=== PATIENT | female | born 1945 | race Caucasian/White ===

== ENCOUNTER 2017-12-11 09:57 | Inpatient (IN) | payer MEDICARE, OTHER ==
[2017-12-11] MEDS ORDERED: VANCOMYCIN IV PER PHARMACY 1 EACH MISC MISCELLANE PRN (13:57)
--- NOTE | 2017-12-11 14:21 | XR ---
EXAMINATION TYPE: XR chest 2V DATE OF EXAM: 12/11/2017 COMPARISON: 07/09/2014 TECHNIQUE: PA and lateral views submitted. HISTORY: Shortness of breath FINDINGS: The lungs are clear and there is no pneumothorax, pleural effusion, or focal pneumonia. Heart is en larged. There is widening of the right AC joint which appears chronic. Surgical clips overlying the r ight axilla. There is mild central interstitial prominence. There is limited inspiration. IMPRESSION: 1. Mild central interstitial prominence may be secondary to poor inspiration rather than interstitial pneumonitis or early venous congestion. Correlate clinically.
[2017-12-11] MEDS ORDERED: VANCOMYCIN 1,750 MG in SODIUM CHLORIDE 0.9% 500 ML 500 ML IVPB ONE (14:30)
--- NOTE | 2017-12-11 14:56 | US ---
EXAMINATION TYPE: US venous doppler duplex LE BI DATE OF EXAM: 12/11/2017 2:35 PM COMPARISON: 09/05/2013 CLINICAL HISTORY: leg edema. Bilateral leg swelling/redness SIDE PERFORMED: Bilateral TECHNIQUE: The lower extremity deep venous system is examined utilizing real time linear array sonog rakel with graded compression, doppler sonography and color-flow sonography. VESSELS IMAGED: External Iliac Vein (EIV) Common Femoral Vein Deep Femoral Vein Greater Saphenous Vein * Femoral Vein Popliteal Vein Small Saphenous Vein * Proximal Calf Veins (* superficial vessels) Bilateral distal femoral veins not visualized due to edema and large pt body habitus Right Leg: Visualized portions appeared negative for DVT Left Leg: Visualized portions appeared negative for DVT IMPRESSION: 1. Limited exam demonstrates No diagnostic evidence of DVT as visualized. Note is made the distal sup erficial femoral veins were not visualized due to patient body habitus.
[2017-12-11 15:45] LABS: Basophils % (A) 0 %; Eosinophils # (A) 0.1 k/uL (0-0.7); Eosinophils % (A) 1 %; HCT 37.9 % (34.0-46.0); HGB 12.1 gm/dL (11.4-16.0); Hypochromasia Slight; Lymphocytes # (A) 1.2 k/uL (1.0-4.8); Lymphocytes % (A) 18 %; MCH 34.5 pg (25.0-35.0); MCV 107.7 fL (80.0-100.0); Macrocytosis Moderate; Mean Platelet Volume 10.1; Monocytes # (A) 0.4 k/uL (0-1.0); Monocytes % (A) 6 %; Neutrophils # (A) 4.7 k/uL (1.3-7.7); Neutrophils % (A) 73 %; Platelet Count 203 k/uL (150-450); RBC 3.52 m/uL (3.80-5.40); RDW 13.2 % (11.5-15.5); WBC 6.4 k/uL (3.8-10.6)
[2017-12-11 15:51] LABS: ALT 12 U/L (9-52); AST 19 U/L (14-36); Albumin 3.6 g/dL (3.5-5.0); Alkaline Phosphatase 70 U/L (38-126); Anion Gap 8 mmol/L; Blood Urea Nitrogen 13 mg/dL (7-17); Calcium 8.7 mg/dL (8.4-10.2); Carbon Dioxide 26 mmol/L (22-30); Chloride 107 mmol/L (98-107); Glucose 120 mg/dL (74-99); Potassium 4.1 mmol/L (3.5-5.1); Sodium 141 mmol/L (137-145); Total Bilirubin 0.8 mg/dL (0.2-1.3); Total Protein 7.3 g/dL (6.3-8.2)
[2017-12-11] MEDS: HYDROcodone/APAP 10-325MG 1 EACH TAB PO PRN (17:47)
--- NOTE | 2017-12-11 18:32 | ECHOF ---
Referral Reason:CHF MEASUREMENTS -------- HEIGHT: 162.6 cm WEIGHT: 97.5 kg BP: 157/78 RVIDd: 2.8 cm (< 3.3) IVSd: 1.2 cm (0.6 - 1.1) LVIDd: 4.0 cm (3.9 - 5.3) LVPWd: 1.3 cm (0.6 - 1.1) IVSs: 1.7 cm LVIDs: 2.7 cm LVPWs: 1.5 cm LA Diam: 3.3 cm (2.7 - 3.8) Ao Diam: 3.4 cm (2.0 - 3.7) AV Cusp: 2.0 cm (1.5 - 2.6) MV EXCURSION: 18.742 mm (> 18.000) MV EF SLOPE: 103 mm/s (70 - 150) EPSS: 0.7 cm FINDINGS -------- Sinus rhythm. This was a technically difficult study with suboptimal views. The left ventricular size is normal. There is mild concentric left ventricular hypertrophy. Overa ll left ventricular systolic function is moderately impaired with, an EF between 35 - 40 %. Mid ant erior LV wall motion is hypokinetic. Mid lateral LV wall motion is hypokinetic. Apical anterior LV wall motion is hypokinetic. Apical lateral LV wall motion is hypokinetic. Apical septum LV wall motion is hypokinetic. The right ventricle is normal in size. The left atrial size is normal. The right atrium is normal in size. The aortic valve was not well visualized. Mild mitral annular calcification present. Mild mitral regurgitation is present. The tricuspid valve was not well visualized. The pulmonic valve was not well visualized. The aortic root size is normal. IVC Not well visulized. There is no pericardial effusion. CONCLUSIONS -------- 1. This was a technically difficult study with suboptimal views. 2. The left ventricular size is normal. 3. There is mild concentric left ventricular hypertrophy. 4. Overall left ventricular systolic function is moderately impaired with, an EF between 35 - 40 %. 5. Mid anterior LV wall motion is hypokinetic. 6. Mid lateral LV wall motion is hypokinetic. 7. Apical anterior LV wall motion is hypokinetic. 8. Apical lateral LV wall motion is hypokinetic. 9. Apical septum LV wall motion is hypokinetic. 10. The left atrial size is normal. 11. The aortic valve was not well visualized. 12. Mild mitral annular calcification present. 13. Mild mitral regurgitation is present. 14. The pulmonic valve was not well visualized. 15. The aortic root size is normal. 16. IVC Not well visulized. 17. There is no pericardial effusion. DATA OFFICER: Maya Sanchez RDCS
[2017-12-11] MEDS: HEPARIN SODIUM,PORCINE 5,000 UNIT/ML 1 ML VIAL SQ SCH ×2 (21:15→21:18)
[2017-12-11] MEDS: clonazePAM 1 MG TAB PO SCH (21:15)
[2017-12-11] MEDS: TROSPIUM CHLORIDE 20 MG TABLET PO SCH (21:15)
[2017-12-12] MEDS: HYDROcodone/APAP 10-325MG 1 EACH TAB PO PRN ×4 (01:52→20:49)
[2017-12-12] MEDS ORDERED: VANCOMYCIN 1,500 MG in SODIUM CHLORIDE 0.9% 250 ML IVPB SCH (08:00)
[2017-12-12] MEDS: METOPROLOL TARTRATE 12.5 MG TAB PO SCH ×2 (08:17→20:40)
[2017-12-12] MEDS: HEPARIN SODIUM,PORCINE 5,000 UNIT/ML 1 ML VIAL SQ SCH ×2 (08:18→20:41)
[2017-12-12] MEDS: LISINOPRIL 20 MG TAB PO SCH (08:18)
[2017-12-12] MEDS: ARTIFICIAL TEARS-HYPROMELLOSE DROPS 15 ML BTL BOTH EYES SCH (08:19)
[2017-12-12] MEDS: FUROSEMIDE 10 MG/ML 4 ML VIAL IV SCH ×2 (08:19→20:40)
[2017-12-12] MEDS: TROSPIUM CHLORIDE 20 MG TABLET PO SCH ×2 (08:20→20:39)
[2017-12-12] MEDS: tiZANidine 4 MG TAB PO SCH (08:20)
--- NOTE | 2017-12-12 08:20 | P.CRDCN ---
History of Present Illness History of present illness: Mrs. García is a pleasant 72-year-old female past medical history significant for mild CAD with 40-50% lesion in OM per cath in 2015, chronic systolic heart failure EF 40% in 2015, hypertension, COPD, chronic lower extremity lymphedema followed in the lymphedema clinic with Dr. Rubio, GERD and hypothyroidism. She has seen Dr. Poole in the office previously, but not since 2015. We have been asked to see her in consultation for CHF. She apparently went to see Dr. Mendoza yesterday in the office and was sent here as a direct admit for further evaluation and antibiotics for lower extremity swelling and cellulitus. She states the swelling has been getting progressively worse over the past year. She was referred to the lymphedema clinic last month and had her legs wrapped which seemed to help. She hasn't wrapped them since. She also complains of shortness of breath mostly at rest that is ongoing and not any worse lately than her baseline. She sleeps propped up on 2-3 pillows at night due to chronic neck pain for which she sees Dr. Spivey and gets regular injections for pain. She denies chest pain, dizziness or palpitations. She complains of intermittent dry cough that is chronic with no changes recently. She denies recent weight change. No EKG obtained on admission. Chest xray indicates mild interstitial prominence secondary to poor inspiration. No overt heart failure. Laboratory data reviewed, hgb 12.1, plt 203, sodium 141, potassium 4.1, creatinine 0.68. Current cardiac medications include lasix 40 mg daily and lisinopril 20 mg daily. She also takes clonazepam, tizanidine, norco and toviaz. Review of Systems At the time of my exam: CONSTITUTIONAL: Denies fever. Denies chills. EYES: Denies blurred vision. Denies vision changes. Denies eye pain. EARS, NOSE, MOUTH & THROAT: Denies headache. Denies sore throat. Denies ear pain. CARDIOVASCULAR: Denies chest pain. Complains of shortness of breath. Denies orthopnea. Denies PND. Denies palpitations. RESPIRATORY: Complains of cough. GASTROINTESTINAL: Denies abdominal pain. Denies diarrhea. Denies constipation. Denies nausea. Denies vomiting. MUSCULOSKELETAL: Denies myalgias. INTEGUMENTARY: Denies pruitis. Denies rash. Complains of lower extremity swelling and pain. NEUROLOGIC: Denies numbness. Denies tingling. Denies weakness. PSYCHIATRIC: Denies anxiety. Denies depression. ENDOCRINE: Denies fatigue. Denies weight change. Denies polydipsia. Denies polyurina. GENITOURINARY: Denies burning, hematuria or urgency with micturation. HEMATOLOGIC: Denies history of anemia. Denies bleeding. Past Medical History Past Medical History: Chest Pain / Angina, Heart Failure, COPD, Eye Disorder, GERD/Reflux, Hypertension, Myocardial Infarction ([place]), Osteoarthritis (OA), Pneumonia, Thyroid Disorder Additional Past Medical History / Comment(s): Pt states she has had problems with bilateral leg edema and sores/cellulitis for the past 2 years-at times everything improves and then worsens again and L leg is always worse, urinary incontinence, bronchitis, hypothyroid, DDD cervical spine and lower back, cervical and low back chronic pain, arthritis bilateral wrists and fingers, pt states she has been told she has a bone spur in her L ankle or foot, "blocked" bile duct a couple of times, migraines, possible bilateral cataracts, Last Myocardial Infarction Date:: about 2009-pt unsure where she was hospitalized. History of Any Multi-Drug Resistant Organisms: None Reported Past Surgical History: Appendectomy, Cholecystectomy, Heart Catheterization, Hysterectomy, Orthopedic Surgery Additional Past Surgical History / Comment(s): Cardiac cath about 2009 and pt states she was treated medically, EGDs to "unplug" bile duct, colonoscopies, bilateral salpingoophorectomies, L ankle shattered-surgical repair with hardware and pt believes hardware is all removed now, cystoscopies to "stretch" her bladder, cervical and low back injections. Past Anesthesia/Blood Transfusion Reactions: Motion Sickness Smoking Status: Never smoker - Past Family History Mother Family Medical History: Cancer Additional Family Medical History / Comment(s): Mother from metastatic breast cancer at the age of 52 yrs. Father Family Medical History: Coronary Artery Disease (CAD), Myocardial Infarction ([place] ) Additional Family Medical History / Comment(s): Father had his first Mi around age 78yrs. He has about 3 MIs total and from his last one at the age of 80yrs. Medications and Allergies Home Medications Medication Instructions Recorded Confirmed Type Artificial Tears-Hypromellose 1 drop BOTH EYES DAILY 12/11/17 12/11/17 History [Artificial Tear Drops] Fesoterodine Fumarate [Toviaz] 8 mg PO DAILY 12/11/17 12/11/17 History Furosemide [Lasix] 40 mg PO DAILY 12/11/17 12/11/17 History Hydrocodone/Acetaminophen [[place] 1 tab PO Q4-6H PRN 12/11/17 12/11/17 History 10-325] Lisinopril [Prinivil] 20 mg PO DAILY 12/11/17 12/11/17 History clonazePAM 1 mg PO BID 12/11/17 12/11/17 History tiZANidine HCL 4 mg PO DAILY 12/11/17 12/11/17 History Allergies Allergy/AdvReac Type Severity Reaction Status Date / Time buspirone [From BuSpar] AdvReac Unknown Verified 12/11/17 13:24 Physical Exam Vitals: Vital Signs Temp Pulse Pulse Resp BP Pulse Ox 12/12/17 07:25 98.3 F 99 18 117/58 94 L 12/12/17 04:59 98.7 F 90 18 123/57 92 L 12/12/17 00:00 16 12/11/17 21:00 99.0 F 98 16 148/69 93 L 12/11/17 12:41 97.6 F 97 17 157/78 99 Intake and Output 12/11/17 12/12/17 12/12/17 22:59 06:59 14:59 Intake Total 830 Balance 830 Intake: Intake, IV Titration 350 Amount Vancomycin 1,500 mg In 350 Sodium Chloride 0.9% 250 ml @ 125 mls/hr IVPB Q16H [facility] Rx#:[id number] Oral 480 Other: Voiding Method Toilet Toilet # Voids 1 2 Weight 105.5 kg Blood pressure 123/57 heart rate 90 afebrile maintaining oxygen saturation on room air GENERAL: This is a 72-year-old female in no apparent distress at the time of my examination. Obese. HEENT: Head is atraumatic, normocephalic. Pupils are equal, round. Sclerae anicteric. Conjunctivae are clear. Mucous membranes of the mouth are moist. Neck is supple. There is no jugular venous distention. No carotid bruit is heard. LUNGS: Clear to auscultation no wheezes, rales or rhonchi. No chest wall tenderness is noted on palpation or with deep breathing. HEART: Regular rate and rhythm without murmurs, rubs or gallops. S1 and S2 heard. ABDOMEN: Soft, nontender. Bowel sounds are heard. No organomegaly noted. EXTREMITIES: Significant bilateral lower extremity edema with color change indicative of venous statis. Tender to touch. No calf tenderness noted. VASCULAR: Radial and dorsalis pedis pulses palpated, no evidence of clubbing. NEUROLOGIC: Patient is awake, alert and oriented x3. Results 12/11/17 15:28 12/11/17 15:28 Cardiac Enzymes 12/11/17 Range/Units 15:28 AST 19 (14-36) U/L CBC 12/11/17 Range/Units 15:28 WBC 6.4 (3.8-10.6) k/uL RBC 3.52 L (3.80-5.40) m/uL Hgb 12.1 (11.4-16.0) gm/dL Hct 37.9 (34.0-46.0) % Plt Count 203 (150-450) k/uL Comprehensive Metabolic Panel 12/11/17 Range/Units 15:28 Sodium 141 (137-145) mmol/L Potassium 4.1 (3.5-5.1) mmol/L Chloride 107 (98-107) mmol/L Carbon Dioxide 26 (22-30) mmol/L BUN 13 (7-17) mg/dL Creatinine 0.68 (0.52-1.04) mg/dL Glucose 120 H (74-99) mg/dL Calcium 8.7 (8.4-10.2) mg/dL AST 19 (14-36) U/L ALT 12 (9-52) U/L Alkaline Phosphatase 70 (38-126) U/L Total Protein 7.3 (6.3-8.2) g/dL Albumin 3.6 (3.5-5.0) g/dL Current Medications Generic Name Dose Route Start Last Admin Trade Name Freq PRN Reason Stop Dose Admin Hydrocodone Bitart/Acetaminophen 1 each 12/11/17 13:52 12/12/17 07:12 [place] 10 PO 1 each Q4H PRN Administration Pain Artificial Tears 1 drops 12/12/17 09:00 Artificial Tear Drops BOTH EYES DAILY RAYMON Clonazepam 1 mg 12/11/17 21:00 12/11/17 21:15 Klonopin PO 1 mg BID RAYMON Administration Furosemide 40 mg 12/12/17 09:00 Lasix IV Q12HR [facility] Heparin Sodium (Porcine) 5,000 unit 12/11/17 21:00 12/11/17 21:18 Heparin SQ Not Given Q12HR RAYMON Vancomycin HCl 1,500 mg/ 250 mls @ 125 mls/hr 12/12/17 08:00 Sodium Chloride IVPB Q16H RAYMON Lisinopril 20 mg 12/12/17 09:00 Zestril PO DAILY RAYMON Metoprolol Tartrate 12.5 mg 12/12/17 09:00 Lopressor PO BID RAYMON Tizanidine HCl 4 mg 12/12/17 09:00 Zanaflex PO DAILY RAYMON Trospium 20 mg 12/11/17 21:00 12/11/17 21:15 [place] PO 20 mg BID RAYMON Administration Intake and Output 12/11/17 12/12/17 12/12/17 22:59 06:59 14:59 Intake Total 830 Balance 830 Intake: Intake, IV Titration 350 Amount Vancomycin 1,500 mg In 350 Sodium Chloride 0.9% 250 ml @ 125 mls/hr IVPB Q16H [facility] Rx#:[id number] Oral 480 Other: Voiding Method Toilet Toilet # Voids 1 2 Weight 105.5 kg 12/11/17 15:28 12/11/17 15:28 Assessment and Plan Assessment: ASSESSMENT Lower extremity edema, mostly related to chronic lymphedema and probably cellulitus with some possibility of norma component of underlying systolic heart failure. Lungs are clear with no evidence of fluid overload. Chronic systolic heat failure, EF 35-40% Hypertension Mild CAD documented on catheterization from 2014 done at [facility] COPD Obesity PLAN Obtain baseline EKG. Check NTproBNP. Change lasix to IV 40 mg BID to diurese lower extremity fluid. Continue with lisinopril and add small dose of beta dee for systolic heart failure. Check lipid panel. Follow kidney function and electrolytes tomorrow morning. Ongoing medical management per vascular and wound care services. Further recommendations to follow based on clinical course. Thank you kindly for this consultation. Nurse Practitioner note has been reviewed, I agree with a documented findings and plan of care. Patient was seen and examined.
[2017-12-12] MEDS: clonazePAM 1 MG TAB PO SCH ×2 (08:25→20:39)
[2017-12-12] MEDS ORDERED: FUROSEMIDE 40 MG TAB PO SCH (09:00)
--- NOTE | 2017-12-12 10:12 | CONS ---
DATE OF CONSULTATION: 12/12/2017 This is a 72-year-old female. She has been admitted to [facility] under care of Dr. Mendoza. We were consulted for leg evaluation. The patient is known to me from my office. The patient has been worked up for lymphedema. We did the venous ultrasound. Patient has no DVT. No reflux. The patient was sent to lymphedema clinic in [place] and she has been evaluated in the lymphedema clinic. MEDICAL HISTORY: History of hypertension, obesity. PHYSICAL EXAMINATION: The patient on examination was seen in her room. VITAL SIGNS: Stable. NECK: Supple, trachea central. CHEST: Clear to auscultation. ABDOMEN: Soft. The patient has bilateral lymphedema with cellulitis affecting the both lower extremities. PLAN: Silvadene cream and Jay wrap with one pillow elevation. At this point there is no role of any vascular surgical intervention. The patient needs to follow in the lymphedema clinic and when discharged I will follow in my office. We will use Silvadene cream with compression wrap and one pillow elevation. Will follow with you. MMODL / IJN: [id number] / KATIE
--- NOTE | 2017-12-12 12:33 | P.HPIM ---
History of Present Illness 72-year-old female presented to family physician with complaints of increasing drainage to lower extremities. Patient does have a history of lymphedema has seen Dr. Leahy for the same and was referred to the lymphedema clinic in [place]. Patient does have history congestive heart failure ejection fraction at this time 35%. Patient to have consultation with Dr. Felix regarding cellulitis of lower extremities. Patient is morbidly obese Review of Systems Constitutional: Reports fatigue Cardiovascular: Reports leg edema Respiratory: Reports dyspnea Integumentary: Reports foot/leg ulcers Past Medical History Past Medical History: Chest Pain / Angina, Heart Failure, COPD, Eye Disorder, GERD/Reflux, Hypertension, Myocardial Infarction ([place]), Osteoarthritis (OA), Pneumonia, Thyroid Disorder Additional Past Medical History / Comment(s): Pt states she has had problems with bilateral leg edema and sores/cellulitis for the past 2 years-at times everything improves and then worsens again and L leg is always worse, urinary incontinence, bronchitis, hypothyroid, DDD cervical spine and lower back, cervical and low back chronic pain, arthritis bilateral wrists and fingers, pt states she has been told she has a bone spur in her L ankle or foot, "blocked" bile duct a couple of times, migraines, possible bilateral cataracts, Last Myocardial Infarction Date:: about 2009-pt unsure where she was hospitalized. History of Any Multi-Drug Resistant Organisms: None Reported Past Surgical History: Appendectomy, Cholecystectomy, Heart Catheterization, Hysterectomy, Orthopedic Surgery Additional Past Surgical History / Comment(s): Cardiac cath about 2009 and pt states she was treated medically, EGDs to "unplug" bile duct, colonoscopies, bilateral salpingoophorectomies, L ankle shattered-surgical repair with hardware and pt believes hardware is all removed now, cystoscopies to "stretch" her bladder, cervical and low back injections. Past Anesthesia/Blood Transfusion Reactions: Motion Sickness Smoking Status: Never smoker - Past Family History Mother Family Medical History: Cancer Additional Family Medical History / Comment(s): Mother from metastatic breast cancer at the age of 52 yrs. Father Family Medical History: Coronary Artery Disease (CAD), Myocardial Infarction ([place] ) Additional Family Medical History / Comment(s): Father had his first Mi around age 78yrs. He has about 3 MIs total and from his last one at the age of 80yrs. Medications and Allergies Home Medications Medication Instructions Recorded Confirmed Type Artificial Tears-Hypromellose 1 drop BOTH EYES DAILY 12/11/17 12/11/17 History [Artificial Tear Drops] Fesoterodine Fumarate [Toviaz] 8 mg PO DAILY 12/11/17 12/11/17 History Furosemide [Lasix] 40 mg PO DAILY 12/11/17 12/11/17 History Hydrocodone/Acetaminophen [[place] 1 tab PO Q4-6H PRN 12/11/17 12/11/17 History 10-325] Lisinopril [Prinivil] 20 mg PO DAILY 12/11/17 12/11/17 History clonazePAM 1 mg PO BID 12/11/17 12/11/17 History tiZANidine HCL 4 mg PO DAILY 12/11/17 12/11/17 History Allergies Allergy/AdvReac Type Severity Reaction Status Date / Time buspirone [From BuSpar] AdvReac Unknown Verified 12/11/17 13:24 Physical Exam Vitals: Vital Signs Temp Pulse Pulse Resp BP Pulse Ox 12/12/17 09:03 18 12/12/17 07:25 98.3 F 99 18 117/58 94 L 12/12/17 04:59 98.7 F 90 18 123/57 92 L 12/12/17 00:00 16 12/11/17 21:00 99.0 F 98 16 148/69 93 L 12/11/17 12:41 97.6 F 97 17 157/78 99 Intake and Output 12/11/17 12/12/17 12/12/17 22:59 06:59 14:59 Intake Total 830 380 Balance 830 380 Intake: Intake, IV Titration 350 Amount Vancomycin 1,500 mg In 350 Sodium Chloride 0.9% 250 ml @ 125 mls/hr IVPB Q16H [facility] Rx#:[id number] Oral 480 380 Other: Voiding Method Toilet Toilet Toilet # Voids 1 2 Weight 105.5 kg 105.5 kg - Constitutional General appearance: morbidly obese - EENT Eyes: PERRLA Ears: bilateral: normal - Neck Neck: normal ROM - Respiratory Respiratory: left: diminished - Cardiovascular Rhythm: regular leg Peripheral Edema: bilateral: 4+ - Gastrointestinal General gastrointestinal: soft - Integumentary Bilateral lower extremities oozing for pitting edema open wounds to posterior legs Integumentary: ulcer - Neurologic Neurologic: CNII-XII intact - Musculoskeletal Musculoskeletal: generalized weakness - Psychiatric Psychiatric: A&O x's 3, appropriate affect, intact judgment & insight Results CBC & Chem 7: 12/11/17 15:28 12/11/17 15:28 Labs: Abnormal Lab Results - Last 24 Hours (Table) 12/11/17 12/11/17 Range/Units 15:28 15:28 RBC 3.52 L (3.80-5.40) m/uL MCV 107.7 H (80.0-100.0) fL Glucose 120 H (74-99) mg/dL Microbiology - Last 24 Hours (Table) 12/11/17 17:57 Gram Stain - Preliminary Leg - Left Wound Culture - Preliminary Chest x-ray: report reviewed Venous US: report reviewed Thrombosis Risk Factor Assmnt - Choose All That Apply Any of the Below Risk Factors Present?: Yes Each Factor Represents 1 point: Heart failure (<1month), Obesity (BMI >25) Other Risk Factors: Yes Each Risk Factor Represents 2 Points: Age 61-74 years Other congenital or acquired thrombophilia - If yes, enter type in comment: No Thrombosis Risk Factor Assessment Total Risk Factor Score: 4 Thrombosis Risk Factor Assessment Level: Moderate Risk Assessment and Plan Plan: Assessment Bilateral lower extremity cellulitis Lymphedema chronic history [facility] [place] [facility] Congestive heart failure acute on chronic 35% ejection fraction systolic dysfunction Morbid obesity BMI 39.9 History of [place] COPD GERD Hypertension Osteoarthritis with degenerative disc disease Hypothyroidism Plan Consultation with Dr. Felix regarding cellulitis Consultation with Dr. Rubio regarding chronic lymphedema Consultation with cardiology regarding congestive heart failure
--- NOTE | 2017-12-12 22:42 | P.CONS ---
History of Present Illness - Reason for Consult Consult date: 12/12/17 - Chief Complaint edema - History of Present Illness 72-year-old woman who has a history of chronic bilateral lower extremity edema with lymphedema followed by the vascular surgeon presents to hospital with increasing swelling and pain to the left leg with erythema and drainage. Because it was uncomfortable and worsening with the drainage she does present to the emergency center and has been admitted for further intervention. Vascular surgery evaluation has been done with evidence of no new deep venous thrombosis and no need for any surgical intervention at this time. The patient is somewhat uncomfortable and with the evidence for cellulitis the infectious diseases consultation was requested. She is denying high-grade fevers chills rigors or sweats. Review of Systems 72-year-old woman who is somewhat uncomfortable because of the swelling into her legs especially the left with some discomfort. HEENT:Denies headache or acute visual change. Denies sinus or mouth discomforts. Denies neck stiffness or pain. Denies significant oral cavity pain. Denies difficulty on swallowing. Lungs: She denying significant cough or sputum production or hemoptysis but does have some baseline shortness of breath that is not acutely changed Cardiovascular: No new shortness of breath and is denying chest pain, chest wall pain, orthopnea, or worsening dyspnea dyspnea on exertion: No syncope Gastrointestinal:Denies nausea, vomiting, diarrhea, constipation, hematemesis, melena, hematochezia. No no significant change of bowel habit noticed. Musculoskeletal: denies significant myalgias or arthralgias. No new joint swelling. Chronic back pain nothing new Skin: As per the HPI erythema and drainage the left leg Neuro: Denies headache or visual change. Denies any new onset weakness or difficulty with ambulation. Denies falls or seizures. Psychiatric:Denies anxiety or depression. Endocrine: Chronic fatigue is difficulty with weight gain Past Medical History Past Medical History: Chest Pain / Angina, Heart Failure, COPD, Eye Disorder, GERD/Reflux, Hypertension, Myocardial Infarction ([place]), Osteoarthritis (OA), Pneumonia, Thyroid Disorder Additional Past Medical History / Comment(s): Pt states she has had problems with bilateral leg edema and sores/cellulitis for the past 2 years-at times everything improves and then worsens again and L leg is always worse, urinary incontinence, bronchitis, hypothyroid, DDD cervical spine and lower back, cervical and low back chronic pain, arthritis bilateral wrists and fingers, pt states she has been told she has a bone spur in her L ankle or foot, "blocked" bile duct a couple of times, migraines, possible bilateral cataracts, Last Myocardial Infarction Date:: about 2009-pt unsure where she was hospitalized. History of Any Multi-Drug Resistant Organisms: None Reported Past Surgical History: Appendectomy, Cholecystectomy, Heart Catheterization, Hysterectomy, Orthopedic Surgery Additional Past Surgical History / Comment(s): Cardiac cath about 2009 and pt states she was treated medically, EGDs to "unplug" bile duct, colonoscopies, bilateral salpingoophorectomies, L ankle shattered-surgical repair with hardware and pt believes hardware is all removed now, cystoscopies to "stretch" her bladder, cervical and low back injections. Past Anesthesia/Blood Transfusion Reactions: Motion Sickness Additional Psychological History / Comment(s): Retired. Nonsmoker. Lives with her children. No animal exposures. No international travel. The experience Smoking Status: Never smoker - Past Family History Mother Family Medical History: Cancer Additional Family Medical History / Comment(s): Mother from metastatic breast cancer at the age of 52 yrs. Father Family Medical History: Coronary Artery Disease (CAD), Myocardial Infarction ([place] ) Additional Family Medical History / Comment(s): Father had his first Mi around age 78yrs. He has about 3 MIs total and from his last one at the age of 80yrs. Medications and Allergies Home Medications and Allergies Comment(s): Current Medications Hydrocodone Bitart/Acetaminophen (Brighton 10) 1 each PO Q4H PRN PRN Reason: Pain Last Admin: 12/12/17 20:49 Dose: 1 each Artificial Tears (Artificial Tear Drops) 1 drops BOTH EYES DAILY [facility] Last Admin: 12/12/17 08:19 Dose: 1 drops Clonazepam (Klonopin) 1 mg PO BID [facility] Last Admin: 12/12/17 20:39 Dose: 1 mg Furosemide (Lasix) 40 mg IV Q12HR R[facility]MON Last Admin: 12/12/17 20:40 Dose: 40 mg Heparin Sodium (Porcine) (Heparin) 5,000 unit SQ Q12HR [facility]MON Last Admin: 12/12/17 20:41 Dose: Not Given Vancomycin HCl 1,750 mg/ (Sodium Chloride) 500 mls @ 167 mls/hr IVPB Q16H [facility] Lisinopril (Zestril) 20 mg PO DAILY [facility] Last Admin: 12/12/17 08:18 Dose: 20 mg Metoprolol Tartrate (Lopressor) 12.5 mg PO BID [facility] Last Admin: 12/12/17 20:40 Dose: 12.5 mg Silver Sulfadiazine (Silvadene Cream) 1 applic TOPICAL BID@0900,2100 [facility] Last Admin: 12/12/17 20:41 Dose: 1 applic Tizanidine HCl (Zanaflex) 4 mg PO DAILY [facility] Last Admin: 12/12/17 08:20 Dose: 4 mg Trospium (Sanctura) 20 mg PO BID [facility] Last Admin: 12/12/17 20:39 Dose: 20 mg Home Medications Medication Instructions Recorded Confirmed Type Artificial Tears-Hypromellose 1 drop BOTH EYES DAILY 12/11/17 12/11/17 History [Artificial Tear Drops] Fesoterodine Fumarate [Toviaz] 8 mg PO DAILY 12/11/17 12/11/17 History Furosemide [Lasix] 40 mg PO DAILY 12/11/17 12/11/17 History Hydrocodone/Acetaminophen [Brighton 1 tab PO Q4-6H PRN 12/11/17 12/11/17 History 10-325] Lisinopril [Prinivil] 20 mg PO DAILY 12/11/17 12/11/17 History clonazePAM 1 mg PO BID 12/11/17 12/11/17 History tiZANidine HCL 4 mg PO DAILY 12/11/17 12/11/17 History Allergies Allergy/AdvReac Type Severity Reaction Status Date / Time buspirone [From BuSpar] AdvReac Unknown Verified 12/11/17 13:24 Physical Exam Vitals: Vital Signs Temp Pulse Resp BP Pulse Ox 12/12/17 21:00 98.3 F 89 16 138/56 93 L 12/12/17 13:00 96.0 F L 75 18 112/55 98 12/12/17 12:28 96.0 F L 71 18 117/58 96 12/12/17 09:03 18 12/12/17 07:25 98.3 F 99 18 117/58 94 L 12/12/17 04:59 98.7 F 90 18 123/57 92 L 12/12/17 00:00 16 Intake and Output 12/12/17 12/12/17 12/12/17 06:59 14:59 22:59 Intake Total 780 480 Balance 780 480 Intake: Oral 780 480 Other: Voiding Method Toilet Toilet Toilet Diaper # Voids 2 1 Weight 105.5 kg 105.5 kg Pleasant 72-year-old woman who has a BMI of 39.9 is somewhat uncomfortable but not profoundly short of breath. HEENT: Anicteric conjunctiva are pink and moist nasal mucosa grossly intact without significant lesions, there is no thrush. Dentition is very worn Neck: The neck is supple without significant lymphadenopathy or thyromegaly. Lungs: There is symmetrical air entry, few crackles in the bilateral bases without dav bronchial sounds no dullness or egophony Heart: Irregular with a soft S4 no murmur click or a PMI was nondisplaced Abdomen: Obese, Positive bowel sounds soft and nontender without palpable masses or organomegaly. There was no guarding or rebound. Extremities: The upper extremities have excellent pulses they are symmetric, no significant petechiae or telangiectasia. No splinter hemorrhages were noted. The lower extremity films the bilateral lower extremity edema left greater than the right. There is evidence of the dense erythema in the leg with evidence of significant weeping along the lateral aspect of the leg. It is quite tender to touch. There is warmth there is no fluctuance or abscess seen. Neuro: Awake alert oriented to person place and time. There are no acute new gross focal sensory motor deficits. Results CBC & Chem 7: 12/11/17 15:28 12/11/17 15:28 Labs: Microbiology - Last 24 Hours (Table) 12/11/17 17:57 Gram Stain - Preliminary Leg - Left Wound Culture - Preliminary Gram Neg Bacilli Gram Neg Bacilli#2 12/11/17 15:28 Blood Culture - Preliminary Blood No Growth after 24 hours Laboratory Results WBC 6.4 k/uL (3.8-10.6) 12/11/17 15:28 RBC 3.52 m/uL (3.80-5.40) L 12/11/17 15:28 Hgb 12.1 gm/dL (11.4-16.0) 12/11/17 15:28 Hct 37.9 % (34.0-46.0) 12/11/17 15:28 MCV 107.7 fL (80.0-100.0) H 12/11/17: MCH 34.5 pg (25.0-35.0) 12/11/17: MCHC 32.0 g/dL (31.0-37.0) 12/11/17: RDW 13.2 % (11.5-15.5) 12/11/17: Plt Count 203 k/uL (150-450) 12/11/17: Neutrophils % 73 % 12/11/17: Lymphocytes % 18 % 12/11/17: Monocytes % 6 % 12/11/17: Eosinophils % 1 % 12/11/17: Basophils % 0 % 12/11/17 Neutrophils # 4.7 k/uL (1.3-7.7) 12/11/17: Lymphocytes # 1.2 k/uL (1.0-4.8) 12/11/17: Monocytes # 0.4 k/uL (0-1.0) 12/11/17: Eosinophils # 0.1 k/uL (0-0.7) 12/11/17: Basophils # 0.0 k/uL (0-0.2) 12/11/17: Hypochromasia Slight 12/11/17: Macrocytosis Moderate 12/11/17: Sodium 141 mmol/L (137-145) 12/11/17: Potassium 4.1 mmol/L (3.5-5.1) 12/11/17: Chloride 107 mmol/L (98-107) 12/11/17: Carbon Dioxide 26 mmol/L (22-30) 12/11/17: Anion Gap 8 mmol/L 12/11/17: BUN 13 mg/dL (7-17) 12/11/17: Creatinine 0.68 mg/dL (0.52-1.04) 12/11/17 15: Est GFR (CKD-EPI)AfAm >90 (>60 ml/min/1.73 sqM) 12/11/17: Est GFR (CKD-EPI)NonAf 86 (>60 ml/min/1.73 sqM) 12/11/17 15:28 Glucose 120 mg/dL (74-99) H 12/11/17 15:28 Calcium 8.7 mg/dL (8.4-10.2) 12/11/17 15:28 Magnesium 2.0 mg/dL (1.6-2.3) 12/12/17 09:31 Total Bilirubin 0.8 mg/dL (0.2-1.3) 12/11/17 15:28 AST 19 U/L (14-36) 12/11/17 15:28 ALT 12 U/L (9-52) 12/11/17 15:28 Alkaline Phosphatase 70 U/L (38-126) 12/11/17 15:28 NT-Pro-B Natriuret Pep 728 pg/mL 12/12/17 09:31 Total Protein 7.3 g/dL (6.3-8.2) 12/11/17 15:28 Albumin 3.6 g/dL (3.5-5.0) 12/11/17 15:28 Triglycerides 42 mg/dL (<150) 12/12/17 09:31 Cholesterol 130 mg/dL (<200) 12/12/17 09:31 LDL Cholesterol, Calc 74 mg/dL (0-99) 12/12/17 09:31 HDL Cholesterol 48 mg/dL (40-60) 12/12/17 09:31 Microbiology 12/11/17 17:57 Leg - Left Gram Stain - Preliminary 12/11/17 17:57 Leg - Left Wound Culture - Preliminary Gram Neg Bacilli Gram Neg Bacilli#2 12/11/17 15:28 Blood Blood Culture - Preliminary No Growth after 24 hours Assessment and Plan (1) CHF (congestive heart failure) Current Visit: Yes Status: Acute Code(s): I50.9 - HEART FAILURE, UNSPECIFIED SNOMED Code(s): 68870690 (2) Bilateral cellulitis of lower leg Narrative/Plan: 72-year-old female with obesity presents to hospital with the increasing swelling to the lower extremities with known history of lymphedema. She has been following with the lymphedema clinic in [place]. Despite this legs have markedly worsened and other significant weeping and drainage from the left leg that is saturating dressing. At this time Silvadene wrap with ABVD had over the weeping area rolled gauze and Jay wrap from the foot to the knee should be applied. Can also be done to the right lower extremity. Elevation limbs at rest is important. For antimicrobial therapy vancomycin was restarted however numerous gram-negative bacilli are being seen in consequently Fortaz was also added at this point in time. Cultures will further direct the course of antibiotic therapy and guide the outpatient course. Multivitamin with zinc is requested Current Visit: Yes Status: Acute Code(s): L03.116 - CELLULITIS OF LEFT LOWER LIMB; L03.115 - CELLULITIS OF RIGHT LOWER LIMB SNOMED Code(s): 544016188
[2017-12-13] MEDS ORDERED: VANCOMYCIN 1,750 MG in SODIUM CHLORIDE 0.9% 500 ML 500 ML IVPB SCH ×3 (01:00)
[2017-12-13] MEDS: HYDROcodone/APAP 10-325MG 1 EACH TAB PO PRN ×3 (01:31→21:40)
[2017-12-13] MEDS: clonazePAM 1 MG TAB PO SCH ×2 (08:03→21:40)
[2017-12-13] MEDS: METOPROLOL TARTRATE 12.5 MG TAB PO SCH ×2 (08:04→21:39)
[2017-12-13] MEDS: ARTIFICIAL TEARS-HYPROMELLOSE DROPS 15 ML BTL BOTH EYES SCH (08:05)
[2017-12-13] MEDS: TROSPIUM CHLORIDE 20 MG TABLET PO SCH ×2 (08:06→21:40)
[2017-12-13] MEDS: tiZANidine 4 MG TAB PO SCH (08:06)
[2017-12-13] MEDS: LISINOPRIL 20 MG TAB PO SCH (08:06)
[2017-12-13] MEDS: FUROSEMIDE 10 MG/ML 4 ML VIAL IV SCH ×2 (08:06→21:42)
[2017-12-13] MEDS: HEPARIN SODIUM,PORCINE 5,000 UNIT/ML 1 ML VIAL SQ SCH ×2 (08:06→21:41)
[2017-12-13 08:46] LABS: Calcium 8.2 mg/dL (8.4-10.2); Potassium 3.8 mmol/L (3.5-5.1)
--- NOTE | 2017-12-13 11:21 | P.PN ---
Subjective Patient sitting up in bed. Had consultation with infectious disease Dr. Felix. Vascular is signed off continues with cardiology consultation regarding CHF antibiotic Fortaz added Objective - Vital Signs Vital signs: Vital Signs Temp 97.2 F L 12/13/17 05:00 Pulse 78 12/13/17 05:00 Resp 18 12/13/17 05:00 BP 98/53 12/13/17 05:00 Pulse Ox 94 L 12/13/17 05:00 Intake & Output 12/12/17 12/13/17 12/13/17 18:59 06:59 18:59 Intake Total 780 1200 Balance 780 1200 Weight 105.5 kg 93 kg Intake: Intake, IV Titration 600 Amount Vancomycin 1,750 mg In 500 Sodium Chloride 0.9% 500 ml @ 167 mls/hr IVPB Q16H [facility] Rx#:[id number] cefTAZidime 2 gm In 100 Sodium Chloride 0.9% 100 ml @ 100 mls/hr IVPB Q8HR [facility]MON Rx#:[id number] Oral 780 600 Other: Voiding Method Toilet Toilet Toilet Diaper Diaper Diaper # Voids 1 2 - Constitutional General appearance: Present: mild distress, morbidly obese - EENT Eyes: Present: PERRLA Ears: bilateral: normal - Neck Neck: Present: normal ROM - Respiratory Respiratory: bilateral: diminished - Cardiovascular Rhythm: regular - Gastrointestinal General gastrointestinal: Present: soft - Integumentary Integumentary Comment(s): oozing wounds to lower extremities Integumentary: Present: cellulitis - Neurologic Neurologic: Present: CNII-XII intact - Musculoskeletal Musculoskeletal: Present: generalized weakness - Psychiatric Psychiatric: Present: A&O x's 3, appropriate affect, intact judgment & insight - Labs CBC & Chem 7: 12/11/17 15:28 12/13/17 08:04 Labs: Abnormal Lab Results - Last 24 Hours (Table) 12/13/17 Range/Units 08:04 BUN 19 H (7-17) mg/dL Creatinine 1.06 H (0.52-1.04) mg/dL Glucose 103 H (74-99) mg/dL Calcium 8.2 L (8.4-10.2) mg/dL Microbiology - Last 24 Hours (Table) 12/11/17 17:57 Gram Stain - Preliminary Leg - Left Wound Culture - Preliminary Gram Neg Bacilli Gram Neg Bacilli#2 10/02/18 15:28 Blood Culture - Preliminary Blood No Growth after 24 hours Assessment and Plan Plan: Assessment Cellulitis of lower extremities gram-negative bacilli Congestive heart failure ejection fraction 35% systolic dysfunction Lymphedema Morbid obesity History of angina with TX COPD GERD Hypertension Osteoarthritis with degenerative disc disease Hypothyroidism Plan Continue consultation with infectious disease Dr. Felix and cardiology Continues on antibiotic therapy
[2017-12-13] MEDS: MULTIVITAMINS, THERA 1 EACH TAB PO SCH (13:03)
[2017-12-13] MEDS: SILVER sulfADIAZINE Cream 400 GM 1 APPLIC APPLIC TOPICAL SCH ×2 (13:07→21:42)
--- NOTE | 2017-12-13 13:37 | P.PN ---
Subjective Mrs. García is seen and examined sitting up in the chair. Past medical history significant for mild CAD with 40-50% lesion in OM per cath in 2015, chronic systolic heart failure EF 40% in 2015, hypertension, COPD, chronic lower extremity lymphedema followed in the lymphedema clinic with Dr. Rubio, GERD and hypothyroidism. She has been seen by Infectious disease and Vascular surgery. Recommendations have been made for bilateral venkat wraps, elevation, slivadene cream and IV antibiotics. NTproBNP was obtained yesterday and is 728. EKG obtained reveals left bundle branch block which is chronic for the patient. The patient has been incontinent of urine, output not accurately documented. Weight is down 4 kg since admission. She states she has been up to the bathroom and is urinating frequently. Laboratory data reviewed, creatinine 1.06 up from 0.6 and on admission, sodium 140 potassium 3.8 and magnesium 2.0. Objective - Vital Signs Vital signs: Vital Signs Temp 97.2 F L 12/13/17 05:00 Pulse 78 12/13/17 05:00 Resp 18 12/13/17 05:00 BP 98/53 12/13/17 05:00 Pulse Ox 94 L 12/13/17 05:00 Intake & Output 12/12/17 12/13/17 12/13/17 18:59 06:59 18:59 Intake Total 780 1200 Balance 780 1200 Weight 105.5 kg 93 kg Intake: Intake, IV Titration 600 Amount Vancomycin 1,750 mg In 500 Sodium Chloride 0.9% 500 ml @ 167 mls/hr IVPB Q16H [facility] Rx#:[id number] cefTAZidime 2 gm In 100 Sodium Chloride 0.9% 100 ml @ 100 mls/hr IVPB Q8HR R[facility]MON Rx#:[id number] Oral 780 600 Other: Voiding Method Toilet Toilet Toilet Diaper Diaper Diaper # Voids 1 2 - Exam GENERAL: Well-appearing, well-nourished and in no acute distress. Obese. NECK: Supple without JVD or thyromegaly. LUNGS: Breath sounds clear to auscultation bilaterally. Respiration equal and unlabored. No wheezes, rales or rhonchi. HEART: Regular rate and rhythm without murmurs, rubs or gallops. S1 and S2 heard. EXTREMITIES: Normal range of motion, ongoing significant lower extremity edema with bilateral venkat wraps in place. Bilateral lower extremity tenderness. No clubbing or cyanosis. Peripheral pulses intact. - Labs CBC & Chem 7: 12/11/17 15:28 12/13/17 08:04 Labs: Abnormal Lab Results - Last 24 Hours (Table) 12/13/17 Range/Units 08:04 BUN 19 H (7-17) mg/dL Creatinine 1.06 H (0.52-1.04) mg/dL Glucose 103 H (74-99) mg/dL Calcium 8.2 L (8.4-10.2) mg/dL Microbiology - Last 24 Hours (Table) 12/11/17 17:57 Gram Stain - Preliminary Leg - Left Wound Culture - Preliminary Gram Neg Bacilli Gram Neg Bacilli#2 12/11/17 15:28 Blood Culture - Preliminary Blood No Growth after 24 hours Assessment and Plan Assessment: ASSESSMENT Lower extremity edema, mostly related to chronic lymphedema and probably cellulitus with some possibility of norma component of underlying systolic heart failure. Lungs are clear with no evidence of fluid overload. Chronic systolic heat failure, EF 35-40% Hypertension Mild CAD documented on catheterization from 2014 done at [facility] COPD Obesity, BMI 35.2 PLAN Ongoing medical management of lymphedema and lasix dosing per primary medical team. Recommend continuing with IV diuretics for another 24 hours then transition to oral. Follow up with Dr. Poole in 2-3 weeks. We will continue to follow as needed, please feel free to call with questions of concerns. Nurse Practitioner note has been reviewed, I agree with a documented findings and plan of care. Patient was seen and examined.
[2017-12-14] MEDS ORDERED: VANCOMYCIN 1,750 MG in SODIUM CHLORIDE 0.9% 500 ML 500 ML IVPB SCH ×2
[2017-12-14 07:59] LABS: Calcium 8.2 mg/dL (8.4-10.2); Potassium 4.4 mmol/L (3.5-5.1)
[2017-12-14] MEDS: clonazePAM 1 MG TAB PO SCH ×2 (09:01→22:03)
[2017-12-14] MEDS: tiZANidine 4 MG TAB PO SCH (09:01)
[2017-12-14] MEDS: LISINOPRIL 20 MG TAB PO SCH (09:01)
[2017-12-14] MEDS: METOPROLOL TARTRATE 12.5 MG TAB PO SCH ×2 (09:01→22:03)
[2017-12-14] MEDS: TROSPIUM CHLORIDE 20 MG TABLET PO SCH ×2 (09:01→22:03)
[2017-12-14] MEDS: HEPARIN SODIUM,PORCINE 5,000 UNIT/ML 1 ML VIAL SQ SCH ×2 (09:01→22:03)
[2017-12-14] MEDS: ARTIFICIAL TEARS-HYPROMELLOSE DROPS 15 ML BTL BOTH EYES SCH (09:02)
[2017-12-14] MEDS: HYDROcodone/APAP 10-325MG 1 EACH TAB PO PRN ×3 (09:13→19:28)
[2017-12-14] MEDS: FUROSEMIDE 10 MG/ML 4 ML VIAL IV SCH ×2 (11:25→21:28)
[2017-12-14] MEDS: MULTIVITAMINS, THERA 1 EACH TAB PO SCH (12:37)
[2017-12-14] MEDS: SILVER sulfADIAZINE Cream 400 GM 1 APPLIC APPLIC TOPICAL SCH ×2 (14:02→20:59)
--- NOTE | 2017-12-14 20:14 | P.PN ---
Subjective Progress Note Date: 12/14/17 Progress note being dictated for Dr. Haji. Interval history: This a 72-year-old female admitted with chronic lymphedema, cellulitis, mild CHF and multiple other medical issues. Diuresing well on Lasix IV push, I&O inaccurate. Creatinine 1.14. Maintained on IV antibiotics, wound care as per infectious disease. Wound cultures growing Klebsiella oxytoca , Proteus vulgaris. Afebrile. Objective - Vital Signs Vital signs: Vital Signs Temp 97.7 F 12/14/17 12:21 Pulse 71 12/14/17 15:38 Resp 18 12/14/17 15:38 BP 98/56 12/14/17 12:21 Pulse Ox 95 12/14/17 12:21 Intake & Output 12/14/17 12/14/17 12/15/17 06:59 18:59 06:59 Intake Total 960 Balance 960 Weight 109 kg Intake: Oral 960 Other: Voiding Method Toilet Toilet Diaper Diaper # Voids 3 2 - Exam PHYSICAL EXAM: VITAL SIGNS: As above GENERAL: Sitting up in bed, no acute distress. HEENT: Conjunctivae normal. eyes normal. Oral mucosa moist NECK: No JVD. No thyroid enlargement. No LNs CARDIOVASCULAR: S1, S2 muffled. Regular, No murmur RESPIRATION: Breath sounds diminished in the bases. No rhonchi or crackles. No wheezing ABDOMEN: Soft, obese, nontender . No guarding. no masses palpable. Bowel sounds heard. LEGS: Bilateral lower extremity edema, bilateral Jay wraps clean dry and intact PSYCHIATRY: Alert and oriented -3, mood and affect normal. NERVOUS SYSTEM: Cranial N 2-12 grossly normal. Moves all 4 limbs. Diffuse weakness No focal deficits. Joints: No active swelling. No inflammation. Lymphatic system. No LN neck axilla or groin. Microbiology 12/11/17 15:28 Blood Blood Culture - Preliminary No Growth after 72 hours 12/11/17 17:57 Leg - Left Gram Stain - Final 12/11/17 17:57 Leg - Left Wound Culture - Final Klebsiella oxytoca Proteus vulgaris - Labs CBC & Chem 7: 12/11/17 15:28 12/14/17 07:08 Labs: Abnormal Lab Results - Last 24 Hours (Table) 12/14/17 Range/Units 07:08 BUN 21 H (7-17) mg/dL Creatinine 1.14 H (0.52-1.04) mg/dL Calcium 8.2 L (8.4-10.2) mg/dL Microbiology - Last 24 Hours (Table) 12/11/17 15:28 Blood Culture - Preliminary Blood No Growth after 72 hours 12/11/17 17:57 Gram Stain - Final Leg - Left Wound Culture - Final Klebsiella oxytoca Proteus vulgaris Assessment and Plan Assessment: -Bilateral lower extremity cellulitis, wound cultures growing Klebsiella oxytoca and Proteus vulgaris -Chronic lower extremity lymphedema. Follows with Dr. Rubio at lymphedema clinic outpatient. -Mild acute CHF, systolic dysfunction EF 40% -COPD -Left bundle branch block per EKG -Moderate obesity, BMI 41.2 -CAD -Acute renal failure, diuretic induced Plan: Continue on current medication regime ,monitoring and symptomatic treatment. Antibiotics, wound care as per infectious disease. Continue IV diuretics. Renal function mildly worsening, possibly convert to oral Lasix tomorrow. Close monitoring of renal function and electrolytes with repeat labs ordered for a.m. The impression and plan of care has been dictated as directed. : I performed a history and examination of this patient, discussed the same with the dictator. I agree with the dictator's note ,documented as a scribe. Any additional findings or plans will be noted.
[2017-12-14] MEDS ORDERED: VANCOMYCIN TROUGH DUE 1 EACH MISC MISCELLANE ONE (23:00)
--- NOTE | 2017-12-14 23:33 | P.PN ---
Subjective Progress Note Date: 12/14/17 72-year-old woman who has a history of chronic bilateral lower extremity edema with lymphedema followed by the vascular surgeon presents to hospital with increasing swelling and pain to the left leg with erythema and drainage. Because it was uncomfortable and worsening with the drainage she does present to the emergency center and has been admitted for further intervention. Vascular surgery evaluation has been done with evidence of no new deep venous thrombosis and no need for any surgical intervention at this time. The patient is somewhat uncomfortable and with the evidence for cellulitis the infectious diseases consultation was requested. She is denying high-grade fevers chills rigors or sweats. 12/14/2017 reveals the patient be feeling somewhat better. With the lower extremity wraps and Silvadene she has had some improvement. She is having much pain and denies fevers or chills. Objective - Vital Signs Vital signs: Vital Signs Temp 98 F 12/14/17 21:00 Pulse 88 12/14/17 21:00 Resp 16 12/14/17 21:00 BP 132/68 12/14/17 21:00 Pulse Ox 94 L 12/14/17 21:00 Intake & Output 12/14/17 12/14/17 12/15/17 06:59 18:59 06:59 Intake Total 960 Balance 960 Weight 109 kg Intake: Oral 960 Other: Voiding Method Toilet Toilet Diaper Diaper # Voids 3 2 - Exam Pleasant 72-year-old woman who has a BMI of 39.9 is somewhat uncomfortable but not profoundly short of breath. HEENT: Anicteric conjunctiva are pink and moist nasal mucosa grossly intact without significant lesions, there is no thrush. Dentition is very worn Neck: The neck is supple without significant lymphadenopathy or thyromegaly. Lungs: There is symmetrical air entry, few crackles in the bilateral bases without dav bronchial sounds no dullness or egophony Heart: Irregular with a soft S4 no murmur click or a PMI was nondisplaced Abdomen: Obese, Positive bowel sounds soft and nontender without palpable masses or organomegaly. There was no guarding or rebound. Extremities: The upper extremities have excellent pulses they are symmetric, no significant petechiae or telangiectasia. No splinter hemorrhages were noted. The lower extremity films the bilateral lower extremity edema left greater than the right. There is evidence of the dense erythema in the leg with evidence of significant weeping along the lateral aspect of the leg. It is less tender to touch. There is warmth there is no fluctuance or abscess seen. Neuro: Awake alert oriented to person place and time. There are no acute new gross focal sensory motor deficits. - Labs CBC & Chem 7: 12/11/17 15:28 12/14/17 07:08 Labs: Abnormal Lab Results - Last 24 Hours (Table) 12/14/17 Range/Units 07:08 BUN 21 H (7-17) mg/dL Creatinine 1.14 H (0.52-1.04) mg/dL Calcium 8.2 L (8.4-10.2) mg/dL Microbiology - Last 24 Hours (Table) 12/11/17 15:28 Blood Culture - Preliminary Blood No Growth after 72 hours 12/11/17 17:57 Gram Stain - Final Leg - Left Wound Culture - Final Klebsiella oxytoca Proteus vulgaris Laboratory Results WBC 6.4 k/uL (3.8-10.6) 12/11/17 15: RBC 3.52 m/uL (3.80-5.40) L 12/11/17 15:28 Hgb 12.1 gm/dL (11.4-16.0) 12/11/17 15: Hct 37.9 % (34.0-46.0) 12/11/17 15: MCV 107.7 fL (80.0-100.0) H 12/11/17 15: MCH 34.5 pg (25.0-35.0) 12/11/17 15: MCHC 32.0 g/dL (31.0-37.0) 12/11/17 15:28 RDW 13.2 % (11.5-15.5) 12/11/17 15:28 Plt Count 203 k/uL (150-450) 12/11/17 15:28 Neutrophils % 73 % 12/11/17 15: Lymphocytes % 18 % 12/11/17 15:28 Monocytes % 6 % 12/11/17 15:28 Eosinophils % 1 % 12/11/17 15:28 Basophils % 0 % 12/11/17 15:28 Neutrophils # 4.7 k/uL (1.3-7.7) 12/11/17 15:28 Lymphocytes # 1.2 k/uL (1.0-4.8) 12/11/17 15:28 Monocytes # 0.4 k/uL (0-1.0) 12/11/17 15:28 Eosinophils # 0.1 k/uL (0-0.7) 12/11/17 15:28 Basophils # 0.0 k/uL (0-0.2) 12/11/17 15:28 Hypochromasia Slight 12/11/17 15:28 Macrocytosis Moderate 12/11/17 15:28 Sodium 140 mmol/L (137-145) 12/14/17 07:08 Potassium 4.4 mmol/L (3.5-5.1) 12/14/17 07:08 Chloride 107 mmol/L (98-107) 12/14/17 07:08 Carbon Dioxide 26 mmol/L (22-30) 12/14/17 07:08 Anion Gap 7 mmol/L 12/14/17 07:08 BUN 21 mg/dL (7-17) H 12/14/17 07:08 Creatinine 1.14 mg/dL (0.52-1.04) H 12/14/17 07:08 Est GFR (CKD-EPI)AfAm 55 (>60 ml/min/1.73 sqM) 12/14/17 07:08 Est GFR (CKD-EPI)NonAf 48 (>60 ml/min/1.73 sqM) 12/14/17 07:08 Glucose 90 mg/dL (74-99) 12/14/17 07:08 Calcium 8.2 mg/dL (8.4-10.2) L 12/14/17 07:08 Magnesium 2.0 mg/dL (1.6-2.3) 12/12/17 09:31 Total Bilirubin 0.8 mg/dL (0.2-1.3) 12/11/17 15:28 AST 19 U/L (14-36) 12/11/17 15:28 ALT 12 U/L (9-52) 12/11/17 15:28 Alkaline Phosphatase 70 U/L (38-126) 12/11/17 15:28 NT-Pro-B Natriuret Pep 728 pg/mL 12/12/17 09:31 Total Protein 7.3 g/dL (6.3-8.2) 12/11/17 15:28 Albumin 3.6 g/dL (3.5-5.0) 12/11/17 15:28 Triglycerides 42 mg/dL (<150) 12/12/17 09:31 Cholesterol 130 mg/dL (<200) 12/12/17 09:31 LDL Cholesterol, Calc 74 mg/dL (0-99) 12/12/17 09:31 HDL Cholesterol 48 mg/dL (40-60) 12/12/17 09:31 Vancomycin Trough 17.7 ug/mL 12/14/17 22:40 Microbiology 12/11/17 15:28 Blood Blood Culture - Preliminary No Growth after 72 hours 12/11/17 17:57 Leg - Left Gram Stain - Final 12/11/17 17:57 Leg - Left Wound Culture - Final Klebsiella oxytoca Proteus vulgaris Assessment and Plan (1) CHF (congestive heart failure) Current Visit: Yes Status: Acute Code(s): I50.9 - HEART FAILURE, UNSPECIFIED SNOMED Code(s): 98269867 (2) Bilateral cellulitis of lower leg Narrative/Plan: 72-year-old female with obesity presents to hospital with the increasing swelling to the lower extremities with known history of lymphedema. She has been following with the lymphedema clinic in [place]. Despite this legs have markedly worsened and other significant weeping and drainage from the left leg that is saturating dressing. At this time Silvadene wrap with ABVD had over the weeping area rolled gauze and Jay wrap from the foot to the knee should be applied. Can also be done to the right lower extremity. Elevation limbs at rest is important. For antimicrobial therapy vancomycin was restarted however numerous gram-negative bacilli are being seen in consequently Fortaz was also added at this point in time. Cultures will further direct the course of antibiotic therapy and guide the outpatient course. Multivitamin with zinc is requested 12/14/2017 the patient is having some improvement today with the local wound care with Silvadene, compression, elevation and wrap. Antibiotic therapy is effective with the ceftazidime for the isolated gram negatives. We'll be able to discontinue further doses of vancomycin given no evidence of any resistant gram-positive infections. If she improves aerobically optioned to transitioning to oral antimicrobial therapy as long as the blood cultures remain negative. Current Visit: Yes Status: Acute Code(s): L03.116 - CELLULITIS OF LEFT LOWER LIMB; L03.115 - CELLULITIS OF RIGHT LOWER LIMB SNOMED Code(s): 980977174
[2017-12-15] MEDS: HYDROcodone/APAP 10-325MG 1 EACH TAB PO PRN ×3 (00:22→19:35)
[2017-12-15] MEDS: clonazePAM 1 MG TAB PO SCH ×2 (08:24→21:13)
[2017-12-15] MEDS: HEPARIN SODIUM,PORCINE 5,000 UNIT/ML 1 ML VIAL SQ SCH ×2 (08:24→21:13)
[2017-12-15] MEDS: FUROSEMIDE 10 MG/ML 4 ML VIAL IV SCH (08:24)
[2017-12-15] MEDS: ARTIFICIAL TEARS-HYPROMELLOSE DROPS 15 ML BTL BOTH EYES SCH (08:24)
[2017-12-15] MEDS: SILVER sulfADIAZINE Cream 400 GM 1 APPLIC APPLIC TOPICAL SCH ×2 (08:25→21:14)
[2017-12-15] MEDS: LISINOPRIL 20 MG TAB PO SCH (08:25)
[2017-12-15] MEDS: METOPROLOL TARTRATE 12.5 MG TAB PO SCH ×2 (08:25→21:13)
[2017-12-15] MEDS: TROSPIUM CHLORIDE 20 MG TABLET PO SCH ×2 (08:26→21:13)
[2017-12-15] MEDS: tiZANidine 4 MG TAB PO SCH (08:26)
[2017-12-15] MEDS: MULTIVITAMINS, THERA 1 EACH TAB PO SCH (10:58)
--- NOTE | 2017-12-15 23:17 | PN ---
PROGRESS NOTE DATE OF SERVICE: 12/15/2017. INTERIM HISTORY: This 72-year-old woman was admitted with bilateral lower extremity cellulitis and edema is being closely monitored. Patient also has COPD and CHF also. No chest pain. No palpitations. Infectious disease is following the patient closely. The most recent culture showed Klebsiella oxytoca and Proteus vulgaris from the wound. No chest pain. No palpitations. No fever. PHYSICAL EXAM: Alert and oriented times three. Pulse 74, blood pressure 94/59, respirations 16, temperature 97 degrees, pulse ox 98% on room air. HEENT: Conjunctivae normal. Oral mucosa moist. Neck is no jugular venous distention. No carotid bruit. No lymph node enlargement. Cardiovascular system: S1, S2 muffled. Respiratory: Breath sounds diminished in the bases. A few scattered rhonchi and crackles. ABDOMEN: Soft, nontender, obese, nontender. LEGS: Bilateral leg edema. Nervous system: No focal deficits. LAB STUDIES: WBC 6.2, hemoglobin 12.1, creatinine is 1.14. Vancomycin 17.7. ASSESSMENT: 1. Bilateral lower extremity cellulitis with capsule oxytocin Proteus vulgaris. 2. Chronic lower extremity lymphedema with Dr. Rubio, lymphedema . 3. in the outpatient setting. 4. Congestive heart failure with acute on chronic systolic dysfunction, ejection fraction 40%. 5. Chronic obstructive pulmonary disease. 6. Left bundle branch block on the EKG. 7. Morbid obesity, BMI 41.8. 8. Coronary artery disease, acute renal failure diuretic-induced. RECOMMENDATIONS AND DISCUSSION: Recommend to continue current medications, management and symptomatic treatment. At this time, we will monitor the patient closely. I would recommend continue to monitor. Guarded prognosis because of multiple complex medical issues. Further recommendations to follow. MMODL / IJN: [id number] / MTDAnita
[2017-12-16] MEDS: ARTIFICIAL TEARS-HYPROMELLOSE DROPS 15 ML BTL BOTH EYES SCH (10:02)
[2017-12-16] MEDS: LISINOPRIL 20 MG TAB PO SCH (10:03)
[2017-12-16] MEDS: clonazePAM 1 MG TAB PO SCH ×2 (10:03→20:44)
[2017-12-16] MEDS: HEPARIN SODIUM,PORCINE 5,000 UNIT/ML 1 ML VIAL SQ SCH ×2 (10:03→20:43)
[2017-12-16] MEDS: MULTIVITAMINS, THERA 1 EACH TAB PO SCH (10:03)
[2017-12-16] MEDS: SILVER sulfADIAZINE Cream 400 GM 1 APPLIC APPLIC TOPICAL SCH ×2 (10:04→20:46)
[2017-12-16] MEDS: FUROSEMIDE 40 MG TAB PO SCH (10:04)
[2017-12-16] MEDS: METOPROLOL TARTRATE 12.5 MG TAB PO SCH ×2 (10:04→20:44)
[2017-12-16] MEDS: TROSPIUM CHLORIDE 20 MG TABLET PO SCH ×2 (10:04→20:43)
[2017-12-16] MEDS: tiZANidine 4 MG TAB PO SCH (10:04)
[2017-12-16] MEDS: HYDROcodone/APAP 10-325MG 1 EACH TAB PO PRN ×2 (15:52→20:44)
--- NOTE | 2017-12-16 19:04 | PN ---
PROGRESS NOTE DATE OF SERVICE: 12/16/2017. INTERVAL HISTORY: This 72-year-old woman who was admitted with bilateral lower extremity cellulitis, is being closely monitored. No chest pain. No palpitations. Patient also had lower extremity edema also. No chest pain. No palpitations. No fever. PHYSICAL EXAM: Alert and oriented times three. Pulse 78. Blood pressure 130/93, respiration 18, temp 98 degrees, pulse ox 98% on room air. HEENT: Conjunctivae normal. Oral mucosa moist. NECK: No jugular venous distention. No carotid bruit. RESPIRATORY: Breath sounds diminished in the bases, a few scattered rhonchi. ABDOMEN: Soft. Legs: Bilateral leg edema. Nervous system: No focal deficits. LABORATORY DATA: CBC within normal and creatinine is 1.1. ASSESSMENT: 1. Bilateral lower extremity cellulitis with Klebsiella oxytoca and Proteus vulgaris. 2. Chronic lower extremity lymphedema. Dr. Rubio is following in the outpatient setting. 3. Congestive heart failure with acute on chronic systolic dysfunction ejection fraction 40%. 4. Chronic obstructive pulmonary disease. 5. Left bundle block on the EKG. 6. Morbid obesity 41.8. 7. Coronary artery disease. 8. History of acute renal failure diuretic-induced. RECOMMENDATIONS AND DISCUSSION: Continue current medications and symptomatic treatment. Otherwise, at this time, monitor the patient closely. Continue the antibiotics. Closely follow with Infectious Disease. Guarded prognosis. Further recommendations to follow. Dr. Mendoza will follow. MMYUNIERL / IJN: [id number] /
[2017-12-17] MEDS: clonazePAM 1 MG TAB PO SCH ×2 (10:30→21:15)
[2017-12-17] MEDS: LISINOPRIL 20 MG TAB PO SCH (10:30)
[2017-12-17] MEDS: FUROSEMIDE 40 MG TAB PO SCH (10:30)
[2017-12-17] MEDS: tiZANidine 4 MG TAB PO SCH (10:30)
[2017-12-17] MEDS: MULTIVITAMINS, THERA 1 EACH TAB PO SCH (10:30)
[2017-12-17] MEDS: ARTIFICIAL TEARS-HYPROMELLOSE DROPS 15 ML BTL BOTH EYES SCH (10:30)
[2017-12-17] MEDS: METOPROLOL TARTRATE 12.5 MG TAB PO SCH ×2 (10:30→21:16)
[2017-12-17] MEDS: TROSPIUM CHLORIDE 20 MG TABLET PO SCH ×2 (10:30→21:16)
[2017-12-17] MEDS: HEPARIN SODIUM,PORCINE 5,000 UNIT/ML 1 ML VIAL SQ SCH ×2 (10:31→21:16)
[2017-12-17] MEDS: SILVER sulfADIAZINE Cream 400 GM 1 APPLIC APPLIC TOPICAL SCH ×2 (10:34→21:17)
[2017-12-17] MEDS: HYDROcodone/APAP 10-325MG 1 EACH TAB PO PRN ×2 (11:01→20:12)
--- NOTE | 2017-12-17 12:05 | P.PN ---
Subjective Patient resting in bed. Complains of problems of anxiety patient on clonazepam and hydrocodone Objective - Vital Signs Vital signs: Vital Signs Temp 98.6 F 12/17/17 05:00 Pulse 68 12/17/17 09:00 Resp 16 12/17/17 09:00 BP 153/72 12/17/17 05:00 Pulse Ox 92 L 12/17/17 05:00 Intake & Output 12/16/17 12/17/17 12/17/17 18:59 06:59 18:59 Weight 90 kg Other: Voiding Method Toilet Toilet Toilet # Voids 4 4 - Constitutional General appearance: Present: obese - EENT Eyes: Present: PERRLA Ears: bilateral: normal - Neck Neck: Present: normal ROM - Respiratory Respiratory: bilateral: diminished - Cardiovascular Rhythm: regular - Gastrointestinal General gastrointestinal: Present: soft - Integumentary Integumentary Comment(s): Lower extremities with plus 4 lymphedema Integumentary: Present: cellulitis - Neurologic Neurologic: Present: CNII-XII intact - Musculoskeletal Musculoskeletal: Present: generalized weakness - Psychiatric Psychiatric: Present: A&O x's 3, appropriate affect, intact judgment & insight - Labs CBC & Chem 7: 12/11/17 15:28 12/14/17 07:08 Labs: Microbiology - Last 24 Hours (Table) 12/11/17 15:28 Blood Culture - Preliminary Blood No Growth after 120 hours Assessment and Plan Plan: Assessment Bilateral lower extremity cellulitis with Klebsiella and Proteus Chronic lower leg extremity lymphedema Congestive heart failure acute on chronic systolic failure with ejection fraction 35% Chronic COPD Morbid obesity BMI 41.8 History of coronary disease with [place] Acute renal failure diuretic induced GERD Hypertension osteoarthritis with degenerative disc disease Hypothyroidism Plan Continue consultation with infectious disease Cardiology
--- NOTE | 2017-12-17 22:29 | P.PN ---
Subjective Progress Note Date: 12/17/17 72-year-old woman who has a history of chronic bilateral lower extremity edema with lymphedema followed by the vascular surgeon presents to hospital with increasing swelling and pain to the left leg with erythema and drainage. Because it was uncomfortable and worsening with the drainage she does present to the emergency center and has been admitted for further intervention. Vascular surgery evaluation has been done with evidence of no new deep venous thrombosis and no need for any surgical intervention at this time. The patient is somewhat uncomfortable and with the evidence for cellulitis the infectious diseases consultation was requested. She is denying high-grade fevers chills rigors or sweats. 12/14/2017 reveals the patient be feeling somewhat better. With the lower extremity wraps and Silvadene she has had some improvement. She is having much pain and denies fevers or chills. 12/17/2017 reveals a patient to have some significant improvement, but is still having significant difficulties with anxiety. Relates that she is also not sleeping very well. The legs are feeling better but she sits with him in a dependent position a good amount of the day. She is willing to have them placed on a leg lift. Objective - Vital Signs Vital signs: Vital Signs Temp 97.8 F 12/17/17 21:00 Pulse 88 12/17/17 21:00 Resp 17 12/17/17 21:00 BP 134/61 12/17/17 21:00 Pulse Ox 93 L 12/17/17 21:00 Intake & Output 12/17/17 12/17/17 12/18/17 06:59 18:59 06:59 Weight 90 kg Other: Voiding Method Toilet Toilet # Voids 4 5 - Exam Pleasant 72-year-old woman who has a BMI of 39.9 is somewhat uncomfortable but not profoundly short of breath. HEENT: Anicteric conjunctiva are pink and moist nasal mucosa grossly intact without significant lesions, there is no thrush. Dentition is very worn Neck: The neck is supple without significant lymphadenopathy or thyromegaly. Lungs: There is symmetrical air entry, few crackles in the bilateral bases without dav bronchial sounds no dullness or egophony Heart: Irregular with a soft S4 no murmur click or a PMI was nondisplaced Abdomen: Obese, Positive bowel sounds soft and nontender without palpable masses or organomegaly. There was no guarding or rebound. Extremities: The upper extremities have excellent pulses they are symmetric, no significant petechiae or telangiectasia. No splinter hemorrhages were noted. The lower extremity films the bilateral lower extremity edema left greater than the right. There is evidence of the improvement of the erythema in the leg with evidence of less weeping along the lateral aspect of the leg. It is less tender to touch. There is warmth there is no fluctuance or abscess seen. Neuro: Awake alert oriented to person place and time. There are no acute new gross focal sensory motor deficits. - Labs CBC & Chem 7: 12/11/17 15:28 12/14/17 07:08 Labs: Microbiology - Last 24 Hours (Table) 12/11/17: Blood Culture - Final Blood No Growth after 144 hours Laboratory Results WBC 6.4 k/uL (3.8-10.6) 12/11/17 15: RBC 3.52 m/uL (3.80-5.40) L 12/11/17: Hgb 12.1 gm/dL (11.4-16.0) 12/11/17 15: Hct 37.9 % (34.0-46.0) 12/11/17: MCV 107.7 fL (80.0-100.0) H 12/11/17: MCH 34.5 pg (25.0-35.0) 12/11/17 15: MCHC 32.0 g/dL (31.0-37.0) 12/11/17: RDW 13.2 % (11.5-15.5) 12/11/17: Plt Count 203 k/uL (150-450) 12/11/17 15: Neutrophils % 73 % 12/11/17 15: Lymphocytes % 18 % 12/11/17 15: Monocytes % 6 % 12/11/17 15: Eosinophils % 1 % 12/11/17 15: Basophils % 0 % 12/11/17 15:28 Neutrophils # 4.7 k/uL (1.3-7.7) 12/11/17 15: Lymphocytes # 1.2 k/uL (1.0-4.8) 12/11/17: Monocytes # 0.4 k/uL (0-1.0) 12/11/17 15:28 Eosinophils # 0.1 k/uL (0-0.7) 12/11/17 15:28 Basophils # 0.0 k/uL (0-0.2) 12/11/17 15:28 Hypochromasia Slight 12/11/17 15:28 Macrocytosis Moderate 12/11/17 15:28 Sodium 140 mmol/L (137-145) 12/14/17 07:08 Potassium 4.4 mmol/L (3.5-5.1) 12/14/17 07:08 Chloride 107 mmol/L (98-107) 12/14/17 07:08 Carbon Dioxide 26 mmol/L (22-30) 12/14/17 07:08 Anion Gap 7 mmol/L 12/14/17 07:08 BUN 21 mg/dL (7-17) H 12/14/17 07:08 Creatinine 1.14 mg/dL (0.52-1.04) H 12/14/17 07:08 Est GFR (CKD-EPI)AfAm 55 (>60 ml/min/1.73 sqM) 12/14/17 07:08 Est GFR (CKD-EPI)NonAf 48 (>60 ml/min/1.73 sqM) 12/14/17 07:08 Glucose 90 mg/dL (74-99) 12/14/17 07:08 Calcium 8.2 mg/dL (8.4-10.2) L 12/14/17 07:08 Magnesium 2.0 mg/dL (1.6-2.3) 12/12/17 09:31 Total Bilirubin 0.8 mg/dL (0.2-1.3) 12/11/17 15:28 AST 19 U/L (14-36) 12/11/17 15:28 ALT 12 U/L (9-52) 12/11/17 15:28 Alkaline Phosphatase 70 U/L (38-126) 12/11/17 15:28 NT-Pro-B Natriuret Pep 728 pg/mL 12/12/17 09:31 Total Protein 7.3 g/dL (6.3-8.2) 12/11/17 15:28 Albumin 3.6 g/dL (3.5-5.0) 12/11/17 15:28 Triglycerides 42 mg/dL (<150) 12/12/17 09:31 Cholesterol 130 mg/dL (<200) 12/12/17 09:31 LDL Cholesterol, Calc 74 mg/dL (0-99) 12/12/17 09:31 HDL Cholesterol 48 mg/dL (40-60) 12/12/17 09:31 Vancomycin Trough 17.7 ug/mL 12/14/17 22:40 Microbiology 12/11/17 15:28 Blood Blood Culture - Final No Growth after 144 hours 12/11/17 17:57 Leg - Left Gram Stain - Final 12/11/17 17:57 Leg - Left Wound Culture - Final Klebsiella oxytoca Proteus vulgaris Assessment and Plan (1) CHF (congestive heart failure) Current Visit: Yes Status: Acute Code(s): I50.9 - HEART FAILURE, UNSPECIFIED SNOMED Code(s): 61499560 (2) Bilateral cellulitis of lower leg Narrative/Plan: 72-year-old female with obesity presents to hospital with the increasing swelling to the lower extremities with known history of lymphedema. She has been following with the lymphedema clinic in [place]. Despite this legs have markedly worsened and other significant weeping and drainage from the left leg that is saturating dressing. At this time Silvadene wrap with ABVD had over the weeping area rolled gauze and Jay wrap from the foot to the knee should be applied. Can also be done to the right lower extremity. Elevation limbs at rest is important. For antimicrobial therapy vancomycin was restarted however numerous gram-negative bacilli are being seen in consequently Fortaz was also added at this point in time. Cultures will further direct the course of antibiotic therapy and guide the outpatient course. Multivitamin with zinc is requested 12/14/2017 the patient is having some improvement today with the local wound care with Silvadene, compression, elevation and wrap. Antibiotic therapy is effective with the ceftazidime for the isolated gram negatives. We'll be able to discontinue further doses of vancomycin given no evidence of any resistant gram-positive infections. If she improves aerobically optioned to transitioning to oral antimicrobial therapy as long as the blood cultures remain negative. 12/17/2017 reveals patient to have some further improvement of her status. Doing well with the Silvadene wraps. Over the legs are in a dependent position and a leg lift is applied which she finds tolerable. She understands that when she is in a seated position her legs need to be elevated if she would expect them to improve. The cultures are reviewed and there is evidence of the Klebsiella and Proteus infection that is susceptible to the Fortaz. However as she improves this can be transitioned to oral trimethoprim sulfamethoxazole to complete a course of oral antibiotic therapy that she can be followed in the outpatient setting. Is having some ongoing anxiety is not sleeping well we'll add in amitriptyline at nighttime to see if this cannot improve sleeping and anxiety. Current Visit: Yes Status: Acute Code(s): L03.116 - CELLULITIS OF LEFT LOWER LIMB; L03.115 - CELLULITIS OF RIGHT LOWER LIMB SNOMED Code(s): 553260329
[2017-12-18] MEDS: AMITRIPTYLINE HCL 25 MG TAB PO SCH ×2 (00:18→20:39)
[2017-12-18] MEDS: HYDROcodone/APAP 10-325MG 1 EACH TAB PO PRN ×2 (05:36→19:07)
[2017-12-18] MEDS: TROSPIUM CHLORIDE 20 MG TABLET PO SCH ×2 (08:10→20:38)
[2017-12-18] MEDS: clonazePAM 1 MG TAB PO SCH ×2 (08:10→20:40)
[2017-12-18] MEDS: tiZANidine 4 MG TAB PO SCH (08:10)
[2017-12-18] MEDS: ARTIFICIAL TEARS-HYPROMELLOSE DROPS 15 ML BTL BOTH EYES SCH (08:10)
[2017-12-18] MEDS: METOPROLOL TARTRATE 12.5 MG TAB PO SCH ×2 (08:10→20:38)
[2017-12-18] MEDS: FUROSEMIDE 40 MG TAB PO SCH (08:10)
[2017-12-18] MEDS: LISINOPRIL 20 MG TAB PO SCH (08:10)
[2017-12-18] MEDS: HEPARIN SODIUM,PORCINE 5,000 UNIT/ML 1 ML VIAL SQ SCH ×2 (08:10→20:39)
--- NOTE | 2017-12-18 12:18 | P.PN ---
Subjective Patient states hasn't noticed much change in condition. Continues with consultation with cardiology and infectious Objective - Vital Signs Vital signs: Vital Signs Temp 98.3 F 12/18/17 05:00 Pulse 83 12/18/17 08:00 Resp 16 12/18/17 08:00 BP 141/73 12/18/17 05:00 Pulse Ox 92 L 12/18/17 05:00 Intake & Output 12/17/17 12/18/17 12/18/17 18:59 06:59 18:59 Intake Total 1020 240 Balance 1020 240 Weight 98 kg Intake: Oral 1020 240 Other: Voiding Method Toilet Toilet Toilet # Voids 5 5 1 - Constitutional General appearance: Present: morbidly obese - EENT Eyes: Present: PERRLA Ears: bilateral: normal - Respiratory Respiratory: bilateral: CTA - Cardiovascular Rhythm: regular - Gastrointestinal General gastrointestinal: Present: soft - Integumentary Integumentary Comment(s): Lower extremities wrapped with Jay wraps - Neurologic Neurologic: Present: CNII-XII intact - Musculoskeletal Musculoskeletal: Present: generalized weakness - Psychiatric Psychiatric: Present: A&O x's 3, appropriate affect, intact judgment & insight - Labs CBC & Chem 7: 12/11/17 15:28 12/14/17 07:08 Labs: Microbiology - Last 24 Hours (Table) 12/11/17 15:28 Blood Culture - Final Blood No Growth after 144 hours Assessment and Plan Plan: Assessment Lower extremities cellulitis with Klebsiella and Proteus Chronic lower extremity lymphedema has follow-up with Dr. Rubio Congestive heart failure with acute on chronic systolic dysfunction ejection fraction 40% COPD Morbid obesity BMI 41.8 History of coronary disease Acute renal failure diuretic induced History of angina with [place] GERD Hypertension osteoarthritis degenerative joint disease Hypothyroidism Plan Continue consultation with cardiology and infectious disease
[2017-12-18] MEDS: MULTIVITAMINS, THERA 1 EACH TAB PO SCH (13:00)
[2017-12-18 15:03] VITALS: BMI 37.0
[2017-12-18] MEDS: SILVER sulfADIAZINE Cream 400 GM 1 APPLIC APPLIC TOPICAL SCH ×2 (15:34→20:39)
[2017-12-19] MEDS: HYDROcodone/APAP 10-325MG 1 EACH TAB PO PRN ×2 (09:32→21:01)
[2017-12-19] MEDS: TROSPIUM CHLORIDE 20 MG TABLET PO SCH ×2 (09:32→21:01)
[2017-12-19] MEDS: FUROSEMIDE 40 MG TAB PO SCH (09:32)
[2017-12-19] MEDS: tiZANidine 4 MG TAB PO SCH (09:32)
[2017-12-19] MEDS: LISINOPRIL 20 MG TAB PO SCH (09:32)
[2017-12-19] MEDS: METOPROLOL TARTRATE 12.5 MG TAB PO SCH ×2 (09:32→21:00)
[2017-12-19] MEDS: HEPARIN SODIUM,PORCINE 5,000 UNIT/ML 1 ML VIAL SQ SCH ×2 (09:33→21:00)
[2017-12-19] MEDS: clonazePAM 1 MG TAB PO SCH ×2 (09:33→21:00)
[2017-12-19] MEDS: ARTIFICIAL TEARS-HYPROMELLOSE DROPS 15 ML BTL BOTH EYES SCH (09:34)
--- NOTE | 2017-12-19 12:08 | P.PN ---
Subjective Patient states some improvement to discomfort. Hopeful discharge home soon with home care and lymphedema treatment awaiting recommendations per Dr. Felix Objective - Vital Signs Vital signs: Vital Signs Temp 97.9 F 12/19/17 11:49 Pulse 76 12/19/17 11:49 Resp 16 12/19/17 11:49 BP 112/59 12/19/17 11:49 Pulse Ox 92 L 12/19/17 11:49 Intake & Output 12/18/17 12/19/17 12/19/17 18:59 06:59 18:59 Intake Total 240 480 Balance 240 480 Weight 98 kg 99.5 kg Intake: Oral 240 480 Other: Voiding Method Toilet Toilet # Voids 1 1 - Constitutional General appearance: Present: morbidly obese - EENT Eyes: Present: PERRLA Ears: bilateral: normal - Neck Neck: Present: normal ROM - Respiratory Respiratory: bilateral: CTA - Gastrointestinal General gastrointestinal: Present: soft - Integumentary Integumentary Comment(s): Cellulitis of lower extremities with lymphedema Integumentary: Present: cellulitis, normal - Neurologic Neurologic: Present: CNII-XII intact - Musculoskeletal Musculoskeletal: Present: generalized weakness - Psychiatric Psychiatric: Present: A&O x's 3, appropriate affect, intact judgment & insight - Labs CBC & Chem 7: 12/11/17 15:28 12/14/17 07:08 Assessment and Plan Plan: Assessment Bilateral lower extremity cellulitis with Klebsiella and Proteus Chronic lower extremity lymphedema Congestive heart failure acute on chronic systolic dysfunction ejection fraction 40% COPD Morbid obesity BMI 41.8 History of coronary disease with [place] history Acute renal failure diuretic induce Hypertension Osteoarthritis degenerative joint disease Hypothyroidism Plan Hopeful discharge to home care awaiting recommendations by Dr. Felix for outpatient and
[2017-12-19] MEDS: MULTIVITAMINS, THERA 1 EACH TAB PO SCH (13:46)
[2017-12-19] MEDS: SILVER sulfADIAZINE Cream 400 GM 1 APPLIC APPLIC TOPICAL SCH ×2 (15:12→21:01)
[2017-12-19] MEDS: AMITRIPTYLINE HCL 25 MG TAB PO SCH (21:00)
[2017-12-20] MEDS: HYDROcodone/APAP 10-325MG 1 EACH TAB PO PRN ×2 (04:35→12:31)
[2017-12-20] MEDS: ARTIFICIAL TEARS-HYPROMELLOSE DROPS 15 ML BTL BOTH EYES SCH (11:16)
[2017-12-20] MEDS: FUROSEMIDE 40 MG TAB PO SCH (11:17)
[2017-12-20] MEDS: HEPARIN SODIUM,PORCINE 5,000 UNIT/ML 1 ML VIAL SQ SCH (11:17)
[2017-12-20] MEDS: clonazePAM 1 MG TAB PO SCH (11:17)
[2017-12-20] MEDS: METOPROLOL TARTRATE 12.5 MG TAB PO SCH (11:18)
[2017-12-20] MEDS: LISINOPRIL 20 MG TAB PO SCH (11:18)
[2017-12-20] MEDS: tiZANidine 4 MG TAB PO SCH (11:19)
[2017-12-20] MEDS: SILVER sulfADIAZINE Cream 400 GM 1 APPLIC APPLIC TOPICAL SCH (11:19)
[2017-12-20] MEDS: MULTIVITAMINS, THERA 1 EACH TAB PO SCH (11:19)
[2017-12-20] MEDS: TROSPIUM CHLORIDE 20 MG TABLET PO SCH (11:19)
[2017-12-20 13:30] VITALS: BP 101/59; PULSE 76; RESP 16; TEMP 97.4
--- NOTE | 2017-12-20 13:50 | P.DS ---
Providers Date of admission: 12/11/17 10:43 Expected date of discharge: 12/20/17 Attending physician: Drew Mendoza Consults: 12/11/17 13:41 Consult Physician Urgent Consulting Provider: Apolinar Glez Consult Reason/Comments: chf Do you want consulting provider notified?: Yes 12/11/17 13:47 Consult Physician Urgent Consulting Provider: Jose Ramon Felix Consult Reason/Comments: leg cellulitis Do you want consulting provider notified?: Yes 12/11/17 13:50 Consult Physician Urgent Consulting Provider: Wesley Rubio Consult Reason/Comments: lower extremity lymphadema Do you want consulting provider notified?: Yes Primary care physician: Drew Mendoza Hospital Course: 72-year-old female was admitted from the emergency room after a visit and family physician office. Patient has chronic lymphedema has been seen by Dr. Rubio for the same. Patient was found in congestive heart failure chronic so dysfunction 40%. Patient was evaluated by infectious disease for lower extremity cellulitis noted Klebsiella and Proteus Patient was stabilized and ready for discharge Assessment bilateral lower extremity cellulitis Klebsiella and Proteus lower extremity lymphedema congestive heart failure acute and chronic systolic dysfunction ejection fraction 40% history of the COPD morbid obesity BMI 41.8 history of coronary disease acute renal failure direct induced follow up with family physician Dr. Drew Mendoza infectious disease Dr. Felix Plan - Discharge Summary Discharge Rx Participant: No New Discharge Prescriptions: New Amitriptyline HCl [Elavil] 25 mg PO HS tab Metoprolol Tartrate [Lopressor] 12.5 mg PO BID 30 Days #60 tab Multivitamins, Thera [Multivitamin (formulary)] 1 each PO DAILY@1200 tab SILVER sulfADIAZINE Cream [Silvadene 1% Cream] 1 applic TOPICAL BID@0900, 2100 #400 applic Sulfamethox-Tmp 800-160Mg [Bactrim DS 800-160 mg] 1 tab PO Q12HR 21 Days #42 tab Continue Fesoterodine Fumarate [Toviaz] 8 mg PO DAILY Artificial Tears-Hypromellose [Artificial Tear Drops] 1 drop BOTH EYES DAILY tiZANidine HCL 4 mg PO DAILY Lisinopril [Prinivil] 20 mg PO DAILY Hydrocodone/Acetaminophen [[place] 10-325] 1 tab PO Q4-6H PRN PRN Reason: Pain Furosemide [Lasix] 40 mg PO DAILY clonazePAM 1 mg PO BID Discharge Medication List Artificial Tears-Hypromellose [Artificial Tear Drops] 1 drop BOTH EYES DAILY 04/29 [History] Fesoterodine Fumarate [Toviaz] 8 mg PO DAILY 12/11/17 [History] Furosemide [Lasix] 40 mg PO DAILY 12/11/17 [History] Hydrocodone/Acetaminophen [[place] 10-325] 1 tab PO Q4-6H PRN 12/11/17 [History] Lisinopril [Prinivil] 20 mg PO DAILY 12/11/17 [History] clonazePAM 1 mg PO BID 12/11/17 [History] tiZANidine HCL 4 mg PO DAILY 12/11/17 [History] Amitriptyline HCl [Elavil] 25 mg PO HS tab 12/20/17 [Rx] Metoprolol Tartrate [Lopressor] 12.5 mg PO BID 30 Days #60 tab 12/20/17 [Rx] Multivitamins, Thera [Multivitamin (formulary)] 1 each PO DAILY@1200 tab [Rx] SILVER sulfADIAZINE Cream [Silvadene 1% Cream] 1 applic TOPICAL BID@0900,2100 # 400 applic 12/20/17 [Rx] Sulfamethox-Tmp 800-160Mg [Bactrim DS 800-160 mg] 1 tab PO Q12HR 21 Days #42 tab 12/20/17 [Rx] Follow up Appointment(s)/Referral(s): [facility] Visiting Nurse, [NON-STAFF] - 1 Week
--- NOTE | 2017-12-20 22:40 | P.PN ---
Subjective Progress Note Date: 12/20/17 72-year-old woman who has a history of chronic bilateral lower extremity edema with lymphedema followed by the vascular surgeon presents to hospital with increasing swelling and pain to the left leg with erythema and drainage. Because it was uncomfortable and worsening with the drainage she does present to the emergency center and has been admitted for further intervention. Vascular surgery evaluation has been done with evidence of no new deep venous thrombosis and no need for any surgical intervention at this time. The patient is somewhat uncomfortable and with the evidence for cellulitis the infectious diseases consultation was requested. She is denying high-grade fevers chills rigors or sweats. 12/14/2017 reveals the patient be feeling somewhat better. With the lower extremity wraps and Silvadene she has had some improvement. She is having much pain and denies fevers or chills. 12/17/2017 reveals a patient to have some significant improvement, but is still having significant difficulties with anxiety. Relates that she is also not sleeping very well. The legs are feeling better but she sits with him in a dependent position a good amount of the day. She is willing to have them placed on a leg lift. 12/20/2017 patient is feeling considerably better. Is being ready for discharge to home. She is denying fever or chills, no new pain, legs better but is having difficulty with elevation the lift is a bit to high given her short stature. Objective - Vital Signs Vital signs: Vital Signs Temp 97.4 F L 12/20/17 12:53 Pulse 76 12/20/17 12:53 Resp 16 12/20/17 12:53 BP 101/59 12/20/17 12:53 Pulse Ox 93 L 12/20/17 12:53 Intake & Output 12/20/17 12/20/17 12/21/17 06:59 18:59 06:59 Intake Total 480 Balance 480 Weight 98 kg Intake: Oral 480 Other: Voiding Method Toilet Toilet - Exam Pleasant 72-year-old woman who has a BMI of 39.9 is somewhat uncomfortable but not profoundly short of breath. HEENT: Anicteric conjunctiva are pink and moist nasal mucosa grossly intact without significant lesions, there is no thrush. Dentition is very worn Neck: The neck is supple without significant lymphadenopathy or thyromegaly. Lungs: There is symmetrical air entry, few crackles in the bilateral bases without dav bronchial sounds no dullness or egophony Heart: Irregular with a soft S4 no murmur click or a PMI was nondisplaced Abdomen: Obese, Positive bowel sounds soft and nontender without palpable masses or organomegaly. There was no guarding or rebound. Extremities: The upper extremities have excellent pulses they are symmetric, no significant petechiae or telangiectasia. No splinter hemorrhages were noted. The lower extremity films the bilateral lower extremity edema left greater than the right. There is evidence of the improvement of the erythema in the leg with evidence of less weeping along the lateral aspect of the leg. It is less tender to touch. There is warmth there is no fluctuance or abscess seen. Neuro: Awake alert oriented to person place and time. There are no acute new gross focal sensory motor deficits. - Labs CBC & Chem 7: 12/11/17 15:28 12/14/17 07:08 Labs: Laboratory Results WBC 6.4 k/uL (3.8-10.6) 12/11/17 15: RBC 3.52 m/uL (3.80-5.40) L 12/11/17 15: Hgb 12.1 gm/dL (11.4-16.0) 12/11/17: Hct 37.9 % (34.0-46.0) 12/11/17: MCV 107.7 fL (80.0-100.0) H 12/11/17 15: MCH 34.5 pg (25.0-35.0) 12/11/17: MCHC 32.0 g/dL (31.0-37.0) 12/11/17 15: RDW 13.2 % (11.5-15.5) 12/11/17 15: Plt Count 203 k/uL (150-450) 12/11/17 15: Neutrophils % 73 % 12/11/17 15: Lymphocytes % 18 % 12/11/17 15: Monocytes % 6 % 12/11/17 15: Eosinophils % 1 % 12/11/17 15: Basophils % 0 % 12/11/17 15: Neutrophils # 4.7 k/uL (1.3-7.7) 12/11/17 15:28 Lymphocytes # 1.2 k/uL (1.0-4.8) 12/11/17 15:28 Monocytes # 0.4 k/uL (0-1.0) 12/11/17 15:28 Eosinophils # 0.1 k/uL (0-0.7) 12/11/17 15:28 Basophils # 0.0 k/uL (0-0.2) 12/11/17 15:28 Hypochromasia Slight 12/11/17 15:28 Macrocytosis Moderate 12/11/17 15:28 Sodium 140 mmol/L (137-145) 12/14/17 07:08 Potassium 4.4 mmol/L (3.5-5.1) 12/14/17 07:08 Chloride 107 mmol/L (98-107) 12/14/17 07:08 Carbon Dioxide 26 mmol/L (22-30) 12/14/17 07:08 Anion Gap 7 mmol/L 12/14/17 07:08 BUN 21 mg/dL (7-17) H 12/14/17 07:08 Creatinine 1.14 mg/dL (0.52-1.04) H 12/14/17 07:08 Est GFR (CKD-EPI)AfAm 55 (>60 ml/min/1.73 sqM) 12/14/17 07:08 Est GFR (CKD-EPI)NonAf 48 (>60 ml/min/1.73 sqM) 12/14/17 07:08 Glucose 90 mg/dL (74-99) 12/14/17 07:08 Calcium 8.2 mg/dL (8.4-10.2) L 12/14/17 07:08 Magnesium 2.0 mg/dL (1.6-2.3) 12/12/17 09:31 Total Bilirubin 0.8 mg/dL (0.2-1.3) 12/11/17 15:28 AST 19 U/L (14-36) 12/11/17 15:28 ALT 12 U/L (9-52) 12/11/17 15:28 Alkaline Phosphatase 70 U/L (38-126) 12/11/17 15:28 NT-Pro-B Natriuret Pep 728 pg/mL 12/12/17 09:31 Total Protein 7.3 g/dL (6.3-8.2) 12/11/17 15:28 Albumin 3.6 g/dL (3.5-5.0) 12/11/17 15:28 Triglycerides 42 mg/dL (<150) 12/12/17 09:31 Cholesterol 130 mg/dL (<200) 12/12/17 09:31 LDL Cholesterol, Calc 74 mg/dL (0-99) 12/12/17 09:31 HDL Cholesterol 48 mg/dL (40-60) 12/12/17 09:31 Vancomycin Trough 17.7 ug/mL 12/14/17 22:40 Assessment and Plan (1) CHF (congestive heart failure) Status: Acute Code(s): I50.9 - HEART FAILURE, UNSPECIFIED SNOMED Code(s): 55971865 (2) Bilateral cellulitis of lower leg Narrative/Plan: 72-year-old female with obesity presents to hospital with the increasing swelling to the lower extremities with known history of lymphedema. She has been following with the lymphedema clinic in [place]. Despite this legs have markedly worsened and other significant weeping and drainage from the left leg that is saturating dressing. At this time Silvadene wrap with ABVD had over the weeping area rolled gauze and Jay wrap from the foot to the knee should be applied. Can also be done to the right lower extremity. Elevation limbs at rest is important. For antimicrobial therapy vancomycin was restarted however numerous gram-negative bacilli are being seen in consequently Fortaz was also added at this point in time. Cultures will further direct the course of antibiotic therapy and guide the outpatient course. Multivitamin with zinc is requested 12/14/2017 the patient is having some improvement today with the local wound care with Silvadene, compression, elevation and wrap. Antibiotic therapy is effective with the ceftazidime for the isolated gram negatives. We'll be able to discontinue further doses of vancomycin given no evidence of any resistant gram-positive infections. If she improves aerobically optioned to transitioning to oral antimicrobial therapy as long as the blood cultures remain negative. 12/17/2017 reveals patient to have some further improvement of her status. Doing well with the Silvadene wraps. Over the legs are in a dependent position and a leg lift is applied which she finds tolerable. She understands that when she is in a seated position her legs need to be elevated if she would expect them to improve. The cultures are reviewed and there is evidence of the Klebsiella and Proteus infection that is susceptible to the Fortaz. However as she improves this can be transitioned to oral trimethoprim sulfamethoxazole to complete a course of oral antibiotic therapy that she can be followed in the outpatient setting. Is having some ongoing anxiety is not sleeping well we'll add in amitriptyline at nighttime to see if this cannot improve sleeping and anxiety. 12/20/2017 patient is showing further improvement. Plans for discharge to home. Home care will be able to apply some compression. She understands the importance of trying to elevate her legs in her home environment here we again described at the dependent position is the worst possible position to be in and we'll not allow her to have further improvement. Hopefully with treatment for heart failure and some compression she will continue to have some improvement. Silvadene wraps are directed to the home care. Antibiotic therapy with Bactrim is sent to her pharmacy. Case is discussed with the primary service. Status: Acute Code(s): L03.116 - CELLULITIS OF LEFT LOWER LIMB; L03.115 - CELLULITIS OF RIGHT LOWER LIMB SNOMED Code(s): 096128031
== END 2017-12-20 16:00 | disposition home health service (06) | DRG 602 ==
LOC: 5MS5E 10:43
PROVIDERS: ADMIT Family Medicine; ATTEND Family Medicine
DX: L03.116 Cellulitis of left lower limb (principal); I50.23 Acute on chronic systolic (congestive) heart failure; Z68.41 Body mass index [BMI] 40.0-44.9, adult; N17.9 Acute kidney failure, unspecified; L03.115 Cellulitis of right lower limb; J44.9 Chronic obstructive pulmonary disease, unspecified; I11.0 Hypertensive heart disease with heart failure; E66.01 Morbid (severe) obesity due to excess calories; I44.7 Left bundle-branch block, unspecified; B96.1 Klebsiella pneumoniae [K. pneumoniae] as the cause of diseases classified elsewhere; B96.4 Proteus (mirabilis) (morganii) as the cause of diseases classified elsewhere; T50.2X5A Adverse effect of carbonic-anhydrase inhibitors, benzothiadiazides and other diuretics, initial encounter; I25.10 Atherosclerotic heart disease of native coronary artery without angina pectoris; F41.9 Anxiety disorder, unspecified; I89.0 Lymphedema, not elsewhere classified; I25.2 Old myocardial infarction; K21.9 Gastro-esophageal reflux disease without esophagitis; E03.9 Hypothyroidism, unspecified; M50.30 Other cervical disc degeneration, unspecified cervical region; M19.042 Primary osteoarthritis, left hand; R32 Unspecified urinary incontinence; G43.909 Migraine, unspecified, not intractable, without status migrainosus; G89.29 Other chronic pain; M54.5 Low back pain; M77.9 Enthesopathy, unspecified; M19.041 Primary osteoarthritis, right hand; R62.52 Short stature (child); Z71.3 Dietary counseling and surveillance; Z79.899 Other long term (current) drug therapy; Z87.01 Personal history of pneumonia (recurrent); Z90.49 Acquired absence of other specified parts of digestive tract; Z90.710 Acquired absence of both cervix and uterus; Z88.8 Allergy status to other drugs, medicaments and biological substances; Z80.3 Family history of malignant neoplasm of breast; Z82.49 Family history of ischemic heart disease and other diseases of the circulatory system
CPT/HCPCS: 71046; 80048; 80053; 80061; 80202; 83735; 83880; 85025; 87040; 87070; 87077; 87186; 87205; 93005; 93306; 93970

== ENCOUNTER → 2018-09-30 | Outpatient (CLI) | payer MEDICARE ==
--- NOTE | 2018-09-30 15:52 | XR ---
EXAMINATION TYPE: XR chest 2V DATE OF EXAM: 09/30/2018 COMPARISON: December 11, 2017 HISTORY: Shortness of breath TECHNIQUE: Frontal and lateral views of the chest are obtained. FINDINGS: Scattered senescent parenchymal changes noted. Hyperinflation compatible with COPD. No evidence for infiltrate. No evidence for atelectasis. New 9 mm pulmonary nodule right lower lobe l aterally. CT is advised. Heart size is enlarged Mediastinal structures are stable and grossly unremarkable. No evidence for hilar prominence. Right axillary dissection. Degenerative changes dorsal spine. IMPRESSION: 1. New 9 mm pulmonary nodule right lower lobe laterally. CT is advised.
== END | disposition home or self-care (01) ==
LOC: RADXRMAIN 15:28
PROVIDERS: ATTEND Family Medicine
DX: I50.9 Heart failure, unspecified (principal); R91.8 Other nonspecific abnormal finding of lung field
CPT/HCPCS: 71046

== ENCOUNTER → 2018-10-02 | Outpatient (CLI) | payer MEDICARE ==
--- NOTE | 2018-10-02 08:21 | CT ---
EXAMINATION TYPE: CT chest w con DATE OF EXAM: 10/02/2018 COMPARISON: None HISTORY: Solitary pulmonary nodule CT DLP: 565.10 mGycm Automated exposure control for dose reduction was used. CONTRAST: CT scan of the chest is performed with IV Contrast, patient injected with 100 ml mL of Isovue 300. FINDINGS: LUNGS: The lungs are grossly clear, there is no concerning parenchymal mass or nodule identified. C alcified nodule right lower lobe compatible with granuloma. There is no pleural effusion or pneumotho rax seen. The tracheobronchial tree is patent. MEDIASTINUM: There are no greater than 1 cm hilar or mediastinal lymph nodes. No pericardial effusi on is seen. Thoracic aorta is of normal caliber. The heart is enlarged. UPPER ABDOMEN: Left hepatic lobe pneumobilia noted. Cholecystectomy clips are in place. OTHER: No additional significant abnormality is seen. IMPRESSION: 1. Remote granulomatous disease without suspicious nodule identified at this time.
== END | disposition home or self-care (01) ==
LOC: RADCTMAIN 06:22
PROVIDERS: ATTEND Midwife
DX: R91.1 Solitary pulmonary nodule (principal)
CPT/HCPCS: 71260; Q9967

== ENCOUNTER → 2018-10-24 | Outpatient (CLI) | payer MEDICARE ==
[2018-10-24 14:05] LABS: Basophils % (A) 0 %; Eosinophils # (A) 0.1 k/uL (0-0.7); Eosinophils % (A) 2 %; HCT 35.9 % (34.0-46.0); HGB 11.7 gm/dL (11.4-16.0); Lymphocytes # (A) 1.2 k/uL (1.0-4.8); Lymphocytes % (A) 23 %; MCH 36.7 pg (25.0-35.0); MCHC 32.7 g/dL (31.0-37.0); MCV 112.2 fL (80.0-100.0); Macrocytosis Marked; Mean Platelet Volume 9.3; Monocytes # (A) 0.2 k/uL (0-1.0); Monocytes % (A) 4 %; Neutrophils # (A) 3.6 k/uL (1.3-7.7); Neutrophils % (A) 69 %; Platelet Count 215 k/uL (150-450); RBC 3.19 m/uL (3.80-5.40); RDW 14.4 % (11.5-15.5); WBC 5.2 k/uL (3.8-10.6)
[2018-10-24 14:58] LABS: Erythrocyte Sedimentation Rate 67 mm/hr (0-20)
[2018-10-24 19:16] LABS: African American GFR (CKD) 98.2 (60.0-200.0); Albumin 4.1 g/dL (3.80-4.90); Albumin/Globulin Ratio 1.46 (1.60-3.17); BUN/Creat Ratio 18.57 Ratio (12.00-20.00); C Reactive Protein 0.8 mg/dL (0.0-0.8); Calcium 8.6 mg/dL (8.7-10.3); Globulin 2.8 g/dL (1.6-3.3); Potassium 4.1 mmol/L (3.5-5.5); Total Bilirubin 0.8 mg/dL (0.2-1.2); Total Protein 6.9 g/dL (6.2-8.2)
[2018-10-24 22:06] LABS: Hemoglobin A1C 5.5 % (4.0-6.0)
== END | disposition home or self-care (01) ==
LOC: LABWHC1 12:37
PROVIDERS: ATTEND Family Medicine
DX: I87.312 Chronic venous hypertension (idiopathic) with ulcer of left lower extremity (principal)
CPT/HCPCS: 36415; 80053; 83036; 84134; 85025; 85652; 86140

== ENCOUNTER → 2018-11-21 | Outpatient (CLI) | payer MEDICARE ==
--- NOTE | 2018-11-21 15:26 | US ---
EXAMINATION TYPE: US venous doppler duplex LE DATE OF EXAM: 11/21/2018 1:58 PM COMPARISON: US December 11, 2017 CLINICAL HISTORY: I87.312 Chronic Venous Hypertension w/ulcer,lft lo; edema/skin pustules, and skin r edness bilateral lower legs SIDE PERFORMED: Bilateral TECHNIQUE: The lower extremity deep venous system is examined utilizing real time linear array sonog rakel with graded compression, doppler sonography and color-flow sonography. VESSELS IMAGED: Common Femoral Vein Deep Femoral Vein Greater Saphenous Vein (GSV) * Femoral Vein: distal Femoral Vein is not seen bilaterally due to large body legs Popliteal Vein Small Saphenous Vein * Proximal Calf Veins (* superficial vessels) Right Leg: Negative for DVT. Venous valvular incompetency is noted in superficial venous system at R ight GSV ankle level. Left Leg: Negative for DVT. Venous valvular incompetency is noted in Deep Venous System at Left uppe r Femoral Vein and in superficial venous system at Left GSV below knee and ankle level. Grayscale, color Doppler, spectral Doppler imaging performed of the deep veins of the bilateral lower extremities. IMPRESSION: No ultrasound evidence for acute DVT in either lower extremity.
== END | disposition home or self-care (01) ==
LOC: RADUSWWP 13:01
PROVIDERS: ATTEND Family Medicine
DX: I87.312 Chronic venous hypertension (idiopathic) with ulcer of left lower extremity (principal); I87.2 Venous insufficiency (chronic) (peripheral); I89.0 Lymphedema, not elsewhere classified; I50.22 Chronic systolic (congestive) heart failure; I50.84 End stage heart failure
CPT/HCPCS: 93922; 93970

== ENCOUNTER 2019-10-26 17:48 | Inpatient (IN) | payer MEDICARE ==
[2019-10-26] MEDS ORDERED: IPRATROPIUM-ALBUTEROL 3 ML NEB INHALATION STA (18:10)
--- NOTE | 2019-10-26 18:16 | ED ---
General Adult HPI - General Chief complaint: Extremity Injury, Lower Stated complaint: Fall, Leg Swelling Time Seen by Provider: 10/26/19 17:59 Source: patient, RN notes reviewed Mode of arrival: wheelchair Limitations: no limitations - History of Present Illness Initial comments: Patient is a pleasant 74-year-old female presenting to the emergency Department with bilateral leg pain. Patient had a fall in the shower 2 days ago and has had swelling to both of her anterior leg since that time. Patient does have chronic COPD and chronic dyspnea that she also feels is acting up. Patient states this did start prior to her fall and continues to get worse. No cough. No fever. Patient states she does get some chest discomfort with her COPD however that is fairly normal for her. - Related Data Home Medications Medication Instructions Recorded Confirmed Artificial Tears-Hypromellose 1 drop BOTH EYES DAILY 12/11/17 12/11/17 [Artificial Tear Drops] Fesoterodine Fumarate [Toviaz] 8 mg PO DAILY 12/11/17 12/11/17 Furosemide [Lasix] 40 mg PO DAILY 12/11/17 12/11/17 Hydrocodone/Acetaminophen [[place] 1 tab PO Q4-6H PRN 12/11/17 12/11/17 10-325] clonazePAM 1 mg PO BID 12/11/17 12/11/17 lisinopriL [Prinivil] 20 mg PO DAILY 12/11/17 12/11/17 tiZANidine HCL 4 mg PO DAILY 12/11/17 12/11/17 Previous Rx's Medication Instructions Recorded Amitriptyline HCl [Elavil] 25 mg PO HS tab 12/20/17 Metoprolol Tartrate [Lopressor] 12.5 mg PO BID 30 Days #60 tab 12/20/17 Multivitamins, Thera [Multivitamin 1 each PO DAILY@1200 tab 12/20/17 (formulary)] SILVER sulfADIAZINE Cream 1 applic TOPICAL BID@0900,2100 12/20/17 [Silvadene 1% Cream] #400 applic Sulfamethox-Tmp 800-160Mg [Bactrim 1 tab PO Q12HR 21 Days #42 tab 12/20/17 DS 800-160 mg] Allergies Allergy/AdvReac Type Severity Reaction Status Date / Time buspirone [From BuSpar] AdvReac Unknown Verified 10/26/19 18:11 Review of Systems ROS Statement: Those systems with pertinent positive or pertinent negative responses have been documented in the HPI. ROS Other: All systems not noted in ROS Statement are negative. Constitutional: Denies: fever Eyes: Denies: eye pain ENT: Denies: ear pain Respiratory: Reports: as per HPI, dyspnea. Denies: cough Cardiovascular: Reports: as per HPI Endocrine: Reports: fatigue Gastrointestinal: Denies: abdominal pain Genitourinary: Denies: dysuria Musculoskeletal: Reports: as per HPI. Denies: back pain Skin: Reports: as per HPI Past Medical History Past Medical History: Chest Pain / Angina, Heart Failure, COPD, Eye Disorder, GERD/Reflux, Hypertension, Myocardial Infarction ([place]), Osteoarthritis (OA), Pneumonia, Thyroid Disorder Additional Past Medical History / Comment(s): Pt states she has had problems with bilateral leg edema and sores/cellulitis for the past 2 years-at times everything improves and then worsens again and L leg is always worse, urinary incontinence, bronchitis, hypothyroid, DDD cervical spine and lower back, cervical and low back chronic pain, arthritis bilateral wrists and fingers, pt states she has been told she has a bone spur in her L ankle or foot, "blocked" bile duct a couple of times, migraines, possible bilateral cataracts, Last Myocardial Infarction Date:: about 2009-pt unsure where she was hospitalized. History of Any Multi-Drug Resistant Organisms: None Reported Past Surgical History: Appendectomy, Cholecystectomy, Heart Catheterization, Hysterectomy, Orthopedic Surgery Additional Past Surgical History / Comment(s): Cardiac cath about 2009 and pt states she was treated medically, EGDs to "unplug" bile duct, colonoscopies, bilateral salpingoophorectomies, L ankle shattered-surgical repair with hardware and pt believes hardware is all removed now, cystoscopies to "stretch" her bladd er, cervical and low back injections. Past Anesthesia/Blood Transfusion Reactions: Motion Sickness Past Psychological History: Depression Smoking Status: Never smoker Past Alcohol Use History: None Reported Past Drug Use History: None Reported - Past Family History Mother Family Medical History: Cancer Additional Family Medical History / Comment(s): Mother from metastatic breast cancer at the age of 52 yrs. Father Family Medical History: Coronary Artery Disease (CAD), Myocardial Infarction ([place]) Additional Family Medical History / Comment(s): Father had his first Mi around age 78yrs. He has about 3 MIs total and from his last one at the age of 80yrs. General Exam Limitations: no limitations General appearance: alert, in no apparent distress Head exam: Present: normocephalic Eye exam: Present: normal appearance Neck exam: Present: normal inspection Respiratory exam: Present: decreased breath sounds Cardiovascular Exam: Present: regular rate, normal rhythm Expanded Peripheral pulses: 2+: Radial (R), Radial (L), Dorsalis Pedis (R), Dorsalis Pedis (L) GI/Abdominal exam: Present: soft. Absent: tenderness Extremities exam: Present: pedal edema, other (Bilateral lower extremity leg edema and diffuse tenderness, more so anterior. There is anterior areas of increased swelling approximately 8 cm with each leg.) Neurological exam: Present: alert Psychiatric exam: Present: normal affect, normal mood Skin exam: Present: normal color Course Vital Signs 10/26/19 10/26/19 10/26/19 18:08 18:51 19:00 Temperature 98.3 F Pulse Rate 101 H 96 91 Respiratory 26 H 18 Rate Blood Pressure 151/72 138/67 O2 Sat by Pulse 98 98 Oximetry EKG Findings - EKG Comments: EKG Findings:: Normal sinus rhythm 93. [place] 186. QRS 144. QT 420. QTc 522. Left axis. Left bundle branch block. No acute ST change Medical Decision Making - Medical Decision Making Patient reevaluated and updated. Case discussed with practitioner [place], covering for Dr. Mendoza, who will admit. - Lab Data Result diagrams: 10/26/19 18:13 10/26/19 18:13 Lab Results 10/26/19 10/26/19 10/26/19 Range/Units 18:13 18:13 18:13 WBC 3.9 (3.8-10.6) k/uL RBC 2.06 L (3.80-5.40) m/uL Hgb 7.9 L (11.4-16.0) gm/dL Hct 24.6 L (34.0-46.0) % MCV 119.4 H (80.0-100.0) fL MCH 38.5 H (25.0-35.0) pg MCHC 32.2 (31.0-37.0) g/dL RDW 15.4 (11.5-15.5) % Plt Count 289 (150-450) k/uL Neutrophils % (Manual) 73 % Lymphocytes % (Manual) 20 % Monocytes % (Manual) 4 % Eosinophils % (Manual) 3 % Neutrophils # (Manual) 2.85 (1.3-7.7) k/uL Lymphocytes # (Manual) 0.78 L (1.0-4.8) k/uL Monocytes # (Manual) 0.16 (0-1.0) k/uL Eosinophils # (Manual) 0.12 (0-0.7) k/uL Nucleated RBCs 0 (0-0) /100 WBC Manual Slide Review Performed Large Platelets Present Hypochromasia Slight Macrocytosis Marked A PT 9.7 (9.0-12.0) sec INR 0.9 (<1.2) APTT 22.8 (22.0-30.0) sec D-Dimer 1.28 H (<0.60) mg/L FEU Sodium 138 (137-145) mmol/L Potassium 4.1 (3.5-5.1) mmol/L Chloride 107 (98-107) mmol/L Carbon Dioxide 22 (22-30) mmol/L Anion Gap 9 mmol/L BUN 13 (7-17) mg/dL Creatinine 0.73 (0.52-1.04) mg/dL Est GFR (CKD-EPI)AfAm >90 (>60 ml/min/1.73 sqM) Est GFR (CKD-EPI)NonAf 81 (>60 ml/min/1.73 sqM) Glucose 140 H (74-99) mg/dL Plasma Lactic Acid Mj (0.7-2.0) mmol/L Calcium 8.5 (8.4-10.2) mg/dL Total Bilirubin 1.5 H (0.2-1.3) mg/dL AST 17 (14-36) U/L ALT 9 (4-34) U/L Alkaline Phosphatase 94 (38-126) U/L Troponin I (0.000-0.034) ng/mL NT-Pro-B Natriuret Pep pg/mL Total Protein 7.3 (6.3-8.2) g/dL Albumin 3.7 (3.5-5.0) g/dL 08/16/20 08/16/20 08/16/20 Range/Units 18:13 18:13 18:13 WBC (3.8-10.6) k/uL RBC (3.80-5.40) m/uL Hgb (11.4-16.0) gm/dL Hct (34.0-46.0) % MCV (80.0-100.0) fL MCH (25.0-35.0) pg MCHC (31.0-37.0) g/dL RDW (11.5-15.5) % Plt Count (150-450) k/uL Neutrophils % (Manual) % Lymphocytes % (Manual) % Monocytes % (Manual) % Eosinophils % (Manual) % Neutrophils # (Manual) (1.3-7.7) k/uL Lymphocytes # (Manual) (1.0-4.8) k/uL Monocytes # (Manual) (0-1.0) k/uL Eosinophils # (Manual) (0-0.7) k/uL Nucleated RBCs (0-0) /100 WBC Manual Slide Review Large Platelets Hypochromasia Macrocytosis PT (9.0-12.0) sec INR (<1.2) APTT (22.0-30.0) sec D-Dimer (<0.60) mg/L FEU Sodium (137-145) mmol/L Potassium (3.5-5.1) mmol/L Chloride (98-107) mmol/L Carbon Dioxide (22-30) mmol/L Anion Gap mmol/L BUN (7-17) mg/dL Creatinine (0.52-1.04) mg/dL Est GFR (CKD-EPI)AfAm (>60 ml/min/1.73 sqM) Est GFR (CKD-EPI)NonAf (>60 ml/min/1.73 sqM) Glucose (74-99) mg/dL Plasma Lactic Acid Mj 1.3 (0.7-2.0) mmol/L Calcium (8.4-10.2) mg/dL Total Bilirubin (0.2-1.3) mg/dL AST (14-36) U/L ALT (4-34) U/L Alkaline Phosphatase (38-126) U/L Troponin I <0.012 (0.000-0.034) ng/mL NT-Pro-B Natriuret Pep 462 pg/mL Total Protein (6.3-8.2) g/dL Albumin (3.5-5.0) g/dL - Radiology Data Radiology results: report reviewed (Computed tomography scan negative for pulmonary embolism), image reviewed (Chest x-ray shows no acute process. X-ray bilateral tib-fib shows no fracture.) Disposition Clinical Impression: Fall, COPD (chronic obstructive pulmonary disease) Disposition: ADMITTED IP TO THIS HOSP Is patient prescribed a controlled substance at d/c from ED?: No Referrals: Drew Mendoza MD [Primary Care Provider] - 1-2 days Decision Time: 20:29
[2019-10-26 18:46] LABS: ALT 9 U/L (4-34); AST 17 U/L (14-36); African American GFR (CKD) >90 (>60 ml/min/1.73 sqM); Albumin 3.7 g/dL (3.5-5.0); Alkaline Phosphatase 94 U/L (38-126); Anion Gap 9 mmol/L; Blood Urea Nitrogen 13 mg/dL (7-17); Calcium 8.5 mg/dL (8.4-10.2); Carbon Dioxide 22 mmol/L (22-30); Chloride 107 mmol/L (98-107); Glucose 140 mg/dL (74-99); Non-African American GFR(CKD) 81 (>60 ml/min/1.73 sqM); Potassium 4.1 mmol/L (3.5-5.1); Sodium 138 mmol/L (137-145); Total Bilirubin 1.5 mg/dL (0.2-1.3); Total Protein 7.3 g/dL (6.3-8.2)
[2019-10-26 18:51] LABS: HCT 24.6 % (34.0-46.0); HGB 7.9 gm/dL (11.4-16.0); Hypochromasia Slight; MCH 38.5 pg (25.0-35.0); MCHC 32.2 g/dL (31.0-37.0); MCV 119.4 fL (80.0-100.0); Macrocytosis Marked; Mean Platelet Volume 9.8; Platelet Count 289 k/uL (150-450); RBC 2.06 m/uL (3.80-5.40); RDW 15.4 % (11.5-15.5); WBC 3.9 k/uL (3.8-10.6)
[2019-10-26 19:00] LABS: INR 0.9 (<1.2); Partial Thromboplastin Time 22.8 sec (22.0-30.0); Prothrombin Time 9.7 sec (9.0-12.0)
[2019-10-26 19:16] LABS: D-Dimer 1.28 mg/L FEU (<0.60)
--- NOTE | 2019-10-26 19:23 | XR ---
EXAMINATION TYPE: XR chest 2V DATE OF EXAM: 10/26/2019 COMPARISON: 09/30/2018 HISTORY: Difficulty breathing TECHNIQUE: FINDINGS: Heart is enlarged. There is no heart failure. There are multiple clips at the right axilla. There are no hilar masses. There is no pleural effusion. IMPRESSION: Cardiomegaly. No active cardiopulmonary disease. No adverse change. There is 1 cm dense n odule right lung base consistent with calcified granuloma unchanged.
[2019-10-26 19:32] LABS: Eosinophils # (M) 0.12 k/uL (0-0.7); Large Platelets Present; Lymphocytes # (M) 0.78 k/uL (1.0-4.8); Monocytes # (M) 0.16 k/uL (0-1.0); Neutrophils # (M) 2.85 k/uL (1.3-7.7); Neutrophils % (M) 73 %; Nucleated Red Blood Cells 0 /100 WBC (0-0); Total Cells Counted 100
--- NOTE | 2019-10-26 19:53 | XR ---
EXAMINATION TYPE: XR tibia fibula bilateral DATE OF EXAM: 10/26/2019 COMPARISON: NONE HISTORY: Pain and swelling TECHNIQUE: 3 views each tibia and fibula FINDINGS: There is bilateral subcutaneous edema around the lower legs. There is narrowing of the knee joint spaces. I see no fracture nor dislocation. IMPRESSION: Subcutaneous edema. No fracture seen.
--- NOTE | 2019-10-26 20:26 | CT ---
EXAMINATION TYPE: CT angio chest DATE OF EXAM: 10/26/2019 COMPARISON: None HISTORY: SOB, bilateral lower limb swelling CT DLP: 695.7 mGycm Automated exposure control for dose reduction was used. CONTRAST: Performed with IV Contrast, patient injected with 70cc mL of Isovue 370. Multiple axial sections were obtained from the thoracic inlet to the diaphragm with IV contrast. Ther e are 3-D post processed images. The heart is enlarged. There is no pericardial effusion. There is no pleural effusion. There is 1.5 c m densely calcified granuloma lateral right lower lobe. There is no suspicious pulmonary mass. Thoracic aorta shows some atheromatous change. There is no aneurysm or dissection. There is normal co ntrast opacification of the pulmonary arteries. There are no filling defects. There is anterior wedgi ng of L1 and T11 vertebra up to 50%. There is thoracolumbar kyphotic deformity. Upper abdominal soft tissues are intact. IMPRESSION: No evidence of pulmonary embolism. Compression fracture of L1 has progressed slightly compared to old exam. T11 fracture unchanged. Cardiomegaly. Old granulomatous disease.
[2019-10-26] MEDS ORDERED: methylPREDNISolone SOD SUCCI 125 MG/2 ML VIAL IV STA (20:43)
[2019-10-26] MEDS ORDERED: NALOXONE 0.4 MG/ML 1 ML VIAL IV PRN (20:43)
[2019-10-26] MEDS ORDERED: IPRATROPIUM-ALBUTEROL 3 ML NEB INHALATION PRN (20:43)
[2019-10-26] MEDS ORDERED: HYDROcodone/APAP 5-325MG 1 EACH TAB PO STA (20:45)
[2019-10-26] MEDS: PANTOPRAZOLE 40 MG/10 ML VIAL IV SCH (21:27)
--- NOTE | 2019-10-26 21:40 | US ---
EXAMINATION TYPE: US venous doppler duplex LE DATE OF EXAM: 10/26/2019 9:34 PM COMPARISON: US 2019 CLINICAL HISTORY: swelling. Bilateral lower leg pain swelling and redness x couple days SIDE PERFORMED: Bilateral TECHNIQUE: The lower extremity deep venous system is examined utilizing real time linear array sonog rakel with graded compression, doppler sonography and color-flow sonography. VESSELS IMAGED: External Iliac Vein (EIV) Common Femoral Vein Deep Femoral Vein Greater Saphenous Vein * Femoral Vein Popliteal Vein Small Saphenous Vein * Proximal Calf Veins (* superficial vessels) Right Leg: Appears negative for DVT Left Leg: Appears negative for DVT IMPRESSION: No evidence of deep vein thrombosis in both legs.
[2019-10-27] MEDS: methylPREDNISolone SOD SUCCI 125 MG/2 ML VIAL IV SCH ×3 (00:04→12:02)
[2019-10-27] MEDS: HYDROcodone/APAP 5-325MG 1 EACH TAB PO PRN ×5 (01:33→20:40)
[2019-10-27 07:21] LABS: Glucose,Whole Blood 240 mg/dL (75-99)
[2019-10-27] MEDS: PANTOPRAZOLE 40 MG/10 ML VIAL IV SCH (07:43)
[2019-10-27] MEDS: INSULIN ASPART (NovoLOG) 100 UNIT/ML VIAL SQ SCH ×4 (07:43→21:26)
[2019-10-27 07:55] LABS: Basophils % (A) 0 %; Eosinophils % (A) 0 %; HCT 25.7 % (34.0-46.0); HGB 8.2 gm/dL (11.4-16.0); Hypochromasia Moderate; Lymphocytes # (A) 0.4 k/uL (1.0-4.8); Lymphocytes % (A) 9 %; MCH 38.5 pg (25.0-35.0); MCHC 31.8 g/dL (31.0-37.0); MCV 121.2 fL (80.0-100.0); Macrocytosis Marked; Mean Platelet Volume 10.2; Monocytes # (A) 0.1 k/uL (0-1.0); Monocytes % (A) 2 %; Neutrophils # (A) 4.1 k/uL (1.3-7.7); Neutrophils % (A) 88 %; Platelet Count 285 k/uL (150-450); RBC 2.12 m/uL (3.80-5.40); RDW 15.3 % (11.5-15.5); WBC 4.7 k/uL (3.8-10.6)
[2019-10-27] MEDS: IPRATROPIUM-ALBUTEROL 3 ML NEB INHALATION SCH ×4 (08:27→20:24)
[2019-10-27 08:45] LABS: Anisocytosis (M) Present; Poikilocytosis (M) Present; Polychromasia Present
[2019-10-27 11:24] LABS: Glucose,Whole Blood 217 mg/dL (75-99)
[2019-10-27] MEDS ORDERED: ACETAMINOPHEN TAB 500 MG TAB PO PRN (11:34)
[2019-10-27] MEDS ORDERED: FUROSEMIDE 40 MG TAB PO SCH (11:45)
[2019-10-27] MEDS: lisinopriL 20 MG TAB PO SCH (12:02)
[2019-10-27] MEDS: KETOROLAC 15 MG/ML 1 ML VIAL IVP PRN (13:20)
[2019-10-27] MEDS: FUROSEMIDE 10 MG/ML 4 ML VIAL IV SCH ×2 (13:20→20:39)
--- NOTE | 2019-10-27 14:45 | P.HPIM ---
History of Present Illness 74-year-old the pleasant female came in with complaints of shortness of breath has been going on for last 4 days and bilateral leg pain patient had a fall leading to a hematoma in both legs and one of the leg hasn't otherwise associa eliseo leg. Patient was complaining of some orthopnea denied any paroxysmal nocturnal dyspnea. Patient never smoked but does have history of her COPD and patient is admitted and is being treated for Cipro exacerbation also on exam patient doesn't have any significant wheezing today patient chest the x-ray did not show any significant abnormality CAT scan did not show any pulmonary embolism. Patient's BNP is only around 500. Although patient is obese. Patient doesn't have any significantly elevated JVD no crackles on lung exam but patient is still visibly short of breath and is also on oxygen doesn't usually use oxygen at home. Patient had an echocardiogram 2 years ago which showed an EF is around 35-40% because of that reason, I started her on 40 mg IV twice a day of Lasix patient does have pedal edema patient usually uses 40 mg daily of Lasix. Patient had a vena cava venous Doppler of both lower extremities along with tibiofibular x-ray all of which are within normal limits. A she was complaining of some cough after breathing treatment she is unable to bring up some phlegm which is whitish in color Review of Systems REVIEW OF SYSTEMS: CONSTITUTIONAL: No fever, no malaise, no fatigue. HEENT: No recent visual problems or hearing problems. Denied any sore throat. CARDIOVASCULAR: No chest pain, PND, no palpitations, no syncope. PULMONARY: no hemoptysis. GASTROINTESTINAL: No diarrhea, no nausea, no vomiting, no abdominal pain. NEUROLOGICAL: No headaches, no weakness, no numbness. HEMATOLOGICAL: Denies any bleeding or petechiae. GENITOURINARY: Denies any burning micturition, frequency, or urgency. MUSCULOSKELETAL/RHEUMATOLOGICAL: Denies any joint pain, swelling, or any muscle pain. ENDOCRINE: Denies any polyuria or polydipsia. The rest of the 14-point review of systems is negative. Past Medical History Past Medical History: Chest Pain / Angina, Heart Failure, COPD, Eye Disorder, GE RD/Reflux, Hypertension, Myocardial Infarction ([place]), Osteoarthritis (OA), Pneumonia, Thyroid Disorder Additional Past Medical History / Comment(s): Pt states she has had problems with bilateral leg edema and sores/cellulitis for the past 2 years-at times everything improves and then worsens again and L leg is always worse, urinary incontinence, bronchitis, hypothyroid, DDD cervical spine and lower back, cervical and low back chronic pain, arthritis bilateral wrists and fingers, pt states she has been told she has a bone spur in her L ankle or foot, "blocked" bile duct a couple of times, migraines, possible bilateral cataracts, Last Myocardial Infarction Date:: about 2009-pt unsure where she was hospitalized. History of Any Multi-Drug Resistant Organisms: None Reported Past Surgical History: Appendectomy, Cholecystectomy, Heart Catheterization, Hysterectomy, Orthopedic Surgery Additional Past Surgical History / Comment(s): Cardiac cath about 2009 and pt states she was treated medically, EGDs to "unplug" bile duct, colonoscopies, bilateral salpingoophorectomies, L ankle shattered-surgical repair with hardware and pt believes hardware is all removed now, cystoscopies to "stretch" her bladder, cervical and low back injections. Past Anesthesia/Blood Transfusion Reactions: Motion Sickness Past Psychological History: Depression Additional Psychological History / Comment(s): Retired. Nonsmoker. Lives with her son Parker. No animal exposures. No international travel. The experience Smoking Status: Never smoker Past Alcohol Use History: None Reported Past Drug Use History: None Reported - Past Family History Mother Family Medical History: Cancer Additional Family Medical History / Comment(s): Mother from metastatic breast cancer at the age of 52 yrs. Father Family Medical History: Coronary Artery Disease (CAD), Myocardial Infarction ([place]) Additional Family Medical History / Comment(s): Father had his first Mi around age 78yrs. He has about 3 MIs total and from his last one at the age of 80yrs. Medications and Allergies Home Medications Medication Instructions Recorded Confirmed Type Furosemide [Lasix] 40 mg PO DAILY 12/11/17 10/26/19 History Acetaminophen Tab [Tylenol Tab] 1,000 mg PO HS PRN 10/26/19 10/26/19 History lisinopriL 40 mg PO DAILY 10/26/19 10/26/19 History Allergies Allergy/AdvReac Type Severity Reaction Status Date / Time buspirone [From BuSpar] AdvReac Unknown Verified 10/26/19 21:37 Physical Exam Vitals: Vital Signs Temp Pulse Pulse Resp BP BP Pulse Ox 10/27/19 14:06 98.1 F 89 14 134/69 97 10/27/19 11:58 85 10/27/19 11:45 85 10/27/19 08:38 98 10/27/19 08:27 98 97 10/27/19 07:00 98.0 F 87 15 149/78 97 10/27/19 01:40 97.9 F 86 22 136/69 97 10/27/19 00:03 20 10/26/19 22:29 20 10/26/19 22:22 98.1 F 90 22 147/76 98 10/26/19 21:35 85 18 159/82 97 10/26/19 19:00 91 18 138/67 98 10/26/19 18:51 96 10/26/19 18:08 98.3 F 101 H 26 H 151/72 98 Intake and Output 10/26/19 10/27/19 10/27/19 22:59 06:59 14:59 Intake Total 670 Balance 670 Intake: Oral 670 Other: Voiding Method Bedside Commode # Voids 1 3 3 Weight 93.5 kg 103.1 kg PHYSICAL EXAMINATION: GENERAL: The patient is alert and oriented x3, not in any acute distress. Obese HEENT: Pupils are round and equally reacting to light. EOMI. No scleral icterus. No conjunctival pallor. Normocephalic, atraumatic. No pharyngeal erythema. No thyromegaly. CARDIOVASCULAR: S1 and S2 present. No murmurs, rubs, or gallops. PULMONARY: Chest is clear to auscultation, no wheezing or crackles. ABDOMEN: Soft, nontender, nondistended, normoactive bowel sounds. No palpable organomegaly. MUSCULOSKELETAL: No joint swelling or deformity. EXTREMITIES: No cyanosis, clubbing, does have pedal edema both lower extremities and patient has a hematoma on the left leg and right leg has a hematoma with bullous lesion around the hematoma NEUROLOGICAL: Gross neurological examination did not reveal any focal deficits. SKIN: No rashes. Results CBC & Chem 7: 10/27/19 07:21 10/26/19 18:13 Labs: Abnormal Lab Results - Last 24 Hours (Table) 10/26/19 10/26/19 10/26/19 Range/Units 18:13 18:13 18:13 RBC 2.06 L (3.80-5.40) m/uL Hgb 7.9 L (11.4-16.0) gm/dL Hct 24.6 L (34.0-46.0) % MCV 119.4 H (80.0-100.0) fL MCH 38.5 H (25.0-35.0) pg Lymphocytes # (1.0-4.8) k/uL Lymphocytes # (Manual) 0.78 L (1.0-4.8) k/uL Macrocytosis Marked A D-Dimer 1.28 H (<0.60) mg/L FEU Glucose 140 H (74-99) mg/dL POC Glucose (mg/dL) (75-99) mg/dL Total Bilirubin 1.5 H (0.2-1.3) mg/dL 10/27/19 10/27/19 10/27/19 Range/Units 07:20 07:21 11:23 RBC 2.12 L (3.80-5.40) m/uL Hgb 8.2 L (11.4-16.0) gm/dL Hct 25.7 L (34.0-46.0) % MCV 121.2 H (80.0-100.0) fL MCH 38.5 H (25.0-35.0) pg Lymphocytes # 0.4 L (1.0-4.8) k/uL Lymphocytes # (Manual) (1.0-4.8) k/uL Macrocytosis Marked A D-Dimer (<0.60) mg/L FEU Glucose (74-99) mg/dL POC Glucose (mg/dL) 240 H 217 H (75-99) mg/dL Total Bilirubin (0.2-1.3) mg/dL Thrombosis Risk Factor Assmnt - Choose All That Apply Each Factor Represents 1 point: Obesity (BMI >25) Each Risk Factor Represents 3 Points: Age 75 years or older Thrombosis Risk Factor Assessment Total Risk Factor Score: 4 Thrombosis Risk Factor Assessment Level: Moderate Risk Assessment and Plan Plan: -Shortness of breath etiology is not clear my suspicion is low that COPD is causing that and cut down the dose of steroids and patient may have CHF exacerbation although this is not clear either on consult cardiology patient will be started on IV Lasix and will be continued on IV Lasix and we'll see how she responds to Lasix. -Congestive heart heart failure chronic systolic dysfunction with possible acute exacerbation patient had a previous EF of around 35-40% with repeat an echocardiogram again -COPD with possible mild acute exacerbation -Gastroesophageal reflux disease -Hypothyroidism 4 obesity with possibility of sleep apnea patient was noted diagnosed with this though -Recent fall mechanical fall PT and OT evaluation -Hypertension Not stating the patient on any heparin or Lovenox because of the significant hematomas in both legs
[2019-10-27 16:23] LABS: Glucose,Whole Blood 284 mg/dL (75-99)
[2019-10-27] MEDS: methylPREDNISolone SOD SUCCI 40 MG/ML 1 ML VIAL IV SCH (20:39)
[2019-10-27 21:01] LABS: Glucose,Whole Blood 186 mg/dL (75-99)
[2019-10-28] MEDS: HYDROcodone/APAP 5-325MG 1 EACH TAB PO PRN ×4 (01:15→21:50)
[2019-10-28 07:01] LABS: Glucose,Whole Blood 170 mg/dL (75-99)
[2019-10-28] MEDS: PANTOPRAZOLE 40 MG TABLET PO SCH (07:48)
[2019-10-28] MEDS: lisinopriL 20 MG TAB PO SCH (07:48)
[2019-10-28] MEDS: methylPREDNISolone SOD SUCCI 40 MG/ML 1 ML VIAL IV SCH (07:49)
[2019-10-28] MEDS: INSULIN ASPART (NovoLOG) 100 UNIT/ML VIAL SQ SCH ×4 (07:49→21:58)
[2019-10-28] MEDS: FUROSEMIDE 10 MG/ML 4 ML VIAL IV SCH ×2 (07:49→21:50)
[2019-10-28] MEDS: IPRATROPIUM-ALBUTEROL 3 ML NEB INHALATION SCH ×4 (08:23→19:34)
[2019-10-28 08:42] LABS: African American GFR (CKD) >90 (>60 ml/min/1.73 sqM); Anion Gap 8 mmol/L; Blood Urea Nitrogen 22 mg/dL (7-17); Carbon Dioxide 25 mmol/L (22-30); Chloride 103 mmol/L (98-107); Glucose 128 mg/dL (74-99); Non-African American GFR(CKD) 87 (>60 ml/min/1.73 sqM); Potassium 4.3 mmol/L (3.5-5.1); Sodium 136 mmol/L (137-145)
[2019-10-28 11:11] LABS: Glucose,Whole Blood 172 mg/dL (75-99)
--- NOTE | 2019-10-28 11:56 | P.CRDCN ---
History of Present Illness Consult date: 10/28/19 Chief complaint: Shortness of breath and bilateral lower extremities edema History of present illness: This is a very pleasant 74-year-old female patient with coronary artery disease, cardiomyopathy with an EF between 35-40%, chronic systolic congestive heart failure, as well as multiple comorbid conditions was admitted to the hospital for further evaluation of increasing shortness of breath associated was bilateral lower extremities edema. The patient describes progressive shortness of breath with exertion as well as shortness of breath with laying flat in bed for the last several days. For the last few days she developed bilateral lower extremities edema. She stated that she always does have lower extremities edema and she was diagnosed in the past "with lymphedema" but her edema has getting worse lately. She's not quite sure if she gain any weight. She denies any symptoms of fever or chills. No symptoms of chest pain or chest discomfort. And no symptoms of cough or sputum production. The patient the chest x-ray did not show any acute abnormalities. She underwent d-dimer which came in to be abnormal but subsequently CT of the chest showed no PE. She is in process of having venous duplex study to rule out DVT. Her hemoglobin was around 8. The BNP was around 500. The echo from 2018 revealed impaired LV function was EF between 35-40%. Currently the patient is on Lasix at 40 mg IV twice a day. On examination she seems to be in heart failure with bilateral lower extremities edema and diminished breathing sounds bilaterally. Past Medical History Past Medical History: Chest Pain / Angina, Heart Failure, COPD, Eye Disorder, GERD/Reflux, Hypertension, Myocardial Infarction ([place]), Osteoarthritis (OA), Pneumonia, Thyroid Disorder Additional Past Medical History / Comment(s): Pt states she has had problems with bilateral leg edema and sores/cellulitis for the past 2 years-at times everything improves and then worsens again and L leg is always worse, urinary incontinence, bronchitis, hypothyroid, DDD cervical spine and lower back, cervical and low back chronic pain, arthritis bilateral wrists and fingers, pt states she has been told she has a bone spur in her L ankle or foot, "blocked" bile duct a couple of times, migraines, possible bilateral cataracts, Last Myocardial Infarction Date:: about 2009-pt unsure where she was hospitalized. History of Any Multi-Drug Resistant Organisms: None Reported Past Surgical History: Appendectomy, Cholecystectomy, Heart Catheterization, Hysterectomy, Orthopedic Surgery Additional Past Surgical History / Comment(s): Cardiac cath about 2009 and pt states she was treated medically, EGDs to "unplug" bile duct, colonoscopies, bilateral salpingoophorectomies, L ankle shattered-surgical repair with hardware and pt believes hardware is all removed now, cystoscopies to "stretch" her bladder, cervical and low back injections. Past Anesthesia/Blood Transfusion Reactions: Motion Sickness Past Psychological History: Depression Additional Psychological History / Comment(s): Retired. Nonsmoker. Lives with her son Parker. No animal exposures. No international travel. The experience Smoking Status: Never smoker Past Alcohol Use History: None Reported Past Drug Use History: None Reported - Past Family History Mother Family Medical History: Cancer Additional Family Medical History / Comment(s): Mother from metastatic breast cancer at the age of 52 yrs. Father Family Medical History: Coronary Artery Disease (CAD), Myocardial Infarction ([place]) Additional Family Medical History / Comment(s): Father had his first Mi around age 78yrs. He has about 3 MIs total and from his last one at the age of 80yrs. Medications and Allergies Home Medications Medication Instructions Recorded Confirmed Type Furosemide [Lasix] 40 mg PO DAILY 12/11/17 10/26/19 History Acetaminophen Tab [Tylenol Tab] 1,000 mg PO HS PRN 10/26/19 10/26/19 History lisinopriL 40 mg PO DAILY 10/26/19 10/26/19 History Allergies Allergy/AdvReac Type Severity Reaction Status Date / Time buspirone [From BuSpar] AdvReac Unknown Verified 10/26/19 21:37 Physical Exam Vitals: Vital Signs Temp Pulse Pulse Resp BP BP Pulse Ox 10/28/19 11:41 78 10/28/19 11:29 78 10/28/19 08:37 78 10/28/19 08:23 76 98 10/28/19 07:42 98.1 F 72 16 117/61 96 10/28/19 01:30 97.9 F 76 20 100/53 94 L 10/28/19 00:00 20 10/27/19 20:43 84 10/27/19 20:24 80 10/27/19 19:34 98.1 F 98 20 124/53 97 10/27/19 16:13 82 10/27/19 16:04 82 10/27/19 14:06 98.1 F 89 14 134/69 97 10/27/19 11:58 85 Intake and Output 10/27/19 10/28/19 10/28/19 22:59 06:59 14:59 Intake Total 200 260 Output Total 2200 1600 Balance -2200 -1400 260 Intake: Oral 200 260 Output: Urine 2200 1600 - Constitutional General appearance: no acute distress - Respiratory Respiratory: bilateral: diminished - Cardiovascular Heart sounds: normal: S1, S2 Results 10/27/19 07:21 10/28/19 06:57 Comprehensive Metabolic Panel 10/28/19 Range/Units 06:57 Sodium 136 L (137-145) mmol/L Potassium 4.3 (3.5-5.1) mmol/L Chloride 103 (98-107) mmol/L Carbon Dioxide 25 (22-30) mmol/L BUN 22 H (7-17) mg/dL Creatinine 0.65 (0.52-1.04) mg/dL Glucose 128 H (74-99) mg/dL Calcium 8.0 L (8.4-10.2) mg/dL Current Medications Generic Name Dose Route Start Last Admin Trade Name Freq PRN Reason Stop Dose Admin Acetaminophen 1,000 mg 10/27/19 11:34 Tylenol Tab PO HS PRN Pain Hydrocodone Bitart/Acetaminophen 1 each 10/26/19 20:45 10/28/19 11:37 [place] 5-325 PO 1 each Q4HR PRN Administration Pain Albuterol/Ipratropium 3 ml 10/27/19 08:00 10/28/19 11:29 Duoneb 0.5 Mg-3 Mg/3 Ml Soln INHALATION 3 ml RT-QID RAYMON Administration Albuterol/Ipratropium 3 ml 10/26/19 20:43 Duoneb 0.5 Mg-3 Mg/3 Ml Soln INHALATION RT-Q4H PRN Shortness Of Breath Or Wheezing Furosemide 40 mg 10/27/19 13:00 10/28/19 07:49 Lasix IV 40 mg Q12HR RAYMON Administration Insulin Aspart 0 unit 10/27/19 07:30 10/28/19 11:37 Novolog SQ 4 unit ACHS RAYMON Administration Protocol Ketorolac Tromethamine 15 mg 10/27/19 13:00 10/27/19 13:20 Toradol IVP 10/30/19 13:00 15 mg Q6HR PRN Administration Mild Breakthrough Pain Lisinopril 40 mg 10/27/19 11:45 10/28/19 07:48 Zestril PO 40 mg DAILY RAYMON Administration Methylprednisolone Sodium Succinate 40 mg 10/27/19 21:00 10/28/19 07:49 Solu-Medrol IV 40 mg BID RAYMON Administration Naloxone HCl 0.2 mg 10/26/19 20:43 Narcan IV Q2M PRN Opioid Reversal Pantoprazole Sodium 40 mg 10/28/19 07:30 10/28/19 07:48 Protonix PO 40 mg [id number] RAYMON Administration Intake and Output 10/27/19 10/28/19 10/28/19 22:59 06:59 14:59 Intake Total 200 260 Output Total 2200 1600 Balance -2200 -1400 260 Intake: Oral 200 260 Output: Urine 2200 1600 10/27/19 07:21 10/28/19 06:57 Assessment and Plan Assessment: Assessment #1 congestive heart failure exacerbation secondary to systolic dysfunction #2 known chronic systolic congestive heart failure #3 severe cardiomyopathy #4 multiple comorbid conditions Plan #1 acute coronary event was ruled out #2 continue the current dose of Lasix IV #3 continue monitor the kidney function and electrolytes #4 repeat the echocardiogram. Her last echo was in 2018 #5 follow-up with the patient
--- NOTE | 2019-10-28 12:34 | ECHOF ---
Referral Reason:shortness of breath MEASUREMENTS -------- HEIGHT: 162.6 cm WEIGHT: 103.0 kg BP: 100/53 IVSd: 1.5 cm (0.6 - 1.1) LVIDd: 3.7 cm (3.9 - 5.3) LVPWd: 1.5 cm (0.6 - 1.1) IVSs: 2.6 cm LVIDs: 1.9 cm LVPWs: 1.8 cm LAESV Index (A-L): 31.01 ml/m Ao Diam: 2.8 cm (2.0 - 3.7) AV Cusp: 1.8 cm (1.5 - 2.6) LA Diam: 2.6 cm (2.7 - 3.8) MV EXCURSION: 16.963 mm (> 18.000) MV EF SLOPE: 26 mm/s (70 - 150) EPSS: 0.8 cm MV E Karlo: 0.60 m/s MV DecT: 191 ms MV A Karlo: 1.02 m/s MV E/A Ratio: 0.59 RAP: 5.00 mmHg RVSP: 31.41 mmHg FINDINGS -------- This was a technically difficult study with suboptimal views. The left ventricular size is normal. There is moderate concentric left ventricular hypertrophy. O verall left ventricular systolic function is mild-moderately impaired with, an EF between 40 - 45 %. The diastolic filling pattern is normal for the age of the patient 9.02. The right ventricle is normal in size. LA is midly dilated 29-33ml/m2. The right atrial size is normal. Lumason used The aortic valve is trileaflet and appears structurally normal. The mitral valve is normal. There is trace mitral regurgitation. The tricuspid valve appears structurally normal. Mild tricuspid regurgitation present. Right vent ricular systolic pressure is normal at < 35 mmHg. There is no pulmonic regurgitation present. The aortic root size is normal. IVC Not well visulized. There is no pericardial effusion. CONCLUSIONS -------- 1. The left ventricular size is normal. 2. There is moderate concentric left ventricular hypertrophy. 3. Overall left ventricular systolic function is mild-moderately impaired with, an EF between 40 - 45 %. 4. The diastolic filling pattern is normal for the age of the patient 9.02 5. LA is midly dilated 29-33ml/m2. 6. There is trace mitral regurgitation. 7. Mild tricuspid regurgitation present. CENTRAL SUPPLY AIDE: Nida Dodson RDCS
--- NOTE | 2019-10-28 14:54 | P.PN ---
Subjective 74-year-old female was admitted secondary to shortness of breath although etiology is not clear probability of heart failure that is contributing to her shortness of breath. Patient to repeat echocardiogram showed ejection fraction of 40-45%. Patient shortness of breath improved significantly today. Possibly of COPD exacerbation is low because of which I'll switch to IV steroids to oral. Continue with IV Lasix today patient pedal edema significant improved patient probably will be discharged tomorrow on oral Lasix. Constitutional: Denied any fatigue denied any fever. Cardio vascular: As mentioned in HPI Gastrointestinal denied any nausea vomiting Pulmonary: Denied any shortness of breath cough Neurologic denied any new focal deficits All inpatient medications were reviewed and appropriate changes in these medications as dictated in the interval history and assessment and plan. Objective - Vital Signs Vital signs: Vital Signs Temp 98.0 F 10/28/19 13:45 Pulse 90 10/28/19 13:45 Resp 14 10/28/19 13:45 BP 99/42 10/28/19 13:45 Pulse Ox 95 10/28/19 13:45 Intake & Output 10/27/19 10/28/19 10/28/19 18:59 06:59 18:59 Intake Total 670 200 710 Output Total 1200 2600 Balance -530 -2400 710 Intake: Oral 670 200 710 Output: Urine 1200 2600 Other: # Voids 3 - Exam PHYSICAL EXAMINATION: GENERAL: The patient is alert and oriented x3, not in any acute distress. Obese HEENT: Pupils are round and equally reacting to light. EOMI. No scleral icterus. No conjunctival pallor. Normocephalic, atraumatic. No pharyngeal erythema. No thyromegaly. CARDIOVASCULAR: S1 and S2 present. No murmurs, rubs, or gallops. PULMONARY: Chest is clear to auscultation, no wheezing or crackles. ABDOMEN: Soft, nontender, nondistended, normoactive bowel sounds. No palpable organomegaly. MUSCULOSKELETAL: No joint swelling or deformity. EXTREMITIES: No cyanosis, clubbing, or pedal edema improved significantly and patient has a hematoma on the left leg and right leg has a hematoma with bullous lesion around the hematoma NEUROLOGICAL: Gross neurological examination did not reveal any focal deficits. SKIN: No rashes. - Labs CBC & Chem 7: 10/27/19 07:21 10/28/19 06:57 Labs: Abnormal Lab Results - Last 24 Hours (Table) 10/27/19 10/27/19 10/28/19 Range/Units 16:21 20:51 06:57 Sodium 136 L (137-145) mmol/L BUN 22 H (7-17) mg/dL Glucose 128 H (74-99) mg/dL POC Glucose (mg/dL) 284 H 186 H (75-99) mg/dL Calcium 8.0 L (8.4-10.2) mg/dL 10/28/19 10/28/19 Range/Units 06:59 11:10 Sodium (137-145) mmol/L BUN (7-17) mg/dL Glucose (74-99) mg/dL POC Glucose (mg/dL) 170 H 172 H (75-99) mg/dL Calcium (8.4-10.2) mg/dL Assessment and Plan Plan: -Shortness of breath etiology is not clear most probably can start failure chronic systolic dysfunction with acute exacerbation patient will be continued on IV Lasix today possibly of discharge tomorrow -Congestive heart heart failure chronic systolic dysfunction with possible acute exacerbation patient had a previous EF of around 35-40% repeat an echocardiogram showed mildly improved EF of around 40-45% -COPD with possible mild acute exacerbation -Gastroesophageal reflux disease -Hypothyroidism 4 obesity with possibility of sleep apnea patient was noted diagnosed with this though -Recent fall mechanical fall PT and OT evaluation -Hypertension DVT prophylaxis Lovenox
[2019-10-28 16:54] LABS: Glucose,Whole Blood 203 mg/dL (75-99)
[2019-10-28 21:50] LABS: Glucose,Whole Blood 163 mg/dL (75-99)
[2019-10-28] MEDS: KETOROLAC 15 MG/ML 1 ML VIAL IVP PRN (21:58)
[2019-10-29] MEDS: HYDROcodone/APAP 5-325MG 1 EACH TAB PO PRN ×4 (02:13→17:24)
[2019-10-29 06:56] LABS: Glucose,Whole Blood 117 mg/dL (75-99)
[2019-10-29 07:01] LABS: African American GFR (CKD) >90 (>60 ml/min/1.73 sqM); Anion Gap 6 mmol/L; Blood Urea Nitrogen 29 mg/dL (7-17); Calcium 7.5 mg/dL (8.4-10.2); Carbon Dioxide 30 mmol/L (22-30); Chloride 98 mmol/L (98-107); Glucose 91 mg/dL (74-99); Non-African American GFR(CKD) 83 (>60 ml/min/1.73 sqM); Potassium 3.6 mmol/L (3.5-5.1); Sodium 134 mmol/L (137-145)
[2019-10-29] MEDS: INSULIN ASPART (NovoLOG) 100 UNIT/ML VIAL SQ SCH ×4 (07:27→22:14)
[2019-10-29] MEDS: predniSONE 20 MG TAB PO SCH (07:31)
[2019-10-29] MEDS: PANTOPRAZOLE 40 MG TABLET PO SCH (07:31)
[2019-10-29] MEDS: lisinopriL 20 MG TAB PO SCH (07:31)
[2019-10-29] MEDS: ENOXAPARIN 40 MG/0.4 ML SYRINGE SQ SCH (07:32)
[2019-10-29] MEDS: FUROSEMIDE 10 MG/ML 4 ML VIAL IV SCH (07:32)
[2019-10-29 07:33] LABS: HCT 24.1 % (34.0-46.0); HGB 7.7 gm/dL (11.4-16.0); Hypochromasia Moderate; MCH 38.6 pg (25.0-35.0); MCV 120.8 fL (80.0-100.0); Macrocytosis Marked; Mean Platelet Volume 10.6; Platelet Count 285 k/uL (150-450); RBC 1.99 m/uL (3.80-5.40); RDW 15.5 % (11.5-15.5)
[2019-10-29] MEDS: FUROSEMIDE 40 MG TAB PO SCH ×2 (08:19→15:45)
[2019-10-29] MEDS ORDERED: POTASSIUM CHLORIDE ER 20 MEQ TAB.ER PO STA (09:01)
[2019-10-29] MEDS: IPRATROPIUM-ALBUTEROL 3 ML NEB INHALATION SCH ×4 (09:11→20:28)
--- NOTE | 2019-10-29 09:54 | CDI ---
Documentation Clarification Form Date: 10/29/2019 09:20:00 AM From: Matilda Ramachandran RN, CCDS Phone: [phone] Admit Date: 10/28/2019 02:50:00 PM Patient Name: Carolina García Visit Number: [id number] Discharge Date: ATTENTION: The Clinical Documentation Specialists (CDI) and [facility] Coding Staff appreciate your assistance in clarifying documentation. Please respond to the clarification below the line at the bottom and electronically sign. The CDI & [facility] Coding staff will review the response and follow-up if needed. Please note: Queries are made part of the Legal Health Record. If you have any questions, please contact the author of this message via ITS. Dr. Manuel Jovel 10/26 H/P documentation states: fall leading to hematoma in both legs 10/25 HGB 7.9, HCT 26.6. Request your clinical opinion of the abnormal lab findings. History/Risk Factors: COPD, CHF, Hypertension Clinical indicators: 74-year-old present to ED on 10/25 with complaints of progressive shortness of breath with exertion bilateral lower extremities edema. She fell in shower 2 days prior per ED notes. H/P on 10/26, patient has a hematoma on the left leg and right leg has a hematoma with bullous lesion around the hematoma. 10/25 HGB 7.9, HCT 24.6 10/26 HGB 8.2, HCT 25.7 10/28 HGB 7.7, HCT 24.1 Treatment: Monitor CBC per orders Clinical significance of diagnostic testing and treatment CANNOT be assumed or coded without physician documentation of significance if any. Please clarify what abnormal CBC signifies: Disease process, please specify Infectious process, please specify Unable to determine Other, please specify (Last Revision: December 2016) Not significant to comment, probably chronic any may need outpatient evaluation. This query is not necessary MTDD
--- NOTE | 2019-10-29 11:25 | XR ---
EXAMINATION TYPE: XR chest 1V portable DATE OF EXAM: 10/29/2019 HISTORY: Shortness of breath. COMPARISON: 10/26/2019 TECHNIQUE: Single view of the chest is submitted. FINDINGS: Demonstrated are scattered senescent parenchymal change. There is no evidence for focal infiltrate. The heart is stable. Hilar and mediastinal structures are within normal limits. Degenerative changes are seen of the dorsal spine. IMPRESSION: 1. Chronic changes without evidence for acute pulmonary disease.
[2019-10-29] MEDS: KETOROLAC 15 MG/ML 1 ML VIAL IVP PRN (11:28)
[2019-10-29 11:29] LABS: Glucose,Whole Blood 130 mg/dL (75-99)
--- NOTE | 2019-10-29 14:08 | P.PN ---
Subjective Progress Note Date: 10/29/19 Principal diagnosis: Lower extremities edema This is a very pleasant 74-year-old female patient with coronary artery disease, cardiomyopathy with an EF between 35-40%, chronic systolic congestive heart failure, as well as multiple comorbid conditions was admitted to the hospital for further evaluation of increasing shortness of breath associated was bilateral lower extremities edema. The patient describes progressive shortness of breath with exertion as well as shortness of breath with laying flat in bed for the last several days. For the last few days she developed bilateral lower extremities edema. She stated that she always does have lower extremities edema and she was diagnosed in the past "with lymphedema" but her edema has getting worse lately. She's not quite sure if she gain any weight. She denies any symptoms of fever or chills. No symptoms of chest pain or chest discomfort. And no symptoms of cough or sputum production. The patient the chest x-ray did not show any acute abnormalities. She underwent d-dimer which came in to be abnormal but subsequently CT of the chest showed no PE. She is in process of having venous duplex study to rule out DVT. Her hemoglobin was around 8. The BNP was around 500. The echo from 2018 revealed impaired LV function was EF between 35-40%. The patient was seen today October 282019. Overall she is feeling better. No symptoms of chest pain or chest discomfort or shortness of breath and the lower extremities edema has improved significantly. No dizziness or lightheadedness or syncope. She was switched to Lasix by mouth and she possibly can be discharged home in the next 12-24 hours. Objective - Vital Signs Vital signs: Vital Signs Temp 97.8 F 10/29/19 07:00 Pulse 68 10/29/19 07:00 Resp 18 10/29/19 07:00 BP 127/69 10/29/19 07:00 Pulse Ox 98 10/29/19 07:00 Intake & Output 10/28/19 10/29/19 10/29/19 18:59 06:59 18:59 Intake Total 950 Output Total 1550 Balance 950 -1550 Intake: Oral 950 Output: Urine 1550 Other: # Voids 1 1 - Constitutional General appearance: Present: no acute distress - Respiratory Respiratory: bilateral: CTA - Cardiovascular Rhythm: regular Heart sounds: normal: S1, S2 - Labs CBC & Chem 7: 10/29/19 06:20 10/29/19 06:20 Labs: Abnormal Lab Results - Last 24 Hours (Table) 10/28/19 10/28/19 10/29/19 Range/Units 16:53 21:28 06:20 RBC 1.99 L (3.80-5.40) m/uL Hgb 7.7 L (11.4-16.0) gm/dL Hct 24.1 L (34.0-46.0) % MCV 120.8 H (80.0-100.0) fL MCH 38.6 H (25.0-35.0) pg Macrocytosis Marked A Sodium (137-145) mmol/L BUN (7-17) mg/dL POC Glucose (mg/dL) 203 H 163 H (75-99) mg/dL Calcium (8.4-10.2) mg/dL 10/29/19 10/29/19 10/29/19 Range/Units 06:20 06:54 11:26 RBC (3.80-5.40) m/uL Hgb (11.4-16.0) gm/dL Hct (34.0-46.0) % MCV (80.0-100.0) fL MCH (25.0-35.0) pg Macrocytosis Sodium 134 L (137-145) mmol/L BUN 29 H (7-17) mg/dL POC Glucose (mg/dL) 117 H 130 H (75-99) mg/dL Calcium 7.5 L (8.4-10.2) mg/dL Assessment and Plan Assessment: Assessment #1 congestive heart failure exacerbation secondary to systolic dysfunction #2 known chronic systolic congestive heart failure #3 severe cardiomyopathy #4 multiple comorbid conditions Plan #1 continue the current dose of Lasix by mouth #2 monitor the patient for additional 12-24 hours
--- NOTE | 2019-10-29 15:52 | P.PN ---
Subjective Progress Note Date: 10/29/19 Principal diagnosis: 74-year-old female was admitted secondary to shortness of breath although etiology is not clear probability of heart failure that is contributing to her shortness of breath. Patient to repeat echocardiogram showed ejection fraction of 40-45%. Patient shortness of breath improved significantly today. Possibly of COPD exacerbation is low because of which I'll switch to IV steroids to oral. Continue with IV Lasix today patient pedal edema significant improved patient probably will be discharged tomorrow on oral Lasix. Constitutional: Denied any fatigue denied any fever. Cardio vascular: As mentioned in HPI Gastrointestinal denied any nausea vomiting Pulmonary: Denied any shortness of breath cough Neurologic denied any new focal deficits All inpatient medications were reviewed and appropriate changes in these medications as dictated in the interval history and assessment and plan. 10/29/2019 Patient is seen and evaluated and follow-up with no acute overnight issues. Patient continues to be extremely short of breath and dyspneic with exertion. PT/OT to evaluate the patient for possible ECF rehab for continued PT/OT therapy in the outpatient setting. Patient does live at home with her son although he is not there 02/10. Patient currently maintained on Lasix which was transitioned oral at 40 mg twice daily and will continue at this time. Patient is currently maintained on 3 L of oxygen and does not normally wear oxygen in the outpatient setting. Will perform home O2 assessment. Patient does have a nebulizer at home although needs tubing. Patient is maintained on breathing inhalational treatments along with steroids and will continue at this time. Chest x-ray done today shows no evidence of acute pulmonary disease at this time. Review of systems: Constitutional: No reports of fatigue, fevers, or chills Cardiovascular: No reports of chest pain or palpitations Respiratory: Reports shortness of breath, no reports of cough GI: No reports of nausea, vomiting, or diarrhea : No reports of dysuria or retention Neurovascular: Reports some weakness with no reports of numbness noted All medications have been reviewed. Objective - Vital Signs Vital signs: Vital Signs Temp 97.8 F 10/29/19 07:00 Pulse 68 10/29/19 07:00 Resp 18 10/29/19 07:00 BP 127/69 10/29/19 07:00 Pulse Ox 98 10/29/19 07:00 Intake & Output 10/28/19 10/29/19 10/29/19 18:59 06:59 18:59 Intake Total 950 Output Total 1550 Balance 950 -1550 Intake: Oral 950 Output: Urine 1550 Other: # Voids 1 1 - Exam GENERAL: The patient is alert and oriented x3, not in any acute distress. Obese HEENT: Pupils are round and equally reacting to light. EOMI. No scleral icterus. No conjunctival pallor. Normocephalic, atraumatic. No pharyngeal erythema. No thyromegaly. CARDIOVASCULAR: S1 and S2 present. No murmurs, rubs, or gallops. PULMONARY: Manage breath sounds bilaterally with no wheezing or crackles. ABDOMEN: Soft, nontender, nondistended, normoactive bowel sounds. No palpable or ganomegaly. MUSCULOSKELETAL: No joint swelling or deformity. EXTREMITIES: No cyanosis, clubbing, or pedal edema improved significantly and patient has a hematoma on the left leg and right leg has a hematoma with bullous lesion around the hematoma NEUROLOGICAL: Gross neurological examination did not reveal any focal deficits. SKIN: No rashes. - Labs CBC & Chem 7: 10/29/19 06:20 10/29/19 06:20 Labs: Abnormal Lab Results - Last 24 Hours (Table) 10/28/19 10/28/19 10/29/19 Range/Units 16:53 21:28 06:20 RBC 1.99 L (3.80-5.40) m/uL Hgb 7.7 L (11.4-16.0) gm/dL Hct 24.1 L (34.0-46.0) % MCV 120.8 H (80.0-100.0) fL MCH 38.6 H (25.0-35.0) pg Macrocytosis Marked A Sodium (137-145) mmol/L BUN (7-17) mg/dL POC Glucose (mg/dL) 203 H 163 H (75-99) mg/dL Calcium (8.4-10.2) mg/dL 10/29/19 10/29/19 Range/Units 06:20 06:54 RBC (3.80-5.40) m/uL Hgb (11.4-16.0) gm/dL Hct (34.0-46.0) % MCV (80.0-100.0) fL MCH (25.0-35.0) pg Macrocytosis Sodium 134 L (137-145) mmol/L BUN 29 H (7-17) mg/dL POC Glucose (mg/dL) 117 H (75-99) mg/dL Calcium 7.5 L (8.4-10.2) mg/dL Assessment and Plan Assessment: -Shortness of breath etiology is not clear most probably congestive failure chronic systolic dysfunction with acute exacerbation patient. Cardiology angelica carranza. Patient transitioned oral Lasix at 40 mg twice daily. -Congestive heart heart failure chronic systolic dysfunction with possible acute exacerbation patient had a previous EF of around 35-40% repeat an echocardiogram showed mildly improved EF of around 40-45% -COPD with possible mild acute exacerbation -Gastroesophageal reflux disease -Hypothyroidism -obesity with possibility of sleep apnea, will need outpatient evaluation -Recent fall mechanical fall PT and OT evaluation -Gait dysfunction -Hypertension -DVT prophylaxis Lovenox -Full code Plan: Continue current medications, management, and symptomatic treatment. Awaiting PT/OT to evaluate the patient. Patient may possibly need home O2 assessment done and social work will be consulted to discuss possible ECF placement. Will repeat a.m. labs. Further recommendations to follow. Possible discharge in 24- 48 hours.
[2019-10-29 16:25] LABS: Glucose,Whole Blood 180 mg/dL (75-99)
[2019-10-29 20:28] LABS: Glucose,Whole Blood 122 mg/dL (75-99)
[2019-10-30] MEDS: HYDROcodone/APAP 5-325MG 1 EACH TAB PO PRN ×5 (02:53→22:33)
[2019-10-30 07:06] LABS: Glucose,Whole Blood 103 mg/dL (75-99)
[2019-10-30 07:35] LABS: Basophils % (A) 0 %; Eosinophils # (A) 0.1 k/uL (0-0.7); Eosinophils % (A) 2 %; HCT 25.2 % (34.0-46.0); HGB 8.2 gm/dL (11.4-16.0); Hypochromasia Slight; Lymphocytes # (A) 1.5 k/uL (1.0-4.8); Lymphocytes % (A) 30 %; MCH 39.2 pg (25.0-35.0); MCHC 32.6 g/dL (31.0-37.0); MCV 120.4 fL (80.0-100.0); Macrocytosis Marked; Mean Platelet Volume 10.2; Monocytes # (A) 0.3 k/uL (0-1.0); Monocytes % (A) 6 %; Neutrophils % (A) 60 %; Platelet Count 268 k/uL (150-450); RBC 2.09 m/uL (3.80-5.40); RDW 15.5 % (11.5-15.5)
[2019-10-30] MEDS: INSULIN ASPART (NovoLOG) 100 UNIT/ML VIAL SQ SCH ×4 (07:36→22:30)
[2019-10-30] MEDS: ENOXAPARIN 40 MG/0.4 ML SYRINGE SQ SCH (07:39)
[2019-10-30] MEDS: FUROSEMIDE 40 MG TAB PO SCH ×2 (07:40→15:47)
[2019-10-30] MEDS: lisinopriL 20 MG TAB PO SCH (07:40)
[2019-10-30] MEDS: POTASSIUM CHLORIDE ER 20 MEQ TAB.ER PO SCH (07:40)
[2019-10-30] MEDS: PANTOPRAZOLE 40 MG TABLET PO SCH (07:40)
[2019-10-30] MEDS: predniSONE 20 MG TAB PO SCH (07:40)
[2019-10-30 07:52] LABS: African American GFR (CKD) >90 (>60 ml/min/1.73 sqM); Anion Gap 5 mmol/L; Blood Urea Nitrogen 24 mg/dL (7-17); Calcium 7.6 mg/dL (8.4-10.2); Carbon Dioxide 30 mmol/L (22-30); Chloride 99 mmol/L (98-107); Glucose 88 mg/dL (74-99); Non-African American GFR(CKD) 89 (>60 ml/min/1.73 sqM); Potassium 3.9 mmol/L (3.5-5.1); Sodium 134 mmol/L (137-145)
[2019-10-30] MEDS: IPRATROPIUM-ALBUTEROL 3 ML NEB INHALATION SCH ×4 (08:30→20:46)
[2019-10-30 08:36] LABS: Rouleaux Present
[2019-10-30 11:32] LABS: Glucose,Whole Blood 130 mg/dL (75-99)
--- NOTE | 2019-10-30 12:20 | P.PN ---
Subjective Progress Note Date: 10/30/19 Principal diagnosis: Lower extremities edema This is a very pleasant 74-year-old female patient with coronary artery disease, cardiomyopathy with an EF between 35-40%, chronic systolic congestive heart failure, as well as multiple comorbid conditions was admitted to the hospital for further evaluation of increasing shortness of breath associated was bilateral lower extremities edema. The patient describes progressive shortness of breath with exertion as well as shortness of breath with laying flat in bed for the last several days. For the last few days she developed bilateral lower extremities edema. She stated that she always does have lower extremities edema and she was diagnosed in the past "with lymphedema" but her edema has getting worse lately. She's not quite sure if she gain any weight. She denies any symptoms of fever or chills. No symptoms of chest pain or chest discomfort. And no symptoms of cough or sputum production. The patient the chest x-ray did not show any acute abnormalities. She underwent d-dimer which came in to be abnormal but subsequently CT of the chest showed no PE. She is in process of having venous duplex study to rule out DVT. Her hemoglobin was around 8. The BNP was around 500. The echo from 2018 revealed impaired LV function was EF between 35-40%. The patient was seen today 10/30/2019. Overall she is feeling better. The lower extremities edema has improved significantly. Currently she is on Lasix by mouth. The patient is in process of going to extended care facility in the next 24 hours. Objective - Vital Signs Vital signs: Vital Signs Temp 97.7 F 10/30/19 07:00 Pulse 76 10/30/19 12:18 Resp 17 10/30/19 07:00 BP 135/71 10/30/19 07:00 Pulse Ox 97 10/30/19 07:00 Intake & Output 10/29/19 10/30/19 10/30/19 18:59 06:59 18:59 Intake Total 240 250 Output Total 1850 900 Balance -1610 -650 Weight 100 kg Intake: Oral 240 250 Output: Urine 1850 900 Other: Voiding Method Bedside Commode # Voids 3 1 - Constitutional General appearance: Present: no acute distress - Respiratory Respiratory: bilateral: diminished - Cardiovascular Heart sounds: normal: S1, S2 - Labs CBC & Chem 7: 10/30/19 07:00 10/30/19 07:00 Labs: Abnormal Lab Results - Last 24 Hours (Table) 10/29/19 10/29/19 10/30/19 Range/Units 16:23 20:26 07:00 RBC 2.09 L (3.80-5.40) m/uL Hgb 8.2 L (11.4-16.0) gm/dL Hct 25.2 L (34.0-46.0) % MCV 120.4 H (80.0-100.0) fL MCH 39.2 H (25.0-35.0) pg Macrocytosis Marked A Sodium (137-145) mmol/L BUN (7-17) mg/dL POC Glucose (mg/dL) 180 H 122 H (75-99) mg/dL Calcium (8.4-10.2) mg/dL 10/30/19 10/30/19 10/30/19 Range/Units 07:00 07:05 11:29 RBC (3.80-5.40) m/uL Hgb (11.4-16.0) gm/dL Hct (34.0-46.0) % MCV (80.0-100.0) fL MCH (25.0-35.0) pg Macrocytosis Sodium 134 L (137-145) mmol/L BUN 24 H (7-17) mg/dL POC Glucose (mg/dL) 103 H 130 H (75-99) mg/dL Calcium 7.6 L (8.4-10.2) mg/dL Assessment and Plan Assessment: Assessment #1 congestive heart failure exacerbation secondary to systolic dysfunction #2 known chronic systolic congestive heart failure #3 severe cardiomyopathy #4 multiple comorbid conditions Plan #1 continue the current dose of Lasix by mouth
--- NOTE | 2019-10-30 16:00 | P.PN ---
Subjective Progress Note Date: 10/30/19 Principal diagnosis: 74-year-old female was admitted secondary to shortness of breath although etiology is not clear probability of heart failure that is contributing to her shortness of breath. Patient to repeat echocardiogram showed ejection fraction of 40-45%. Patient shortness of breath improved significantly today. Possibly of COPD exacerbation is low because of which I'll switch to IV steroids to oral. Continue with IV Lasix today patient pedal edema significant improved patient probably will be discharged tomorrow on oral Lasix. Constitutional: Denied any fatigue denied any fever. Cardio vascular: As mentioned in HPI Gastrointestinal denied any nausea vomiting Pulmonary: Denied any shortness of breath cough Neurologic denied any new focal deficits All inpatient medications were reviewed and appropriate changes in these medications as dictated in the interval history and assessment and plan. 10/29/2019 Patient is seen and evaluated and follow-up with no acute overnight issues. Patient continues to be extremely short of breath and dyspneic with exertion. PT/OT to evaluate the patient for possible ECF rehab for continued PT/OT therapy in the outpatient setting. Patient does live at home with her son although he is not there 02/10. Patient currently maintained on Lasix which was transitioned oral at 40 mg twice daily and will continue at this time. Patient is currently maintained on 3 L of oxygen and does not normally wear oxygen in the outpatient setting. Will perform home O2 assessment. Patient does have a nebulizer at home although needs tubing. Patient is maintained on breathing inhalational treatments along with steroids and will continue at this time. Chest x-ray done today shows no evidence of acute pulmonary disease at this time. Review of systems: Constitutional: No reports of fatigue, fevers, or chills Cardiovascular: No reports of chest pain or palpitations Respiratory: Reports shortness of breath, no reports of cough GI: No reports of nausea, vomiting, or diarrhea : No reports of dysuria or retention Neurovascular: Reports some weakness with no reports of numbness noted All medications have been reviewed. 10/30/2019 Patient is seen and evaluated currently working with physical therapy continues to be quite weak and dyspneic with exertion. Patient is now agreeable to ECF rehab for continued PT/OT therapy and awaiting on authorization and acceptance from [facility]. Patient is currently maintained on 40 Lasix twice daily orally and will continue at this time. Patient's lower extremity swelling has improved and patient encouraged to increase activity as tolerated and elevate lower extremities while at rest. Perez discontinued and patient is using the bedside commode. Patient is weaning down on the FiO2 and currently at 2 L via nasal cannula. No reports of chest pain, worsening shortness of breath, or palpitations. Patient is afebrile. No reports of nausea or vomiting and patient is tolerating diet. Sodium remains at 134 and creatinine is currently 0.60. Objective - Vital Signs Vital signs: Vital Signs Temp 97.7 F 10/30/19 07:00 Pulse 76 10/30/19 12:18 Resp 17 10/30/19 07:00 BP 135/71 10/30/19 07:00 Pulse Ox 97 10/30/19 07:00 Intake & Output 10/29/19 10/30/19 10/30/19 18:59 06:59 18:59 Intake Total 240 250 250 Output Total 1850 900 Balance -1610 -650 250 Weight 100 kg Intake: Oral 240 250 250 Output: Urine 1850 900 Other: Voiding Method Bedside Commode # Voids 3 1 3 - Exam GENERAL: The patient is alert and oriented x3, not in any acute distress. Obese HEENT: Pupils are round and equally reacting to light. EOMI. No scleral icterus. No conjunctival pallor. Normocephalic, atraumatic. No pharyngeal erythema. No thyromegaly. CARDIOVASCULAR: S1 and S2 present. No murmurs, rubs, or gallops. PULMONARY: Manage breath sounds bilaterally with no wheezing or crackles. ABDOMEN: Soft, nontender, nondistended, normoactive bowel sounds. No palpable organomegaly. MUSCULOSKELETAL: No joint swelling or deformity. EXTREMITIES: No cyanosis, clubbing, or pedal edema improved significantly and patient has a hematoma on the left leg and right leg has a hematoma with bullous lesion around the hematoma NEUROLOGICAL: Gross neurological examination did not reveal any focal deficits. SKIN: No rashes. - Labs CBC & Chem 7: 10/30/19 07:00 10/30/19 07:00 Labs: Abnormal Lab Results - Last 24 Hours (Table) 10/29/19 10/29/19 10/30/19 Range/Units 16:23 20:26 07:00 RBC 2.09 L (3.80-5.40) m/uL Hgb 8.2 L (11.4-16.0) gm/dL Hct 25.2 L (34.0-46.0) % MCV 120.4 H (80.0-100.0) fL MCH 39.2 H (25.0-35.0) pg Macrocytosis Marked A Sodium (137-145) mmol/L BUN (7-17) mg/dL POC Glucose (mg/dL) 180 H 122 H (75-99) mg/dL Calcium (8.4-10.2) mg/dL 10/30/19 10/30/19 10/30/19 Range/Units 07:00 07:05 11:29 RBC (3.80-5.40) m/uL Hgb (11.4-16.0) gm/dL Hct (34.0-46.0) % MCV (80.0-100.0) fL MCH (25.0-35.0) pg Macrocytosis Sodium 134 L (137-145) mmol/L BUN 24 H (7-17) mg/dL POC Glucose (mg/dL) 103 H 130 H (75-99) mg/dL Calcium 7.6 L (8.4-10.2) mg/dL Assessment and Plan Assessment: -Shortness of breath etiology is not clear most probably congestive failure chronic systolic dysfunction with acute exacerbation patient. Cardiology following. Patient transitioned oral Lasix at 40 mg twice daily. -Congestive heart heart failure chronic systolic dysfunction with possible acute exacerbation patient had a previous EF of around 35-40% repeat an echocardi ogram showed mildly improved EF of around 40-45% -COPD with possible mild acute exacerbation -Gastroesophageal reflux disease -Hypothyroidism -obesity with possibility of sleep apnea, will need outpatient evaluation -Recent fall mechanical fall PT and OT evaluation -Gait dysfunction -Hypertension -DVT prophylaxis Lovenox -Full code Plan: Continue current medications, management, and symptomatic treatment. Case management and social work following and awaiting for authorization and acceptance at [facility] for continued PT/OT therapy. Patient to continue with Lasix 40 mg twice daily oral and will monitor closely. Further recommendations to follow. Possible discharge in 24-48 hours.
[2019-10-30 16:28] LABS: Glucose,Whole Blood 165 mg/dL (75-99)
[2019-10-30 21:15] LABS: Glucose,Whole Blood 129 mg/dL (75-99)
[2019-10-31] MEDS: HYDROcodone/APAP 5-325MG 1 EACH TAB PO PRN ×4 (03:54→21:49)
[2019-10-31] MEDS: IPRATROPIUM-ALBUTEROL 3 ML NEB INHALATION SCH ×4 (07:17→20:02)
[2019-10-31] MEDS: INSULIN ASPART (NovoLOG) 100 UNIT/ML VIAL SQ SCH ×4 (07:33→21:48)
[2019-10-31] MEDS: POTASSIUM CHLORIDE ER 20 MEQ TAB.ER PO SCH (07:46)
[2019-10-31] MEDS: ENOXAPARIN 40 MG/0.4 ML SYRINGE SQ SCH (07:46)
[2019-10-31] MEDS: FUROSEMIDE 40 MG TAB PO SCH ×2 (07:46→15:37)
[2019-10-31] MEDS: lisinopriL 20 MG TAB PO SCH (07:46)
[2019-10-31] MEDS: PANTOPRAZOLE 40 MG TABLET PO SCH (07:46)
[2019-10-31] MEDS: predniSONE 20 MG TAB PO SCH (07:46)
[2019-10-31 08:08] LABS: Glucose,Whole Blood 118 mg/dL (75-99)
[2019-10-31] MEDS ORDERED: ONDANSETRON 4 MG/2 ML VIAL IVP PRN (09:17)
[2019-10-31 10:36] LABS: African American GFR (CKD) >90 (>60 ml/min/1.73 sqM); Anion Gap 8 mmol/L; Blood Urea Nitrogen 26 mg/dL (7-17); Calcium 7.8 mg/dL (8.4-10.2); Carbon Dioxide 28 mmol/L (22-30); Chloride 96 mmol/L (98-107); Glucose 122 mg/dL (74-99); Non-African American GFR(CKD) 82 (>60 ml/min/1.73 sqM); Potassium 4.1 mmol/L (3.5-5.1); Sodium 132 mmol/L (137-145)
[2019-10-31 11:30] LABS: Glucose,Whole Blood 159 mg/dL (75-99)
--- NOTE | 2019-10-31 12:49 | P.PN ---
Subjective Progress Note Date: 10/31/19 Principal diagnosis: Lower extremities edema This is a very pleasant 74-year-old female patient with coronary artery disease, cardiomyopathy with an EF between 35-40%, chronic systolic congestive heart failure, as well as multiple comorbid conditions was admitted to the hospital for further evaluation of increasing shortness of breath associated was bilateral lower extremities edema. The patient describes progressive shortness of breath with exertion as well as shortness of breath with laying flat in bed for the last several days. For the last few days she developed bilateral lower extremities edema. She stated that she always does have lower extremities edema and she was diagnosed in the past "with lymphedema" but her edema has getting worse lately. She's not quite sure if she gain any weight. She denies any symptoms of fever or chills. No symptoms of chest pain or chest discomfort. And no symptoms of cough or sputum production. The patient the chest x-ray did not show any acute abnormalities. She underwent d-dimer which came in to be abnormal but subsequently CT of the chest showed no PE. She is in process of having venous duplex study to rule out DVT. Her hemoglobin was around 8. The BNP was around 500. The echo from 2018 revealed impaired LV function was EF between 35-40%. The patient was seen today October 302019. She is feeling overall better in terms of shortness of breath and also the lower extremities via has improved. From the cardiac standpoint of view, the patient can be discharged. Objective - Vital Signs Vital signs: Vital Signs Temp 98.0 F 10/31/19 07:00 Pulse 72 10/31/19 07:00 Resp 18 10/31/19 07:00 BP 118/63 10/31/19 07:00 Pulse Ox 96 10/31/19 07:00 Intake & Output 10/30/19 10/31/19 10/31/19 18:59 06:59 18:59 Intake Total 250 250 Output Total 1900 1225 Balance 250 -1900 -975 Weight 95.5 kg Intake: Oral 250 250 Output: Urine 1900 1225 Other: Voiding Method Bedside Commode # Voids 3 3 - Constitutional General appearance: Present: no acute distress - Respiratory Respiratory: bilateral: diminished - Cardiovascular Rhythm: regular - Labs CBC & Chem 7: 10/30/19 07:00 10/31/19 09:50 Labs: Abnormal Lab Results - Last 24 Hours (Table) 08/20/20 08/20/20 08/21/20 Range/Units 16:27 21:13 08:07 Sodium (137-145) mmol/L Chloride (98-107) mmol/L BUN (7-17) mg/dL Glucose (74-99) mg/dL POC Glucose (mg/dL) 165 H 129 H 118 H (75-99) mg/dL Calcium (8.4-10.2) mg/dL 10/31/19 10/31/19 Range/Units 09:50 11:28 Sodium 132 L (137-145) mmol/L Chloride 96 L (98-107) mmol/L BUN 26 H (7-17) mg/dL Glucose 122 H (74-99) mg/dL POC Glucose (mg/dL) 159 H (75-99) mg/dL Calcium 7.8 L (8.4-10.2) mg/dL Assessment and Plan Assessment: Assessment #1 congestive heart failure exacerbation secondary to systolic dysfunction #2 known chronic systolic congestive heart failure #3 severe cardiomyopathy #4 multiple comorbid conditions Plan #1 continue the current dose of Lasix by mouth #2 the patient can be discharged
--- NOTE | 2019-10-31 15:37 | P.DS ---
Providers Date of admission: 10/28/19 14:50 Expected date of discharge: 10/31/19 Attending physician: Alessandro Haji Consults: 10/27/19 13:02 Consult Physician Routine Consulting Provider: Hang Grewal Consult Reason/Comments: CHF Do you want consulting provider notified?: Yes Primary care physician: Drew Mendoza [facility] Course: Final Diagnosis -Shortness of breath etiology is not clear most probably congestive failure chronic systolic dysfunction with acute exacerbation -Congestive heart heart failure chronic systolic dysfunction with possible acute exacerbation, echocardiogram showed mildly improved EF of around 40-45% -Covid 19 ruled out, testing was negative -COPD with possible mild acute exacerbation -Gastroesophageal reflux disease -Hypothyroidism -obesity with possibility of sleep apnea, will need outpatient evaluation -Recent fall mechanical fall -Gait dysfunction -Hypertension -DVT prophylaxis -Full code Discharge disposition Patient is being discharged in a stable condition with guarded prognosis to [facility] for continued PT/OT therapy. Patient will follow-up with Dr. Mendoza in the outpatient setting upon discharge. Patient also instructed to follow-up with cardiology in the outpatient setting. Total time taken is greater than 35 minutes. History of present illness This is a 74-year-old female who was recently admitted with shortness of breath with probable heart failure exacerbation and recent fall and was being closely monitored. Patient was seen and followed by cardiology and maintained on IV Lasix and transitioned oral Lasix and will continue with Lasix 40 mg twice daily in the outpatient setting. Underwent a fall having bilateral lower gamble hematomas. Patient's gait continued to be weak and unsteady and was evaluated by physical therapy recommending subacute rehab. Initially patient refused and wanted to go home with home care but continued to be weak and is now agreeable to [facility] for continued PT/OT therapy. Patient continues to be shortness of breath with exertion although has improved. Patient had Covid 19 testing which was negative. Currently no reports of chest pain, shortness of breath, or palpitations. Patient is afebrile. No reports of nausea or vomiting and patient is tolerating diet. Patient will be going to [facility] continue PT/OT therapy.. On exam vital signs are stable. Temp is 98.6F, pulse is 74, respirations are 17, blood pressure is 127/88, oxygen saturation is 97 % on 2 L via nasal cannula. Cardio S1, S2 are muffled. Respiratory system shows diminished breath sounds at the bases with no wheezing or rhonchi noted. Abdomen is soft and obese, and nontender. Nervous system shows diffuse weakness. Please refer to medication reconciliation sheet for a list of medications. Patient Condition at Discharge: Stable Plan - Discharge Summary Discharge Rx Participant: No New Discharge Prescriptions: New Ipratropium-Albuterol Nebulize [Duoneb 0.5 mg-3 mg/3 ml Soln] 3 ml INHALATION RT-QID ml Ipratropium-Albuterol Nebulize [Duoneb 0.5 mg-3 mg/3 ml Soln] 3 ml INHALATION RT-Q4H PRN ml PRN Reason: Shortness Of Breath Or Wheezing Potassium Chloride ER [K-Dur 20] 20 meq PO DAILY tab.er.prt Furosemide [Lasix] 40 mg PO BID@0900,1600 tab HYDROcodone/APAP 5-325MG [[place] 5-325] 1 each PO Q4HR PRN #12 tab PRN Reason: Pain INSULIN ASPART (NovoLOG) [NovoLOG (formulary)] 0 unit SQ ACHS vial predniSONE 10 mg PO DIRECTED #30 tab Pantoprazole [Protonix] 40 mg PO AC-BRKFST tablet. Temazepam [Restoril] 15 mg PO HS PRN 3 Days #3 cap PRN Reason: Insomnia Ondansetron Odt [Zofran Odt] 4 mg PO Q8HR PRN #10 tab PRN Reason: Nausea tiZANidine [Zanaflex] 4 mg PO BID PRN #6 cap PRN Reason: Muscle Spasticity Continue lisinopriL 40 mg PO DAILY Acetaminophen Tab [Tylenol] 1,000 mg PO HS PRN PRN Reason: Pain Discontinued Furosemide [Lasix] 40 mg PO DAILY Discharge Medication List Acetaminophen Tab [Tylenol] 1,000 mg PO HS PRN 10/26/19 [History] lisinopriL 40 mg PO DAILY 10/26/19 [History] Furosemide [Lasix] 40 mg PO BID@0900,1600 tab 10/31/19 [Rx] HYDROcodone/APAP 5-325MG [[place] 5-325] 1 each PO Q4HR PRN #12 tab 10/31/19 [Rx] INSULIN ASPART (NovoLOG) [NovoLOG (formulary)] 0 unit SQ ACHS vial 08/21/20 [Rx] Ipratropium-Albuterol Nebulize [Duoneb 0.5 mg-3 mg/3 ml Soln] 3 ml INHALATION RT-Q4H PRN ml 10/31/19 [Rx] Ipratropium-Albuterol Nebulize [Duoneb 0.5 mg-3 mg/3 ml Soln] 3 ml INHALATION RT-QID ml 10/31/19 [Rx] Ondansetron Odt [Zofran Odt] 4 mg PO Q8HR PRN #10 tab 10/31/19 [Rx] Pantoprazole [Protonix] 40 mg PO AC-BRKFST tablet. 10/31/19 [Rx] Potassium Chloride ER [K-Dur 20] 20 meq PO DAILY tab.er.prt 10/31/19 [Rx] Temazepam [Restoril] 15 mg PO HS PRN 3 Days #3 cap 10/31/19 [Rx] predniSONE 10 mg PO DIRECTED #30 tab 10/31/19 [Rx] tiZANidine [Zanaflex] 4 mg PO BID PRN #6 cap 10/31/19 [Rx] Follow up Appointment(s)/Referral(s): Drew Mendoza MD [Primary Care Provider] - 1-2 days Hang Grewal MD [STAFF PHYSICIAN] - 1 Week G[facility]saragosa Audie, [NON-STAFF] - 1-2 Days [facility], [NON-STAFF] - Activity/Diet/Wound Care/Special Instructions: Patient is going to [facility] Activity as tolerated Continue current diet Continue to monitor blood sugars before meals at bedtime and treat accordingly with sliding scale Continue with PT/OT therapy Discharge Disposition: TRANSFER TO SNF/ECF
[2019-10-31 16:27] LABS: Glucose,Whole Blood 168 mg/dL (75-99)
--- NOTE | 2019-10-31 19:23 | P.PN ---
Subjective Progress Note Date: 10/31/19 Principal diagnosis: 74-year-old female was admitted secondary to shortness of breath although etiology is not clear probability of heart failure that is contributing to her shortness of breath. Patient to repeat echocardiogram showed ejection fraction of 40-45%. Patient shortness of breath improved significantly today. Possibly of COPD exacerbation is low because of which I'll switch to IV steroids to oral. Continue with IV Lasix today patient pedal edema significant improved patient probably will be discharged tomorrow on oral Lasix. Constitutional: Denied any fatigue denied any fever. Cardio vascular: As mentioned in HPI Gastrointestinal denied any nausea vomiting Pulmonary: Denied any shortness of breath cough Neurologic denied any new focal deficits All inpatient medications were reviewed and appropriate changes in these medications as dictated in the interval history and assessment and plan. 10/29/2019 Patient is seen and evaluated and follow-up with no acute overnight issues. Patient continues to be extremely short of breath and dyspneic with exertion. PT/OT to evaluate the patient for possible ECF rehab for continued PT/OT therapy in the outpatient setting. Patient does live at home with her son although he is not there 02/10. Patient currently maintained on Lasix which was transitioned oral at 40 mg twice daily and will continue at this time. Patient is currently maintained on 3 L of oxygen and does not normally wear oxygen in the outpatient setting. Will perform home O2 assessment. Patient does have a nebulizer at home although needs tubing. Patient is maintained on breathing inhalational treatments along with steroids and will continue at this time. Chest x-ray done today shows no evidence of acute pulmonary disease at this time. Review of systems: Constitutional: No reports of fatigue, fevers, or chills Cardiovascular: No reports of chest pain or palpitations Respiratory: Reports shortness of breath, no reports of cough GI: No reports of nausea, vomiting, or diarrhea : No reports of dysuria or retention Neurovascular: Reports some weakness with no reports of numbness noted All medications have been reviewed. 10/30/2019 Patient is seen and evaluated currently working with physical therapy continues to be quite weak and dyspneic with exertion. Patient is now agreeable to ECF rehab for continued PT/OT therapy and awaiting on authorization and acceptance from [facility]. Patient is currently maintained on 40 Lasix twice daily orally and will continue at this time. Patient's lower extremity swelling has improved and patient encouraged to increase activity as tolerated and elevate lower extremities while at rest. Perez discontinued and patient is using the bedside commode. Patient is weaning down on the FiO2 and currently at 2 L via nasal cannula. No reports of chest pain, worsening shortness of breath, or palpitations. Patient is afebrile. No reports of nausea or vomiting and patient is tolerating diet. Sodium remains at 134 and creatinine is currently 0.60. 10/31/2019 Patient is seen in follow up with no overnight issues noted. Patient awaiting authorization of insurance to go to [facility]. Discussed with case management and social work and if authorization is obtained and a bed is available [facility] stated they do accept admits to the [facility] on Saturdays. Patient continues on oral lasix 40mg BID and will continue at this time. Currently denies any chest pain, shortness of breath, or palpitations. Patient is afebrile. Patient had an episode of nausea which was relieved by zofran and denies any nausea. Bilateral lower extremity improved with bilateral gamble hematomas noted from the recent fall. Shortness of breath has improved as well although remains on 2L via NC. Objective - Vital Signs Vital signs: Vital Signs Temp 98.6 F 10/31/19 14:40 Pulse 74 10/31/19 14:40 Resp 17 10/31/19 14:40 BP 127/88 10/31/19 14:40 Pulse Ox 97 10/31/19 14:40 Intake & Output 10/31/19 10/31/19 11/01/19 06:59 18:59 06:59 Intake Total 250 Output Total 1900 3725 Balance -1900 -3475 Weight 95.5 kg Intake: Oral 250 Output: Urine 1900 3725 Other: Voiding Method Bedside Commode # Voids 3 - Exam GENERAL: The patient is alert and oriented x3, not in any acute distress. Obese HEENT: Pupils are round and equally reacting to light. EOMI. No scleral icterus. No conjunctival pallor. Normocephalic, atraumatic. No pharyngeal erythema. No thyromegaly. CARDIOVASCULAR: S1 and S2 present. No murmurs, rubs, or gallops. PULMONARY:diminished breath sounds bilaterally with no wheezing or crackles. ABDOMEN: Soft, nontender, nondistended, normoactive bowel sounds. No palpable organomegaly. MUSCULOSKELETAL: No joint swelling or deformity. EXTREMITIES: No cyanosis, clubbing, or pedal edema improved significantly and patient has a hematoma on the left leg and right leg has a hematoma with bullous lesion around the hematoma NEUROLOGICAL: Gross neurological examination did not reveal any focal deficits. SKIN: No rashes. bilateral gamble hematomas noted - Labs CBC & Chem 7: 10/30/19 07:00 10/31/19 09:50 Labs: Abnormal Lab Results - Last 24 Hours (Table) 10/30/19 10/31/19 10/31/19 Range/Units 21:13 08:07 09:50 Sodium 132 L (137-145) mmol/L Chloride 96 L (98-107) mmol/L BUN 26 H (7-17) mg/dL Glucose 122 H (74-99) mg/dL POC Glucose (mg/dL) 129 H 118 H (75-99) mg/dL Calcium 7.8 L (8.4-10.2) mg/dL 10/31/19 10/31/19 Range/Units 11:28 16:26 Sodium (137-145) mmol/L Chloride (98-107) mmol/L BUN (7-17) mg/dL Glucose (74-99) mg/dL POC Glucose (mg/dL) 159 H 168 H (75-99) mg/dL Calcium (8.4-10.2) mg/dL Assessment and Plan Assessment: -Shortness of breath etiology is not clear most probably congestive failure chronic systolic dysfunction with acute exacerbation patient. Cardiology following. Patient transitioned oral Lasix at 40 mg twice daily. -Congestive heart heart failure chronic systolic dysfunction with possible acute exacerbation patient had a previous EF of around 35-40% repeat an ec hocardiogram showed mildly improved EF of around 40-45% -Covid 19 ruled out, testing negative -COPD with possible mild acute exacerbation -Gastroesophageal reflux disease -Hypothyroidism -obesity with possibility of sleep apnea, will need outpatient evaluation -Recent fall mechanical fall -Gait dysfunction -Hypertension -DVT prophylaxis Lovenox -Full code Plan: Continue current medications, management, and symptomatic treatment. Case management and social work following and awaiting for authorization and acceptance at [facility] for continued PT/OT therapy. Patient to continue with Lasix 40 mg twice daily oral and will monitor closely. Further recommendations to follow. Possible discharge in 24 hours. Discussed with [facility] and will accept Sunday transfer is insurance authorization is obtained and a bed is available. Social work to watch for authorization in am.
[2019-10-31 20:51] LABS: Glucose,Whole Blood 156 mg/dL (75-99)
[2019-10-31] MEDS: TEMAZEPAM 15 MG CAP PO PRN (21:49)
[2019-11-01] MEDS: HYDROcodone/APAP 5-325MG 1 EACH TAB PO PRN ×4 (04:26→18:02)
[2019-11-01] MEDS: INSULIN ASPART (NovoLOG) 100 UNIT/ML VIAL SQ SCH ×4 (07:24→20:59)
[2019-11-01 07:25] LABS: Glucose,Whole Blood 101 mg/dL (75-99)
[2019-11-01] MEDS: POTASSIUM CHLORIDE ER 20 MEQ TAB.ER PO SCH (08:42)
[2019-11-01] MEDS: ENOXAPARIN 40 MG/0.4 ML SYRINGE SQ SCH (08:42)
[2019-11-01] MEDS: predniSONE 20 MG TAB PO SCH (08:42)
[2019-11-01] MEDS: FUROSEMIDE 40 MG TAB PO SCH (08:42)
[2019-11-01] MEDS: PANTOPRAZOLE 40 MG TABLET PO SCH (08:42)
[2019-11-01] MEDS: lisinopriL 20 MG TAB PO SCH (08:43)
[2019-11-01] MEDS: IPRATROPIUM-ALBUTEROL 3 ML NEB INHALATION SCH ×4 (09:15→20:19)
[2019-11-01 11:21] LABS: Glucose,Whole Blood 125 mg/dL (75-99)
[2019-11-01] MEDS: tiZANidine 4 MG TAB PO PRN ×2 (12:06→23:32)
--- NOTE | 2019-11-01 15:38 | P.PN ---
Subjective 74-year-old female was admitted secondary to shortness of breath although etiology is not clear probability of heart failure that is contributing to her shortness of breath. Patient to repeat echocardiogram showed ejection fraction of 40-45%. Patient shortness of breath improved significantly today. Possibly of COPD exacerbation is low because of which I'll switch to IV steroids to oral. Continue with IV Lasix today patient pedal edema significant improved patient probably will be discharged tomorrow on oral Lasix. 10/29/2019 Patient is seen and evaluated and follow-up with no acute overnight issues. Patient continues to be extremely short of breath and dyspneic with exertion. PT/OT to evaluate the patient for possible ECF rehab for continued PT/OT therapy in the outpatient setting. Patient does live at home with her son although he is not there 02/10. Patient currently maintained on Lasix which was transitioned oral at 40 mg twice daily and will continue at this time. Patient is currently maintained on 3 L of oxygen and does not normally wear oxygen in the outpatient setting. Will perform home O2 assessment. Patient does have a nebulizer at home although needs tubing. Patient is maintained on breathing inhalational treatments along with steroids and will continue at this time. Chest x-ray done today shows no evidence of acute pulmonary disease at this time. 10/30/2019 Patient is seen and evaluated currently working with physical therapy continues to be quite weak and dyspneic with exertion. Patient is now agreeable to ECF rehab for continued PT/OT therapy and awaiting on authorization and acceptance from [facility]. Patient is currently maintained on 40 Lasix twice daily orally and will continue at this time. Patient's lower extremity swelling has improved and patient encouraged to increase activity as tolerated and elevate lower extremities while at rest. Perez discontinued and patient is using the bedside commode. Patient is weaning down on the FiO2 and currently at 2 L via nasal cannula. No reports of chest pain, worsening shortness of breath, or palpitations. Patient is afebrile. No reports of nausea or vomiting and patient is tolerating diet. Sodium remains at 134 and creatinine is currently 0.60. 10/31/2019 Patient is seen in follow up with no overnight issues noted. Patient awaiting authorization of insurance to go to [facility]. Discussed with case management and social work and if authorization is obtained and a bed is available [facility] stated they do accept admits to the ECF on Saturdays. Patient continues on oral lasix 40mg BID and will continue at this time. Currently denies any chest pain, shortness of breath, or palpitations. Patient is afebrile. Patient had an episode of nausea which was relieved by zofran and denies any nausea. Bilateral lower extremity improved with bilateral gamble hematomas noted from the recent fall. Shortness of breath has improved as well although remains on 2L via NC. 11/01/2019 Patient's respiratory status remained the same we're awaiting authorization from the insurance company to go to subacute rehabilitation. Patient is bit hyponatremic because of which I am holding of Lasix today will be resumed tomorrow Constitutional: Denied any fatigue denied any fever. Cardio vascular: denied any chest pain, palpitations Gastrointestinal denied any nausea vomiting Pulmonary: Denied any shortness of breath cough Neurologic denied any new focal deficits All inpatient medications were reviewed and appropriate changes in these medications as dictated in the interval history and assessment and plan. Objective - Vital Signs Vital signs: Vital Signs Temp 97.9 F 11/01/19 07:00 Pulse 73 11/01/19 07:00 Resp 16 11/01/19 07:00 BP 122/77 11/01/19 07:00 Pulse Ox 98 11/01/19 07:00 Intake & Output 10/31/19 11/01/19 11/01/19 18:59 06:59 18:59 Intake Total 250 Output Total 3725 1300 Balance -3475 -1300 Weight 93.5 kg Intake: Oral 250 Output: Urine 3725 1300 Other: # Voids 3 - Exam PHYSICAL EXAMINATION: GENERAL: The patient is alert and oriented x3, not in any acute distress. Obese HEENT: Pupils are round and equally reacting to light. EOMI. No scleral icterus. No conjunctival pallor. Normocephalic, atraumatic. No pharyngeal erythema. No thyromegaly. CARDIOVASCULAR: S1 and S2 present. No murmurs, rubs, or gallops. PULMONARY: Chest is clear to auscultation, no wheezing or crackles. ABDOMEN: Soft, nontender, nondistended, normoactive bowel sounds. No palpable organomegaly. MUSCULOSKELETAL: No joint swelling or deformity. EXTREMITIES: No cyanosis, clubbing, or pedal edema improved significantly and patient has a hematoma on the left leg and right leg has a hematoma with bullous lesion around the hematoma NEUROLOGICAL: Gross neurological examination did not reveal any focal deficits. SKIN: No rashes. - Labs CBC & Chem 7: 10/30/19 07:00 10/31/19 09:50 Labs: Abnormal Lab Results - Last 24 Hours (Table) 10/31/19 10/31/19 11/01/19 Range/Units 16:26 20:49 07:24 POC Glucose (mg/dL) 168 H 156 H 101 H (75-99) mg/dL 11/01/19 Range/Units 11:20 POC Glucose (mg/dL) 125 H (75-99) mg/dL Assessment and Plan Plan: -Shortness of breath etiology is not clear most probably can start failure chronic systolic dysfunction with acute exacerbation is bit hyponatremic because of which I'm holding of Lasix today -Congestive heart heart failure chronic systolic dysfunction with possible acute exacerbation patient had a previous EF of around 35-40% repeat an echocardiogram showed mildly improved EF of around 40-45% -COPD with possible mild acute exacerbation -Gastroesophageal reflux disease -Hypothyroidism 4 obesity with possibility of sleep apnea patient was noted diagnosed with this though -Recent fall mechanical fall PT and OT evaluation -Hypertension DVT prophylaxis Lovenox generalized deconditioning patient will be discharged to subacute rehab once we have authorization from the insurance
[2019-11-01 16:42] LABS: Glucose,Whole Blood 185 mg/dL (75-99)
[2019-11-01] MEDS ORDERED: ONDANSETRON 4 MG TAB PO PRN (19:48)
[2019-11-01 20:33] LABS: Glucose,Whole Blood 131 mg/dL (75-99)
[2019-11-01] MEDS: TEMAZEPAM 15 MG CAP PO PRN (23:17)
[2019-11-02] MEDS: HYDROcodone/APAP 5-325MG 1 EACH TAB PO PRN ×4 (03:21→19:38)
[2019-11-02 07:12] LABS: Glucose,Whole Blood 92 mg/dL (75-99)
[2019-11-02] MEDS: INSULIN ASPART (NovoLOG) 100 UNIT/ML VIAL SQ SCH ×4 (07:15→20:20)
[2019-11-02 07:17] LABS: African American GFR (CKD) >90 (>60 ml/min/1.73 sqM); Anion Gap 5 mmol/L; Blood Urea Nitrogen 32 mg/dL (7-17); Calcium 7.5 mg/dL (8.4-10.2); Carbon Dioxide 32 mmol/L (22-30); Chloride 96 mmol/L (98-107); Glucose 93 mg/dL (74-99); Non-African American GFR(CKD) 85 (>60 ml/min/1.73 sqM); Sodium 133 mmol/L (137-145)
[2019-11-02] MEDS: POTASSIUM CHLORIDE ER 20 MEQ TAB.ER PO SCH (07:22)
[2019-11-02] MEDS: ENOXAPARIN 40 MG/0.4 ML SYRINGE SQ SCH (07:22)
[2019-11-02] MEDS: lisinopriL 20 MG TAB PO SCH (07:23)
[2019-11-02] MEDS: PANTOPRAZOLE 40 MG TABLET PO SCH (07:23)
[2019-11-02] MEDS: predniSONE 20 MG TAB PO SCH (07:26)
[2019-11-02] MEDS: IPRATROPIUM-ALBUTEROL 3 ML NEB INHALATION SCH ×4 (08:07→20:07)
[2019-11-02 11:26] LABS: Glucose,Whole Blood 156 mg/dL (75-99)
[2019-11-02] MEDS: FUROSEMIDE 40 MG TAB PO SCH (14:00)
--- NOTE | 2019-11-02 14:53 | P.PN ---
Subjective 74-year-old female was admitted secondary to shortness of breath although etiology is not clear probability of heart failure that is contributing to her shortness of breath. Patient to repeat echocardiogram showed ejection fraction of 40-45%. Patient shortness of breath improved significantly today. Possibly of COPD exacerbation is low because of which I'll switch to IV steroids to oral. Continue with IV Lasix today patient pedal edema significant improved patient probably will be discharged tomorrow on oral Lasix. 10/29/2019 Patient is seen and evaluated and follow-up with no acute overnight issues. Patient continues to be extremely short of breath and dyspneic with exertion. PT/OT to evaluate the patient for possible ECF rehab for continued PT/OT therapy in the outpatient setting. Patient does live at home with her son although he is not there 02/10. Patient currently maintained on Lasix which was transitioned oral at 40 mg twice daily and will continue at this time. Patient is currently maintained on 3 L of oxygen and does not normally wear oxygen in the outpatient setting. Will perform home O2 assessment. Patient does have a nebulizer at home although needs tubing. Patient is maintained on breathing inhalational treatments along with steroids and will continue at this time. Chest x-ray done today shows no evidence of acute pulmonary disease at this time. 10/30/2019 Patient is seen and evaluated currently working with physical therapy continues to be quite weak and dyspneic with exertion. Patient is now agreeable to ECF rehab for continued PT/OT therapy and awaiting on authorization and acceptance from [facility]. Patient is currently maintained on 40 Lasix twice daily orally and will continue at this time. Patient's lower extremity swelling has improved and patient encouraged to increase activity as tolerated and elevate lower extremities while at rest. Perez discontinued and patient is using the bedside commode. Patient is weaning down on the FiO2 and currently at 2 L via nasal cannula. No reports of chest pain, worsening shortness of breath, or palpitations. Patient is afebrile. No reports of nausea or vomiting and patient is tolerating diet. Sodium remains at 134 and creatinine is currently 0.60. 10/31/2019 Patient is seen in follow up with no overnight issues noted. Patient awaiting authorization of insurance to go to [facility]. Discussed with case management and social work and if authorization is obtained and a bed is available [facility] stated they do accept admits to the ECF on Saturdays. Patient continues on oral lasix 40mg BID and will continue at this time. Currently denies any chest pain, shortness of breath, or palpitations. Patient is afebrile. Patient had an episode of nausea which was relieved by zofran and denies any nausea. Bilateral lower extremity improved with bilateral gamble hematomas noted from the recent fall. Shortness of breath has improved as well although remains on 2L via NC. 11/01/2019 Patient's respiratory status remained the same we're awaiting authorization from the insurance company to go to subacute rehabilitation. Patient is bit hyponatremic because of which I am holding of Lasix today will be resumed tomorrow 11/02/2019 Patient seen on follow-up, sitting up in recliner, appears in no acute distress. no significant events overnight. Awaiting insurance authorization for subacute rehab placement. Sodium level is 133 yesterday, Lasix was held yesterday. Patient states she slept well last night using Restoril. She is asking if she can have this medication at [facility]. No nausea vomiting or diarrhea. V ital signs are stable. Constitutional: Denied any fatigue denied any fever. Cardio vascular: denied any chest pain, palpitations Gastrointestinal denied any nausea vomiting Pulmonary: Denied any shortness of breath cough Neurologic denied any new focal deficits Objective - Vital Signs Vital signs: Vital Signs Temp 98.1 F 11/02/19 07:00 Pulse 68 11/02/19 07:00 Resp 18 11/02/19 07:27 BP 108/70 11/02/19 07:00 Pulse Ox 95 11/02/19 07:00 Intake & Output 11/01/19 11/02/19 11/02/19 18:59 06:59 18:59 Intake Total 1080 800 Output Total 900 950 Balance 180 -950 800 Weight 105.5 kg Intake: Oral 1080 800 Output: Urine 900 950 Other: Voiding Method Bedside Commode Bedside Commode - Exam PHYSICAL EXAMINATION: GENERAL: The patient is alert and oriented x3, not in any acute distress. Obese HEENT: Pupils are round and equally reacting to light. EOMI. No scleral icterus. No conjunctival pallor. Normocephalic, atraumatic. No pharyngeal erythema. No thyromegaly. CARDIOVASCULAR: S1 and S2 present. No murmurs, rubs, or gallops. PULMONARY: Chest is clear to auscultation, no wheezing or crackles. ABDOMEN: Soft, nontender, nondistended, normoactive bowel sounds. No palpable organomegaly. MUSCULOSKELETAL: No joint swelling or deformity. EXTREMITIES: No cyanosis, clubbing, or pedal edema improved significantly and patient has a hematoma on the left leg and right leg has a hematoma with bullous lesion around the hematoma NEUROLOGICAL: Gross neurological examination did not reveal any focal deficits. SKIN: No rashes. - Labs CBC & Chem 7: 10/30/19 07:00 11/02/19 06:29 Labs: Abnormal Lab Results - Last 24 Hours (Table) 11/01/19 11/01/19 11/02/19 Range/Units 16:41 20:31 06:29 Sodium 133 L (137-145) mmol/L Chloride 96 L (98-107) mmol/L Carbon Dioxide 32 H (22-30) mmol/L BUN 32 H (7-17) mg/dL POC Glucose (mg/dL) 185 H 131 H (75-99) mg/dL Calcium 7.5 L (8.4-10.2) mg/dL 11/02/19 Range/Units 11:25 Sodium (137-145) mmol/L Chloride (98-107) mmol/L Carbon Dioxide (22-30) mmol/L BUN (7-17) mg/dL POC Glucose (mg/dL) 156 H (75-99) mg/dL Calcium (8.4-10.2) mg/dL Assessment and Plan Assessment: -Shortness of breath etiology not clear, possibly due to acute CHF exacerbation, we'll resume oral Lasix 40 twice daily -Congestive heart heart failure chronic systolic dysfunction with possible acute exacerbation patient had a previous EF of around 35-40% repeat an echocardiogram showed mildly improved EF of around 40-45% -Hyponatremia: Lasix held yesterday, resumed today. Check BMP tomorrow -COPD with possible mild acute exacerbation: Continue prednisone, DuoNeb's -Gastroesophageal reflux disease -Hypothyroidism: -Morbid obesity: with possibility of obstructive sleep apnea, although she does not have formal NISHI diagnosisT, fall precautions -Generalized deconditioning: patient will be discharged to subacute rehab, awaiting insurance authorization, possibly within the next 24 hours -DVT prophylaxis Lovenox
[2019-11-02 16:19] LABS: Glucose,Whole Blood 210 mg/dL (75-99)
[2019-11-02 20:18] LABS: Glucose,Whole Blood 141 mg/dL (75-99)
[2019-11-03] MEDS: HYDROcodone/APAP 5-325MG 1 EACH TAB PO PRN ×2 (00:13→07:25)
[2019-11-03 07:06] LABS: Glucose,Whole Blood 146 mg/dL (75-99)
[2019-11-03 07:18] VITALS: BP 114/76; PULSE 77; RESP 18; TEMP 97.8
[2019-11-03] MEDS: ENOXAPARIN 40 MG/0.4 ML SYRINGE SQ SCH (07:24)
[2019-11-03] MEDS: INSULIN ASPART (NovoLOG) 100 UNIT/ML VIAL SQ SCH (07:24)
[2019-11-03] MEDS: POTASSIUM CHLORIDE ER 20 MEQ TAB.ER PO SCH (07:25)
[2019-11-03] MEDS: predniSONE 20 MG TAB PO SCH (07:25)
[2019-11-03] MEDS: PANTOPRAZOLE 40 MG TABLET PO SCH (07:25)
[2019-11-03] MEDS: FUROSEMIDE 40 MG TAB PO SCH (07:25)
[2019-11-03] MEDS: lisinopriL 20 MG TAB PO SCH (07:25)
[2019-11-03 08:12] LABS: African American GFR (CKD) >90 (>60 ml/min/1.73 sqM); Anion Gap 9 mmol/L; Blood Urea Nitrogen 31 mg/dL (7-17); Calcium 7.9 mg/dL (8.4-10.2); Carbon Dioxide 28 mmol/L (22-30); Chloride 97 mmol/L (98-107); Glucose 121 mg/dL (74-99); Non-African American GFR(CKD) 84 (>60 ml/min/1.73 sqM); Potassium 4.2 mmol/L (3.5-5.1); Sodium 134 mmol/L (137-145)
[2019-11-03] MEDS: IPRATROPIUM-ALBUTEROL 3 ML NEB INHALATION SCH (08:19)
--- NOTE | 2019-11-03 09:56 | P.DS ---
Providers Date of admission: 10/28/19 14:50 Expected date of discharge: 11/03/19 Attending physician: Alessandro Haji Consults: 10/27/19 13:02 Consult Physician Routine Consulting Provider: Hang Grewal Consult Reason/Comments: CHF Do you want consulting provider notified?: Yes Primary care physician: Drew Mendoza [facility] Course: Final Diagnosis -Shortness of breath etiology is not clear most probably congestive failure chronic systolic dysfunction with acute exacerbation -Congestive heart heart failure chronic systolic dysfunction with possible acute exacerbation, echocardiogram showed mildly improved EF of around 40-45% -Covid 19 ruled out, testing was negative -COPD with possible mild acute exacerbation -Gastroesophageal reflux disease -Hypothyroidism -obesity with possibility of sleep apnea, will need outpatient evaluation -Recent fall mechanical fall -Gait dysfunction -Hypertension -DVT prophylaxis -Full code Discharge disposition Patient is being discharged in a stable condition with guarded prognosis to [facility] for continued PT/OT therapy. Patient will follow-up with Dr. Mendoza in the outpatient setting upon discharge. Patient also instructed to follow-up with cardiology in the outpatient setting. Total time taken is greater than 35 minutes. History of present illness This is a 74-year-old female who was recently admitted with shortness of breath with probable heart failure exacerbation and recent fall and was being closely monitored. Patient was seen and followed by cardiology and maintained on IV Lasix and transitioned oral Lasix and will continue with Lasix 40 mg twice daily in the outpatient setting. Underwent a fall having bilateral lower gamble hematomas. Patient's gait continued to be weak and unsteady and was evaluated by physical therapy recommending subacute rehab. Initially patient refused and wanted to go home with home care but continued to be weak and is now agreeable to [facility] for continued PT/OT therapy. Patient continues to be shortness of breath with exertion although has improved. Patient had Covid 19 testing which was negative. Currently no reports of chest pain, shortness of breath, or palpitations. Patient is afebrile. No reports of nausea or vomiting and patient is tolerating diet. Patient will be going to [facility] continue PT/OT therapy.. On exam vital signs are stable. Temp is 97.8F, pulse is 77, respirations are 18, blood pressure is 114/76, oxygen saturation is 97 % on room air. Cardio S1, S2 are muffled. Respiratory system shows diminished breath sounds at the bases with no wheezing or rhonchi noted. Abdomen is soft and obese, and nontender. Nervous system shows diffuse weakness. Please refer to medication reconciliation sheet for a list of medications. Patient Condition at Discharge: Stable Plan - Discharge Summary Discharge Rx Participant: No New Discharge Prescriptions: New Ipratropium-Albuterol Nebulize [Duoneb 0.5 mg-3 mg/3 ml Soln] 3 ml INHALATION RT-QID ml Ipratropium-Albuterol Nebulize [Duoneb 0.5 mg-3 mg/3 ml Soln] 3 ml INHALATION RT-Q4H PRN ml PRN Reason: Shortness Of Breath Or Wheezing Potassium Chloride ER [K-Dur 20] 20 meq PO DAILY tab.er.prt Furosemide [Lasix] 40 mg PO BID@0900,1600 tab HYDROcodone/APAP 5-325MG [[place] 5-325] 1 each PO Q4HR PRN #12 tab PRN Reason: Pain INSULIN ASPART (NovoLOG) [NovoLOG (formulary)] 0 unit SQ ACHS vial predniSONE 10 mg PO DIRECTED #30 tab Pantoprazole [Protonix] 40 mg PO AC-BRKFST tablet. Temazepam [Restoril] 15 mg PO HS PRN 3 Days #3 cap PRN Reason: Insomnia Ondansetron Odt [Zofran Odt] 4 mg PO Q8HR PRN #10 tab PRN Reason: Nausea tiZANidine [Zanaflex] 4 mg PO BID PRN #6 cap PRN Reason: Muscle Spasticity Continue lisinopriL 40 mg PO DAILY Acetaminophen Tab [Tylenol] 1,000 mg PO HS PRN PRN Reason: Pain Discontinued Furosemide [Lasix] 40 mg PO DAILY Discharge Medication List Acetaminophen Tab [Tylenol] 1,000 mg PO HS PRN 10/26/19 [History] lisinopriL 40 mg PO DAILY 10/26/19 [History] Furosemide [Lasix] 40 mg PO BID@0900,1600 tab 10/31/19 [Rx] HYDROcodone/APAP 5-325MG [[place] 5-325] 1 each PO Q4HR PRN #12 tab 10/31/19 [Rx] INSULIN ASPART (NovoLOG) [NovoLOG (formulary)] 0 unit SQ ACHS vial 10/31/19 [Rx] Ipratropium-Albuterol Nebulize [Duoneb 0.5 mg-3 mg/3 ml Soln] 3 ml INHALATION RT-Q4H PRN ml 10/31/19 [Rx] Ipratropium-Albuterol Nebulize [Duoneb 0.5 mg-3 mg/3 ml Soln] 3 ml INHALATION RT-QID ml 10/31/19 [Rx] Ondansetron Odt [Zofran Odt] 4 mg PO Q8HR PRN #10 tab 10/31/19 [Rx] Pantoprazole [Protonix] 40 mg PO AC-BRKFST tablet. 10/31/19 [Rx] Potassium Chloride ER [K-Dur 20] 20 meq PO DAILY tab.er.prt 10/31/19 [Rx] Temazepam [Restoril] 15 mg PO HS PRN 3 Days #3 cap 10/31/19 [Rx] predniSONE 10 mg PO DIRECTED #30 tab 10/31/19 [Rx] tiZANidine [Zanaflex] 4 mg PO BID PRN #6 cap 10/31/19 [Rx] Follow up Appointment(s)/Referral(s): Drew Mendoza MD [Primary Care Provider] - 1-2 days Hang Grewal MD [STAFF PHYSICIAN] - 1 Week [facility], [NON-STAFF] - 1-2 Days [facility], [NON-STAFF] - Patient Instructions/Handouts: Fall Prevention for Older Adults (DC), COPD (Chr onic Obstructive Pulmonary Disease) (DC) Activity/Diet/Wound Care/Special Instructions: Patient is going to [facility] Activity as tolerated Continue current diet Continue to monitor blood sugars before meals at bedtime and treat accordingly with sliding scale Continue with PT/OT therapy Discharge Disposition: TRANSFER TO SNF/ECF
== END 2019-11-03 11:28 | DRG 292 ==
LOC: EC 17:48 → 4SSUR 20:45 → OBSVTOIN 10-28 14:50
PROVIDERS: ADMIT Hospitalist; ATTEND Hospitalist
DX: I11.0 Hypertensive heart disease with heart failure (principal); E87.1 Hypo-osmolality and hyponatremia; J44.1 Chronic obstructive pulmonary disease with (acute) exacerbation; I50.23 Acute on chronic systolic (congestive) heart failure; I25.10 Atherosclerotic heart disease of native coronary artery without angina pectoris; I25.2 Old myocardial infarction; E03.9 Hypothyroidism, unspecified; E66.9 Obesity, unspecified; Z20.828 Contact with and (suspected) exposure to other viral communicable diseases; F32.9 Major depressive disorder, single episode, unspecified; I42.9 Cardiomyopathy, unspecified; K21.9 Gastro-esophageal reflux disease without esophagitis; S80.11XA Contusion of right lower leg, initial encounter; S80.12XA Contusion of left lower leg, initial encounter; W18.2XXA Fall in (into) shower or empty bathtub, initial encounter; Y93.E1 Activity, personal bathing and showering; Z79.52 Long term (current) use of systemic steroids; Z79.899 Other long term (current) drug therapy; Z82.49 Family history of ischemic heart disease and other diseases of the circulatory system; Z90.710 Acquired absence of both cervix and uterus; G89.29 Other chronic pain; M54.5 Low back pain; M50.30 Other cervical disc degeneration, unspecified cervical region; Z90.49 Acquired absence of other specified parts of digestive tract; Z80.3 Family history of malignant neoplasm of breast; G47.33 Obstructive sleep apnea (adult) (pediatric); Z68.36 Body mass index [BMI] 36.0-36.9, adult
CPT/HCPCS: 36415; 71045; 71046; 71275; 80048; 80053; 83605; 83880; 84484; 85025; 85027; 85379; 85610; 85730; 87635; 93005; 93306; 93970; 94640; 94760; 96374; 96375; 99285

== ENCOUNTER 2019-11-18 19:43 | Inpatient (IN) | payer MEDICARE ==
[2019-11-18] MEDS ORDERED: SODIUM CHLORIDE 0.9% 1,000 ML IV STA ×2 (19:53→19:55)
[2019-11-18] MEDS ORDERED: PIPERACILLIN-TAZOBACTAM 3.375 GM in SODIUM CHLORIDE 0.9% 100 ML IVPB STA (19:53)
--- NOTE | 2019-11-18 19:59 | ED ---
General Adult HPI - General Stated complaint: lower leg pain Time Seen by Provider: 11/18/19 19:45 Source: patient, EMS, RN notes reviewed Mode of arrival: EMS Limitations: no limitations - History of Present Illness Initial comments: This is a 74-year-old female with a history of COPD CHF heart disease venous stasis and hypothyroidism who was transferred for from a fdc for evaluation for lower extremity hematomas and a fever upon arrival she was found by staff to have open was on both shins right and left. He denies any overt sweats she had a fever today she states sometimes she has chills no cough rhinorrhea earaches no dysuria no other modifying factors at this time she has ever prior history of cellulitis to the extremities. Temperature at the fdc was reported 100.6 Fahrenheit - Related Data Home Medications Medication Instructions Recorded Confirmed Acetaminophen [Tylenol] 650 mg PO Q4H PRN 11/18/19 11/18/19 Cephalexin [Keflex] 500 mg PO Q8HR 11/18/19 11/18/19 Furosemide [Lasix] 40 mg PO BID@0600,1400 11/18/19 11/18/19 INSULIN ASPART (NovoLOG) [NovoLOG See Protocol SQ QID 11/18/19 11/18/19 (formulary)] Levothyroxine Sodium 200 mcg PO DAILY 11/18/19 11/18/19 Liquacel 30 ml PO BID@0800,1700 11/18/19 11/18/19 Magnesium Hydroxide [Milk of 7,200 mg PO DAILY PRN 11/18/19 11/18/19 Magnesia Concentrate] Potassium Chloride ER [K-Dur 20] 20 meq PO DAILY@1700 11/18/19 11/18/19 clonazePAM 0.5 mg PO TID PRN 11/18/19 11/18/19 lisinopriL [Prinivil] 20 mg PO DAILY 11/18/19 11/18/19 Previous Rx's Medication Instructions Recorded HYDROcodone/APAP 5-325MG [[place] 1 each PO Q4HR PRN #12 tab 10/31/19 5-325] Ipratropium-Albuterol Nebulize 3 ml INHALATION RT-Q4H PRN ml 10/31/19 [Duoneb 0.5 mg-3 mg/3 ml Soln] Ondansetron Odt [Zofran Odt] 4 mg PO Q8HR PRN #10 tab 10/31/19 Pantoprazole [Protonix] 40 mg PO AC-BRKFST tablet. 10/31/19 Temazepam [Restoril] 15 mg PO HS PRN 3 Days #3 cap 10/31/19 tiZANidine [Zanaflex] 4 mg PO BID PRN #6 cap 10/31/19 Allergies Allergy/AdvReac Type Severity Reaction Status Date / Time buspirone [From BuSpar] AdvReac Unknown Verified 11/18/19 19:55 Review of Systems ROS Statement: Those systems with pertinent positive or pertinent negative responses have been documented in the HPI. ROS Other: All systems not noted in ROS Statement are negative. Past Medical History Past Medical History: Chest Pain / Angina, Heart Failure, COPD, Eye Disorder, GERD/Reflux, Hypertension, Myocardial Infarction (NH), Osteoarthritis (OA), Pneumonia, Thyroid Disorder Additional Past Medical History / Comment(s): Pt states she has had problems with bilateral leg edema and sores/cellulitis for the past 2 years-at times everything improves and then worsens again and L leg is always worse, urinary incontinence, bronchitis, hypothyroid, DDD cervical spine and lower back, cervical and low back chronic pain, arthritis bilateral wrists and fingers, pt states she has been told she has a bone spur in her L ankle or foot, "blocked" bile duct a couple of times, migraines, possible bilateral cataracts, Last Myocardial Infarction Date:: about 2009-pt unsure where she was hospitalized. History of Any Multi-Drug Resistant Organisms: None Reported Past Surgical History: Appendectomy, Cholecystectomy, Heart Catheterization, Hysterectomy, Orthopedic Surgery Additional Past Surgical History / Comment(s): Cardiac cath about 2009 and pt states she was treated medically, EGDs to "unplug" bile duct, colonoscopies, bilateral salpingoophorectomies, L ankle shattered-surgical repair with hardware and pt believes hardware is all removed now, cystoscopies to "stretch" her bladder, cervical and low back injections. Past Anesthesia/Blood Transfusion Reactions: Motion Sickness Past Psychological History: Depression Smoking Status: Never smoker Past Alcohol Use History: None Reported Past Drug Use History: None Reported - Past Family History Mother Family Medical History: Cancer Additional Family Medical History / Comment(s): Mother from metastatic breast cancer at the age of 52 yrs. Father Family Medical History: Coronary Artery Disease (CAD), Myocardial Infarction (NH) Additional Family Medical History / Comment(s): Father had his first Mi around age 78yrs. He has about 3 MIs total and from his last one at the age of 80yrs. General Exam - General Exam Comments Initial Comments: This is a well-developed well-nourished awake alert oriented 3 female Limitations: no limitations General appearance: alert, in no apparent distress Head exam: Present: atraumatic, normocephalic, normal inspection Eye exam: Present: normal appearance, PERRL, EOMI. Absent: scleral icterus, conjunctival injection, periorbital swelling ENT exam: Present: normal exam, mucous membranes moist Neck exam: Present: normal inspection. Absent: tenderness, meningismus, lymphadenopathy Respiratory exam: Present: normal lung sounds bilaterally. Absent: respiratory distress, wheezes, rales, rhonchi, stridor Cardiovascular Exam: Present: regular rate, normal rhythm, normal heart sounds. Absent: systolic murmur, diastolic murmur, rubs, gallop, clicks GI/Abdominal exam: Present: soft, normal bowel sounds. Absent: distended, tenderness, guarding, rebound, rigid Extremities exam: Present: full ROM, tenderness, normal capillary refill, other (Erythema bilaterally with increased localized temperature was noted on both lower extremities to the mid to distal third). Absent: pedal edema, joint swelling, calf tenderness Back exam: Present: normal inspection Neurological exam: Present: alert, oriented X3, CN II-XII intact Psychiatric exam: Present: normal affect, normal mood Skin exam: Present: warm, dry, intact, normal color. Absent: rash Course Vital Signs 11/18/19 19:48 Temperature 99.2 F Pulse Rate 89 Respiratory 18 Rate Blood Pressure 103/76 O2 Sat by Pulse 95 Oximetry Medical Decision Making - Medical Decision Making I did discuss findings with the patient and with Dr. Haji who is covering Dr. Mendoza patient be admitted IV antibiotics and infectious disease consult - Lab Data Lab Results 11/18/19 Range/Units 19:57 Plasma Lactic Acid Mj 1.2 (0.7-2.0) mmol/L - Radiology Data Radiology results: report reviewed (I did review the imaging no evidence of osteomyelitis on my evaluation he is pending the wounds are noted however. No gas formation), image reviewed Disposition Clinical Impression: Bilateral lower leg cellulitis, Febrile illness, acute, Open wounds involving multiple regions of lower extremity Disposition: ADMITTED IP TO THIS HOSP Condition: Fair Referrals: Drew Mendoza MD [Primary Care Provider] - 1-2 days
[2019-11-18 20:18] LABS: Albumin 3.6 g/dL (3.5-5.0); Calcium 8.4 mg/dL (8.4-10.2); Magnesium 2.4 mg/dL (1.6-2.3); Potassium 5.5 mmol/L (3.5-5.1); Total Bilirubin 0.8 mg/dL (0.2-1.3); Total Protein 6.8 g/dL (6.3-8.2)
[2019-11-18] MEDS ORDERED: HYDROmorphone 0.5 MG/0.5 ML SYRINGE IVP STA (20:24)
[2019-11-18] MEDS ORDERED: NALOXONE 0.4 MG/ML 1 ML VIAL IV PRN (20:43)
[2019-11-18] MEDS ORDERED: MAGNESIUM HYDROXIDE 2,400 MG/10 ML CUP PO PRN (20:45)
[2019-11-18] MEDS ORDERED: ACETAMINOPHEN TAB 325 MG TAB PO PRN (20:45)
[2019-11-18] MEDS ORDERED: clonazePAM 0.5 MG TAB PO PRN (20:45)
[2019-11-18] MEDS ORDERED: IPRATROPIUM-ALBUTEROL 3 ML NEB INHALATION PRN (20:45)
[2019-11-18] MEDS ORDERED: tiZANidine 4 MG TAB PO PRN (20:45)
[2019-11-18] MEDS ORDERED: ONDANSETRON ODT 4 MG TAB PO PRN (20:45)
[2019-11-18] MEDS ORDERED: TEMAZEPAM 15 MG CAP PO PRN (20:45)
[2019-11-18] MEDS ORDERED: VANCOMYCIN IV PER PHARMACY 1 EACH MISC MISCELLANE PRN (20:47)
--- NOTE | 2019-11-18 21:11 | XR ---
EXAMINATION TYPE: XR tibia fibula bilateral DATE OF EXAM: 11/18/2019 COMPARISON: 10/26/2019 HISTORY: Lymphedema open wounds TECHNIQUE: 5 view left tibia and fibula FINDINGS: Large anterior soft tissue wound is present with soft tissue swelling. Lateral soft tissue irregularity is present. On the lateral crosstable view there are 2 very subtle cortical depressions without loss of the cortex density. The cortex itself appears intact. Suspicious cortical erosions a re not otherwise identified. No acute fractures are evident. IMPRESSION: 1. Soft tissue abnormalities most likely anterior tibia. 2. Very subtle cortical change may be present. Typical cortical erosion to suggest osteomyelitis sandoval celeste is not evident suggesting this appearance may be artifact.
[2019-11-18] MEDS ORDERED: VANCOMYCIN 1,750 MG in SODIUM CHLORIDE 0.9% 500 ML 500 ML IVPB ONE (22:00)
[2019-11-18] MEDS: HYDROmorphone 1 MG/ML 1 ML SYRINGE IVP PRN (23:10)
[2019-11-19] MEDS: HYDROcodone/APAP 5-325MG 1 EACH TAB PO PRN ×5 (00:48→22:37)
[2019-11-19] MEDS: INSULIN ASPART (NovoLOG) 100 UNIT/ML VIAL SQ SCH ×5 (02:31→20:42)
[2019-11-19] MEDS: HYDROmorphone 1 MG/ML 1 ML SYRINGE IVP PRN (03:18)
[2019-11-19] MEDS: PIPERACILLIN-TAZOBACTAM 3.375 GM in SODIUM CHLORIDE 0.9% 100 ML IVPB SCH ×3 (03:18→20:17)
[2019-11-19] MEDS ORDERED: FUROSEMIDE 40 MG TAB PO SCH (06:00)
[2019-11-19] MEDS: LEVOTHYROXINE 100 MCG TAB PO SCH (06:08)
[2019-11-19 07:13] LABS: Glucose,Whole Blood 117 mg/dL (75-99)
[2019-11-19] MEDS: PANTOPRAZOLE 40 MG TABLET PO SCH (07:49)
[2019-11-19] MEDS: lisinopriL 20 MG TAB PO SCH (07:51)
[2019-11-19] MEDS ORDERED: NON FORMULARY DRUG (Liquacel 30 ML) PO SCH (08:00)
[2019-11-19 08:31] LABS: Basophils % (A) 1 %; Eosinophils # (A) 0.1 k/uL (0-0.7); Eosinophils % (A) 3 %; HCT 23.2 % (34.0-46.0); HGB 7.4 gm/dL (11.4-16.0); Hypochromasia Moderate; Lymphocytes # (A) 0.7 k/uL (1.0-4.8); Lymphocytes % (A) 23 %; MCH 39.4 pg (25.0-35.0); Macrocytosis Marked; Mean Platelet Volume 9.2; Monocytes # (A) 0.1 k/uL (0-1.0); Monocytes % (A) 5 %; Neutrophils # (A) 1.9 k/uL (1.3-7.7); Neutrophils % (A) 65 %; Platelet Count 263 k/uL (150-450); RBC 1.88 m/uL (3.80-5.40); RDW 15.3 % (11.5-15.5); WBC 2.9 k/uL (3.8-10.6)
[2019-11-19 09:11] LABS: Calcium 8.4 mg/dL (8.4-10.2); Potassium 4.7 mmol/L (3.5-5.1)
[2019-11-19 09:19] LABS: Rouleaux Present
[2019-11-19 11:08] LABS: Glucose,Whole Blood 116 mg/dL (75-99)
--- NOTE | 2019-11-19 12:17 | P.HPIM ---
History of Present Illness 74-year-old female came in with bilateral lower leg ulcers in the anterior gamble area in both legs appear to be cellulitic in both sites. Wound cultures were obtained patient is subsequent admitted for management of these wounds and infection.. Patient does follow up in wound care clinic. Patient had a low- grade fever of 100.[facility] Patient is presently on vancomycin and Zosyn. Patient does have history of congestive heart failure EF of around 40-45% and the patient is was hyponatremic received IV fluids after which her his serum sodium did improve patient is presently not in heart failure I'll hold of both IV fluids and Lasix at this time. Patient had an x-ray of both the extremities there was a concern about osteoma and it is although I did review the images but unable to appreciate any cortical erosions or periosteal elevations as per the radiologist read reading there may be osteomyelitis not mentioned above which bone or which is side is affected. She is having pain at these sites Review of Systems REVIEW OF SYSTEMS: CONSTITUTIONAL: No fever, no malaise, no fatigue. HEENT: No recent visual problems or hearing problems. Denied any sore throat. CARDIOVASCULAR: No chest pain, orthopnea, PND, no palpitations, no syncope. PULMONARY: No shortness of breath, no cough, no hemoptysis. GASTROINTESTINAL: No diarrhea, no nausea, no vomiting, no abdominal pain. NEUROLOGICAL: No headaches, no weakness, no numbness. HEMATOLOGICAL: Denies any bleeding or petechiae. GENITOURINARY: Denies any burning micturition, frequency, or urgency. MUSCULOSKELETAL/RHEUMATOLOGICAL: As mentioned in HPI. ENDOCRINE: Denies any polyuria or polydipsia. The rest of the 14-point review of systems is negative. Past Medical History Past Medical History: Chest Pain / Angina, Heart Failure, COPD, Eye Disorder, GERD/Reflux, Hypertension, Myocardial Infarction ([place]), Osteoarthritis (OA), Pneumonia, Thyroid Disorder Additional Past Medical History / Comment(s): Pt states she has had problems with bilateral leg edema and sores/cellulitis for the past 2 years-at times everything improves and then worsens again and L leg is always worse, urinary incontinence, bronchitis, hypothyroid, DDD cervical spine and lower back, cervical and low back chronic pain, arthritis bilateral wrists and fingers, pt states she has been told she has a bone spur in her L ankle or foot, "blocked" bile duct a couple of times, migraines, possible bilateral cataracts, Last Myocardial Infarction Date:: about 2009-pt unsure where she was hospitalized. History of Any Multi-Drug Resistant Organisms: None Reported Past Surgical History: Appendectomy, Cholecystectomy, Heart Catheterization, Hysterectomy, Orthopedic Surgery Additional Past Surgical History / Comment(s): Cardiac cath about 2009 and pt states she was treated medically, EGDs to "unplug" bile duct, colonoscopies, bilateral salpingoophorectomies, L ankle shattered-surgical repair with hardware and pt believes hardware is all removed now, cystoscopies to "stretch" her bladder, cervical and low back injections. Past Anesthesia/Blood Transfusion Reactions: Motion Sickness Past Psychological History: Depression Additional Psychological History / Comment(s): Retired. Nonsmoker. Lives with her son Parker. No animal exposures. No international travel. The experience Smoking Status: Never smoker Past Alcohol Use History: None Reported Past Drug Use History: None Reported - Past Family History Mother Family Medical History: Cancer Additional Family Medical History / Comment(s): Mother from metastatic breast cancer at the age of 52 yrs. Father Family Medical History: Coronary Artery Disease (CAD), Myocardial Infarction ([place]) Additional Family Medical History / Comment(s): Father had his first Mi around age 78yrs. He has about 3 MIs total and from his last one at the age of 80yrs. Medications and Allergies Home Medications Medication Instructions Recorded Confirmed Type HYDROcodone/APAP 5-325MG [[place] 1 each PO Q4HR PRN #12 tab 10/31/19 11/18/19 Rx 5-325] Ipratropium-Albuterol Nebulize 3 ml INHALATION RT-Q4H PRN ml 10/31/19 11/18/19 Rx [Duoneb 0.5 mg-3 mg/3 ml Soln] Ondansetron Odt [Zofran Odt] 4 mg PO Q8HR PRN #10 tab 10/31/19 11/18/19 Rx Pantoprazole [Protonix] 40 mg PO AC-BRKFST tablet. 10/31/19 11/18/19 Rx Temazepam [Restoril] 15 mg PO HS PRN 3 Days #3 cap 10/31/19 11/18/19 Rx tiZANidine [Zanaflex] 4 mg PO BID PRN #6 cap 10/31/19 11/18/19 Rx Acetaminophen [Tylenol] 650 mg PO Q4H PRN 11/18/19 11/18/19 History Cephalexin [Keflex] 500 mg PO Q8HR 11/18/19 11/18/19 History Furosemide [Lasix] 40 mg PO BID@0600,1400 11/18/19 11/18/19 History INSULIN ASPART (NovoLOG) [NovoLOG See Protocol SQ QID 11/18/19 11/18/19 History (formulary)] Levothyroxine Sodium 200 mcg PO DAILY 11/18/19 11/18/19 History Liquacel 30 ml PO BID@0800,1700 11/18/19 11/18/19 History Magnesium Hydroxide [Milk of 7,200 mg PO DAILY PRN 11/18/19 11/18/19 History Magnesia Concentrate] Potassium Chloride ER [K-Dur 20] 20 meq PO DAILY@1700 11/18/19 11/18/19 History clonazePAM 0.5 mg PO TID PRN 11/18/19 11/18/19 History lisinopriL [Prinivil] 20 mg PO DAILY 11/18/19 11/18/19 History Allergies Allergy/AdvReac Type Severity Reaction Status Date / Time buspirone [From BuSpar] AdvReac Unknown Verified 11/18/19 19:55 Physical Exam Vitals: Vital Signs Temp Pulse Pulse Resp BP BP Pulse Ox 11/19/19 08:00 82 16 11/19/19 07:05 98.2 F 82 16 123/67 99 11/19/19 04:00 16 11/19/19 01:55 98.1 F 86 16 113/66 99 11/19/19 00:00 14 11/18/19 21:55 98.2 F 80 14 112/58 100 11/18/19 20:54 91 18 113/53 96 11/18/19 19:48 99.2 F 89 18 103/76 95 Intake and Output 11/18/19 11/19/19 11/19/19 22:59 06:59 14:59 Other: # Voids 1 1 Weight 90.718 kg PHYSICAL EXAMINATION: GENERAL: The patient is alert and oriented x3, not in any acute distress. Well developed, well nourished. HEENT: Pupils are round and equally reacting to light. EOMI. No scleral icterus. No conjunctival pallor. Normocephalic, atraumatic. No pharyngeal erythema. No thyromegaly. CARDIOVASCULAR: S1 and S2 present. No murmurs, rubs, or gallops. PULMONARY: Chest is clear to auscultation, no wheezing or crackles. ABDOMEN: Soft, nontender, nondistended, normoactive bowel sounds. No palpable organomegaly. MUSCULOSKELETAL: No joint swelling or deformity. EXTREMITIES: No cyanosis, clubbing, or pedal edema. She and has stage 3-4 ulcers lower extremities and that decision area right one is larger but that not deeper in the left one is the both of them appear to be infected with purulent discharge NEUROLOGICAL: Gross neurological examination did not reveal any focal deficits. SKIN: IS as mentioned above Results CBC & Chem 7: 11/19/19 07:59 11/19/19 07:59 Labs: Abnormal Lab Results - Last 24 Hours (Table) 11/18/19 11/19/19 11/19/19 Range/Units 19:57 07:10 07:59 WBC 2.9 L (3.8-10.6) k/uL RBC 1.88 L (3.80-5.40) m/uL Hgb 7.4 L (11.4-16.0) gm/dL Hct 23.2 L (34.0-46.0) % MCV 123.0 H (80.0-100.0) fL MCH 39.4 H (25.0-35.0) pg Lymphocytes # 0.7 L (1.0-4.8) k/uL Macrocytosis Marked A Sodium 129 L (137-145) mmol/L Potassium 5.5 H (3.5-5.1) mmol/L Chloride 95 L (98-107) mmol/L BUN 49 H (7-17) mg/dL Creatinine 1.42 H (0.52-1.04) mg/dL Glucose 113 H (74-99) mg/dL POC Glucose (mg/dL) 117 H (75-99) mg/dL Magnesium 2.4 H (1.6-2.3) mg/dL 11/19/19 11/19/19 Range/Units 07:59 11:07 WBC (3.8-10.6) k/uL RBC (3.80-5.40) m/uL Hgb (11.4-16.0) gm/dL Hct (34.0-46.0) % MCV (80.0-100.0) fL MCH (25.0-35.0) pg Lymphocytes # (1.0-4.8) k/uL Macrocytosis Sodium 134 L (137-145) mmol/L Potassium (3.5-5.1) mmol/L Chloride (98-107) mmol/L BUN 40 H (7-17) mg/dL Creatinine 1.05 H (0.52-1.04) mg/dL Glucose 125 H (74-99) mg/dL POC Glucose (mg/dL) 116 H (75-99) mg/dL Magnesium (1.6-2.3) mg/dL Thrombosis Risk Factor Assmnt - Choose All That Apply Each Factor Represents 1 point: Swollen legs (current) Each Risk Factor Represents 3 Points: Age 75 years or older Thrombosis Risk Factor Assessment Total Risk Factor Score: 4 Thrombosis Risk Factor Assessment Level: Moderate Risk Assessment and Plan Plan: Bilateral lower x-ray today ulcers which appear to be infected wound cultures were obtained and patient the will be continued on broad-spectrum antibiotics infectious disease will evaluate the patient patient may need debridement -Acute renal failure: Secondary to excessive diuresis hold off on diuretics, renal failure improved this can you IV fluids --Hyponatremia: Hyperlipidemia hyponatremia from diuretics which will be held. Improved serum sodium -Congestive heart heart failure chronic systolic dysfunction patient is hypovolemic at this time holding of diuretics and the will closely monitor for any heart failure exacerbation, patient is hypervolemic at this time -Hypothyroidism -Hypertension -Gastroesophageal reflux disease next and-COPD without any acute exacerbation -Coronary artery disease -Depression. DVT prophylaxis with subcutaneous heparin
[2019-11-19] MEDS: COLLAGENASE 250 UNIT/GM OINTMENT 30 GM TUBE TOPICAL SCH (12:37)
[2019-11-19 12:44] VITALS: BMI 35.4
--- NOTE | 2019-11-19 14:08 | XR ---
EXAMINATION TYPE: XR chest 2V DATE OF EXAM: 11/19/2019 COMPARISON: 10/29/2019, 10/26/2019, 10/02/2018 HISTORY: 74-year-old female shortness of breath, rule out CHF TECHNIQUE: PA and lateral views FINDINGS: Low lung volumes and crowded vascular markings. Mild interstitial/vascular prominence. Surgical clips in the right axilla. Stable peripheral right basilar pulmonary nodule measures 1.1 cm corresponding to a calcified granuloma. The heart is borderline enlarged. Strandy left basilar atelectasis. No pleu ral effusion. There is vertebral compression collapse at T11 and anterior wedging at L1, unchanged fr om 10/26/2019. Inferior endplate deformity at L1 shows slight progression from the CT of 10/02/2018. IMPRESSION: 1. Borderline cardiomegaly. Hypoventilatory changes. Correlate to exclude mild pulmonary vascular con gestion. No pulmonary edema. 2. Stable calcified granuloma at the right base.
[2019-11-19] MEDS ORDERED: LIDOCAINE 1% INJ 10MG/ML (20 ML MDV) SQ ONE (16:01)
--- NOTE | 2019-11-19 16:19 | P.GSCN ---
History of Present Illness History of present illness: 74-year-old white female, patient was seen for a wound on her right lower extremity according to patient she fell down in the bathroom and she had a wound on her right and left lower extremity involving the anterior aspect of the left lower leg and lateral aspect of the right leg. Patient has history of 4 congestive heart failure and myocardial infarction COPD, obesity Neck examination neck supple no bruit appreciated Chest clear few crackles the lung bases Abdomen soft nontender vascular examination femorals are 1+ PTDP by the Doppler patient has a wound on the left lower extremity Eschen area 4 x 0.5 cm with some fat and necrosis noted and her right leg he has a wound about 3 cm x 2 cm basal the wound is clean there is some Brown induration noted of the both lower extremity Plan is debridement of the left leg wound Past Medical History Past Medical History: Chest Pain / Angina, Heart Failure, COPD, Eye Disorder, GERD/Reflux, Hypertension, Myocardial Infarction ([place]), Osteoarthritis ([place]), Pneumonia, Thyroid Disorder Additional Past Medical History / Comment(s): Pt states she has had problems with bilateral leg edema and sores/cellulitis for the past 2 years-at times everything improves and then worsens again and L leg is always worse, urinary incontinence, bronchitis, hypothyroid, DDD cervical spine and lower back, cervical and low back chronic pain, arthritis bilateral wrists and fingers, pt states she has been told she has a bone spur in her L ankle or foot, "blocked" bile duct a couple of times, migraines, possible bilateral cataracts, Last Myocardial Infarction Date:: about 2009-pt unsure where she was hospitalized. History of Any Multi-Drug Resistant Organisms: None Reported Past Surgical History: Appendectomy, Cholecystectomy, Heart Catheterization, Hysterectomy, Orthopedic Surgery Additional Past Surgical History / Comment(s): Cardiac cath about 2009 and pt states she was treated medically, EGDs to "unplug" bile duct, colonoscopies, bilateral salpingoophorectomies, L ankle shattered-surgical repair with hardware and pt believes hardware is all removed now, cystoscopies to "stretch" her bladder, cervical and low back injections. Past Anesthesia/Blood Transfusion Reactions: Motion Sickness Past Psychological History: Depression Additional Psychological History / Comment(s): Retired. Nonsmoker. Lives with her son Parker. No animal exposures. No international travel. The experience Smoking Status: Never smoker Past Alcohol Use History: None Reported Past Drug Use History: None Reported - Past Family History Mother Family Medical History: Cancer Additional Family Medical History / Comment(s): Mother from metastatic [place] ast cancer at the age of 52 yrs. Father Family Medical History: Coronary Artery Disease (CAD), Myocardial Infarction ([place]) Additional Family Medical History / Comment(s): Father had his first Mi around age 78yrs. He has about 3 MIs total and from his last one at the age of 80yrs. Medications and Allergies Home Medications Medication Instructions Recorded Confirmed Type HYDROcodone/APAP 5-325MG [[place] 1 each PO Q4HR PRN #12 tab 10/31/19 11/18/19 Rx 5-325] Ipratropium-Albuterol Nebulize 3 ml INHALATION RT-Q4H PRN ml 10/31/19 11/18/19 Rx [Duoneb 0.5 mg-3 mg/3 ml Soln] Ondansetron Odt [Zofran Odt] 4 mg PO Q8HR PRN #10 tab 10/31/19 11/18/19 Rx Pantoprazole [Protonix] 40 mg PO AC-BRKFST tablet. 10/31/19 11/18/19 Rx Temazepam [Restoril] 15 mg PO HS PRN 3 Days #3 cap 10/31/19 11/18/19 Rx tiZANidine [Zanaflex] 4 mg PO BID PRN #6 cap 10/31/19 11/18/19 Rx Acetaminophen [Tylenol] 650 mg PO Q4H PRN 11/18/19 11/18/19 History Cephalexin [Keflex] 500 mg PO Q8HR 11/18/19 11/18/19 History Furosemide [Lasix] 40 mg PO BID@0600,1400 11/18/19 11/18/19 History INSULIN ASPART (NovoLOG) [NovoLOG See Protocol SQ QID 11/18/19 11/18/19 History (formulary)] Levothyroxine Sodium 200 mcg PO DAILY 11/18/19 11/18/19 History Liquacel 30 ml PO BID@0800,1700 11/18/19 11/18/19 History Magnesium Hydroxide [Milk of 7,200 mg PO DAILY PRN 11/18/19 11/18/19 History Magnesia Concentrate] Potassium Chloride ER [K-Dur 20] 20 meq PO DAILY@1700 11/18/19 11/18/19 History clonazePAM 0.5 mg PO TID PRN 11/18/19 11/18/19 History lisinopriL [Prinivil] 20 mg PO DAILY 11/18/19 11/18/19 History Allergies Allergy/AdvReac Type Severity Reaction Status Date / Time buspirone [From BuSpar] AdvReac Unknown Verified 11/18/19 19:55 Surgical - Exam Vital Signs Temp Pulse Resp BP Pulse Ox 99.2 F 89 18 103/76 95 11/18/19 19:48 11/18/19 19:48 11/18/19 19:48 11/18/19 19:48 11/18/19 19:48 Results - Labs 11/19/19 07:59 11/19/19 07:59 Abnormal Lab Results - Last 24 Hours (Table) 11/18/19 11/19/19 11/19/19 Range/Units 19:57 07:10 07:59 WBC 2.9 L (3.8-10.6) k/uL RBC 1.88 L (3.80-5.40) m/uL Hgb 7.4 L (11.4-16.0) gm/dL Hct 23.2 L (34.0-46.0) % MCV 123.0 H (80.0-100.0) fL MCH 39.4 H (25.0-35.0) pg Lymphocytes # 0.7 L (1.0-4.8) k/uL Macrocytosis Marked A Sodium 129 L (137-145) mmol/L Potassium 5.5 H (3.5-5.1) mmol/L Chloride 95 L (98-107) mmol/L BUN 49 H (7-17) mg/dL Creatinine 1.42 H (0.52-1.04) mg/dL Glucose 113 H (74-99) mg/dL POC Glucose (mg/dL) 117 H (75-99) mg/dL Magnesium 2.4 H (1.6-2.3) mg/dL 11/19/19 11/19/19 Range/Units 07:59 11:07 WBC (3.8-10.6) k/uL RBC (3.80-5.40) m/uL Hgb (11.4-16.0) gm/dL Hct (34.0-46.0) % MCV (80.0-100.0) fL MCH (25.0-35.0) pg Lymphocytes # (1.0-4.8) k/uL Macrocytosis Sodium 134 L (137-145) mmol/L Potassium (3.5-5.1) mmol/L Chloride (98-107) mmol/L BUN 40 H (7-17) mg/dL Creatinine 1.05 H (0.52-1.04) mg/dL Glucose 125 H (74-99) mg/dL POC Glucose (mg/dL) 116 H (75-99) mg/dL Magnesium (1.6-2.3) mg/dL Diabetes panel 11/18/19 11/19/19 Range/Units 19:57 07:59 Sodium 129 L 134 L (137-145) mmol/L Potassium 5.5 H 4.7 (3.5-5.1) mmol/L Chloride 95 L 101 (98-107) mmol/L Carbon Dioxide 26 25 (22-30) mmol/L BUN 49 H 40 H (7-17) mg/dL Creatinine 1.42 H 1.05 H (0.52-1.04) mg/dL Glucose 113 H 125 H (74-99) mg/dL Calcium 8.4 8.4 (8.4-10.2) mg/dL AST 25 (14-36) U/L ALT 15 (4-34) U/L Alkaline Phosphatase 72 (38-126) U/L Total Protein 6.8 (6.3-8.2) g/dL Albumin 3.6 (3.5-5.0) g/dL Calcium panel 11/18/19 11/19/19 Range/Units 19:57 07:59 Calcium 8.4 8.4 (8.4-10.2) mg/dL Albumin 3.6 (3.5-5.0) g/dL Pituitary panel 11/18/19 11/19/19 Range/Units 19:57 07:59 Sodium 129 L 134 L (137-145) mmol/L Potassium 5.5 H 4.7 (3.5-5.1) mmol/L Chloride 95 L 101 (98-107) mmol/L Carbon Dioxide 26 25 (22-30) mmol/L BUN 49 H 40 H (7-17) mg/dL Creatinine 1.42 H 1.05 H (0.52-1.04) mg/dL Glucose 113 H 125 H (74-99) mg/dL Calcium 8.4 8.4 (8.4-10.2) mg/dL Adrenal panel 11/18/19 11/19/19 Range/Units 19:57 07:59 Sodium 129 L 134 L (137-145) mmol/L Potassium 5.5 H 4.7 (3.5-5.1) mmol/L Chloride 95 L 101 (98-107) mmol/L Carbon Dioxide 26 25 (22-30) mmol/L BUN 49 H 40 H (7-17) mg/dL Creatinine 1.42 H 1.05 H (0.52-1.04) mg/dL Glucose 113 H 125 H (74-99) mg/dL Calcium 8.4 8.4 (8.4-10.2) mg/dL Total Bilirubin 0.8 (0.2-1.3) mg/dL AST 25 (14-36) U/L ALT 15 (4-34) U/L Alkaline Phosphatase 72 (38-126) U/L Total Protein 6.8 (6.3-8.2) g/dL Albumin 3.6 (3.5-5.0) g/dL
--- NOTE | 2019-11-19 16:34 | P.PCN ---
Description of Procedure: Preoperative diagnoses is traumatic wound to left lower extremity measurement is 4 x 2 cm postoperative same Procedure this patient had a traumatic wound left lower extremity base of the wound has some fat necrosis and some devitalized tissue leg was prepped and draped depression manner 1% lidocaine for infected using scissor we did the debridement didn't do for test tissue was removed and excised and there was some fat necrosis which was also removed and excised some bleeding was noted which was controlled by pressure wound was irrigated with saline Santyl cream applied to the wound dressing applied patient are to the procedure well plan is continue with IV antibiotic and local wound care using Santyl cream thank you
[2019-11-19 16:43] LABS: Glucose,Whole Blood 121 mg/dL (75-99)
[2019-11-19] MEDS ORDERED: POTASSIUM CHLORIDE ER 20 MEQ TAB.ER PO SCH (17:00)
[2019-11-19 20:36] LABS: Glucose,Whole Blood 126 mg/dL (75-99)
[2019-11-19] MEDS ORDERED: VANCOMYCIN 1,750 MG in SODIUM CHLORIDE 0.9% 500 ML 500 ML IVPB SCH (21:00)
[2019-11-19] MEDS: HEPARIN SODIUM,PORCINE 5,000 UNIT/ML 1 ML VIAL SQ SCH (22:27)
[2019-11-20] MEDS: HYDROmorphone 1 MG/ML 1 ML SYRINGE IVP PRN ×4 (00:14→22:44)
[2019-11-20] MEDS: PIPERACILLIN-TAZOBACTAM 3.375 GM in SODIUM CHLORIDE 0.9% 100 ML IVPB SCH ×3 (06:02→22:43)
[2019-11-20] MEDS: LEVOTHYROXINE 100 MCG TAB PO SCH (06:03)
[2019-11-20] MEDS: HYDROcodone/APAP 5-325MG 1 EACH TAB PO PRN ×2 (06:09→16:22)
[2019-11-20 06:41] LABS: Glucose,Whole Blood 129 mg/dL (75-99)
[2019-11-20] MEDS: INSULIN ASPART (NovoLOG) 100 UNIT/ML VIAL SQ SCH ×4 (07:02→22:43)
[2019-11-20] MEDS: PANTOPRAZOLE 40 MG TABLET PO SCH (07:21)
--- NOTE | 2019-11-20 07:59 | P.CONS ---
History of Present Illness - Reason for Consult Consult date: 11/19/19 Left leg wound and cellulitis Requesting physician: Wesley Cook - Chief Complaint A nonhealing wound to the left leg and fever x days - History of Present Illness Patient is 74-year-old female with a past medical history significant for COPD and CHF and venous stasis with a recent history of bilateral lower extremity wound especially to the left leg apparently the patient did have a small was subsequent laceration and hematoma to the left anterior leg that has been drained and being taken care in the outpatient setting by Dr. Navarrete, is currently a [facility] resident patient has been sent to the ER for evaluation of fever and worsening swelling and redness to the lower extremity especially to the left leg patient be complaining of pain to the bilateral leg most of the left leg more of a dull aching pain intensity is 5-6 out of 10 and no radiation this is a diffuse swelling and redness and did have mild drainage on arrival to the ER patient did have a fever of 99.9F patient was mildly leukopenic with a white count of 2.9, patient initial chest x-ray with a borderline cardiomegaly, patient has been started on vancomycin and Zosyn and infectious disease was consulted for further management of antibiotic therapy Review of Systems Positive point has been mentioned in the HPI rest of the systems are negative Past Medical History Past Medical History: Chest Pain / Angina, Heart Failure, COPD, Eye Disorder, GERD/Reflux, Hypertension, Myocardial Infarction (SC), Osteoarthritis (OA), Pneumonia, Thyroid Disorder Additional Past Medical History / Comment(s): Pt states she has had problems with bilateral leg edema and sores/cellulitis for the past 2 years-at times everything improves and then worsens again and L leg is always worse, urinary in continence, bronchitis, hypothyroid, DDD cervical spine and lower back, cervical and low back chronic pain, arthritis bilateral wrists and fingers, pt states she has been told she has a bone spur in her L ankle or foot, "blocked" bile duct a couple of times, migraines, possible bilateral cataracts, Last Myocardial Infarction Date:: about 2009-pt unsure where she was hospit alized. History of Any Multi-Drug Resistant Organisms: None Reported Past Surgical History: Appendectomy, Cholecystectomy, Heart Catheterization, Hysterectomy, Orthopedic Surgery Additional Past Surgical History / Comment(s): Cardiac cath about 2009 and pt states she was treated medically, EGDs to "unplug" bile duct, colonoscopies, bilateral salpingoophorectomies, L ankle shattered-surgical repair with hardware and pt believes hardware is all removed now, cystoscopies to "stretch" her bladder, cervical and low back injections. Past Anesthesia/Blood Transfusion Reactions: Motion Sickness Past Psychological History: Depression Additional Psychological History / Comment(s): Retired. Nonsmoker. Lives with her son Parker. No animal exposures. No international travel. The experience Smoking Status: Never smoker Past Alcohol Use History: None Reported Past Drug Use History: None Reported - Past Family History Mother Family Medical History: Cancer Additional Family Medical History / Comment(s): Mother from metastatic breast cancer at the age of 52 yrs. Father Family Medical History: Coronary Artery Disease (CAD), Myocardial Infarction (SC) Additional Family Medical History / Comment(s): Father had his first Mi around age 78yrs. He has about 3 MIs total and from his last one at the age of 80yrs. Medications and Allergies Home Medications Medication Instructions Recorded Confirmed Type HYDROcodone/APAP 5-325MG [[place] 1 each PO Q4HR PRN #12 tab 10/31/19 11/18/19 Rx 5-325] Ipratropium-Albuterol Nebulize 3 ml INHALATION RT-Q4H PRN ml 10/31/19 11/18/19 Rx [Duoneb 0.5 mg-3 mg/3 ml Soln] Ondansetron Odt [Zofran Odt] 4 mg PO Q8HR PRN #10 tab 10/31/19 11/18/19 Rx Pantoprazole [Protonix] 40 mg PO AC-BRKFST tablet. 10/31/19 11/18/19 Rx Temazepam [Restoril] 15 mg PO HS PRN 3 Days #3 cap 10/31/19 11/18/19 Rx tiZANidine [Zanaflex] 4 mg PO BID PRN #6 cap 10/31/19 11/18/19 Rx Acetaminophen [Tylenol] 650 mg PO Q4H PRN 11/18/19 11/18/19 History Cephalexin [Keflex] 500 mg PO Q8HR 11/18/19 11/18/19 History Furosemide [Lasix] 40 mg PO BID@0600,1400 11/18/19 11/18/19 History INSULIN ASPART (NovoLOG) [NovoLOG See Protocol SQ QID 11/18/19 11/18/19 History (formulary)] Levothyroxine Sodium 200 mcg PO DAILY 11/18/19 11/18/19 History Liquacel 30 ml PO BID@0800,1700 11/18/19 11/18/19 History Magnesium Hydroxide [Milk of 7,200 mg PO DAILY PRN 11/18/19 11/18/19 History Magnesia Concentrate] Potassium Chloride ER [K-Dur 20] 20 meq PO DAILY@1700 11/18/19 11/18/19 History clonazePAM 0.5 mg PO TID PRN 11/18/19 11/18/19 History lisinopriL [Prinivil] 20 mg PO DAILY 11/18/19 11/18/19 History Allergies Allergy/AdvReac Type Severity Reaction Status Date / Time buspirone [From BuSpar] AdvReac Unknown Verified 11/18/19 19:55 Physical Exam Vitals: Vital Signs Temp Pulse Pulse Resp BP BP Pulse Ox 11/19/19 08:00 82 16 11/19/19 07:05 98.2 F 82 16 123/67 99 11/19/19 04:00 16 11/19/19 01:55 98.1 F 86 16 113/66 99 11/19/19 00:00 14 11/18/19 21:55 98.2 F 80 14 112/58 100 11/18/19 20:54 91 18 113/53 96 11/18/19 19:48 99.2 F 89 18 103/76 95 Intake and Output 11/18/19 11/19/19 11/19/19 22:59 06:59 14:59 Other: # Voids 1 1 Weight 90.718 kg 90.718 kg GENERAL DESCRIPTION: An elderly female lying in bed, no distress. No tachypnea or accessory muscle of respiration use. HEENT: Shows Pallor , no scleral icterus. Oral mucous membrane is dry. No pharyngeal erythema or thrush NECK: Trachea central, no thyromegaly. LUNGS: Unlabored breathing. Clear to auscultation anteriorly. No wheeze or crackle. HEART: S1, S2, regular rate and rhythm. No loud murmur ABDOMEN: Soft, no tenderness , guarding or rigidity, no organomegaly EXTREMITIES: Left proximal tibia diffuse swelling redness with a wound to the chin area with some slough tissue surrounding redness and drainage SKIN: No rash, no masses palpable. NEUROLOGICAL: The patient is awake, alert, oriented x3, mood and affect normal. Results CBC & Chem 7: 11/19/19 07:59 11/19/19 07:59 Labs: Abnormal Lab Results - Last 24 Hours (Table) 11/18/19 11/19/19 11/19/19 Range/Units 19:57 07:10 07:59 WBC 2.9 L (3.8-10.6) k/uL RBC 1.88 L (3.80-5.40) m/uL Hgb 7.4 L (11.4-16.0) gm/dL Hct 23.2 L (34.0-46.0) % MCV 123.0 H (80.0-100.0) fL MCH 39.4 H (25.0-35.0) pg Lymphocytes # 0.7 L (1.0-4.8) k/uL Macrocytosis Marked A Sodium 129 L (137-145) mmol/L Potassium 5.5 H (3.5-5.1) mmol/L Chloride 95 L (98-107) mmol/L BUN 49 H (7-17) mg/dL Creatinine 1.42 H (0.52-1.04) mg/dL Glucose 113 H (74-99) mg/dL POC Glucose (mg/dL) 117 H (75-99) mg/dL Magnesium 2.4 H (1.6-2.3) mg/dL 11/19/19 11/19/19 Range/Units 07:59 11:07 WBC (3.8-10.6) k/uL RBC (3.80-5.40) m/uL Hgb (11.4-16.0) gm/dL Hct (34.0-46.0) % MCV (80.0-100.0) fL MCH (25.0-35.0) pg Lymphocytes # (1.0-4.8) k/uL Macrocytosis Sodium 134 L (137-145) mmol/L Potassium (3.5-5.1) mmol/L Chloride (98-107) mmol/L BUN 40 H (7-17) mg/dL Creatinine 1.05 H (0.52-1.04) mg/dL Glucose 125 H (74-99) mg/dL POC Glucose (mg/dL) 116 H (75-99) mg/dL Magnesium (1.6-2.3) mg/dL Assessment and Plan Assessment: 1- patient with a left anterior leg wound traumatic now with evidence of slough tissue the base and secondary cellulitis patient recently did have cultures obtained from the left leg and most of them has been gram-negative with no culture positive for MRSA (1) Wound of left leg Current Visit: Yes Status: Acute Code(s): S81.802A - UNSPECIFIED OPEN WOUND, LEFT LOWER LEG, INITIAL ENCOUNTER SNOMED Code(s): 091145544 (2) Left leg cellulitis Current Visit: Yes Status: Acute Code(s): L03.116 - CELLULITIS OF LEFT LOWER LIMB SNOMED Code(s): 885119210 Plan: 1- await surgical evaluation and debridement of the wound deep cultures 2- local wound care with Santyl followed by moist dressing to be changed daily 3- Zosyn 3.375 g every 8 hours however discontinue the vancomycin We will follow on clinical condition and cultures to further adjust medication if needed Thank you for this consultation will follow this patient with you Time with Patient: Greater than 30
[2019-11-20] MEDS: lisinopriL 20 MG TAB PO SCH (09:05)
[2019-11-20] MEDS: HEPARIN SODIUM,PORCINE 5,000 UNIT/ML 1 ML VIAL SQ SCH ×2 (09:07→20:19)
[2019-11-20] MEDS: COLLAGENASE 250 UNIT/GM OINTMENT 30 GM TUBE TOPICAL SCH (10:56)
[2019-11-20 11:14] LABS: Potassium 4.7 mmol/L (3.5-5.1)
[2019-11-20 11:27] LABS: Glucose,Whole Blood 140 mg/dL (75-99)
[2019-11-20] MEDS: FUROSEMIDE 40 MG TAB PO SCH (12:17)
--- NOTE | 2019-11-20 14:31 | P.PN ---
Subjective Progress Note Date: 11/20/19 Principal diagnosis: 74-year-old female came in with bilateral lower leg ulcers in the anterior gamble area in both legs appear to be cellulitic in both sites. Wound cultures were o btained patient is subsequent admitted for management of these wounds and infection.. Patient does follow up in wound care clinic. Patient had a low- grade fever of 100.6 reported from the senior living. Patient is presently on vancomycin and Zosyn. Patient does have history of congestive heart failure EF of around 40-45% and the patient is was hyponatremic received IV fluids after which her his serum sodium did improve patient is presently not in heart failure I'll hold of both IV fluids and Lasix at this time. Patient had an x-ray of both the extremities there was a concern about osteoma and it is although I did review the images but unable to appreciate any cortical erosions or periosteal elevations as per the radiologist read reading there may be osteomyelitis not mentioned above which bone or which is side is affected. She is having pain at these sites 11/20/2019 Patient is seen and evaluated in follow-up with no acute overnight issues. Patient is status post debridement of a traumatic wound to the left lower extremity previously with Dr. Rubio yesterday. Currently wound dressings along with Santyl cream and Jay wraps applied. She continues to have some bilateral lower extremity swelling and creatinine today has improved and is 0.81. Will resume Lasix 40 mg daily by mouth and monitor labs closely. Instructed the patient to continue with Jay wraps along with elevating bilateral lower extremities while at rest. She is currently on room air with no reports of shortness of breath or chest pain noted. Review of systems: Constitutional: No reports of fatigue, fever, or chills Cardiovascular: No reports of chest pain or palpitations Respiratory: No reports of shortness of breath or cough GI: No reports of nausea, vomiting, or diarrhea : No reports of dysuria or retention Neurovascular: Reports generalized weakness with no reports of numbness All medications have been reviewed Objective - Vital Signs Vital signs: Vital Signs Temp 98.2 F 11/20/19 12:53 Pulse 72 11/20/19 12:53 Resp 16 11/20/19 12:53 BP 122/76 11/20/19 12:53 Pulse Ox 98 11/20/19 12:53 Intake & Output 09/11/2911/20/19 11/20/19 18:59 06:59 18:59 Intake Total 1000 380 Balance 1000 380 Weight 90.718 kg Intake: Oral 1000 380 Other: # Voids 4 11 2 - Exam GENERAL: The patient is alert and oriented x3, not in any acute distress. Well developed, well nourished. HEENT: Pupils are round and equally reacting to light. EOMI. No scleral icterus. No conjunctival pallor. Normocephalic, atraumatic. No pharyngeal erythema. No thyromegaly. CARDIOVASCULAR: S1 and S2 present. No murmurs, rubs, or gallops. PULMONARY: Chest is clear to auscultation, no wheezing or crackles. ABDOMEN: Soft, nontender, nondistended, normoactive bowel sounds. No palpable organomegaly. MUSCULOSKELETAL: No joint swelling or deformity. EXTREMITIES: No cyanosis, clubbing, or pedal edema. She has stage 3-4 ulcers lower extremities status post irrigation and debridement with surgical dressings are currently dry and intact with Jay wraps applied NEUROLOGICAL: Gross neurological examination did not reveal any focal deficits. SKIN: IS as mentioned above - Labs CBC & Chem 7: 11/19/19 07:59 11/20/19 10:27 Labs: Abnormal Lab Results - Last 24 Hours (Table) 11/19/19 11/19/19 11/20/19 Range/Units 16:41 20:28 06:40 Sodium (137-145) mmol/L BUN (7-17) mg/dL Glucose (74-99) mg/dL POC Glucose (mg/dL) 121 H 126 H 129 H (75-99) mg/dL Calcium (8.4-10.2) mg/dL 11/20/19 11/20/19 Range/Units 10:27 11:24 Sodium 135 L (137-145) mmol/L BUN 22 H (7-17) mg/dL Glucose 114 H (74-99) mg/dL POC Glucose (mg/dL) 140 H (75-99) mg/dL Calcium 8.0 L (8.4-10.2) mg/dL Microbiology - Last 24 Hours (Table) 11/19/19 10:20 Gram Stain - Preliminary Other - Other Wound Culture - Preliminary 11/18/19 19:57 Blood Culture - Preliminary Blood No Growth after 24 hours 11/19/19 10:20 Anaerobic Culture - Preliminary Drainage Assessment and Plan Assessment: -Bilateral lower extremity ulcers which appear to be infected wound cultures were obtained and currently pending. Status post irrigation and debridement with vascular surgery yesterday. Awaiting wound culture finalization. Infectious disease following. Patient is currently maintained on vancomycin and Zosyn and will continue at this time. -Acute renal failure: Secondary to excessive diuresis, improved current creatinine is 0.81 and will initiate Lasix 40 mg daily and monitor labs closely -Hyponatremia: Hypovolemic hyponatremia from diuretics which will be held. Improved serum sodium, current sodium is 135, IV fluids discontinued -Congestive heart heart failure chronic systolic dysfunction patient is hypervolemic, will resume Lasix 40 mg by mouth daily and monitor vital signs and labs closely -Hypothyroidism -Hypertension -Gastroesophageal reflux disease -COPD without any acute exacerbation -Coronary artery disease -Depression. -DVT prophylaxis with subcutaneous heparin -GI prophylaxis Protonix Plan: To current medications, management, and symptomatic treatment. Vascular surgery along with infectious disease is following. Sodium and kidney functions improved and will resume Lasix 40 mg daily and monitor vital signs and labs closely along with bilateral lower extremity swelling. Instructed to continue with Jay wraps along with local wound care and elevating lower extremities while at rest. Awaiting for wound cultures to finalize and patient is currently maintained on Zosyn along with vancomycin and will continue at this time. Will repeat a.m. labs. Further recommendations to follow. Case management and social work following as patient may need continued therapy at [facility] once stabilized and discharged.
--- NOTE | 2019-11-20 16:40 | PN ---
PROGRESS NOTE DATE OF SERVICE: 11/20/2019 REASON FOR FOLLOWUP: Left leg wound and cellulitis. INTERVAL HISTORY: The patient is currently afebrile. The patient is breathing comfortably. Did mention she did have discomfort after debridement yesterday, but the pain is currently controlled today. No chest pain. No shortness of breath. No cough, no abdominal pain, no diarrhea. PHYSICAL EXAMINATION: Blood pressure is 122/76, pulse of 72, temperature is 98.2. She is 98% on room air. General description is an elderly female, lying in bed in no distress. RESPIRATORY SYSTEM: Unlabored breathing, clear to auscultation anteriorly. HEART: S1, S2. Regular rate and rhythm. ABDOMEN: Soft, no tenderness. Left leg wound is currently dressed. No obvious drainage on the dressing. LABS: BUN of 22, creatinine 0.81. Wound cultures currently pending. DIAGNOSTIC IMPRESSION AND PLAN: Patient with left lower extremity wound with secondary cellulitis, status post debridement. Cultures are currently pending. Patient to continue Zosyn, adjustment further on the basis of the culture report. Likely need a midline for outpatient IV antibiotics. Continue supportive care. MMODL / IJN: [id number] /
[2019-11-20 16:48] LABS: Glucose,Whole Blood 111 mg/dL (75-99)
[2019-11-20] MEDS: traMADol 50 MG TAB PO PRN (20:18)
[2019-11-20 20:34] LABS: Glucose,Whole Blood 121 mg/dL (75-99)
[2019-11-21] MEDS: HYDROcodone/APAP 5-325MG 1 EACH TAB PO PRN ×5 (01:08→20:59)
[2019-11-21] MEDS: HYDROmorphone 1 MG/ML 1 ML SYRINGE IVP PRN ×4 (02:48→16:52)
[2019-11-21] MEDS: PIPERACILLIN-TAZOBACTAM 3.375 GM in SODIUM CHLORIDE 0.9% 100 ML IVPB SCH ×3 (05:41→20:59)
[2019-11-21] MEDS: LEVOTHYROXINE 100 MCG TAB PO SCH (05:41)
[2019-11-21 06:59] LABS: Glucose,Whole Blood 108 mg/dL (75-99)
[2019-11-21] MEDS: INSULIN ASPART (NovoLOG) 100 UNIT/ML VIAL SQ SCH ×4 (07:10→21:07)
[2019-11-21] MEDS: COLLAGENASE 250 UNIT/GM OINTMENT 30 GM TUBE TOPICAL SCH (07:10)
[2019-11-21] MEDS: PANTOPRAZOLE 40 MG TABLET PO SCH (09:04)
[2019-11-21] MEDS: lisinopriL 20 MG TAB PO SCH (09:04)
[2019-11-21] MEDS: FUROSEMIDE 40 MG TAB PO SCH (09:04)
[2019-11-21] MEDS: HEPARIN SODIUM,PORCINE 5,000 UNIT/ML 1 ML VIAL SQ SCH ×2 (09:05→20:59)
[2019-11-21 09:39] LABS: Calcium 8.2 mg/dL (8.4-10.2); Potassium 4.4 mmol/L (3.5-5.1)
[2019-11-21 11:20] LABS: Glucose,Whole Blood 124 mg/dL (75-99)
[2019-11-21 16:25] LABS: Glucose,Whole Blood 126 mg/dL (75-99)
--- NOTE | 2019-11-21 17:00 | P.PN ---
Subjective Progress Note Date: 11/21/19 Principal diagnosis: 74-year-old female came in with bilateral lower leg ulcers in the anterior gamble area in both legs appear to be cellulitic in both sites. Wound cultures were o btained patient is subsequent admitted for management of these wounds and infection.. Patient does follow up in wound care clinic. Patient had a low- grade fever of 100.6 reported from the [facility]. Patient is presently on vancomycin and Zosyn. Patient does have history of congestive heart failure EF of around 40-45% and the patient is was hyponatremic received IV fluids after which her his serum sodium did improve patient is presently not in heart failure I'll hold of both IV fluids and Lasix at this time. Patient had an x-ray of both the extremities there was a concern about osteoma and it is although I did review the images but unable to appreciate any cortical erosions or periosteal elevations as per the radiologist read reading there may be osteomyelitis not mentioned above which bone or which is side is affected. She is having pain at these sites 11/20/2019 Patient is seen and evaluated in follow-up with no acute overnight issues. Patient is status post debridement of a traumatic wound to the left lower extremity previously with Dr. Rubio yesterday. Currently wound dressings along with Santyl cream and Jay wraps applied. She continues to have some bilateral lower extremity swelling and creatinine today has improved and is 0.81. Will resume Lasix 40 mg daily by mouth and monitor labs closely. Instructed the patient to continue with Jay wraps along with elevating bilateral lower extremities while at rest. She is currently on room air with no reports of shortness of breath or chest pain noted. Review of systems: Constitutional: No reports of fatigue, fever, or chills Cardiovascular: No reports of chest pain or palpitations Respiratory: No reports of shortness of breath or cough GI: No reports of nausea, vomiting, or diarrhea : No reports of dysuria or retention Neurovascular: Reports generalized weakness with no reports of numbness All medications have been reviewed 11/21/2019 She is seen and evaluated in follow-up with no acute overnight issues. Patient was restarted on 40 mg of Lasix and tolerating well. Current creatinine is 0.79 with a sodium of 135 and potassium is 4.4. Blood sugars also being closely monitored. Patient currently on IV antibiotics in the form of Zosyn and will continue at this time as wound cultures preliminary continue to show gram- negative bacilli and awaiting for culture finalization. She did have Covid 19 testing done which was negative. Patient received a midline today for continued IV antibiotic therapy. Patient to continue with local wound care along with Jay wraps to bilateral lower extremities and elevating lower extremities while at rest. Case management and social work following as patient plans on returning to [facility] for continued PT/OT therapy. [facility] has received insurance aut horization for return just waiting on wound cultures to finalized to determine discharge antibiotics. Review of systems: Constitutional: No reports of fatigue, fever, or chills Cardiovascular: No reports of chest pain or palpitations Respiratory: No reports of shortness of breath or cough GI: No reports of nausea, vomiting, or diarrhea : No reports of dysuria or retention Neurovascular: Reports weakness, no numbness All medications have been reviewed Objective - Vital Signs Vital signs: Vital Signs Temp 98.0 F 11/21/19 07:26 Pulse 75 11/21/19 07:26 Resp 16 11/21/19 08:31 BP 127/75 11/21/19 07:26 Pulse Ox 98 11/21/19 07:26 Intake & Output 11/20/19 11/21/19 11/21/19 18:59 06:59 18:59 Intake Total 580 800 380 Output Total 400 300 Balance 580 400 80 Intake: Oral 580 800 380 Output: Urine 400 300 Other: # Voids 2 4 1 - Exam GENERAL: The patient is alert and oriented x3, not in any acute distress. Well developed, well nourished. HEENT: Pupils are round and equally reacting to light. EOMI. No scleral icterus. No conjunctival pallor. Normocephalic, atraumatic. No pharyngeal erythema. No thyromegaly. CARDIOVASCULAR: S1 and S2 present. No murmurs, rubs, or gallops. PULMONARY: Chest is clear to auscultation, no wheezing or crackles. ABDOMEN: Soft, nontender, nondistended, normoactive bowel sounds. No palpable organomegaly. MUSCULOSKELETAL: No joint swelling or deformity. EXTREMITIES: No cyanosis, clubbing, or pedal edema. She has stage 3-4 ulcers lower extremities status post irrigation and debridement with surgical dressings are currently dry and intact with Jay wraps applied NEUROLOGICAL: Gross neurological examination did not reveal any focal deficits. SKIN: IS as mentioned above - Labs CBC & Chem 7: 11/19/19 07:59 11/21/19 07:32 Labs: Abnormal Lab Results - Last 24 Hours (Table) 11/20/19 11/20/19 11/21/19 Range/Units 16:47 20:30 06:53 Sodium (137-145) mmol/L POC Glucose (mg/dL) 111 H 121 H 108 H (75-99) mg/dL Calcium (8.4-10.2) mg/dL 11/21/19 11/21/19 Range/Units 07:32 11:19 Sodium 135 L (137-145) mmol/L POC Glucose (mg/dL) 124 H (75-99) mg/dL Calcium 8.2 L (8.4-10.2) mg/dL Microbiology - Last 24 Hours (Table) 11/18/19 19:57 Blood Culture - Preliminary Blood No Growth after 48 hours 11/19/19 10:20 Gram Stain - Preliminary Other - Other Wound Culture - Preliminary Gram Neg Bacilli Assessment and Plan Assessment: -Bilateral lower extremity ulcers which appear to be infected wound cultures were obtained and currently preliminary showing gram-negative bacilli and adamaris iting for finalization to determine discharge antibiotics. Status post irrigation and debridement with vascular surgery. Infectious disease following. Patient is currently maintained on Zosyn and will continue at this time. She did receive a midline for outpatient IV antibiotic therapy. -Acute renal failure: Secondary to excessive diuresis, improved current creatinine is 0.79 and will initiate Lasix 40 mg daily and monitor labs closely -Covid 19 ruled out, testing was negative. -Hyponatremia: Hypovolemic hyponatremia from diuretics Improved serum sodium, current sodium is 135, IV fluids discontinued, Lasix 40 mg resumed -Congestive heart heart failure chronic systolic dysfunction patient is hypervolemic, will resume Lasix 40 mg by mouth daily and monitor vital signs and labs closely -Hypothyroidism -Hypertension -Gastroesophageal reflux disease -COPD without any acute exacerbation -Coronary artery disease -Depression. -DVT prophylaxis with subcutaneous heparin -GI prophylaxis Protonix Plan: Continue current medications, management, and symptomatic treatment. Vascular surgery along with infectious disease is following. Instructed to continue with Jay wraps along with local wound care and elevating lower extremities while at rest. Awaiting for wound cultures to finalize and patient is currently maintained on Zosyn and will continue at this time. Preliminary showing gram- negative bacilli. Will repeat a.m. labs. Further recommendations to follow. Case management and social work following as patient will be returning to [facility] for continued IV antibiotic therapy along with PT/OT once stabilized and discharged. Insurance authorization has been obtained. Discussed with [facility] liaison and patient will be able to discharge tomorrow once cultures are finalized and IV antibiotic recommendations have been made. Covid 19 was ruled out and is negative. Anticipate discharge in 24 hours.
--- NOTE | 2019-11-21 17:42 | PN ---
PROGRESS NOTE DATE OF SERVICE: 11/21/2019 REASON FOR FOLLOWUP: Left lower extremity wound and cellulitis. INTERVAL HISTORY: The patient is currently afebrile. The patient is breathing comfortably. Denies having any chest pain or shortness of breath or cough. No nausea or vomiting. No abdominal pain or any worsening pain to the left leg. PHYSICAL EXAMINATION: Blood pressure is 100/55 with a pulse of 89, temperature 98.4. She is 96% on room air. General description is an elderly female up in the chair in no distress. RESPIRATORY SYSTEM: Unlabored breathing. Clear to auscultation anteriorly. HEART: S1, S2. Regular rate and rhythm. ABDOMEN: Soft. No tenderness. Left leg wound is currently dressed. No obvious drainage on the dressing. LABS: BUN of 17, creatinine 0.79. Wound culture is showing Gram-negative bacilli. ID and sensitivities are pending. DIAGNOSTIC IMPRESSION AND PLAN: Patient with left lower extremity wound with secondary cellulitis, status post surgical debridement. The patient is covered with Zosyn. Local wound care with Santyl. Will wait for the culture to finalize to determine her discharge antibiotic. However, it has to be IV, for which a midline will be placed. Continue with supportive care. MMODL / IJN: [id number] /
[2019-11-21 19:24] VITALS: TEMP 98.2
[2019-11-21 20:36] LABS: Glucose,Whole Blood 121 mg/dL (75-99)
[2019-11-22] MEDS: HYDROcodone/APAP 5-325MG 1 EACH TAB PO PRN ×3 (00:04→11:54)
[2019-11-22] MEDS: traMADol 50 MG TAB PO PRN (02:52)
[2019-11-22] MEDS: PIPERACILLIN-TAZOBACTAM 3.375 GM in SODIUM CHLORIDE 0.9% 100 ML IVPB SCH ×2 (02:52→11:54)
[2019-11-22 02:55] VITALS: RESP 18
[2019-11-22] MEDS: LEVOTHYROXINE 100 MCG TAB PO SCH (04:52)
[2019-11-22 07:14] LABS: Glucose,Whole Blood 102 mg/dL (75-99)
[2019-11-22 07:48] LABS: Calcium 8.1 mg/dL (8.4-10.2); Potassium 4.5 mmol/L (3.5-5.1)
[2019-11-22] MEDS: INSULIN ASPART (NovoLOG) 100 UNIT/ML VIAL SQ SCH ×2 (08:29→12:15)
[2019-11-22] MEDS: PANTOPRAZOLE 40 MG TABLET PO SCH (08:35)
[2019-11-22] MEDS: FUROSEMIDE 40 MG TAB PO SCH (08:35)
[2019-11-22] MEDS: HEPARIN SODIUM,PORCINE 5,000 UNIT/ML 1 ML VIAL SQ SCH (08:35)
[2019-11-22] MEDS: COLLAGENASE 250 UNIT/GM OINTMENT 30 GM TUBE TOPICAL SCH (08:43)
[2019-11-22 08:52] VITALS: BP 85/51; PULSE 76
[2019-11-22] MEDS: lisinopriL 20 MG TAB PO SCH (09:18)
[2019-11-22 11:51] LABS: Glucose,Whole Blood 104 mg/dL (75-99)
--- NOTE | 2019-11-22 12:41 | P.DS ---
Providers Date of admission: 11/18/19 20:47 Attending physician: Alessandro Haji Consults: 11/18/19 20:44 Consult Physician Routine Consulting Provider: Sarah Coyle Consult Reason/Comments: Lower extremity cellulitis with open wounds Do you want consulting provider notified?: Yes 11/19/19 12:12 Consult Physician Routine Consulting Provider: Wesley Rubio Consult Reason/Comments: infected lower extremity ulcers Do you want consulting provider notified?: Yes Primary care physician: Drew Mendoza Hospital Course: 74-year-old female came in with bilateral lower leg ulcers in the anterior gamble area in both legs appear to be cellulitic in both sites. Wound cultures were obtained patient is subsequent admitted for management of these wounds and infection.. Patient does follow up in wound care clinic. Patient had a low- grade fever of 100.6 reported from the assisted. Patient is presently on vancomycin and Zosyn. Patient does have history of congestive heart failure EF of around 40-45% and the patient is was hyponatremic received IV fluids after which her his serum sodium did improve patient is presently not in heart failure I'll hold of both IV fluids and Lasix at this time. Patient had an x-ray of both the extremities there was a concern about osteoma and it is although I did review the images but unable to appreciate any cortical erosions or periosteal elevations as per the radiologist read reading there may be osteomyelitis not mentioned above which bone or which is side is affected. She is having pain at these sites 11/20/2019 Patient is seen and evaluated in follow-up with no acute overnight issues. Patient is status post debridement of a traumatic wound to the left lower extremity previously with Dr. Rubio yesterday. Currently wound dressings along with Santyl cream and Jay wraps applied. She continues to have some bilateral lower extremity swelling and creatinine today has improved and is 0.81. Will resume Lasix 40 mg daily by mouth and monitor labs closely. Instructed the patient to continue with Jay wraps along with elevating bilateral lower extremities while at rest. She is currently on room air with no reports of shortness of breath or chest pain noted. 11/21/2019 She is seen and evaluated in follow-up with no acute overnight issues. Patient was restarted on 40 mg of Lasix and tolerating well. Current creatinine is 0.79 with a sodium of 135 and potassium is 4.4. Blood sugars also being closely monitored. Patient currently on IV antibiotics in the form of Zosyn and will continue at this time as wound cultures preliminary continue to show gram- negative bacilli and awaiting for culture finalization. She did have Covid 19 testing done which was negative. Patient received a midline today for continued IV antibiotic therapy. Patient to continue with local wound care along with Jay wraps to bilateral lower extremities and elevating lower extremities while at rest. Case management and social work following as patient plans on returning to [facility] for continued PT/OT therapy. [facility] has received insurance authorization for return just waiting on wound cultures to finalized to determine discharge antibiotics. 11/22/2019 Patient's wound cultures are showing Proteus mirabilis and patient is being discharged on Rocephin for 18 more days - Exam GENERAL: The patient is alert and oriented x3, not in any acute distress. Well developed, well nourished. HEENT: Pupils are round and equally reacting to light. EOMI. No scleral icterus. No conjunctival pallor. Normocephalic, atraumatic. No pharyngeal erythema. No thyromegaly. CARDIOVASCULAR: S1 and S2 present. No murmurs, rubs, or gallops. PULMONARY: Chest is clear to auscultation, no wheezing or crackles. ABDOMEN: Soft, nontender, nondistended, normoactive bowel sounds. No palpable organomegaly. MUSCULOSKELETAL: No joint swelling or deformity. EXTREMITIES: No cyanosis, clubbing, or pedal edema. She has stage 3-4 ulcers lower extremities status post irrigation and debridement with surgical dressings are currently dry and intact with Jay wraps applied NEUROLOGICAL: Gross neurological examination did not reveal any focal deficits. SKIN: IS as mentioned above Assessment and Plan Assessment: -Bilateral lower extremity ulcers which appear to be infected wound cultures were obtained and currently preliminary showing Proteus mirabilis as mentioned above Status post irrigation and debridement with vascular surgery. -Acute renal failure: Secondary to excessive diuresis, improved current creatinine is 0.79 and will initiate Lasix 40 mg daily and monitor labs closely -Covid 19 ruled out, testing was negative. -Hyponatremia: Hypovolemic hyponatremia from diuretics Improved serum sodium, Lasix 40 mg resumed -Congestive heart heart failure chronic systolic dysfunction presently euvolemic -Hypothyroidism -Hypertension -Gastroesophageal reflux disease -COPD without any acute exacerbation -Coronary artery disease -Depression. Patient Condition at Discharge: Fair Plan - Discharge Summary Discharge Rx Participant: Yes New Discharge Prescriptions: New Furosemide [Lasix] 40 mg PO DAILY tab Collagenase [Santyl] 1 applic TOPICAL DAILY applic clonazePAM [KlonoPIN] 0.5 mg PO TID PRN #10 tab PRN Reason: Anxiety HYDROcodone/APAP 5-325MG [[place] 5-325] 1 each PO Q4HR PRN #10 tab PRN Reason: Pain traMADol HCL [Ultram] 50 mg PO Q6HR PRN 3 Days #12 tab PRN Reason: Pain cefTRIAXone [Rocephin] 2,000 mg IVP Q24HR #18 vial Continue Ipratropium-Albuterol Nebulize [Duoneb 0.5 mg-3 mg/3 ml Soln] 3 ml INHALATION RT-Q4H PRN ml PRN Reason: Shortness Of Breath Or Wheezing Pantoprazole [Protonix] 40 mg PO AC-BRKFST tablet. Ondansetron Odt [Zofran ODT] 4 mg PO Q8HR PRN #10 tab PRN Reason: Nausea tiZANidine [Zanaflex] 4 mg PO BID PRN #6 cap PRN Reason: Muscle Spasticity lisinopriL [Prinivil] 20 mg PO DAILY Levothyroxine Sodium 200 mcg PO DAILY Acetaminophen [Tylenol] 650 mg PO Q4H PRN PRN Reason: Fever And/Or Mild Pain INSULIN ASPART (NovoLOG) [NovoLOG (formulary)] See Protocol SQ QID Liquacel 30 ml PO BID@0800,1700 Magnesium Hydroxide [Milk of Magnesia Concentrate] 7,200 mg PO DAILY PRN PRN Reason: Constipation Discontinued HYDROcodone/APAP 5-325MG [[place] 5-325] 1 each PO Q4HR PRN #12 tab PRN Reason: Pain Temazepam [Restoril] 15 mg PO HS PRN 3 Days #3 cap PRN Reason: Insomnia Potassium Chloride ER [K-Dur 20] 20 meq PO DAILY@1700 Cephalexin [Keflex] 500 mg PO Q8HR clonazePAM 0.5 mg PO TID PRN PRN Reason: Anxiety Furosemide [Lasix] 40 mg PO BID@0600,1400 Discharge Medication List Ipratropium-Albuterol Nebulize [Duoneb 0.5 mg-3 mg/3 ml Soln] 3 ml INHALATION RT-Q4H PRN ml 10/31/19 [Rx] Ondansetron Odt [Zofran ODT] 4 mg PO Q8HR PRN #10 tab 10/31/19 [Rx] Pantoprazole [Protonix] 40 mg PO AC-BRKFST tablet. 10/31/19 [Rx] tiZANidine [Zanaflex] 4 mg PO BID PRN #6 cap 10/31/19 [Rx] Acetaminophen [Tylenol] 650 mg PO Q4H PRN 11/18/19 [History] INSULIN ASPART (NovoLOG) [NovoLOG (formulary)] See Protocol SQ QID 11/18/19 [History] Levothyroxine Sodium 200 mcg PO DAILY 11/18/19 [History] Liquacel 30 ml PO BID@0800,1700 11/18/19 [History] Magnesium Hydroxide [Milk of Magnesia Concentrate] 7,200 mg PO DAILY PRN 11/18/19 [History] lisinopriL [Prinivil] 20 mg PO DAILY 11/18/19 [History] Collagenase [Santyl] 1 applic TOPICAL DAILY applic 11/21/19 [Rx] Furosemide [Lasix] 40 mg PO DAILY tab 11/21/19 [Rx] HYDROcodone/APAP 5-325MG [[place] 5-325] 1 each PO Q4HR PRN #10 tab 11/22/19 [Rx] cefTRIAXone [Rocephin] 2,000 mg IVP Q24HR #18 vial 11/22/19 [Rx] clonazePAM [KlonoPIN] 0.5 mg PO TID PRN #10 tab 11/22/19 [Rx] traMADol HCL [Ultram] 50 mg PO Q6HR PRN 3 Days #12 tab 11/22/19 [Rx] Follow up Appointment(s)/Referral(s): Drew Mendoza MD [Primary Care Provider] - 1-2 days Michael Alvarado DO [STAFF PHYSICIAN] - 3 Days Activity/Diet/Wound Care/Special Instructions: Infectious disease to determine IV antibiotics outpatient once cultures are finalized Controlled scripts sent to [facility]. Patient is going to [facility] Activity as tolerated Continue with IV antibiotic therapy per infectious disease recommendations Continue to monitor blood sugars before meals at bedtime and treat accordingly Continue current diet Discharge Disposition: TRANSFER TO SNF/ECF
--- NOTE | 2019-11-25 21:06 | CDI ---
Documentation Clarification Form Date: 11/26/2019 From: Stan Poole Phone: If you have a question about this query, please contact Margaret Reilly, Program Management Manager at [phone] between 8am and 5pm. Admit Date: 11/18/2019 Discharge Date: 11/22/2019 Patient Name: Carolina García Visit Number: [id number] ATTENTION: The Clinical Documentation Specialists (CDI) and [facility] Coding Staff appreciate your assistance in clarifying documentation. Please respond to the clarification below the line at the bottom and electronically sign. The CDI & [facility] Coding staff will review the response and follow-up if needed. Please note: Queries are made part of the Legal Health Record. If you have any questions, please contact the author of this message via ITS. Dear Manuel Whaley MD., The patient is on Insulin indicated on throughout medical record. History/Risk Factors:Cellulitis, ulcer, CAD, CHF, GERD Clinical Indicators: Cellulitis of lower extremities, ulcer of bilateral extremities. Treatment: INSULIN ASPART (NovoLOG) [NovoLOG (formulary)] See Protocol SQ QID Bilateral lower extremity ulcers which appear to be infected wound cultures were obtained and currently preliminary showing Proteus mirabilis as mentioned above Status post irrigation and debridement with vascular surgery. In order to capture the severity of Illness and necessary documentation specificity, please clarify: DM Type 1 Other, please specify Unable to Determine Please document cellulitis and non pressure chronic ulcers of bilateral extremities are complications or specific manifestations related to the diabetes: Diabetic with foot ulcers, Diabetic with cellulitis Other condition Diabetic with cellulitis DM Type 2 MTDD
== END 2019-11-22 13:08 | DRG 623 ==
LOC: EC 19:43 → 4SSUR 20:47
PROVIDERS: ADMIT Hospitalist; ATTEND Hospitalist
PROC: 0JBP0ZZ Excision of Left Lower Leg Subcutaneous Tissue and Fascia, Open Approach (ICD-10-PCS; principal; 2019-11-19)
DX: E11.628 Type 2 diabetes mellitus with other skin complications (principal); L97.919 Non-pressure chronic ulcer of unspecified part of right lower leg with unspecified severity; I50.22 Chronic systolic (congestive) heart failure; E87.1 Hypo-osmolality and hyponatremia; L03.116 Cellulitis of left lower limb; L03.115 Cellulitis of right lower limb; L97.929 Non-pressure chronic ulcer of unspecified part of left lower leg with unspecified severity; N17.9 Acute kidney failure, unspecified; J44.9 Chronic obstructive pulmonary disease, unspecified; I25.10 Atherosclerotic heart disease of native coronary artery without angina pectoris; I11.0 Hypertensive heart disease with heart failure; F32.9 Major depressive disorder, single episode, unspecified; E03.9 Hypothyroidism, unspecified; Z20.828 Contact with and (suspected) exposure to other viral communicable diseases; E11.622 Type 2 diabetes mellitus with other skin ulcer; K21.9 Gastro-esophageal reflux disease without esophagitis; Z79.4 Long term (current) use of insulin; M19.90 Unspecified osteoarthritis, unspecified site; M50.30 Other cervical disc degeneration, unspecified cervical region; E86.1 Hypovolemia; B96.4 Proteus (mirabilis) (morganii) as the cause of diseases classified elsewhere; E66.9 Obesity, unspecified; G43.909 Migraine, unspecified, not intractable, without status migrainosus; I25.2 Old myocardial infarction; Z79.899 Other long term (current) drug therapy; Z79.890 Hormone replacement therapy; Z88.8 Allergy status to other drugs, medicaments and biological substances; Z87.01 Personal history of pneumonia (recurrent); Z90.49 Acquired absence of other specified parts of digestive tract; Z98.890 Other specified postprocedural states; Z90.710 Acquired absence of both cervix and uterus; Z80.3 Family history of malignant neoplasm of breast; Z82.49 Family history of ischemic heart disease and other diseases of the circulatory system; Z68.35 Body mass index [BMI] 35.0-35.9, adult
CPT/HCPCS: 36410; 36415; 71046; 76937; 80048; 80053; 82550; 83605; 83735; 85025; 87040; 87070; 87075; 87077; 87186; 87205; 96365; 96375; 99284

== ENCOUNTER 2019-11-26 15:10 | Inpatient (IN) | payer MEDICARE ==
[2019-11-26] MEDS ORDERED: PANTOPRAZOLE 40 MG/10 ML VIAL IVP STA (16:05)
--- NOTE | 2019-11-26 16:12 | ED ---
General Adult HPI - General Chief complaint: Recheck/Abnormal Lab/Rx Stated complaint: abnormal labs Time Seen by Provider: 11/26/19 15:21 Source: patient, EMS, RN notes reviewed Mode of arrival: EMS Limitations: no limitations - History of Present Illness Initial comments: Patient is a pleasant 74-year-old female presenting to the emergency department from detention with reported low hemoglobin. Patient was recently in the hospital with blood transfusion. Patient had blood level checked today at 6.6. Patient denies any bleeding. No abdominal discomfort. Patient is unclear why her blood levels have been low previously. - Related Data Home Medications Medication Instructions Recorded Confirmed Acetaminophen [Tylenol] 650 mg PO Q4H PRN 11/18/19 11/26/19 INSULIN ASPART (NovoLOG) [NovoLOG See Protocol SQ ACHS 11/18/19 11/26/19 (formulary)] Levothyroxine Sodium 200 mcg PO DAILY@0600 11/18/19 11/26/19 Liquacel 30 ml PO BID@0800,1700 11/18/19 11/26/19 lisinopriL [Prinivil] 20 mg PO DAILY@0800 11/18/19 11/26/19 Furosemide [Lasix] 40 mg PO DAILY@0800 11/26/19 11/26/19 HYDROcodone/APAP 5-325MG [[place] 1 tab PO Q4H PRN 11/26/19 11/26/19 5-325] Magnesium Hydroxide [Milk of 7,200 mg PO Q48H PRN 11/26/19 11/26/19 Magnesia Concentrate] Mirtazapine 15 mg PO HS PRN 11/26/19 11/26/19 Na Phos,M-B/Na Phos,Di-Ba [[place] 133 ml RECTAL DAILY PRN 11/26/19 11/26/19 Adult] Ondansetron Odt [Zofran ODT] 4 mg PO Q8H PRN 11/26/19 11/26/19 Pantoprazole [Protonix] 40 mg PO DAILY@0600 11/26/19 11/26/19 bisacodyL [Bisacodyl] 10 mg RECTAL DAILY PRN 11/26/19 11/26/19 traMADol HCL [Ultram] 50 mg PO QID PRN 11/26/19 11/26/19 Previous Rx's Medication Instructions Recorded Ipratropium-Albuterol Nebulize 3 ml INHALATION RT-Q4H PRN ml 10/31/19 [Duoneb 0.5 mg-3 mg/3 ml Soln] tiZANidine [Zanaflex] 4 mg PO BID PRN #6 cap 10/31/19 cefTRIAXone [Rocephin] 2,000 mg IVP Q24HR #18 vial 11/22/19 clonazePAM [KlonoPIN] 0.5 mg PO TID PRN #10 tab 11/22/19 Allergies Allergy/AdvReac Type Severity Reaction Status Date / Time buspirone [From BuSpar] AdvReac Unknown Verified 11/26/19 16:39 Review of Systems ROS Statement: Those systems with pertinent positive or pertinent negative responses have been documented in the HPI. ROS Other: All systems not noted in ROS Statement are negative. Constitutional: Denies: fever Eyes: Denies: eye pain ENT: Denies: ear pain Respiratory: Denies: cough Cardiovascular: Denies: chest pain Endocrine: Denies: fatigue Gastrointestinal: Denies: abdominal pain Genitourinary: Denies: dysuria Musculoskeletal: Denies: back pain Skin: Reports: rash (Chronic leg wounds that are improving) Neurological: Denies: weakness Past Medical History Past Medical History: Chest Pain / Angina, Heart Failure, COPD, Eye Disorder, GERD/Reflux, Hypertension, Myocardial Infarction (MD), Osteoarthritis (OA), Pn eumonia, Thyroid Disorder Additional Past Medical History / Comment(s): Pt states she has had problems with bilateral leg edema and sores/cellulitis for the past 2 years-at times everything improves and then worsens again and L leg is always worse, urinary incontinence, bronchitis, hypothyroid, DDD cervical spine and lower back, cervical and low back chronic pain, arthritis bilateral wrists and fingers, pt states she has been told she has a bone spur in her L ankle or foot, "blocked" bile duct a couple of times, migraines, possible bilateral cataracts, Last Myocardial Infarction Date:: about 2009-pt unsure where she was hospitalized. History of Any Multi-Drug Resistant Organisms: None Reported Past Surgical History: Appendectomy, Cholecystectomy, Heart Catheterization, Hysterectomy, Orthopedic Surgery Additional Past Surgical History / Comment(s): Cardiac cath about 2009 and pt states she was treated medically, EGDs to "unplug" bile duct, colonoscopies, bilateral salpingoophorectomies, L ankle shattered-surgical repair with hardware and pt believes hardware is all removed now, cystoscopies to "stretch" her bladder, cervical and low back injections. Past Anesthesia/Blood Transfusion Reactions: Motion Sickness Past Psychological History: Depression Smoking Status: Never smoker Past Alcohol Use History: None Reported Past Drug Use History: None Reported - Past Family History Mother Family Medical History: Cancer Additional Family Medical History / Comment(s): Mother from metastatic breast cancer at the age of 52 yrs. Father Family Medical History: Coronary Artery Disease (CAD), Myocardial Infarction (MD) Additional Family Medical History / Comment(s): Father had his first Mi around age 78yrs. He has about 3 MIs total and from his last one at the age of 80yrs. General Exam Limitations: no limitations General appearance: alert, in no apparent distress Head exam: Present: normocephalic Eye exam: Present: normal appearance Neck exam: Present: normal inspection Respiratory exam: Present: normal lung sounds bilaterally Cardiovascular Exam: Present: regular rate, normal rhythm GI/Abdominal exam: Present: soft. Absent: tenderness Rectal exam: Present: normal inspection Extremities exam: Present: other (Bilateral leg wraps) Neurological exam: Present: alert Psychiatric exam: Present: normal affect, normal mood Skin exam: Present: other (Bilateral leg wound, left leg with stage III 1 x 4 cm ulcer with discharge. Right leg with anterior gamble 2 x 5 cm stage III ulcer also with yellow discharge.) Course Vital Signs 11/26/19 15:13 Temperature 98.0 F Pulse Rate 93 Respiratory 16 Rate Blood Pressure 141/65 O2 Sat by Pulse 94 L Oximetry Medical Decision Making - Medical Decision Making Patient reevaluated and updated. Patient will need blood transfusion. Case discussed with Dr. Haji, covering for Dr. Mendoza, who will admit. He would like ID also consult to evaluate leg wounds. - Lab Data Result diagrams: 11/26/19 16:10 11/26/19 16:10 Lab Results 11/26/19 11/26/19 11/26/19 Range/Units 16:10 16:10 16:10 WBC 3.8 (3.8-10.6) k/uL RBC 1.80 L (3.80-5.40) m/uL Hgb 6.8 L* (11.4-16.0) gm/dL Hct 21.2 L (34.0-46.0) % MCV 118.1 H D (80.0-100.0) fL MCH 38.1 H (25.0-35.0) pg MCHC 32.3 (31.0-37.0) g/dL RDW 15.1 (11.5-15.5) % Plt Count 284 (150-450) k/uL Neutrophils % 58 % Lymphocytes % 29 % Monocytes % 6 % Eosinophils % 3 % Basophils % 1 % Neutrophils # 2.2 (1.3-7.7) k/uL Lymphocytes # 1.1 (1.0-4.8) k/uL Monocytes # 0.2 (0-1.0) k/uL Eosinophils # 0.1 (0-0.7) k/uL Basophils # 0.0 (0-0.2) k/uL Hypochromasia Slight Macrocytosis Marked A PT 10.1 (9.0-12.0) sec INR 1.0 (<1.2) APTT 22.4 (22.0-30.0) sec Sodium (137-145) mmol/L Potassium (3.5-5.1) mmol/L Chloride (98-107) mmol/L Carbon Dioxide (22-30) mmol/L Anion Gap mmol/L BUN (7-17) mg/dL Creatinine (0.52-1.04) mg/dL Est GFR (CKD-EPI)AfAm (>60 ml/min/1.73 sqM) Est GFR (CKD-EPI)NonAf (>60 ml/min/1.73 sqM) Glucose (74-99) mg/dL Calcium (8.4-10.2) mg/dL Total Bilirubin (0.2-1.3) mg/dL AST (14-36) U/L ALT (4-34) U/L Alkaline Phosphatase (38-126) U/L Total Protein (6.3-8.2) g/dL Albumin (3.5-5.0) g/dL Stool Occult Blood Negative (Negative) Blood Type Blood Type Recheck Bld Type Recheck Status Antibody Screen Spec Expiration Date 11/26/19 11/26/19 Range/Units 16:10 16:10 WBC (3.8-10.6) k/uL RBC (3.80-5.40) m/uL Hgb (11.4-16.0) gm/dL Hct (34.0-46.0) % MCV (80.0-100.0) fL MCH (25.0-35.0) pg MCHC (31.0-37.0) g/dL RDW (11.5-15.5) % Plt Count (150-450) k/uL Neutrophils % % Lymphocytes % % Monocytes % % Eosinophils % % Basophils % % Neutrophils # (1.3-7.7) k/uL Lymphocytes # (1.0-4.8) k/uL Monocytes # (0-1.0) k/uL Eosinophils # (0-0.7) k/uL Basophils # (0-0.2) k/uL Hypochromasia Macrocytosis PT (9.0-12.0) sec INR (<1.2) APTT (22.0-30.0) sec Sodium 135 L (137-145) mmol/L Potassium 4.0 (3.5-5.1) mmol/L Chloride 102 (98-107) mmol/L Carbon Dioxide 25 (22-30) mmol/L Anion Gap 8 mmol/L BUN 17 (7-17) mg/dL Creatinine 0.72 (0.52-1.04) mg/dL Est GFR (CKD-EPI)AfAm >90 (>60 ml/min/1.73 sqM) Est GFR (CKD-EPI)NonAf 82 (>60 ml/min/1.73 sqM) Glucose 117 H (74-99) mg/dL Calcium 8.3 L (8.4-10.2) mg/dL Total Bilirubin 0.3 (0.2-1.3) mg/dL AST 17 (14-36) U/L ALT 10 (4-34) U/L Alkaline Phosphatase 89 (38-126) U/L Total Protein 7.1 (6.3-8.2) g/dL Albumin 3.6 (3.5-5.0) g/dL Stool Occult Blood (Negative) Blood Type A Positive Blood Type Recheck No Previous Record Bld Type Recheck Status CABO Indicated Antibody Screen NEGATIVE Spec Expiration Date 11/29/2019 - 2310 Disposition Clinical Impression: Anemia, Bilateral leg ulcer Disposition: ADMITTED IP TO THIS HOSP Is patient prescribed a controlled substance at d/c from ED?: No Referrals: Kota Thrasher MD [Primary Care Provider] - 1-2 days Decision Time: 17:13
[2019-11-26] MEDS ORDERED: MORPHINE SULFATE 4 MG/ML SYRINGE IVP PRN (16:24)
[2019-11-26 16:35] LABS: ALT 10 U/L (4-34); AST 17 U/L (14-36); African American GFR (CKD) >90 (>60 ml/min/1.73 sqM); Albumin 3.6 g/dL (3.5-5.0); Alkaline Phosphatase 89 U/L (38-126); Anion Gap 8 mmol/L; Blood Urea Nitrogen 17 mg/dL (7-17); Calcium 8.3 mg/dL (8.4-10.2); Carbon Dioxide 25 mmol/L (22-30); Chloride 102 mmol/L (98-107); Glucose 117 mg/dL (74-99); Non-African American GFR(CKD) 82 (>60 ml/min/1.73 sqM); Sodium 135 mmol/L (137-145); Total Bilirubin 0.3 mg/dL (0.2-1.3); Total Protein 7.1 g/dL (6.3-8.2)
[2019-11-26 16:42] LABS: Partial Thromboplastin Time 22.4 sec (22.0-30.0); Prothrombin Time 10.1 sec (9.0-12.0)
[2019-11-26 17:00] LABS: Basophils % (A) 1 %; Eosinophils # (A) 0.1 k/uL (0-0.7); Eosinophils % (A) 3 %; HCT 21.2 % (34.0-46.0); Hypochromasia Slight; Lymphocytes # (A) 1.1 k/uL (1.0-4.8); Lymphocytes % (A) 29 %; MCH 38.1 pg (25.0-35.0); MCHC 32.3 g/dL (31.0-37.0); MCV 118.1 fL (80.0-100.0); Macrocytosis Marked; Mean Platelet Volume 9.6; Monocytes # (A) 0.2 k/uL (0-1.0); Monocytes % (A) 6 %; Neutrophils # (A) 2.2 k/uL (1.3-7.7); Neutrophils % (A) 58 %; Platelet Count 284 k/uL (150-450); RDW 15.1 % (11.5-15.5); WBC 3.8 k/uL (3.8-10.6)
[2019-11-26 17:04] LABS: HGB 6.8 gm/dL (11.4-16.0)
[2019-11-26] MEDS ORDERED: NALOXONE 0.4 MG/ML 1 ML VIAL IV PRN (17:16)
[2019-11-26] MEDS ORDERED: clonazePAM 0.5 MG TAB PO PRN (18:21)
[2019-11-26] MEDS ORDERED: NA PHOS,M-B/NA PHOS,DI-BA 133 ML ENEMA RECTAL PRN (18:21)
[2019-11-26] MEDS ORDERED: IPRATROPIUM-ALBUTEROL 3 ML NEB INHALATION PRN (18:21)
[2019-11-26] MEDS ORDERED: MIRTAZAPINE 15 MG TAB PO PRN (18:21)
[2019-11-26] MEDS ORDERED: tiZANidine 4 MG TAB PO PRN (18:21)
[2019-11-26] MEDS ORDERED: ACETAMINOPHEN TAB 325 MG TAB PO PRN (18:21)
[2019-11-26] MEDS ORDERED: MAGNESIUM HYDROXIDE 2,400 MG/10 ML CUP PO PRN (18:21)
[2019-11-26] MEDS ORDERED: bisacodyL 10 MG SUPP RECTAL PRN (18:21)
[2019-11-26] MEDS ORDERED: ALPRAZolam 0.25 MG TAB PO PRN (18:23)
[2019-11-26] MEDS ORDERED: CEFTRIAXONE IVP SCH (18:30)
[2019-11-26] MEDS: HYDROmorphone 0.5 MG/0.5 ML SYRINGE IVP PRN ×2 (18:53→22:46)
--- NOTE | 2019-11-26 19:56 | HP ---
HISTORY AND PHYSICAL DATE OF SERVICE: 11/26/2019 CHIEF COMPLAINTS: Abnormal labs and anemia; hemoglobin 6.8. HISTORY OF PRESENT ILLNESS: This 74-year-old woman with a past medical history of multiple medical problems, including CHF, COPD, GERD, hypertension, myocardial infarction being followed Dr. Drew Mendoza in the outpatient setting, was recently admitted to [facility] with complaints of fall as well as bilateral gamble ulcers, and the patient was sent to [facility] under the care of Dr. Thrasher. In [facility] her hemoglobin was found to be 6.8. The patient was sent to [facility] for further evaluation and treatment. The patient also apparently had a fall. Otherwise, there is no history of any headache, loss of consciousness, seizures. No history of syncope at this time. One unit of transfusion has been arranged at this time. PAST MEDICAL HISTORY: History of CHF, COPD, GERD, hypertension, history of myocardial infarction, history of appendectomy, history of cardiac catheterization. HOME MEDICATIONS: 1. Ultram. 2. Zanaflex. 3. Prinivil. 4. Klonopin. 5. Rocephin. 6. Bisacodyl. 7. Protonix. 8. Zofran. 9. Fleets. 10.Milk of magnesia. 11.Liquacel. 12.Levothyroxine. 13.DuoNeb. 14.NovoLog. 15.Kinzers. 16.Lasix. 17.Tylenol. ALLERGIES: BUSPIRONE. FAMILY HISTORY: History of metastatic breast cancer in mother. SOCIAL HISTORY: No history of smoking. No history of alcohol intake. REVIEW OF SYSTEMS: ENT: No diminished hearing. No diminished vision. CARDIOVASCULAR SYSTEM: No angina, palpitations. RESPIRATORY SYSTEM: No cough, hemoptysis. GI: No nausea, vomiting. : As mentioned earlier. NERVOUS SYSTEM: As mentioned earlier. ALLERGY/IMMUNOLOGY: No asthma, hayfever. MUSCULOSKELETAL: As mentioned earlier. HEMATOLOGY/ONCOLOGY: No history of anemia. ENDOCRINE: As mentioned earlier. CONSTITUTIONAL: As mentioned earlier. DERMATOLOGY: Negative. RHEUMATOLOGY: Negative. PSYCHIATRY: As mentioned earlier. PHYSICAL EXAMINATION: Patient alert and oriented x3. Pulse 86, blood pressure 140/82, respirations 16, temperature 98 degrees, pulse ox 98% on room air. HEENT: Conjunctivae normal. Oral mucosa moist. NECK: No jugular venous distention. No carotid bruit. No lymph node enlargement. CARDIOVASCULAR SYSTEM: S1, S2 muffled. No S3. No S4. RESPIRATORY SYSTEM: Breath sounds diminished at the bases. No rhonchi. No crackles. ABDOMEN: Soft, non-tender. Obese. No mass palpable. LEGS: Bilateral gamble ulcers. NERVOUS SYSTEM: Higher functions as mentioned earlier. Moves all 4 limbs. Mild diffuse weakness. LYMPHATICS: No lymph node palpable in neck, axillae or groin. JOINTS: No active deforming arthropathy. LABS: Labs at this time show WBC 3.2, hemoglobin 6.8, sodium 135. ASSESSMENT: 1. Anemia. Rule out acute on chronic blood-loss anemia. 2. Increased mean corpuscular volume. 3. History of fall. 4. Bilateral gamble ulcers. 5. Hyponatremia. 6. History of chest pain, angina. 7. History of congestive heart failure. 8. Chronic obstructive pulmonary disease. 9. Gastroesophageal reflux disease. 10.Hypertension. 11.History of myocardial infarction. 12.History of degenerative joint disease. 13.History of bilateral leg edema. 14.Gait dysfunction. 15.History of appendectomy. 16.History of cholecystectomy. 17.History of cardiac catheterization. 18.History of motion sickness. 19.History of depression. 20.Obesity with body mass index of 35.5. 21.FULL CODE. RECOMMENDATIONS AND DISCUSSION: In this 74-year-old woman who presented with multiple complex medical issues, we will monitor the patient closely, continue the current medications, continue with symptomatic treatment. Otherwise at this time I recommend one unit of transfusion and monitor hemoglobin closely. Stool OB is negative. I would recommend hematology/oncology evaluation as well. Otherwise, we will continue to monitor. Gastroenterology also will be consulted, even though the stool OB is negative, to complete the workup. Prognosis is guarded because of multiple complex medical issues. Further recommendations to follow. MMODL / IJN: [id number] /
[2019-11-26] MEDS: HYDROcodone/APAP 5-325MG 1 EACH TAB PO PRN (21:27)
[2019-11-27] MEDS: ONDANSETRON ODT 4 MG TAB PO PRN (00:41)
[2019-11-27] MEDS: HYDROcodone/APAP 5-325MG 1 EACH TAB PO PRN ×5 (01:30→20:18)
[2019-11-27] MEDS: HYDROmorphone 0.5 MG/0.5 ML SYRINGE IVP PRN ×5 (03:42→22:22)
[2019-11-27] MEDS: LEVOTHYROXINE 100 MCG TAB PO SCH (05:20)
[2019-11-27 07:07] LABS: Anisocytosis Slight; Basophils % (A) 0 %; Eosinophils # (A) 0.1 k/uL (0-0.7); Eosinophils % (A) 3 %; HCT 22.6 % (34.0-46.0); HGB 7.1 gm/dL (11.4-16.0); Hypochromasia Slight; Lymphocytes # (A) 1.1 k/uL (1.0-4.8); Lymphocytes % (A) 37 %; MCH 36.2 pg (25.0-35.0); MCHC 31.5 g/dL (31.0-37.0); Macrocytosis Marked; Mean Platelet Volume 9.7; Monocytes # (A) 0.2 k/uL (0-1.0); Monocytes % (A) 6 %; Neutrophils # (A) 1.5 k/uL (1.3-7.7); Neutrophils % (A) 51 %; Platelet Count 250 k/uL (150-450); RBC 1.97 m/uL (3.80-5.40)
[2019-11-27] MEDS ORDERED: NON FORMULARY DRUG (Liquacel 30 ML) PO SCH (08:00)
[2019-11-27] MEDS: lisinopriL 20 MG TAB PO SCH (08:12)
[2019-11-27] MEDS: FUROSEMIDE 40 MG TAB PO SCH (08:12)
[2019-11-27] MEDS: PANTOPRAZOLE 40 MG/10 ML VIAL IV SCH (08:13)
[2019-11-27 09:05] LABS: Reticulocyte % 1.8 % (0.5-2.0)
[2019-11-27 10:48] LABS: African American GFR (CKD) 97.5 (60.0-200.0); BUN/Creat Ratio 15.71 Ratio (12.00-20.00); Calcium 8.2 mg/dL (8.7-10.3); Non-African American GFR(CKD) 84.2 (60.0-200.0); Potassium 4.3 mmol/L (3.5-5.5)
--- NOTE | 2019-11-27 12:03 | CT ---
CT CHEST FOR PULMONARY EMBOLISM. EXAMINATION TYPE: CT angio chest DATE OF EXAM: 11/27/2019 INDICATION: chest pain CT DLP: 770 mGycm, Automated exposure control for dose reduction was used. CONTRAST: Patient injected with 100 mL of Isovue 370. COMPARISON: 10/26/2019 TECHNIQUE: CT of the chest is performed on a spiral scan at 2 mm thick sections. Study is performed with intravenous contrast timed for evaluation for pulmonary embolism. This will limit additional po rtions of the evaluation. 3-D MIP images reconstructed by the technologist are reviewed on the compu ter in the coronal and sagittal planes. FINDINGS: There appears to be a filling defect into the right upper lobe pulmonary arteries. Some contrast pass es around what appears to be the thrombus in this may be chronic pulmonary embolism. Example image se amber 4 image 58. This is difficult to exclude pulmonary veins although contrast timing appears to be adequate. No mediastinal or hilar adenopathy enlarged by CT criteria is evident. The ascending aorta diameter at the level of the main pulmonary artery is 3.5 cm. The main pulmonary artery diameter at the bifur cation is 2.8 cm. There is a large calcified granuloma at the right lung base measuring 1.[address] section through the upper abdomen. Some biliary air is present centrally. There is been a prior cholecystectomy. IMPRESSIONS: 1. There may be thrombus within the right upper lobe pulmonary arteries. This could be chronic. Pulmo nary vein mixing with contrast is less likely but within the differential. Typical obstructing pulmon litzy embolus is not otherwise identified.
--- NOTE | 2019-11-27 14:03 | XR ---
EXAMINATION TYPE: XR chest 1V portable DATE OF EXAM: 11/27/2019 HISTORY: Shortness of breath. COMPARISON: 11/19/2019 TECHNIQUE: Single view of the chest is submitted. FINDINGS: Demonstrated are scattered senescent parenchymal change. There is no evidence for focal infiltrate. The heart is stable. Hilar and mediastinal structures are within normal limits. Degenerative changes are seen of the dorsal spine. IMPRESSION: 1. Chronic changes without evidence for acute pulmonary disease.
--- NOTE | 2019-11-27 15:22 | PN ---
PROGRESS NOTE DATE OF SERVICE: 11/27/2019 HISTORY OF PRESENT ILLNESS: This 74-year-old woman, being followed by Dr. Drew Mendoza in the outpatient setting, was recently admitted to [facility] after falling from the bathtub and injuring both gamble areas. The patient was sent to [facility], but in [facility] the patient had significant anemia. The hemoglobin was found to be 6.8, and the patient was sent to [facility]. After transfusion the hemoglobin has only come up to 7.1. No active bleeding was noted. Gastroenterology evaluation in progress. D-dimer was elevated up to 3.06. A CT angio of the chest was done which shows possible chronic DVT in the right upper lobe pulmonary artery. Past medical history reviewed. REVIEW OF SYSTEMS: CARDIOVASCULAR SYSTEM: No angina, palpitations. RESPIRATORY SYSTEM: As mentioned earlier. GI: As mentioned earlier. : No dysuria or retention. NERVOUS SYSTEM: No numbness, weakness. CURRENT MEDICATIONS: Reviewed. They include: 1. Tylenol p.r.n. 2. [place] 5 mg q.4 hours. 3. DuoNeb q.i.d. and p.r.n. 4. Xanax 0.25 t.i.d. 5. Dulcolax. 6. Rocephin 2 grams daily. 7. Klonopin. 8. Lasix 40 mg daily. 9. Dilaudid. 10.Synthroid. 11.Zestril. 12.Milk of magnesia. 13.Remeron. 14.Morphine sulfate. 15.Narcan. 16.Zofran. 17.Protonix. 18.Zanaflex. 19.Ultram. PHYSICAL EXAMINATION: Patient is alert, oriented x3. Pulse 84, blood pressure 102/66, respirations 17, temperature 98.1, pulse ox 96% on room air. HEENT: Conjunctivae pale. NECK: No jugular venous distention. CARDIOVASCULAR SYSTEM: S1, S2 muffled. RESPIRATORY SYSTEM: Breath sounds diminished at the bases. No rhonchi. No crackles. ABDOMEN: Soft, obese, non-tender. No mass palpable. LEGS: Shins have bilateral ulcers, almost grade 2 to 3. NERVOUS SYSTEM: No focal deficit. LABS: WBC 3, hemoglobin 7.1. Sodium 137, potassium 4.3, calcium is 8.2. ASSESSMENT: 1. Anemia, acute on chronic blood-loss anemia. Rule out GI blood loss. 2. Bilateral gamble ulcers, left more than the right, grade 2 to 3. Rule out osteomyelitis. 3. Elevated D-dimer. Rule out pulmonary embolism. 4. Increased mean corpuscular volume. 5. History of fall. 6. Hyponatremia. 7. History of chest pain, angina. 8. History of congestive heart failure. 9. Chronic obstructive pulmonary disease. 10.Gastroesophageal reflux disease. 11.Hypertension. 12.History of myocardial infarction. 13.History of degenerative joint disease. 14.History of bilateral leg edema. 15.Gait dysfunction. 16.Appendectomy. 17.Cholecystectomy. 18.Cardiac catheterization. 19.History of motion sickness. 20.History of depression. 21.Obesity with body mass index of 35.5. 22.FULL CODE. RECOMMENDATIONS AND DISCUSSION: In this 74-year-old woman who presented with multiple complex medical issues, at this time I would recommend to continue the current management, continue with symptomatic treatment. Otherwise, monitor hemoglobin closely. If the hemoglobin is less than 7, we will transfuse. CT angio pulmonary embolism to be ruled out. I would recommend consultation with Dr. Granados. Continue to monitor. Chest x-ray. Repeat labs. Continue the rest of the medications. Empiric antibiotics. Further recommendations to follow. MMODL / IJN: [id number] /
--- NOTE | 2019-11-27 16:29 | P.CNPUL ---
History of Present Illness Consult date: 11/27/19 Reason for consult: pulmonary embolism History of present illness: A 74-year-old female patient, obese, good lower extremity wounds who was hospi talized because of a low hemoglobin of 6.8 and ongoing difficulty with lower extremity with the need to be further debrided. She was sent over from our with manner. Hemoglobin was 6.8. The patient received a unit of blood and hemoglobin is up to 7.1. Platelet counts at 250. Rest of the blood work shows a normal renal function with a creatinine of 0.7 and the rest of the electrodes are within normal limits. Note that the d-dimer came back at 3.06. The hospitalist group ordered a CT angiogram that showed a questionable filling defect in the right upper lobe pulmonary artery branch. No mediastinal lymphadenopathy seen. There is a large calcified on [place] the right lung base. Note that the patient had a similar CT angiogram approximately a month ago for a similarly elevated d-dimer. The CAT scan of the chest that was done back in 10/26/2019 was within normal limits. Also, the Doppler of the lower extremity that was done 10/26/2019 was negative. The patient clinically is d oing very well. No respiratory difficulties. No pleurisy. No hemoptysis. No chest pain. No calf pain. No personal or family history of DVT or pulmonary embolism. Review of Systems CONSTITUTIONAL: No fever, no malaise, no fatigue. HEENT: No recent visual problems or hearing problems. Denied any sore throat. CARDIOVASCULAR: No chest pain, orthopnea, PND, no palpitations, no syncope. PULMONARY: No shortness of breath, no cough, no hemoptysis. GASTROINTESTINAL: No diarrhea, no nausea, no vomiting, no abdominal pain. NEUROLOGICAL: No headaches, no weakness, no numbness. HEMATOLOGICAL: Denies any bleeding or petechiae. GENITOURINARY: Denies any burning micturition, frequency, or urgency. MUSCULOSKELETAL/RHEUMATOLOGICAL: As mentioned in HPI. ENDOCRINE: Denies any polyuria or polydipsia. The rest of the 14-point review of systems is negative. Past Medical History Past Medical History: Chest Pain / Angina, Heart Failure (echocardiogram from 10/28/2019 showed no evidence of any pulmonary hypertension. Left ventricular ejection fraction was around 40-45%, mildly impaired.), COPD, Eye Disorder, GERD/Reflux, Hypertension, Myocardial Infarction ([place]), Osteoarthritis ([place]), Pneumonia, Thyroid Disorder Additional Past Medical History / Comment(s): Pt states she has had problems with bilateral leg edema and sores/cellulitis for the past 2 years-at times everything improves and then worsens again and L leg is always worse, urinary incontinence, bronchitis, hypothyroid, DDD cervical spine and lower back, cervical and low back chronic pain, arthritis bilateral wrists and fingers, pt states she has been told she has a bone spur in her L ankle or foot, "blocked" bile duct a couple of times, migraines, possible bilateral cataracts, Last Myocardial Infarction Date:: about 2009-pt unsure where she was hospitalized. History of Any Multi-Drug Resistant Organisms: None Reported Past Surgical History: Appendectomy, Cholecystectomy, Heart Catheterization, Hysterectomy, Orthopedic Surgery Additional Past Surgical History / Comment(s): Cardiac cath about 2009 and pt states she was treated medically, EGDs to "unplug" bile duct, colonoscopies, bilateral salpingoophorectomies, L ankle shattered-surgical repair with hardware and pt believes hardware is all removed now, cystoscopies to "stretch" her bladder, cervical and low back injections. Past Anesthesia/Blood Transfusion Reactions: Motion Sickness Past Psychological History: Depression Additional Psychological History / Comment(s): Retired. Nonsmoker. Lives with her son Parker. No animal exposures. No international travel. The experience Smoking Status: Never smoker Past Alcohol Use History: None Reported Past Drug Use History: None Reported - Past Family History Mother Family Medical History: Cancer Additional Family Medical History / Comment(s): Mother from metastatic breast cancer at the age of 52 yrs. Father Family Medical History: Coronary Artery Disease (CAD), Myocardial Infarction ([place]) Additional Family Medical History / Comment(s): Father had his first Mi around age 78yrs. He has about 3 MIs total and from his last one at the age of 80yrs. Medications and Allergies Home Medications Medication Instructions Recorded Confirmed Type Ipratropium-Albuterol Nebulize 3 ml INHALATION RT-Q4H PRN ml 10/31/19 11/26/19 Rx [Duoneb 0.5 mg-3 mg/3 ml Soln] tiZANidine [Zanaflex] 4 mg PO BID PRN #6 cap 10/31/19 11/26/19 Rx Acetaminophen [Tylenol] 650 mg PO Q4H PRN 11/18/19 11/26/19 History INSULIN ASPART (NovoLOG) [NovoLOG See Protocol SQ ACHS 11/18/19 11/26/19 History (formulary)] Levothyroxine Sodium 200 mcg PO DAILY@0600 11/18/19 11/26/19 History Liquacel 30 ml PO BID@0800,1700 11/18/19 11/26/19 History lisinopriL [Prinivil] 20 mg PO DAILY@0800 11/18/19 11/26/19 History cefTRIAXone [Rocephin] 2,000 mg IVP Q24HR #18 vial 11/22/19 11/26/19 Rx clonazePAM [KlonoPIN] 0.5 mg PO TID PRN #10 tab 11/22/19 11/26/19 Rx Furosemide [Lasix] 40 mg PO DAILY@0800 11/26/19 11/26/19 History HYDROcodone/APAP 5-325MG [[place] 1 tab PO Q4H PRN 11/26/19 11/26/19 History 5-325] Magnesium Hydroxide [Milk of 7,200 mg PO Q48H PRN 11/26/19 11/26/19 History Magnesia Concentrate] Mirtazapine 15 mg PO HS PRN 11/26/19 11/26/19 History Na Phos,M-B/Na Phos,Di-Ba [Fleet 133 ml RECTAL DAILY PRN 11/26/19 11/26/19 History Adult] Ondansetron Odt [Zofran ODT] 4 mg PO Q8H PRN 11/26/19 11/26/19 History Pantoprazole [Protonix] 40 mg PO DAILY@0600 11/26/19 11/26/19 History bisacodyL [Bisacodyl] 10 mg RECTAL DAILY PRN 11/26/19 11/26/19 History traMADol HCL [Ultram] 50 mg PO QID PRN 11/26/19 11/26/19 History Allergies Allergy/AdvReac Type Severity Reaction Status Date / Time buspirone [From BuSpar] AdvReac Unknown Verified 11/26/19 16:39 Physical Exam Vitals: Vital Signs Temp Pulse Pulse Resp BP BP Pulse Ox 11/27/19 11:35 98.1 F 84 17 102/66 96 11/27/19 08:11 132/74 95 11/27/19 04:45 97.8 F 73 18 108/59 98 11/26/19 21:33 98.4 F 85 126/64 11/26/19 19:30 98.5 F 91 18 113/71 93 L 11/26/19 19:20 98.4 F 90 150/70 11/26/19 18:50 98.3 F 96 16 149/73 11/26/19 18:40 98.3 F 103 H 16 154/69 11/26/19 17:27 86 16 140/82 98 Intake and Output 11/27/19 11/27/19 11/27/19 06:59 14:59 22:59 Other: Voiding Method Bedside Commode # Voids 6 20 GENERAL DESCRIPTION: An elderly female lying in bed, no distress. No tachypnea or accessory muscle of respiration use. Head exam was generally normal. There was no scleral icterus or corneal arcus. Mucous membranes were moist. Neck was supple and without jugular venous distension, thyromegaly, or carotid bruits. Carotids were easily palpable bilaterally. There was no adenopathy. NECK: Trachea central, no thyromegaly. LUNGS: Unlabored breathing. Clear to auscultation anteriorly. No wheeze or crackle. HEART: S1, S2, regular rate and rhythm. No loud murmur ABDOMEN: Soft, no tenderness , guarding or rigidity, no organomegaly EXTREMITIES: Left proximal tibia diffuse swelling redness with a wound to the chin area with some slough tissue surrounding redness and drainage SKIN: No rash, no masses palpable. NEUROLOGICAL: The patient is awake, alert, oriented x3, mood and affect normal. Results - Laboratory Findings CBC and BMP: 11/27/19 06:14 11/27/19 06:14 PT/INR, D-dimer PT 10.1 sec (9.0-12.0) 11/26/19 16:10 INR 1.0 (<1.2) 11/26/19 16:10 D-Dimer 3.06 mg/L FEU (<0.60) H 11/26/19 16:10 Abnormal lab findings: Abnormal Labs 11/26/19 11/26/19 11/26/19 16:10 16:10 16:10 WBC RBC 1.80 L Hgb 6.8 L* Hct 21.2 L MCV 118.1 H D MCH 38.1 H RDW Macrocytosis Marked A D-Dimer Sodium 135 L Glucose 117 H Calcium 8.3 L Crossmatch See Detail 11/26/19 11/27/19 11/27/19 16:10 06:14 06:14 WBC 3.0 L RBC 1.97 L Hgb 7.1 L Hct 22.6 L MCV 115.0 H MCH 36.2 H RDW 19.0 H Macrocytosis Marked A D-Dimer 3.06 H Sodium Glucose Calcium 8.2 L Crossmatch - Diagnostic Findings CT scan - chest: image reviewed Assessment and Plan Plan: 1 pulmonary embolism is doubtful based on the clinical presentation and the CT angiogram finding. This patient has had Dopplers and CT angiogram back in October 2018 and there were both negative. The d-dimer is been elevated on previous evaluations. The filling defect reported on the most recent CAT scan on11/27/2019 is questionable. Clinically the patient is completely asymptomatic. 2 chronic anemia post transfer to with a unit of packed RBC. No evidence of any acute bleed 3 chronic ulceration of the lower extremities bilaterally 4 coronary artery disease 5 congestion heart failure mild with an ejection fraction of 40-45% 6 chronic lower extremity edema 7 obesity with a BMI of 36 7 depression 8 osteoarthritis 9 hypertension 10 acid reflux 11 COPD Plan Noted for anticoagulation Repeat lower extremity Dopplers Clinically asymptomatic. Proceed with wound debridement of the lower extremities. we'll continue to follow.
[2019-11-27 18:23] LABS: % Iron Saturation 34.84 (12.00-45.00)
[2019-11-27 18:42] LABS: Ferritin 493.4 ng/mL (10.0-291.0); Folate, Serum 15.3 ng/mL
--- NOTE | 2019-11-27 18:44 | NM ---
EXAMINATION TYPE: NM bone 3 phase DATE OF EXAM: 11/27/2019 COMPARISON: NONE HISTORY: Triple phase bone scintigraphy was performed following the injection of 24.9 mCi Tc 99m MDP. Immedia te images and 3.5 hours post injection images acquired. FINDINGS: The flow study shows some hyperemia involving the left lower leg in the mid tibia region. Delayed shakir ges show no abnormal increased uptake in the mid shaft left tibia and fibula. There is delayed increa sed uptake in the medial aspect of the right knee joint and also the medial left femoral condyle cons istent with arthritic disease. There is general varus deformity. IMPRESSION: Increased uptake at the knees consistent with arthritic disease. No evidence of osteomyelitis of the mid tibia and fibula. There is hyperemia consistent with cellulitis in the mid left lower leg.
[2019-11-27 21:58] LABS: Appearance,Urine Clear (Clear); Bilirubin,Urine Negative (Negative); Blood,Urine Negative (Negative); Color,Urine Yellow; Glucose,Urine (UA) Negative (Negative); Ketones,Urine Negative (Negative); Leukocyte Esterase,Urine Negative (Negative); Nitrite,Urine Negative (Negative); Protein,Urine Negative (Negative); Specific Gravity,Urine 1.029 (1.001-1.035); Urobilinogen,Urine <2.0 mg/dL (<2.0)
--- NOTE | 2019-11-27 23:35 | P.CONS ---
History of Present Illness - Reason for Consult Consult date: 11/27/19 Bilateral lower extremity ulcers and cellulitis Requesting physician: Alessandro Haji - Chief Complaint Low hemoglobin x one day - History of Present Illness Patient is 74 year female with a past medical history significant for traumatic wound to the left leg that was debrided on her last visit local wound culture positive for Proteus mirabilis, patient had did cut her midline and was transferred to the [facility] on IV Rocephin 2 g daily patient apparently did have a blood work done at the [facility] she was noticed to have a hemoglobin of 6.1 for the patient has been transferred back to the [facility], patient denies any bleeding from any part of her body patient denies having any chest pain or shortness of breath minimal cough no nausea no vomiting no problem. She is complaining of the leaking pain to the left leg wound area intensity 3-4 out of 10 and no radiation, patient has been continued on Rocephin 2 g daily and infection disease has been consulted for further local wound care and antibiotic therapy, patient apparently has been evaluated by vascular surgery with a plan for surgical debridement of these wound in the morning, the patient also have a CT-guided gram of the chest with a question of PE for the patient is currently being monitored by pulmonary service, patient was admitted to the hospital has been afebrile and her white count has been normal Review of Systems Positive point has been mentioned in the HPI rest of the systems are negative Past Medical History Past Medical History: Chest Pain / Angina, Heart Failure (echocardiogram from 10/28/2019 showed no evidence of any pulmonary hypertension. Left ventricular ejection fraction was around 40-45%, mildly impaired.), COPD, Eye Disorder, GERD/Reflux, Hypertension, Myocardial Infarction (CO), Osteoarthritis (OA), Pneumonia, Thyroid Disorder Additional Past Medical History / Comment(s): Pt states she has had problems with bilateral leg edema and sores/cellulitis for the past 2 years-at times everything improves and then worsens again and L leg is always worse, urinary incontinence, bronchitis, hypothyroid, DDD cervical spine and lower back, cervical and low back chronic pain, arthritis bilateral wrists and fingers, pt states she has been told she has a bone spur in her L ankle or foot, "blocked" bile duct a couple of times, migraines, possible bilateral cataracts, Last Myocardial Infarction Date:: about 2009-pt unsure where she was hospitalized. History of Any Multi-Drug Resistant Organisms: None Reported Past Surgical History: Appendectomy, Cholecystectomy, Heart Catheterization, Hysterectomy, Orthopedic Surgery Additional Past Surgical History / Comment(s): Cardiac cath about 2009 and pt states she was treated medically, EGDs to "unplug" bile duct, colonoscopies, bilateral salpingoophorectomies, L ankle shattered-surgical repair with hardware and pt believes hardware is all removed now, cystoscopies to "stretch" her bladder, cervical and low back injections. Past Anesthesia/Blood Transfusion Reactions: Motion Sickness Past Psychological History: Depression Additional Psychological History / Comment(s): Retired. Nonsmoker. Lives with her son Parker. No animal exposures. No international travel. The experience Smoking Status: Never smoker Past Alcohol Use History: None Reported Past Drug Use History: None Reported - Past Family History Mother Family Medical History: Cancer Additional Family Medical History / Comment(s): Mother from metastatic breast cancer at the age of 52 yrs. Father Family Medical History: Coronary Artery Disease (CAD), Myocardial Infarction (CO) Additional Family Medical History / Comment(s): Father had his first Mi around age 78yrs. He has about 3 MIs total and from his last one at the age of 80yrs. Medications and Allergies Home Medications Medication Instructions Recorded Confirmed Type Ipratropium-Albuterol Nebulize 3 ml INHALATION RT-Q4H PRN ml 10/31/19 11/26/19 Rx [Duoneb 0.5 mg-3 mg/3 ml Soln] tiZANidine [Zanaflex] 4 mg PO BID PRN #6 cap 10/31/19 11/26/19 Rx Acetaminophen [Tylenol] 650 mg PO Q4H PRN 11/18/19 11/26/19 History INSULIN ASPART (NovoLOG) [NovoLOG See Protocol SQ ACHS 11/18/19 11/26/19 History (formulary)] Levothyroxine Sodium 200 mcg PO DAILY@0600 11/18/19 11/26/19 History Liquacel 30 ml PO BID@0800,1700 11/18/19 11/26/19 History lisinopriL [Prinivil] 20 mg PO DAILY@0800 11/18/19 11/26/19 History cefTRIAXone [Rocephin] 2,000 mg IVP Q24HR #18 vial 11/22/19 11/26/19 Rx clonazePAM [KlonoPIN] 0.5 mg PO TID PRN #10 tab 11/22/19 11/26/19 Rx Furosemide [Lasix] 40 mg PO DAILY@0800 11/26/19 11/26/19 History HYDROcodone/APAP 5-325MG [[place] 1 tab PO Q4H PRN 11/26/19 11/26/19 History 5-325] Magnesium Hydroxide [Milk of 7,200 mg PO Q48H PRN 11/26/19 11/26/19 History Magnesia Concentrate] Mirtazapine 15 mg PO HS PRN 11/26/19 11/26/19 History Na Phos,M-B/Na Phos,Di-Ba [Fleet 133 ml RECTAL DAILY PRN 11/26/19 11/26/19 History Adult] Ondansetron Odt [Zofran ODT] 4 mg PO Q8H PRN 11/26/19 11/26/19 History Pantoprazole [Protonix] 40 mg PO DAILY@0600 11/26/19 11/26/19 History bisacodyL [Bisacodyl] 10 mg RECTAL DAILY PRN 11/26/19 11/26/19 History traMADol HCL [Ultram] 50 mg PO QID PRN 11/26/19 11/26/19 History Allergies Allergy/AdvReac Type Severity Reaction Status Date / Time buspirone [From BuSpar] AdvReac Unknown Verified 11/26/19 16:39 Physical Exam Vitals: Vital Signs Temp Pulse Pulse Resp BP BP Pulse Ox 11/27/19 11:35 98.1 F 84 17 102/66 96 11/27/19 08:11 132/74 95 11/27/19 04:45 97.8 F 73 18 108/59 98 11/26/19 21:33 98.4 F 85 126/64 11/26/19 19:30 98.5 F 91 18 113/71 93 L 11/26/19 19:20 98.4 F 90 150/70 11/26/19 18:50 98.3 F 96 16 149/73 11/26/19 18:40 98.3 F 103 H 16 154/69 11/26/19 17:27 86 16 140/82 98 Intake and Output 11/27/19 11/27/19 11/27/19 06:59 14:59 22:59 Other: Voiding Method Bedside Commode # Voids 6 20 GENERAL DESCRIPTION: Elderly female lying in bed, no distress. No tachypnea or accessory muscle of respiration use. HEENT: Shows Pallor , no scleral icterus. Oral mucous membrane is dry. No pharyngeal erythema or thrush NECK: Trachea central, no thyromegaly. LUNGS: Unlabored breathing. Clear to auscultation anteriorly. No wheeze or crackle. HEART: S1, S2, regular rate and rhythm. No loud murmur ABDOMEN: Soft, no tenderness , guarding or rigidity, no organomegaly EXTREMITIES: Bilateral lower extremity wounds both wounds did have slough tissue some erythema around the left leg wound no foul-smelling drainage SKIN: No rash, no masses palpable. NEUROLOGICAL: The patient is awake, alert, oriented x3, mood and affect normal. Results CBC & Chem 7: 11/27/19 06:14 11/27/19 06:14 Labs: Abnormal Lab Results - Last 24 Hours (Table) 11/26/19 11/26/19 11/27/19 Range/Units 16:10 16:10 06:14 WBC 3.0 L (3.8-10.6) k/uL RBC 1.97 L (3.80-5.40) m/uL Hgb 7.1 L (11.4-16.0) gm/dL Hct 22.6 L (34.0-46.0) % MCV 115.0 H (80.0-100.0) fL MCH 36.2 H (25.0-35.0) pg RDW 19.0 H (11.5-15.5) % Macrocytosis Marked A D-Dimer 3.06 H (<0.60) mg/L FEU Calcium (8.7-10.3) mg/dL Crossmatch See Detail 11/27/19 Range/Units 06:14 WBC (3.8-10.6) k/uL RBC (3.80-5.40) m/uL Hgb (11.4-16.0) gm/dL Hct (34.0-46.0) % MCV (80.0-100.0) fL MCH (25.0-35.0) pg RDW (11.5-15.5) % Macrocytosis D-Dimer (<0.60) mg/L FEU Calcium 8.2 L (8.7-10.3) mg/dL Crossmatch Assessment and Plan Assessment: 1- patient with bilateral lower extremity wound traumatic especially her left leg wound with evidence of secondary cellulitis that was debridement on her last admission and culture positive for Proteus mirabilis, no the patient readmitted to the hospital because of low hemoglobin , with no evidence of any worsening cellulitis patient is afebrile and white count is normal (1) Left leg cellulitis Current Visit: Yes Status: Acute Code(s): L03.116 - CELLULITIS OF LEFT LOWER LIMB SNOMED Code(s): 351838962 (2) Bilateral leg ulcer Current Visit: Yes Status: Acute Code(s): L97.919 - NON-PRS CHRONIC ULC UNSP PRT OF R LOW LEG W UNSP SEVERITY; L97.929 - NON-PRS CHRONIC ULC UNSP PRT OF L LOW LEG W UNSP SEVERITY SNOMED Code(s): 05984415 Plan: 1- Rocephin 2 g IV daily to continue 2- local wound care with the yon honey followed by moist dressing and await surgical debridement in the morning We will follow on clinical condition and cultures to further adjust medication if needed Thank you for this consultation will follow this patient with you Time with Patient: Greater than 30
--- NOTE | 2019-11-28 01:43 | CONS ---
CONSULTATION DATE OF DICTATION: 11/27/2019 REASON FOR CONSULTATION: Anemia. HISTORY OF PRESENT ILLNESS: The patient is a 74-year-old pleasant white female who was admitted to hospital because of severe anemia and lower extremity wound infection. She was noted to have a hemoglobin of 6.8 g/dL and has had 1 unit of PRBC transfusion. She denies any abdominal pain. She reports no nausea or vomiting. No rectal bleeding or melena. Apparently 6 weeks ago she had a fall and sustained some injury on the right gamble and the left knee and since then she subsequently developed a wound infection. Because of the clinical concern of osteomyelitis, the patient was sent for a bone scan, results of which are still pending at the time of this dictation. PAST MEDICAL HISTORY: Significant for congestive heart failure, coronary artery disease, CHF, GERD, hypertension, hyperlipidemia. PAST SURGICAL HISTORY: Cardiac catheterization, appendectomy. MEDICATIONS: Medications at home include Ultram, Zanaflex, Prinivil, bisacodyl, Klonopin, Protonix, Zofran, milk of magnesia, levothyroxine, DuoNeb, NovoLog, [place] Lasix, Tylenol. ALLERGIES: BUSPIRONE. SOCIAL HISTORY: No smoking, no alcohol use. FAMILY HISTORY: Mother had metastatic breast cancer. REVIEW OF SYSTEMS: CARDIOPULMONARY: She denies any chest pain or shortness of breath. GENITOURINARY: No dysuria or hematuria. MUSCULOSKELETAL: Unremarkable other than injury to the knee following the recent fall. NEUROLOGY: Unremarkable. PSYCHIATRIC: Unremarkable. ENT/VISION: Unremarkable. CONSTITUTIONAL: No recent weight loss. No fever, chills, night sweats. HEMATOLOGY: Severe anemia, ENDOCRINE: Unremarkable. PHYSICAL EXAMINATION: She appears comfortable. No apparent distress. Vital signs are stable. Blood pressure 102/66, pulse rate 84, temperature 98.1. HEENT EXAMINATION: Unremarkable. Conjunctivae pink. Sclerae anicteric. Oral cavity, no lesions. NECK: No JVD or lymph node enlargement. CHEST: Clear to auscultation. HEART: Regular rate and rhythm. ABDOMEN: Soft. It was obese. Bowel sounds are positive. No organomegaly. EXTREMITIES: There was a bruise on the left knee. The lower extremity wound was wrapped in a bandage. No pedal edema. NEURO: She is alert and oriented x3. No focal deficits. LABS: Labs at the time of admission the hospital, WBC 3.8, hemoglobin 6.8, platelets normal, MCV 118. Basic metabolic panel is within normal limits. BUN and creatinine are normal at 17 and 0.72. ALT, AST, T-bilirubin and alkaline phosphatase are normal. Stool occult blood is negative. She did have a bone scan this morning, results of which showed increased uptake at the knee consistent with arthritic changes, but no evidence of osteomyelitis. IMPRESSION: 1. Macrocytic anemia and Hemoccult negative stool. Most likely we are dealing with anemia of chronic disease or other etiologies. Doubt iron deficiency anemia, but this cannot be entirely excluded. The patient never had a colonoscopy in the past. 2. Lower extremity cellulitis, rule out osteomyelitis. Patient had a bone scan this afternoon. 3. Questionable pulmonary embolism. Dr. Granados has been consulted. 4. History of hypertension and hypothyroidism. RECOMMENDATIONS: 1. Obtain iron studies, serum B12 and folate levels. 2. Based on the iron studies, we will decide if she needs to have any endoscopic intervention at the present time. 3. Continue with broad-spectrum antibiotics. 4. Transfuse if the hemoglobin is less than 7. 5. Repeat CBC in the morning. 6. Will follow with you closely. Thank you for this consultation. MMODL / IJN: [id number] /
[2019-11-28] MEDS ORDERED: LIDOCAINE 1% INJ 10MG/ML (20 ML MDV) SQ ONE (05:00)
[2019-11-28] MEDS: HYDROcodone/APAP 5-325MG 1 EACH TAB PO PRN (05:22)
[2019-11-28] MEDS: LEVOTHYROXINE 100 MCG TAB PO SCH ×2 (05:22→05:25)
[2019-11-28 06:30] LABS: Anisocytosis Slight; Basophils % (A) 1 %; Eosinophils # (A) 0.1 k/uL (0-0.7); Eosinophils % (A) 4 %; HCT 23.5 % (34.0-46.0); HGB 7.4 gm/dL (11.4-16.0); Hypochromasia Slight; Lymphocytes # (A) 0.8 k/uL (1.0-4.8); Lymphocytes % (A) 31 %; MCH 36.3 pg (25.0-35.0); MCHC 31.5 g/dL (31.0-37.0); MCV 115.2 fL (80.0-100.0); Mean Platelet Volume 9.8; Monocytes # (A) 0.2 k/uL (0-1.0); Monocytes % (A) 8 %; Neutrophils # (A) 1.3 k/uL (1.3-7.7); Neutrophils % (A) 53 %; Platelet Count 256 k/uL (150-450); RBC 2.04 m/uL (3.80-5.40); RDW 19.2 % (11.5-15.5); WBC 2.4 k/uL (3.8-10.6)
[2019-11-28 06:40] LABS: Macrocytosis Marked
--- NOTE | 2019-11-28 08:43 | US ---
EXAMINATION TYPE: US venous doppler duplex LE DATE OF EXAM: 11/28/2019 8:31 AM COMPARISON: NONE CLINICAL HISTORY: rule out DVt. bilateral lower leg ulcers SIDE PERFORMED: bilateral TECHNIQUE: The lower extremity deep venous system is examined utilizing real time linear array sonog rakel with graded compression, doppler sonography and color-flow sonography. VESSELS IMAGED: External Iliac Vein (EIV) Common Femoral Vein Deep Femoral Vein Greater Saphenous Vein * Femoral Vein Popliteal Vein Small Saphenous Vein * Proximal Calf Veins (* superficial vessels) There is normal flow, compressibility, vascular waveforms. Right Leg: No evidence of DVT Left Leg: No evidence of DVT IMPRESSION: No evident deep venous thrombosis at or above the knees, follow-up as indicated
[2019-11-28 09:06] LABS: African American GFR (CKD) 102.6 (60.0-200.0); Anion Gap 7.4 mmol/L (4.00-12.00); BUN/Creat Ratio 11.67 Ratio (12.00-20.00); Calcium 8.3 mg/dL (8.7-10.3); Carbon Dioxide 27.6 mmol/L (21.6-31.8); Non-African American GFR(CKD) 88.5 (60.0-200.0); Potassium 4.2 mmol/L (3.5-5.5)
[2019-11-28] MEDS: PANTOPRAZOLE 40 MG/10 ML VIAL IV SCH (09:37)
[2019-11-28] MEDS: lisinopriL 20 MG TAB PO SCH (09:37)
[2019-11-28] MEDS: HYDROmorphone 0.5 MG/0.5 ML SYRINGE IVP PRN (09:37)
[2019-11-28] MEDS: FUROSEMIDE 40 MG TAB PO SCH (09:37)
[2019-11-28] MEDS ORDERED: CYANOCOBALAMIN 1,000 MCG/ML 1 ML VIAL IM ONE (12:00)
--- NOTE | 2019-11-28 12:01 | P.PN ---
Subjective Progress Note Date: 11/28/19 Principal diagnosis: Anemia, ongoing wounds of the lower extremity A 74-year-old female patient, obese, good lower extremity wounds who was hospitalized because of a low hemoglobin of 6.8 and ongoing difficulty with lower extremity with the need to be further debrided. She was sent over from our with manner. Hemoglobin was 6.8. The patient received a unit of blood and hemoglobin is up to 7.1. Platelet counts at 250. Rest of the blood work shows a normal renal function with a creatinine of 0.7 and the rest of the electrodes are within normal limits. Note that the d-dimer came back at 3.06. The hospitalist group ordered a CT angiogram that showed a questionable filling defect in the right upper lobe pulmonary artery branch. No mediastinal lymphadenopathy seen. There is a large calcified on [place] the right lung base. Note that the patient had a similar CT angiogram approximately a month ago for a similarly elevated d-dimer. The CAT scan of the chest that was done back in 10/26/2019 was within normal limits. Also, the Doppler of the lower extremity that was done 10/26/2019 was negative. The patient clinically is doing very well. No respiratory difficulties. No pleurisy. No hemoptysis. No chest pain. No calf pain. No personal or family history of DVT or pulmonary embolism. The patient is seen today 11/28/2019 in follow-up on the regular medical floor. She is currently sitting up at the bedside. Awake and alert in no acute distress. Maintaining O2 saturations in the 90s on room air. Afebrile. Hemodynamically stable. She is status post 1 unit of packed red blood cells this admission. Today's hemoglobin is 7.4. White count 2.4. Sodium 137. Potassium 4.2. Creatinine 0.6. Stool for occult blood was negative. Urinalysis clean. Bone scan of the lower extremities did not reveal any evidence of osteomyelitis. There is hyperemia consistent with cellulitis of the mid left lower leg. Dopplers of the lower extremity negative. Objective - Vital Signs Vital signs: Vital Signs Temp 98.2 F 11/28/19 11:41 Pulse 98 11/28/19 11:41 Resp 17 11/28/19 11:41 BP 124/76 11/28/19 11:41 Pulse Ox 96 11/28/19 11:41 Intake & Output 11/27/19 11/28/19 11/28/19 18:59 06:59 18:59 Weight 90.718 kg Other: Voiding Method Bedside Commode Bedside Commode # Voids 20 6 1 - Exam GENERAL DESCRIPTION: An 74-year-old female patient sitting up at the bedside, on room air,, no distress. No tachypnea or accessory muscle of respiration use. Head exam was generally normal. There was no scleral icterus or corneal arcus. Mucous membranes were moist. Neck was supple and without jugular venous distension, thyromegaly, or carotid bruits. Carotids were easily palpable bilaterally. There was no adenopathy. NECK: Trachea central, no thyromegaly. LUNGS: Unlabored breathing. Clear to auscultation anteriorly. No wheeze or crackle. HEART: S1, S2, regular rate and rhythm. No loud murmur ABDOMEN: Soft, no tenderness , guarding or rigidity, no organomegaly EXTREMITIES: Left proximal tibia diffuse swelling redness with a wound to the chin area with some slough tissue surrounding redness and drainage SKIN: No rash, no masses palpable. NEUROLOGICAL: The patient is awake, alert, oriented x3, mood and affect normal. - Labs CBC & Chem 7: 11/28/19 05:45 11/28/19 05:45 Labs: Abnormal Lab Results - Last 24 Hours (Table) 11/27/19 11/28/19 11/28/19 Range/Units 06:14 05:45 05:45 WBC 2.4 L (3.8-10.6) k/uL RBC 2.04 L (3.80-5.40) m/uL Hgb 7.4 L (11.4-16.0) gm/dL Hct 23.5 L (34.0-46.0) % MCV 115.2 H (80.0-100.0) fL MCH 36.3 H (25.0-35.0) pg RDW 19.2 H (11.5-15.5) % Lymphocytes # 0.8 L (1.0-4.8) k/uL Macrocytosis Marked A BUN 7.0 L (9.0-27.0) mg/dL BUN/Creatinine Ratio 11.67 L (12.00-20.00) Ratio Calcium 8.3 L (8.7-10.3) mg/dL Ferritin 493.4 H (10.0-291.0) ng/mL Vitamin B12 171.0 L (200.0-944.0) pg/mL Assessment and Plan Assessment: 1 pulmonary embolism is doubtful based on the clinical presentation and the CT angiogram finding. This patient has had Dopplers and CT angiogram back in October 2018 and there were both negative. The d-dimer is been elevated on previous evaluations. The filling defect reported on the most recent CAT scan on11/27/2019 is questionable. Clinically the patient is completely asymptomatic. Dopplers of lower extremity negative for DVT 2 chronic anemia post transfer to with a unit of packed RBC. No evidence of any acute bleed 3 chronic ulceration of the lower extremities bilaterally, bone scan revealed no evidence of osteomyelitis. Positive for cellulitis. 4 coronary artery disease 5 congestion heart failure mild with an ejection fraction of 40-45% 6 chronic lower extremity edema 7 obesity with a BMI of 36 7 depression 8 osteoarthritis 9 hypertension 10 acid reflux 11 COPD Plan The patient was seen and evaluated by Dr. Granados Dopplers of lower extremity negative Remains on room air We'll see as needed I, the cosigning physician, performed a history & physical examination of the patient. Lungs sounds are clear. Maintaining good O2 saturations in the 90s on room air. I discussed the assessment and plan of care with my nurse practitioner, Gretel Samuel. I attest to the above note as dictated by her.
--- NOTE | 2019-11-28 12:21 | CONS ---
DATE OF CONSULTATION: 11/28/2019 This is a 74-year-old white female known to me. The patient has been admitted with low hemoglobin and she has a wound on her right leg lateral aspect, measurement is 5.2 cm with some devitalized tissue. Patient has a wound on the left leg anterior aspect, measurement is 4.2 with some devitalized tissue. MEDICAL HISTORY: The patient has a history of anemia, history of fall at home, congestive heart failure, COPD, hypertension, myocardial infarction. SURGICAL HISTORY: Patient had appendectomy, cholecystectomy, cardiac catheterization, history of depression. PHYSICAL EXAMINATION: Patient was seen in her room. NECK: Supple. Chest has crackles bilaterally. ABDOMEN: Soft. Vascular examination: Brachial, radial and femoral pulses are present. The patient has a wound on her right leg lateral aspect with some devitalized tissue also on the left leg anterior aspect. PLAN: Debridement of the wound and deep culture. MMODL / IJN: [id number] / KATIE
[2019-11-28] MEDS: traMADol 50 MG TAB PO PRN ×2 (13:03→20:32)
--- NOTE | 2019-11-28 15:33 | PN ---
PROGRESS NOTE DATE OF SERVICE: 11/28/2019 REASON FOR FOLLOWUP: Bilateral lower extremity wounds and cellulitis. INTERVAL HISTORY: The patient is currently afebrile. However, she is complaining of chills. Denies having any chest pain or shortness of breath or cough. No nausea, vomiting or abdominal pain. She did have debridement of the wounds and complaining of pain after debridement, but no worsening. PHYSICAL EXAMINATION: Blood pressure 124/76, pulse of 98, temperature 98.2. She is 96% on room air. General description is an elderly female lying in bed in no distress. RESPIRATORY SYSTEM: Unlabored breathing. Clear to auscultation anteriorly. HEART: S1, S2. Regular rate and rhythm. ABDOMEN: Soft. No tenderness. Leg wounds are currently dressed. No obvious drainage on the dressing. LABS: Hemoglobin is 7.4, white count 2.4, BUN of 7, creatinine 0.6. Wound cultures currently pending. DIAGNOSTIC IMPRESSION AND PLAN: Patient with bilateral lower extremity wounds with secondary cellulitis, status post debridement, especially left leg wound. Will wait for the cultures to finalize to determine her discharge antibiotics. Continue Rocephin 2 grams daily for now. Continue with supportive care. MMODL / IJN: [id number] /
--- NOTE | 2019-11-28 16:19 | P.PN ---
Subjective Progress Note Date: 11/28/19 Principal diagnosis: Anemia M.D. 4-year-old pleasant white female who was admitted to the hospital because of severe anemia and lower extremity wound infection. She was noted to have a hemoglobin on presentation of 6.8 and was transfused with one unit of packed red blood cells. On admission she denied any reports of nausea vomiting or rectal bleeding. Today she continues to state that she has had no abdominal pain, nausea, vomiting, melena or rectal bleeding. Iron studies were completed on the patient, iron 85, TIBC 244, % saturation 34.84, ferritin 493, B12 171. Objective - Vital Signs Vital signs: Vital Signs Temp 98.2 F 11/28/19 11:41 Pulse 98 11/28/19 11:41 Resp 17 11/28/19 11:41 BP 124/76 11/28/19 11:41 Pulse Ox 96 11/28/19 11:41 Intake & Output 11/27/19 11/28/19 11/28/19 18:59 06:59 18:59 Intake Total 1000 Balance 1000 Weight 90.718 kg Intake: Intake, IV Titration 100 Amount cefTRIAXone 2 gm In 100 Sodium Chloride 0.9% 50 ml @ 100 mls/hr IVPB Q24HR [facility] Rx#:[id number] Oral 900 Other: Voiding Method Bedside Commode Bedside Commode Toilet Bedside Commode # Voids 20 6 4 - Exam General appearance: The patient is alert, oriented, in no acute distress. HET: Head is normocephalic and atraumatic. Conjunctiva pink. Sclera anicteric. Neck: Supple without lymphadenopathy. Trachea midline. Abdomen: Soft, nontender, nondistended with bowel sounds. No palpable organomegaly. Extremities: Normal skin color and turgor. No pedal edema. Neurological: No focal deficits. Alert and oriented 3. - Labs CBC & Chem 7: 11/28/19 05:45 11/28/19 05:45 Labs: Abnormal Lab Results - Last 24 Hours (Table) 11/27/19 11/28/19 11/28/19 Range/Units 06:14 05:45 05:45 WBC 2.4 L (3.8-10.6) k/uL RBC 2.04 L (3.80-5.40) m/uL Hgb 7.4 L (11.4-16.0) gm/dL Hct 23.5 L (34.0-46.0) % MCV 115.2 H (80.0-100.0) fL MCH 36.3 H (25.0-35.0) pg RDW 19.2 H (11.5-15.5) % Lymphocytes # 0.8 L (1.0-4.8) k/uL Macrocytosis Marked A BUN 7.0 L (9.0-27.0) mg/dL BUN/Creatinine Ratio 11.67 L (12.00-20.00) Ratio Calcium 8.3 L (8.7-10.3) mg/dL Ferritin 493.4 H (10.0-291.0) ng/mL Vitamin B12 171.0 L (200.0-944.0) pg/mL Assessment and Plan Assessment: 1. Macrocytic anemia and Hemoccult negative stool. Most likely we are dealing with anemia of chronic disease or other etiologies. Doubt iron deficiency anemia, but this cannot be entirely excluded. The patient never had a colonoscopy in the past. 2. Lower extremity cellulitis, rule out osteomyelitis. Patient had bone scan which was negative for osteomyelitis. Patient underwent debridement of wounds today with Dr. Rubio. 3. Questionable pulmonary embolism. Dr. Granados has been consult. 4. History of hypertension and hypothyroidism Plan: 1. Obtain iron studies, serum B12 and folate levels 2. Vitamin B12 injection ordered 3. No plans for endoscopic intervention at this time 4. Transfuse if hemoglobin less than 7 5. Repeat CBC in the morning 6. Consult hematology We Will follow you closely The impression and plan of care has been dictated as directed. Dr. Mark Anthony Roman I performed a history and examination of this patient, discussed the same with the dictator. I agree with the dictator's note ,documented as a scribe. Any additional findings or plans will be noted.
--- NOTE | 2019-11-28 18:38 | OP ---
OPERATIVE REPORT DIAGNOSIS: 1. Right leg wound, lateral aspect. Measurement is 5.2 cm. 2. Wound on the left leg, anterior aspect. Measurement is 4.2 cm with some devitalized tissue. OPERATION: Debridement of the wounds down to subcutaneous tissue and taking deep culture. PROCEDURE DESCRIPTION: The right and left legs were prepped and draped in usual sterile manner. Lidocaine 1% plain was infiltrated. Using knife, we did selective debridement. All the devitalized tissue was removed down to subcutaneous tissue. No active bleeding was noted on the right leg and wound was irrigated with saline. On the left leg, 1% lidocaine was infiltrated and using a sharp knife we did the debridement down to subcutaneous tissue. Devitalized tissue was removed and we took culture for culture and sensitivity. No active bleeding was noted. Wound was irrigated with saline. Medihoney gel was applied to the wound. Dressing applied. Patient tolerated the procedure well. PLAN: Change the dressing daily with Medihoney gel. Will follow with you. MMODL / IJN: [id number] /
--- NOTE | 2019-11-28 18:50 | P.PN ---
Subjective Progress Note Date: 11/28/19 Principal diagnosis: Left lower extremity cellulitis Acute on chronic anemia Bilateral gamble ulcers 74-year-old pleasant white female who was admitted to the hospital because of severe anemia and lower extremity wound infection. She was noted to have a hemoglobin on presentation of 6.8 and was transfused with one unit of packed red blood cells. On admission she denied any reports of nausea vomiting or rectal bleeding. Today she continues to state that she has had no abdominal pain, nausea, vomiting, melena or rectal bleeding. Iron studies were completed on the patient, iron 85, TIBC 244, % saturation 34.84, ferritin 493, B12 171. Objective - Vital Signs Vital signs: Vital Signs Temp 98.2 F 11/28/19 11:41 Pulse 98 11/28/19 11:41 Resp 17 11/28/19 11:41 BP 124/76 11/28/19 11:41 Pulse Ox 96 11/28/19 11:41 Intake & Output 11/27/19 11/28/19 11/28/19 18:59 06:59 18:59 Intake Total 1000 Balance 1000 Weight 90.718 kg Intake: Intake, IV Titration 100 Amount cefTRIAXone 2 gm In 100 Sodium Chloride 0.9% 50 ml @ 100 mls/hr IVPB Q24HR [facility] Rx#:[id number] Oral 900 Other: Voiding Method Bedside Commode Bedside Commode Toilet Bedside Commode # Voids 20 6 4 - Exam General appearance: The patient is alert, oriented, in no acute distress. HET: Head is normocephalic and atraumatic. Conjunctiva pink. Sclera anicteric. Neck: Supple without lymphadenopathy. Trachea midline. Abdomen: Soft, nontender, nondistended with bowel sounds. No palpable organomegaly. Extremities: Normal skin color and turgor. No pedal edema. Neurological: No focal deficits. Alert and oriented 3. - Labs CBC & Chem 7: 11/28/19 05:45 11/28/19 05:45 Labs: Abnormal Lab Results - Last 24 Hours (Table) 11/27/19 11/28/19 11/28/19 Range/Units 06:14 05:45 05:45 WBC 2.4 L (3.8-10.6) k/uL RBC 2.04 L (3.80-5.40) m/uL Hgb 7.4 L (11.4-16.0) gm/dL Hct 23.5 L (34.0-46.0) % MCV 115.2 H (80.0-100.0) fL MCH 36.3 H (25.0-35.0) pg RDW 19.2 H (11.5-15.5) % Lymphocytes # 0.8 L (1.0-4.8) k/uL Macrocytosis Marked A BUN 7.0 L (9.0-27.0) mg/dL BUN/Creatinine Ratio 11.67 L (12.00-20.00) Ratio Calcium 8.3 L (8.7-10.3) mg/dL Ferritin 493.4 H (10.0-291.0) ng/mL Vitamin B12 171.0 L (200.0-944.0) pg/mL Assessment and Plan Assessment: 1. Macrocytic anemia and Hemoccult negative stool. Most likely we are dealing with anemia of chronic disease or other etiologies. Doubt iron deficiency anemia, but this cannot be entirely excluded. The patient never had a colonoscopy in the past. 2. Lower extremity cellulitis, rule out osteomyelitis. Patient had bone scan which was negative for osteomyelitis. Patient underwent debridement of wounds today with Dr. Rubio. 3. Questionable pulmonary embolism. Dr. Granados has been consult. 4. History of hypertension and hypothyroidism Plan: 1. Obtain iron studies, serum B12 and folate levels 2. Vitamin B12 injection ordered 3. No plans for endoscopic intervention at this time 4. Transfuse if hemoglobin less than 7 5. Repeat CBC in the morning 6. Consult hematology We Will follow you closely
[2019-11-29] MEDS: HYDROcodone/APAP 5-325MG 1 EACH TAB PO PRN ×4 (01:08→21:38)
[2019-11-29] MEDS: LEVOTHYROXINE 100 MCG TAB PO SCH (05:27)
[2019-11-29 06:28] LABS: Anisocytosis Slight; Basophils % (A) 1 %; Eosinophils # (A) 0.1 k/uL (0-0.7); Eosinophils % (A) 4 %; HCT 22.7 % (34.0-46.0); HGB 7.1 gm/dL (11.4-16.0); Hypochromasia Slight; Lymphocytes # (A) 0.9 k/uL (1.0-4.8); Lymphocytes % (A) 42 %; MCH 35.4 pg (25.0-35.0); MCHC 31.2 g/dL (31.0-37.0); Macrocytosis Marked; Mean Platelet Volume 9.9; Monocytes # (A) 0.2 k/uL (0-1.0); Monocytes % (A) 8 %; Neutrophils # (A) 0.9 k/uL (1.3-7.7); Neutrophils % (A) 42 %; Platelet Count 247 k/uL (150-450); RDW 18.7 % (11.5-15.5); WBC 2.1 k/uL (3.8-10.6)
[2019-11-29 06:30] LABS: MCV 113.4 fL (80.0-100.0)
--- NOTE | 2019-11-29 08:30 | P.PN ---
Subjective Progress Note Date: 11/29/19 Principal diagnosis: Anemia, ongoing wounds of the lower extremity A 74-year-old female patient, obese, good lower extremity wounds who was hospitalized because of a low hemoglobin of 6.8 and ongoing difficulty with lower extremity with the need to be further debrided. She was sent over from our with manner. Hemoglobin was 6.8. The patient received a unit of blood and hemoglobin is up to 7.1. Platelet counts at 250. Rest of the blood work shows a normal renal function with a creatinine of 0.7 and the rest of the electrodes are within normal limits. Note that the d-dimer came back at 3.06. The hospitalist group ordered a CT angiogram that showed a questionable filling defect in the right upper lobe pulmonary artery branch. No mediastinal lymphadenopathy seen. There is a large calcified on [place] the right lung base. Note that the patient had a similar CT angiogram approximately a month ago for a similarly elevated d-dimer. The CAT scan of the chest that was done back in 10/26/2019 was within normal limits. Also, the Doppler of the lower extremity that was done 10/26/2019 was negative. The patient clinically is doing very well. No respiratory difficulties. No pleurisy. No hemoptysis. No chest pain. No calf pain. No personal or family history of DVT or pulmonary embolism. The patient is seen today 11/28/2019 in follow-up on the regular medical floor. She is currently sitting up at the bedside. Awake and alert in no acute distress. Maintaining O2 saturations in the 90s on room air. Afebrile. Hemodynamically stable. She is status post 1 unit of packed red blood cells this admission. Today's hemoglobin is 7.4. White count 2.4. Sodium 137. Potassium 4.2. Creatinine 0.6. Stool for occult blood was negative. Urinalysis clean. Bone scan of the lower extremities did not reveal any evidence of osteomyelitis. There is hyperemia consistent with cellulitis of the mid left lower leg. Dopplers of the lower extremity negative. The patient is seen today 11/29/2019 in follow-up on the regular medical floor. She is currently sitting up in a chair at the bedside. Awake and alert in no acute distress. Having breakfast. No shortness of breath, cough or congestion. Maintaining O2 saturations in the 90s on room air. She did undergo debridement of the wounds of the bilateral lower extremities yesterday. Med a honey and dressings were applied. Wound cultures pending. She is currently on ceftriaxone. White count 2.1. Hemoglobin 7.1. She received 1 unit of packed red blood cell transfusion this admission. Objective - Vital Signs Vital signs: Vital Signs Temp 97.8 F 11/29/19 06:02 Pulse 78 11/29/19 06:02 Resp 18 11/29/19 06:02 BP 112/65 11/29/19 06:02 Pulse Ox 96 11/29/19 06:02 Intake & Output 11/28/19 11/29/19 11/29/19 18:59 06:59 18:59 Intake Total 1000 Balance 1000 Weight 90.718 kg Intake: Intake, IV Titration 100 Amount cefTRIAXone 2 gm In 100 Sodium Chloride 0.9% 50 ml @ 100 mls/hr IVPB Q24HR [facility] Rx#:[id number] Oral 900 Other: Voiding Method Toilet Toilet Bedside Commode Bedside Commode # Voids 4 1 - Exam GENERAL DESCRIPTION: A very pleasant 74-year-old female patient sitting up in the chair at the bedside, on room air, no distress. No tachypnea or accessory muscle of respiration use. Head exam was generally normal. There was no scleral icterus or corneal arcus. Mucous membranes were moist. Neck was supple and without jugular venous distension, thyromegaly, or carotid bruits. Carotids were easily palpable bilaterally. There was no adenopathy. NECK: Trachea central, no thyromegaly. LUNGS: Unlabored breathing. Clear to auscultation anteriorly. No wheeze or crackle. HEART: S1, S2, regular rate and rhythm. No loud murmur ABDOMEN: Soft, no tenderness , guarding or rigidity, no organomegaly EXTREMITIES: Left proximal tibia diffuse swelling redness with a wound to the chin area with some slough tissue surrounding redness and drainage SKIN: No rash, no masses palpable. NEUROLOGICAL: The patient is awake, alert, oriented x3, mood and affect normal. - Labs CBC & Chem 7: 11/29/19 05:02 11/28/19 05:45 Labs: Abnormal Lab Results - Last 24 Hours (Table) 11/28/19 11/29/19 Range/Units 05:45 05:02 WBC 2.1 L (3.8-10.6) k/uL RBC 2.00 L (3.80-5.40) m/uL Hgb 7.1 L (11.4-16.0) gm/dL Hct 22.7 L (34.0-46.0) % MCV 113.4 H (80.0-100.0) fL MCH 35.4 H (25.0-35.0) pg RDW 18.7 H (11.5-15.5) % Neutrophils # 0.9 L (1.3-7.7) k/uL Lymphocytes # 0.9 L (1.0-4.8) k/uL Macrocytosis Marked A BUN 7.0 L (9.0-27.0) mg/dL BUN/Creatinine Ratio 11.67 L (12.00-20.00) Ratio Calcium 8.3 L (8.7-10.3) mg/dL Microbiology - Last 24 Hours (Table) 11/28/19 07:30 Gram Stain - Preliminary Leg - Right Wound Culture - Preliminary 11/28/19 07:30 Anaerobic Culture - Preliminary Leg - Right Assessment and Plan Assessment: 1 pulmonary embolism is doubtful based on the clinical presentation and the CT angiogram finding. This patient has had Dopplers and CT angiogram back in October 2018 and there were both negative. The d-dimer is been elevated on previous evaluations. The filling defect reported on the most recent CAT scan on11/27/2019 is questionable. Clinically the patient is completely asymptomatic. Dopplers of lower extremity negative for DVT 2 chronic anemia post transfer to with one unit of packed RBC this admission. No evidence of any acute bleed here current hemoglobin 7.1 3 chronic ulceration of the lower extremities bilaterally, bone scan revealed no evidence of osteomyelitis. Positive for cellulitis. Status post debridement on 11/28/2019. Currently on ceftriaxone 4 coronary artery disease 5 congestion heart failure mild with an ejection fraction of 40-45% 6 chronic lower extremity edema 7 obesity with a BMI of 36 7 depression 8 osteoarthritis 9 hypertension 10 acid reflux 11 COPD Plan The patient was seen and evaluated by Dr. Granados Lower extremity wounds debrided yesterday Medi Honey and dressings applied Currently on ceftriaxone Remains on room air We'll see as needed I, the cosigning physician, performed a history & physical examination of the patient. Lungs sounds are clear. Maintaining good O2 saturations in the 90s on room air. I discussed the assessment and plan of care with my nurse practitioner, Gretel Samuel. I attest to the above note as dictated by her.
--- NOTE | 2019-11-29 08:35 | P.CONS ---
History of Present Illness - Reason for Consult Consult date: 11/29/19 Anemia Requesting physician: Jessenia Eaton - Chief Complaint Low hemoglobin, wound draining - History of Present Illness Mrs García is a 74 year old femae who has been being treated for traumatic left leg wound. Recently debrided on her last visit and treated by ID with antibiotics for wound cultures revealing proteus mirabillis. She was treated at [facility] with IV abx. During her follow-up bloodwork at [facility] hemoglobin returned at 6.1, therefore she was transferred to [facility] for transfusion and further work up. Because of this hematology has also been asked to further evaluate. We have been consulted regarding mactocytic anemia. It appears the macrocytosis started in December 2018. B112 level did reveal a component of b12 deficiency. She has mild leukopenia as well. She has been evaluated by vascular surgery with a plan for surgical debridement of these wound yesterday morning as there was concern they were still seeping, the patient also have a CTA with a question of PE. Pulmonary's note has been reviewed and dopplers ordered. At this time low suspicion of pulmonary embolism. She remains afebrile and ID is following. Review of Systems All systems: negative (hpi) Past Medical History Past Medical History: Chest Pain / Angina, Heart Failure (echocardiogram from 10/28/2019 showed no evidence of any pulmonary hypertension. Left ventricular ejection fraction was around 40-45%, mildly impaired.), COPD, Eye Disorder, GERD/Reflux, Hypertension, Myocardial Infarction ([place]), Osteoarthritis (OA), Pneumonia, Thyroid Disorder Additional Past Medical History / Comment(s): Pt states she has had problems with bilateral leg edema and sores/cellulitis for the past 2 years-at times everything improves and then worsens again and L leg is always worse, urinary incontinence, bronchitis, hypothyroid, DDD cervical spine and lower back, cervical and low back chronic pain, arthritis bilateral wrists and fingers, pt states she has been told she has a bone spur in her L ankle or foot, "blocked" bile duct a couple of times, migraines, possible bilateral cataracts, Last Myocardial Infarction Date:: about 2009-pt unsure where she was hospitalized. History of Any Multi-Drug Resistant Organisms: None Reported Past Surgical History: Appendectomy, Cholecystectomy, Heart Catheterization, Hysterectomy, Orthopedic Surgery Additional Past Surgical History / Comment(s): Cardiac cath about 2009 and pt states she was treated medically, EGDs to "unplug" bile duct, colonoscopies, bilateral salpingoophorectomies, L ankle shattered-surgical repair with hardware and pt believes hardware is all removed now, cystoscopies to "stretch" her bladder, cervical and low back injections. Past Anesthesia/Blood Transfusion Reactions: Motion Sickness Past Psychological History: Depression Additional Psychological History / Comment(s): Retired. Nonsmoker. Lives with her son Parker. No animal exposures. No international travel. The experience Smoking Status: Never smoker Past Alcohol Use History: None Reported Past Drug Use History: None Reported - Past Family History Mother Family Medical History: Cancer Additional Family Medical History / Comment(s): Mother from metastatic breast cancer at the age of 52 yrs. Father Family Medical History: Coronary Artery Disease (CAD), Myocardial Infarction ([place]) Additional Family Medical History / Comment(s): Father had his first Mi around age 78yrs. He has about 3 MIs total and from his last one at the age of 80yrs. Medications and Allergies Home Medications Medication Instructions Recorded Confirmed Type Ipratropium-Albuterol Nebulize 3 ml INHALATION RT-Q4H PRN ml 10/31/19 11/26/19 Rx [Duoneb 0.5 mg-3 mg/3 ml Soln] tiZANidine [Zanaflex] 4 mg PO BID PRN #6 cap 10/31/19 11/26/19 Rx Acetaminophen [Tylenol] 650 mg PO Q4H PRN 11/18/19 11/26/19 History INSULIN ASPART (NovoLOG) [NovoLOG See Protocol SQ ACHS 11/18/19 11/26/19 History (formulary)] Levothyroxine Sodium 200 mcg PO DAILY@0600 11/18/19 11/26/19 History Liquacel 30 ml PO BID@0800,1700 11/18/19 11/26/19 History lisinopriL [Prinivil] 20 mg PO DAILY@0800 11/18/19 11/26/19 History cefTRIAXone [Rocephin] 2,000 mg IVP Q24HR #18 vial 11/22/19 11/26/19 Rx clonazePAM [KlonoPIN] 0.5 mg PO TID PRN #10 tab 11/22/19 11/26/19 Rx Furosemide [Lasix] 40 mg PO DAILY@0800 11/26/19 11/26/19 History HYDROcodone/APAP 5-325MG [Steward 1 tab PO Q4H PRN 11/26/19 11/26/19 History 5-325] Magnesium Hydroxide [Milk of 7,200 mg PO Q48H PRN 11/26/19 11/26/19 History Magnesia Concentrate] Mirtazapine 15 mg PO HS PRN 11/26/19 11/26/19 History Na Phos,M-B/Na Phos,Di-Ba [Fleet 133 ml RECTAL DAILY PRN 11/26/19 11/26/19 History Adult] Ondansetron Odt [Zofran ODT] 4 mg PO Q8H PRN 11/26/19 11/26/19 History Pantoprazole [Protonix] 40 mg PO DAILY@0600 11/26/19 11/26/19 History bisacodyL [Bisacodyl] 10 mg RECTAL DAILY PRN 11/26/19 11/26/19 History traMADol HCL [Ultram] 50 mg PO QID PRN 11/26/19 11/26/19 History Allergies Allergy/AdvReac Type Severity Reaction Status Date / Time buspirone [From BuSpar] AdvReac Unknown Verified 11/26/19 16:39 Physical Exam Vitals: Vital Signs Temp Pulse Pulse Resp BP Pulse Ox 11/29/19 06:02 97.8 F 78 18 112/65 96 11/28/19 21:00 98.6 F 75 16 102/58 95 11/28/19 11:41 98.2 F 98 17 124/76 96 Intake and Output 11/28/19 11/29/19 11/29/19 22:59 06:59 14:59 Other: Voiding Method Toilet Bedside Commode # Voids 3 1 - Constitutional General appearance: cooperative, no acute distress - EENT Eyes: EOMI ENT: hard of hearing, NA/AT, normal oropharynx - Neck Neck: normal ROM - Respiratory Respiratory: bilateral: CTA, diminished - Cardiovascular Rhythm: regular Heart sounds: normal: S1, S2 leg Peripheral Edema: bilateral: Trace - Gastrointestinal General gastrointestinal: normal bowel sounds, soft - Integumentary Left proximal tibia diffuse swelling redness with a wound to the chin area with some slough tissue surrounding redness and drainage - Neurologic non focal - Musculoskeletal Musculoskeletal: generalized weakness, strength equal bilaterally - Psychiatric Psychiatric: A&O x's 3 Results CBC & Chem 7: 11/29/19 05:02 11/29/19 08:54 Labs: Abnormal Lab Results - Last 24 Hours (Table) 11/28/19 11/29/19 Range/Units 05:45 05:02 WBC 2.1 L (3.8-10.6) k/uL RBC 2.00 L (3.80-5.40) m/uL Hgb 7.1 L (11.4-16.0) gm/dL Hct 22.7 L (34.0-46.0) % MCV 113.4 H (80.0-100.0) fL MCH 35.4 H (25.0-35.0) pg RDW 18.7 H (11.5-15.5) % Neutrophils # 0.9 L (1.3-7.7) k/uL Lymphocytes # 0.9 L (1.0-4.8) k/uL Macrocytosis Marked A BUN 7.0 L (9.0-27.0) mg/dL BUN/Creatinine Ratio 11.67 L (12.00-20.00) Ratio Calcium 8.3 L (8.7-10.3) mg/dL Microbiology - Last 24 Hours (Table) 11/28/19 07:30 Gram Stain - Preliminary Leg - Right Wound Culture - Preliminary 11/28/19 07:30 Anaerobic Culture - Preliminary Leg - Right CT scan - chest: report reviewed Assessment and Plan (1) Macrocytic anemia with vitamin B12 deficiency Current Visit: Yes Status: Acute Code(s): D51.9 - VITAMIN B12 DEFICIENCY ANEMIA, UNSPECIFIED SNOMED Code(s): 06484910 (2) Leukopenia Current Visit: Yes Status: Acute Code(s): D72.819 - DECREASED WHITE BLOOD CELL COUNT, UNSPECIFIED SNOMED Code(s): 02017178 (3) Left leg cellulitis Current Visit: No Status: Acute Code(s): L03.116 - CELLULITIS OF LEFT LOWER LIMB SNOMED Code(s): 037939768 (4) Open wounds involving multiple regions of lower extremity Current Visit: No Status: Acute Code(s): S81.809A - UNSPECIFIED OPEN WOUND, UNSPECIFIED LOWER LEG, INIT ENCNTR SNOMED Code(s): 674934249 Plan: Assessment and Recommendations: MAcrocytic Anemia: - MCV greater than 110 - B12 deficiency is identified - New onset in December 2018 - B12 IM daily x5 days, then weekly x5 days then monthly - Other causes and contributing factors to be considered and awaiting work-up - She can follow-up after discharge to monitor Leukopenia: - Likely secondary to persistent infection and antibiotics - Will need to monitor for recovery after treatment and resolution of underlying cause Plan: - Transfuse hemoglobin less than 7 - B12 daily x5, then weekly x4, then monthly to continue. - All other issues per ID and primary team Thank you for allowing us to participate in the care of this patient
[2019-11-29] MEDS: PANTOPRAZOLE 40 MG/10 ML VIAL IV SCH (08:49)
[2019-11-29] MEDS: lisinopriL 20 MG TAB PO SCH (08:49)
[2019-11-29] MEDS: FUROSEMIDE 40 MG TAB PO SCH (08:49)
[2019-11-29 09:37] LABS: Reticulocyte % 1.9 % (0.5-2.0)
[2019-11-29 09:43] LABS: ALT 9 U/L (4-34); AST 18 U/L (14-36); African American GFR (CKD) 90 (>60 ml/min/1.73 sqM); Albumin 3.6 g/dL (3.5-5.0); Albumin/Globulin Ratio 1.1; Alkaline Phosphatase 86 U/L (38-126); Anion Gap 6 mmol/L; Blood Urea Nitrogen 14 mg/dL (7-17); Calcium 8.5 mg/dL (8.4-10.2); Carbon Dioxide 29 mmol/L (22-30); Chloride 100 mmol/L (98-107); Globulin 3.4 g/dL; Glucose 133 mg/dL (74-99); LDH 525 U/L (313-618); Non-African American GFR(CKD) 78 (>60 ml/min/1.73 sqM); Potassium 4.2 mmol/L (3.5-5.1); Sodium 135 mmol/L (137-145); Total Bilirubin 0.5 mg/dL (0.2-1.3)
[2019-11-29 09:53] LABS: African American GFR (CKD) 97.5 (60.0-200.0); Anion Gap 6.5 mmol/L (4.00-12.00); BUN/Creat Ratio 18.57 Ratio (12.00-20.00); Calcium 8.1 mg/dL (8.7-10.3); Carbon Dioxide 26.5 mmol/L (21.6-31.8); Non-African American GFR(CKD) 84.2 (60.0-200.0); Potassium 4.2 mmol/L (3.5-5.5)
--- NOTE | 2019-11-29 10:07 | CDI ---
Documentation Clarification Form Date: 11/29/2019 1002 CDS: Stephani Martin RN, CCDS Admit Date: 11/26/2019 1719 Patient Name: Carolina García ATTENTION: The Clinical Documentation Specialists (CDI) and [facility] Coding Staff appreciate your assistance in clarifying documentation. Please respond to the clarification below the line at the bottom and electronically sign. The CDI & [facility] Coding staff will review the response and follow-up if needed. Please note: Queries are made part of the Legal Health Record. If you have any questions, please contact the author of this message via ITS. Dr. Rubio Per your operative note, a debridement was performed on 11/27 and requires further specificity. History/Risk Factors: Anemia of chronic disease, lower extremity cellulitis, HTN, Hypothyroidism, Bilateral Black Ulcers, Obesity with BMI 35.5 Clinical Indicators: 11/27 Or rep: Right leg wound, lateral aspect. Measurement is 5.2 cm. Wound on the left leg, anterior aspect. Measurement is 4.2 cm with some devitalized tissue." Treatment: 11/27 Or rep: "Debridement of the wounds down to subcutaneous tissue and taking deep culture." Five elements required for accurate and compliant documentation of a debridement. Using knife, we did selective debridement. All the devitalized tissue was removed down to subcutaneous tissue." 1. Technique used (e.g., excisional, excised, cutting, etc.) 2. Instrument(s) used (e.g., scalpel, curette, etc.) 3. Nature of the tissue removed (e.g., necrotic, devitalized tissues, non- viable tissue, etc.) 4. Appearance and size of the wound (e.g., down to fresh bleeding tissue, 7cm x 10cm, etc.) 5. Depth of the debridement* (e.g., skin, subcutaneous tissue, fascia, muscle, bone, etc.) In order to capture the severity of condition and code the appropriate procedure; could you please document the following: Excisional debridement (the removal of necrotic, devitalized tissue or slough by means of cutting away of tissue) Non-excisional debridement (the removal of necrotic, devitalized tissue or slough by means of flushing, brushing, or washing. (Irrigation) Please continue to document in your progress notes and discharge summary in order to capture severity of illness and risk of mortality. Include clinical findings that support your diagnosis. MTDD
--- NOTE | 2019-11-29 10:20 | CDI ---
Systolic CHFDocumentation Clarification Form Date: 11/29/2019 1002 CDS: Stephani Martin RN, CCDS Admit Date: 11/26/2019 1719 Patient Name: Carolina García ATTENTION: The Clinical Documentation Specialists (CDI) and [facility] Coding Staff appreciate your assistance in clarifying documentation. Please respond to the clarification below the line at the bottom and electronically sign. The CDI & [facility] Coding staff will review the response and follow-up if needed. Please note: Queries are made part of the Legal Health Record. If you have any questions, please contact the author of this message via ITS. Dr. William CHF is documented in the PMH and requires further specificity. History/Risk Factors: Anemia, Falls, Hyponatremia, COPD, GERD, HTN, Hx ME, DJD, , O w BMI 35.5, CHF, Chest pain Clinical Indicators: 11/27 & 11/28 Pulmonary Progress notes: "congestion heart failure mild with an ejection fraction of 40-45%." 11/25 1513 Admission VS/Pulse OX: Temp 98, Hr 93, RR 16, B/P 141/65, Spo2 94% RA BNP: no checked this admission 10/28/2019 Echocardiogram Results: EF 40-45% Chest X Ray: "chronic changes w/o evidence for acute pulmonary disease." Treatment: Lasix 40 mg PO Daily In your professional opinion, can you please clarify the acuity and type of CHF if known? Chronic Systolic Heart Failure Chronic Systolic & Diastolic Heart Failure: Unable to Determine Other, please specify Please continue to document in your progress notes and discharge summary in order to capture severity of illness and risk of mortality. Include clinical findings that support your diagnosis. Systolic CHF MTDD
--- NOTE | 2019-11-29 11:13 | PN ---
PROGRESS NOTE DATE OF SERVICE: November 29, 2019 The patient is a 74-year-old pleasant white female admitted to the hospital with lower extremity wound infection presently on antibiotics. While in the hospital, was noted to have severe microcytic anemia. Workup revealed vitamin B12 deficiency. She received vitamin B12 1000 mg IM x1 yesterday and hematology was consulted. In the meantime, she is doing well. She denies any symptoms. PHYSICAL EXAMINATION: Blood pressure 112/60, pulse 78, temperature 97.8. HEENT examination unremarkable. Conjunctivae pale. Sclerae anicteric. Oral cavity no lesions. NECK no JVD or lymph node enlargement. CHEST was clear to auscultation. HEART: Regular rate and rhythm. ABDOMEN was soft. It was nontender, nondistended. Bowel sounds are positive. No organomegaly. EXTREMITIES no pedal edema. NEURO: She is alert and oriented x3. No focal deficits. LABS: WBC 2.1, hemoglobin 7.1, MCV is 113, platelets normal. Basic metabolic panel is within normal limits. Iron saturation 34% and serum iron is 493. Vitamin B12 was 171, folate was normal. IMPRESSION: 1. Macrocytic anemia secondary to vitamin B12 deficiency status post vitamin B12 injection yesterday of 1000 mg. Hematology following the patient closely. 2. Chronic lower extremity wound infection following recent fall. 3. History of hypertension. 4. Lower extremity cellulitis, on antibiotics. 5. Hypothyroidism. RECOMMENDATIONS: 1. Monitor CBC frequently. 2. Continue vitamin B12 injections as recommended by Hematology. 3. We will sign off at this time. 4. She was advised to follow up in the office in a month following discharge from the hospital and we will consider an outpatient colonoscopy as she never had this done before. Thank you for this consultation. MMODL / IJN: [id number] /
[2019-11-29 16:21] LABS: Rheumatoid Factor, Qnt 6 IU/mL (0-15)
--- NOTE | 2019-11-29 16:49 | PN ---
PROGRESS NOTE DATE OF SERVICE: 11/29/2019 REASON FOR FOLLOWUP: Bilateral lower extremity wound cellulitis. INTERVAL HISTORY: Patient is currently afebrile. The patient is feeling better. Breathing comfortably. Denies having any chest pain or shortness of breath. Minimal cough. No abdominal pain or any worsening pain to the leg. PHYSICAL EXAMINATION: Blood pressure 132/68 with a pulse of 87, temperature 97.6. She is 96% on room air. General description is an elderly female lying in bed in no distress. Respiratory system: Unlabored breathing. Clear to auscultation anteriorly. Heart S1, S2. Regular rate and rhythm. Abdomen soft, no tenderness. Legs currently dressed up. No obvious drainage on the dressing. LABS: White count 2.1, creatinine 0.75. Wound cultures currently pending. DIAGNOSTIC IMPRESSION AND PLAN: Patient with bilateral lower extremity wound with secondary cellulitis, status post debridement of the wound. Will wait for the culture to finalize. Continue Rocephin 2 gm daily. Monitor clinical course closely. MMODL / IJN: [id number] /
--- NOTE | 2019-11-29 18:20 | P.PN ---
Subjective Progress Note Date: 11/29/19 Principal diagnosis: Left lower extremity cellulitis Acute on chronic anemia Bilateral gamble ulcers 74-year-old pleasant white female who was admitted to the hospital because of severe anemia and lower extremity wound infection. She was noted to have a hemoglobin on presentation of 6.8 and was transfused with one unit of packed red blood cells. On admission she denied any reports of nausea vomiting or rectal bleeding. Today she continues to state that she has had no abdominal pain, nausea, vomiting, melena or rectal bleeding. Iron studies were completed on the patient, iron 85, TIBC 244, % saturation 34.84, ferritin 493, B12 171. 11/29/2019 She has been evaluated by vascular surgery with a plan for surgical debridement of these wounds as there was concern they were still seeping, the patient also have a CTA with a question of PE. Pulmonary's note has been reviewed and dopplers ordered. At this time low suspicion of pulmonary embolism. Objective - Vital Signs Vital signs: Vital Signs Temp 97.6 F 11/29/19 11:22 Pulse 87 11/29/19 11:22 Resp 17 11/29/19 11:22 BP 102/68 11/29/19 11:22 Pulse Ox 96 11/29/19 11:22 Intake & Output 11/28/19 11/29/19 11/29/19 18:59 06:59 18:59 Intake Total 1000 Balance 1000 Weight 90.718 kg 101.6 kg Intake: Intake, IV Titration 100 Amount cefTRIAXone 2 gm In 100 Sodium Chloride 0.9% 50 ml @ 100 mls/hr IVPB Q24HR [facility] Rx#:[id number] Oral 900 Other: Voiding Method Toilet Toilet Toilet Bedside Commode Bedside Commode Bedside Commode # Voids 4 1 1 - Exam General appearance: The patient is alert, oriented, in no acute distress. HET: Head is normocephalic and atraumatic. Conjunctiva pink. Sclera anicteric. Neck: Supple without lymphadenopathy. Trachea midline. Abdomen: Soft, nontender, nondistended with bowel sounds. No palpable organomegaly. Extremities: Normal skin color and turgor. No pedal edema. Neurological: No focal deficits. Alert and oriented 3. - Labs CBC & Chem 7: 11/29/19 05:02 11/29/19 08:54 Labs: Abnormal Lab Results - Last 24 Hours (Table) 11/29/19 11/29/19 11/29/19 Range/Units 05:02 05:02 08:54 WBC 2.1 L (3.8-10.6) k/uL RBC 2.00 L (3.80-5.40) m/uL Hgb 7.1 L (11.4-16.0) gm/dL Hct 22.7 L (34.0-46.0) % MCV 113.4 H (80.0-100.0) fL MCH 35.4 H (25.0-35.0) pg RDW 18.7 H (11.5-15.5) % Neutrophils # 0.9 L (1.3-7.7) k/uL Lymphocytes # 0.9 L (1.0-4.8) k/uL Macrocytosis Marked A Sodium 135 L (137-145) mmol/L Glucose 133 H (74-99) mg/dL Calcium 8.1 L (8.7-10.3) mg/dL Microbiology - Last 24 Hours (Table) 11/28/19 07:30 Gram Stain - Preliminary Leg - Right Wound Culture - Preliminary 11/28/19 07:30 Anaerobic Culture - Preliminary Leg - Right Assessment and Plan Assessment: 1. Macrocytic anemia and Hemoccult negative stool. Most likely we are dealing with anemia of chronic disease or other etiologies. Doubt iron deficiency anemia, but this cannot be entirely excluded. The patient never had a colonoscopy in the past. 2. Lower extremity cellulitis, rule out osteomyelitis. Patient had bone scan which was negative for osteomyelitis. Patient underwent debridement of wounds today with Dr. Rubio. 3. Questionable pulmonary embolism. Dr. Granados has been consult. 4. History of hypertension and hypothyroidism Plan: 1. Obtain iron studies, serum B12 and folate levels 2. Vitamin B12 injection ordered 3. No plans for endoscopic intervention at this time 4. Transfuse if hemoglobin less than 7 5. Repeat CBC in the morning 6. Consult hematology We Will follow you closely
[2019-11-29 20:51] LABS: Glucose,Whole Blood 146 mg/dL (75-99)
[2019-11-30] MEDS: HYDROcodone/APAP 5-325MG 1 EACH TAB PO PRN ×2 (02:42→18:16)
[2019-11-30] MEDS: LEVOTHYROXINE 100 MCG TAB PO SCH (05:06)
[2019-11-30] MEDS: ONDANSETRON ODT 4 MG TAB PO PRN (08:04)
[2019-11-30] MEDS: lisinopriL 20 MG TAB PO SCH (08:04)
[2019-11-30] MEDS: FUROSEMIDE 40 MG TAB PO SCH (08:04)
[2019-11-30] MEDS: PANTOPRAZOLE 40 MG/10 ML VIAL IV SCH (08:14)
[2019-11-30] MEDS: CYANOCOBALAMIN 1,000 MCG/ML 1 ML VIAL IM SCH (08:16)
[2019-11-30 11:46] LABS: Anisocytosis Slight; Basophils % (A) 1 %; Eosinophils # (A) 0.1 k/uL (0-0.7); Eosinophils % (A) 3 %; HCT 23.6 % (34.0-46.0); HGB 7.3 gm/dL (11.4-16.0); Hypochromasia Moderate; Lymphocytes # (A) 0.7 k/uL (1.0-4.8); Lymphocytes % (A) 32 %; MCH 35.5 pg (25.0-35.0); MCHC 30.8 g/dL (31.0-37.0); Macrocytosis Marked; Mean Platelet Volume 9.7; Monocytes # (A) 0.1 k/uL (0-1.0); Monocytes % (A) 6 %; Neutrophils # (A) 1.2 k/uL (1.3-7.7); Neutrophils % (A) 54 %; Platelet Count 267 k/uL (150-450); RBC 2.05 m/uL (3.80-5.40); RDW 18.7 % (11.5-15.5); WBC 2.1 k/uL (3.8-10.6)
[2019-11-30 11:53] LABS: ALT 9 U/L (4-34); AST 19 U/L (14-36); African American GFR (CKD) >90 (>60 ml/min/1.73 sqM); Albumin 3.6 g/dL (3.5-5.0); Albumin/Globulin Ratio 1.1; Alkaline Phosphatase 81 U/L (38-126); Anion Gap 7 mmol/L; Blood Urea Nitrogen 15 mg/dL (7-17); Calcium 8.4 mg/dL (8.4-10.2); Carbon Dioxide 26 mmol/L (22-30); Chloride 105 mmol/L (98-107); Globulin 3.4 g/dL; Glucose 117 mg/dL (74-99); Non-African American GFR(CKD) 82 (>60 ml/min/1.73 sqM); Potassium 4.5 mmol/L (3.5-5.1); Sodium 138 mmol/L (137-145); Total Bilirubin 0.4 mg/dL (0.2-1.3)
[2019-11-30 12:34] LABS: Poikilocytosis (M) Present
--- NOTE | 2019-11-30 15:22 | P.PN ---
Subjective Progress Note Date: 11/30/19 Principal diagnosis: Left lower extremity cellulitis Acute on chronic anemia Bilateral gamble ulcers 74-year-old pleasant white female who was admitted to the hospital because of severe anemia and lower extremity wound infection. She was noted to have a hemoglobin on presentation of 6.8 and was transfused with one unit of packed red blood cells. On admission she denied any reports of nausea vomiting or rectal bleeding. Today she continues to state that she has had no abdominal pain, nausea, vomiting, melena or rectal bleeding. Iron studies were completed on the patient, iron 85, TIBC 244, % saturation 34.84, ferritin 493, B12 171. 11/29/2019 She has been evaluated by vascular surgery with a plan for surgical debridement of these wounds as there was concern they were still seeping, the patient also have a CTA with a question of PE. Pulmonary's note has been reviewed and dopplers ordered. At this time low suspicion of pulmonary embolism. 11/30/2019 Patient is seen and evaluated in room at bedside; denies any specific complaints Vital signs remained stable with a temperature of 97.9, pulse 15, respiration 18 and blood pressure 118/73 Lab review shows a white blood count of 2.1, hemoglobin of 7.3 and platelet count of 267; hemoglobin continues to stay stable; patient has undergone debridement of lower extremity wounds with vascular surgery; patient has undergone CT of chest and PE has been ruled out Objective - Vital Signs Vital signs: Vital Signs Temp 97.6 F 11/30/19 05:01 Pulse 92 11/30/19 05:01 Resp 20 11/30/19 05:01 BP 144/65 11/30/19 05:01 Pulse Ox 96 11/30/19 05:01 Intake & Output 11/29/19 11/30/19 11/30/19 18:59 06:59 18:59 Weight 101.6 kg Other: Voiding Method Toilet Toilet Toilet Bedside Commode Bedside Commode Bedside Commode # Voids 1 3 1 - Exam General appearance: The patient is alert, oriented, in no acute distress. HET: Head is normocephalic and atraumatic. Conjunctiva pink. Sclera anicteric. Neck: Supple without lymphadenopathy. Trachea midline. Abdomen: Soft, nontender, nondistended with bowel sounds. No palpable organomeg lamont. Extremities: Normal skin color and turgor. No pedal edema. Neurological: No focal deficits. Alert and oriented 3. - Labs CBC & Chem 7: 11/30/19 10:52 11/30/19 10:52 Labs: Abnormal Lab Results - Last 24 Hours (Table) 11/29/19 11/29/19 Range/Units 08:54 20:47 ESR 126 H (0-30) mm/Hr POC Glucose (mg/dL) 146 H (75-99) mg/dL Microbiology - Last 24 Hours (Table) 11/28/19 07:30 Gram Stain - Preliminary Leg - Right Wound Culture - Preliminary Gram Neg Bacilli Assessment and Plan Assessment: 1. Macrocytic anemia and Hemoccult negative stool. Most likely we are dealing with anemia of chronic disease or other etiologies. Doubt iron deficiency anemia, but this cannot be entirely excluded. The patient never had a c olonoscopy in the past. 2. Lower extremity cellulitis, rule out osteomyelitis. Patient had bone scan which was negative for osteomyelitis. Patient underwent debridement of wounds today with Dr. Rubio. 3. Questionable pulmonary embolism. Dr. Granados has been consult. 4. History of hypertension and hypothyroidism Plan: 1. Obtain iron studies, serum B12 and folate levels 2. Vitamin B12 injection ordered 3. No plans for endoscopic intervention at this time 4. Transfuse if hemoglobin less than 7 5. Repeat CBC in the morning 6. Consult hematology We Will follow you closely
--- NOTE | 2019-11-30 16:49 | PN ---
PROGRESS NOTE DATE OF SERVICE: 11/30/2019 REASON FOR FOLLOWUP: Bilateral lower extremity wound and cellulitis. INTERVAL HISTORY: Patient is currently afebrile. The patient is feeling better. Breathing comfortably. No chest pain. No cough. No abdominal pain or any worsening pain in the lower extremity wound area. PHYSICAL EXAMINATION: Blood pressure 118/70 with a pulse of 105. Temperature 97.9. She is 98% on room air. General description: The patient is an elderly female lying in bed in no distress. Respiratory system: Unlabored breathing, clear to auscultation anteriorly. Heart S1, S2. Regular rate and rhythm. Abdomen soft. No tenderness. Legs currently wrapped up. No obvious drainage on the dressing. LABS: Hemoglobin 10.3, white count 2.1, creatinine 0.72. DIAGNOSTIC IMPRESSION AND PLAN: Patient with left leg status post wound debridement and culture showing gram-negative. We will wait for the cultures to finalize to determine her discharge antibiotics. Continue with Rocephin. Local wound care per Surgery. Continue supportive care. MMODL / IJN: [id number] /
[2019-11-30] MEDS: traMADol 50 MG TAB PO PRN (20:35)
[2019-12-01 03:56] LABS: Anisocytosis Slight; HCT 23.4 % (34.0-46.0); HGB 7.2 gm/dL (11.4-16.0); Hypochromasia Slight; MCH 35.8 pg (25.0-35.0); MCHC 30.7 g/dL (31.0-37.0); Macrocytosis Marked; Platelet Count 255 k/uL (150-450); RBC 2.01 m/uL (3.80-5.40); RDW 19.3 % (11.5-15.5); WBC 2.7 k/uL (3.8-10.6)
[2019-12-01] MEDS: HYDROcodone/APAP 5-325MG 1 EACH TAB PO PRN ×2 (03:58→13:09)
[2019-12-01 04:02] LABS: MCV 116.4 fL (80.0-100.0)
[2019-12-01 04:25] LABS: Band Neutrophils % 3 %; Eosinophils # (M) 0.14 k/uL (0-0.7); Lymphocytes # (M) 0.78 k/uL (1.0-4.8); Monocytes # (M) 0.16 k/uL (0-1.0); Neutrophils % (M) 57 %; Nucleated Red Blood Cells 0 /100 WBC (0-0); Total Cells Counted 100
[2019-12-01 04:27] LABS: Anisocytosis (M) Present; Rouleaux Present
[2019-12-01] MEDS: LEVOTHYROXINE 100 MCG TAB PO SCH (06:05)
[2019-12-01] MEDS: CYANOCOBALAMIN 1,000 MCG/ML 1 ML VIAL IM SCH (09:17)
[2019-12-01] MEDS: FOLIC ACID 1 MG TAB PO SCH (09:17)
[2019-12-01] MEDS: PANTOPRAZOLE 40 MG/10 ML VIAL IV SCH (09:17)
[2019-12-01] MEDS: lisinopriL 20 MG TAB PO SCH (09:17)
[2019-12-01] MEDS: FUROSEMIDE 40 MG TAB PO SCH (09:17)
[2019-12-01 09:45] LABS: Free Kappa Lt Chain Qnt, Serum 4.97 mg/dL (0.33-1.94); Immunoglobulin M 61.1 mg/dL (40.0-280.0)
[2019-12-01 10:10] LABS: African American GFR (CKD) 97.5 (60.0-200.0); Albumin 3.4 g/dL (3.80-4.90); Albumin/Globulin Ratio 1.42 (1.60-3.17); Anion Gap 5.4 mmol/L (4.00-12.00); Calcium 8.3 mg/dL (8.7-10.3); Carbon Dioxide 26.6 mmol/L (21.6-31.8); Globulin 2.4 g/dL (1.6-3.3); Non-African American GFR(CKD) 84.2 (60.0-200.0); Potassium 4.6 mmol/L (3.5-5.5); Total Bilirubin 0.2 mg/dL (0.2-1.2); Total Protein 5.8 g/dL (6.2-8.2)
--- NOTE | 2019-12-01 10:35 | P.PN ---
Subjective Progress Note Date: 12/01/19 Principal diagnosis: Bicytopenia In follow-up today patient continues to do well, she is been seen by Vascular and Infectious Disease, she's had I&D with deep cultures, she continues on antibiotics. She denies any side effects to the antibiotics. She is working with Physical Therapy to get up and moving around. She has been started on B12 supplementation parenterally with no complaints, no complaints related to folic acid. She has no acute complaints of a 10 point review of systems. Objective - Vital Signs Vital signs: Vital Signs Temp 98.1 F 12/01/19 05:00 Pulse 77 12/01/19 05:00 Resp 18 12/01/19 05:00 BP 112/57 12/01/19 05:00 Pulse Ox 95 12/01/19 05:00 Intake & Output 11/30/19 12/01/19 12/01/19 18:59 06:59 18:59 Intake Total 50 120 240 Balance 50 120 240 Weight 113 kg Intake: IV 120 ns@10 120 Intake, IV Titration 50 Amount cefTRIAXone 2 gm In 50 Sodium Chloride 0.9% 50 ml @ 100 mls/hr IVPB Q24HR [facility] Rx#:[id number] Oral 240 Other: Voiding Method Toilet Bedside Commode Bedside Commode Bedside Commode # Voids 1 - Constitutional General appearance: Present: cooperative, morbidly obese, no acute distress - EENT Eyes: Present: anicteric sclerae, EOMI ENT: Present: hearing grossly normal - Respiratory Respiratory: bilateral: CTA - Cardiovascular Heart sounds: normal: S1, S2 Abnormal Heart Sounds: Absent: systolic murmur, diastolic murmur, rub, S3 Gal lop, S4 Gallop, click, other - Peripheral edema leg Peripheral Edema: bilateral: 1+ - Gastrointestinal General gastrointestinal: Present: normal bowel sounds, soft - Integumentary Integumentary Comment(s): Bilateral lower extremity wounds are dressed, no drainage noted - Neurologic Neurologic: Present: CNII-XII intact - Musculoskeletal Musculoskeletal Comment(s): Bilateral lower extremity weakness - Psychiatric Psychiatric: Present: A&O x's 3, appropriate affect, intact judgment & insight - Labs CBC & Chem 7: 12/01/19 03:34 12/01/19 03:34 Labs: Abnormal Lab Results - Last 24 Hours (Table) 09/11/29/19 11/29/19 Range/Units 08:54 08:54 08:54 WBC (3.8-10.6) k/uL RBC (3.80-5.40) m/uL Hgb (11.4-16.0) gm/dL Hct (34.0-46.0) % MCV (80.0-100.0) fL MCH (25.0-35.0) pg MCHC (31.0-37.0) g/dL RDW (11.5-15.5) % Neutrophils # (1.3-7.7) k/uL Lymphocytes # (1.0-4.8) k/uL Lymphocytes # (Manual) (1.0-4.8) k/uL Macrocytosis Haptoglobin 263.0 H (31.2-198.0) mg/dL Glucose (74-99) mg/dL Calcium (8.7-10.3) mg/dL Total Protein (6.2-8.2) g/dL Albumin (3.80-4.90) g/dL Albumin/Globulin Ratio (1.60-3.17) g/dL IgG 1730.0 H (700.0-1600.0) mg/dL IgA 419.0 H (60.0-350.0) mg/dL Free [place] LC, Quant 4.97 H (0.33-1.94) mg/dL Free Lambda LC, Quant 3.95 H (0.57-2.63) mg/dL 11/30/19 11/30/19 12/01/19 Range/Units 10:52 10:52 03:34 WBC 2.1 L 2.7 L (3.8-10.6) k/uL RBC 2.05 L 2.01 L (3.80-5.40) m/uL Hgb 7.3 L 7.2 L (11.4-16.0) gm/dL Hct 23.6 L 23.4 L (34.0-46.0) % MCV 115.0 H 116.4 H (80.0-100.0) fL MCH 35.5 H 35.8 H (25.0-35.0) pg MCHC 30.8 L 30.7 L (31.0-37.0) g/dL RDW 18.7 H 19.3 H (11.5-15.5) % Neutrophils # 1.2 L (1.3-7.7) k/uL Lymphocytes # 0.7 L (1.0-4.8) k/uL Lymphocytes # (Manual) 0.78 L (1.0-4.8) k/uL Macrocytosis Marked A Marked A Haptoglobin (31.2-198.0) mg/dL Glucose 117 H (74-99) mg/dL Calcium (8.7-10.3) mg/dL Total Protein (6.2-8.2) g/dL Albumin (3.80-4.90) g/dL Albumin/Globulin Ratio (1.60-3.17) g/dL IgG (700.0-1600.0) mg/dL IgA (60.0-350.0) mg/dL Free [place] LC, Quant (0.33-1.94) mg/dL Free Lambda LC, Quant (0.57-2.63) mg/dL 12/01/19 Range/Units 03:34 WBC (3.8-10.6) k/uL RBC (3.80-5.40) m/uL Hgb (11.4-16.0) gm/dL Hct (34.0-46.0) % MCV (80.0-100.0) fL MCH (25.0-35.0) pg MCHC (31.0-37.0) g/dL RDW (11.5-15.5) % Neutrophils # (1.3-7.7) k/uL Lymphocytes # (1.0-4.8) k/uL Lymphocytes # (Manual) (1.0-4.8) k/uL Macrocytosis Haptoglobin (31.2-198.0) mg/dL Glucose (74-99) mg/dL Calcium 8.3 L (8.7-10.3) mg/dL Total Protein 5.8 L (6.2-8.2) g/dL Albumin 3.40 L (3.80-4.90) g/dL Albumin/Globulin Ratio 1.42 L (1.60-3.17) g/dL IgG (700.0-1600.0) mg/dL IgA (60.0-350.0) mg/dL Free [place] LC, Quant (0.33-1.94) mg/dL Free Lambda LC, Quant (0.57-2.63) mg/dL Microbiology - Last 24 Hours (Table) 11/28/19 07:30 Anaerobic Culture - Preliminary Leg - Right 11/28/19 07:30 Gram Stain - Preliminary Leg - Right Wound Culture - Preliminary Gram Neg Bacilli Assessment and Plan (1) Bicytopenia Narrative/Plan: Bicytopenia workup is still pending. Of the results that we have thus far patient is being supplemented for B12 deficiency with addition of folic acid as folic acid will deplete as B12 becomes available for utilization and red blood cell production. Iron studies are adequate with an elevated ferritin secondary to inflammation. Patient does not require transfusion at this time. WBC though low, is improving. ANC was 1200 yesterday. It was explained to patient that as she is supplemented if her bicytopenia improves and nothing suggestive of an underlying marrow problem is identified as the bicytopenia workup results then no further workup would be done at that time. If her counts do not improve or if her workup does show suspicions for an underlying bone marrow problem then, bone marrow biopsy would be recommended in the future. Patient verbalized understanding the plan and is in agreement with the same. She is agreeable to continue with B12 supplementation's as an outpatient. Current Visit: Yes Status: Acute Priority: High Code(s): D75.89 - OTHER SPECIFIED DISEASES OF BLOOD AND BLOOD-FORMING ORGANS SNOMED Code(s): 57931276 (2) Macrocytic anemia with vitamin B12 deficiency Narrative/Plan: Parenteral B12 supplementation initiated. Was explained to patient that she needs to continue on supplementation. Patient states having a history of B12 deficiency and requiring injection quite some time ago but, not following t hrough. Follow-up appointment will be made for patient to continue on B12. She'll need to continue on folic acid daily. Review the notes, patient is going to follow-up with Gastroenterology for pos sible colonoscopy outpatient as she has never had this age-related cancer screening. Current Visit: Yes Status: Acute Priority: High Code(s): D51.9 - VITAMIN B12 DEFICIENCY ANEMIA, UNSPECIFIED SNOMED Code(s): 58602150 Plan: Doctor attests: I performed a history and physical examination of this patient, developed impression and plan of care. Discussed with dictator. I agree with dictators note, documented as a scribe.
[2019-12-01 11:16] LABS: Protein, Total 6.3 g/dL (6.2-8.2)
--- NOTE | 2019-12-01 13:14 | P.PCN ---
Description of Procedure: Dictating addendum on patient excisional biopsy using sharp [id number] down to separate his tissue
--- NOTE | 2019-12-01 14:55 | PN ---
PROGRESS NOTE DATE OF SERVICE: 12/01/2019 REASON FOR FOLLOWUP: Bilateral lower extremity wound and cellulitis. INTERVAL HISTORY: The patient is currently afebrile. Patient is breathing comfortably. Denies having any chest pain. No shortness of breath, no cough. No worsening pain to the leg wound. No nausea, no vomiting, or any diarrhea. PHYSICAL EXAMINATION: Blood pressure is 117/76, pulse of 89, temperature 97.6. She is 95% on room air. General description is an elderly female, up in the chair in no distress. RESPIRATORY SYSTEM: Unlabored breathing, clear to auscultation anteriorly. HEART: S1, S2. Regular rate and rhythm. ABDOMEN: Soft, no tenderness. LEGS: Currently dressed with minimal drainage on the dressing. LABS: Wound culture of Proteus mirabilis, sensitive pathogen. Hemoglobin 7.2, white count 2.7, creatinine 0.7. DIAGNOSTIC IMPRESSION AND PLAN: Patient with bilateral lower extremity wound with cellulitis, especially left leg, status post debridement. Culture with Proteus. Patient to continue Rocephin 2 g daily for 2 weeks. Local wound care per Surgery. Continue supportive care. MMODL / IJN: [id number] /
[2019-12-02] MEDS: HYDROcodone/APAP 5-325MG 1 EACH TAB PO PRN (04:25)
[2019-12-02] MEDS: LEVOTHYROXINE 100 MCG TAB PO SCH (04:25)
[2019-12-02 05:13] LABS: Anisocytosis Slight; Basophils % (A) 0 %; Eosinophils # (A) 0.1 k/uL (0-0.7); Eosinophils % (A) 3 %; HGB 7.2 gm/dL (11.4-16.0); Hypochromasia Slight; Lymphocytes % (A) 38 %; MCH 35.8 pg (25.0-35.0); MCHC 31.4 g/dL (31.0-37.0); Macrocytosis Marked; Mean Platelet Volume 9.5; Monocytes # (A) 0.2 k/uL (0-1.0); Monocytes % (A) 6 %; Neutrophils # (A) 1.3 k/uL (1.3-7.7); Neutrophils % (A) 50 %; Platelet Count 263 k/uL (150-450); RBC 2.02 m/uL (3.80-5.40); RDW 18.8 % (11.5-15.5); WBC 2.6 k/uL (3.8-10.6)
[2019-12-02] MEDS: lisinopriL 20 MG TAB PO SCH (08:52)
[2019-12-02] MEDS: CYANOCOBALAMIN 1,000 MCG/ML 1 ML VIAL IM SCH (08:52)
[2019-12-02] MEDS: FUROSEMIDE 40 MG TAB PO SCH (08:52)
[2019-12-02] MEDS: PANTOPRAZOLE 40 MG TABLET PO SCH (08:52)
[2019-12-02] MEDS: FOLIC ACID 1 MG TAB PO SCH (08:52)
[2019-12-02 09:32] LABS: African American GFR (CKD) 97.5 (60.0-200.0); Anion Gap 8.8 mmol/L (4.00-12.00); BUN/Creat Ratio 21.43 Ratio (12.00-20.00); Calcium 8.4 mg/dL (8.7-10.3); Carbon Dioxide 26.2 mmol/L (21.6-31.8); Non-African American GFR(CKD) 84.2 (60.0-200.0); Potassium 4.4 mmol/L (3.5-5.5)
[2019-12-02 09:37] LABS: Albumin 2.94 g/dL (3.80-4.90); Gamma Globulin 1.32 g/dL (0.70-1.50)
--- NOTE | 2019-12-02 09:57 | P.PN ---
Subjective Progress Note Date: 12/01/19 Principal diagnosis: Left lower extremity cellulitis Acute on chronic anemia. b12 defficiency Bilateral gamble ulcers 74-year-old pleasant white female who was admitted to the hospital because of severe anemia and lower extremity wound infection. She was noted to have a hemoglobin on presentation of 6.8 and was transfused with one unit of packed red blood cells. On admission she denied any reports of nausea vomiting or rectal bleeding. Today she continues to state that she has had no abdominal pain, nausea, vomiting, melena or rectal bleeding. Iron studies were completed on the patient, iron 85, TIBC 244, % saturation 34.84, ferritin 493, B12 171. 11/29/2019 She has been evaluated by vascular surgery with a plan for surgical debridement of these wounds as there was concern they were still seeping, the patient also have a CTA with a question of PE. Pulmonary's note has been reviewed and dopplers ordered. At this time low suspicion of pulmonary embolism. 11/30/2019 Patient is seen and evaluated in room at bedside; denies any specific complaints Vital signs remained stable with a temperature of 97.9, pulse 15, respiration 18 and blood pressure 118/73 Lab review shows a white blood count of 2.1, hemoglobin of 7.3 and platelet count of 267; hemoglobin continues to stay stable; patient has undergone debride ment of lower extremity wounds with vascular surgery; patient has undergone CT of chest and PE has been ruled out. 12/01/2019 Patient is currently sitting in a chair comfortably. No complaints of chest pain or shortness breath. Bilateral lower extremity wounds showed continued on wound care. Wound culture showed Proteus Mirabella species. ID is following. Patient is being continued on vitamin B12 supplementation. Laboratory test showed WBC 2.7 and hemoglobin level is 7.2 and platelets 255. RDW is 19.3 Vitamin B12 level was 171, Current medications reviewed. Objective - Vital Signs Vital signs: Vital Signs Temp 97.9 F 12/01/19 11:56 Pulse 89 12/01/19 11:56 Resp 17 12/01/19 11:56 BP 117/76 12/01/19 11:56 Pulse Ox 95 12/01/19 11:56 Intake & Output 11/30/19 12/01/19 12/01/19 18:59 06:59 18:59 Intake Total 50 120 290 Balance 50 120 290 Weight 113 kg Intake: IV 120 ns@10 120 Intake, IV Titration 50 50 Amount cefTRIAXone 2 gm In 50 50 Sodium Chloride 0.9% 50 ml @ 100 mls/hr IVPB Q24HR [facility] Rx#:[id number] Oral 240 Other: Voiding Method Toilet Bedside Commode Bedside Commode Bedside Commode # Voids 1 - Exam General appearance: The patient is alert, oriented, in no acute distress. HET: Head is normocephalic and atraumatic. Conjunctiva pink. Sclera anicteric. Neck: Supple without lymphadenopathy. Trachea midline. Abdomen: Soft, nontender, nondistended with bowel sounds. No palpable organomegaly. Extremities: Normal skin color and turgor. No pedal edema. Patient does have bilateral leg wounds on the gamble area minimal slough at the edges with clean base. Neurological: No focal deficits. Alert and oriented 3. - Labs CBC & Chem 7: 12/02/19 04:35 12/02/19 04:35 Labs: Abnormal Lab Results - Last 24 Hours (Table) 11/29/19 11/29/19 11/29/19 Range/Units 08:54 08:54 08:54 WBC (3.8-10.6) k/uL RBC (3.80-5.40) m/uL Hgb (11.4-16.0) gm/dL Hct (34.0-46.0) % MCV (80.0-100.0) fL MCH (25.0-35.0) pg MCHC (31.0-37.0) g/dL RDW (11.5-15.5) % Lymphocytes # (Manual) (1.0-4.8) k/uL Macrocytosis Haptoglobin 263.0 H (31.2-198.0) mg/dL Calcium (8.7-10.3) mg/dL Total Protein (6.2-8.2) g/dL Albumin (3.80-4.90) g/dL Albumin/Globulin Ratio (1.60-3.17) g/dL IgG 1730.0 H (700.0-1600.0) mg/dL IgA 419.0 H (60.0-350.0) mg/dL Free Idana LC, Quant 4.97 H (0.33-1.94) mg/dL Free Lambda LC, Quant 3.95 H (0.57-2.63) mg/dL 12/01/19 12/01/19 Range/Units 03:34 03:34 WBC 2.7 L (3.8-10.6) k/uL RBC 2.01 L (3.80-5.40) m/uL Hgb 7.2 L (11.4-16.0) gm/dL Hct 23.4 L (34.0-46.0) % MCV 116.4 H (80.0-100.0) fL MCH 35.8 H (25.0-35.0) pg MCHC 30.7 L (31.0-37.0) g/dL RDW 19.3 H (11.5-15.5) % Lymphocytes # (Manual) 0.78 L (1.0-4.8) k/uL Macrocytosis Marked A Haptoglobin (31.2-198.0) mg/dL Calcium 8.3 L (8.7-10.3) mg/dL Total Protein 5.8 L (6.2-8.2) g/dL Albumin 3.40 L (3.80-4.90) g/dL Albumin/Globulin Ratio 1.42 L (1.60-3.17) g/dL IgG (700.0-1600.0) mg/dL IgA (60.0-350.0) mg/dL Free Idana LC, Quant (0.33-1.94) mg/dL Free Lambda LC, Quant (0.57-2.63) mg/dL Microbiology - Last 24 Hours (Table) 11/28/19 07:30 Gram Stain - Final Leg - Right Wound Culture - Final Proteus mirabilis 11/28/19 07:30 Anaerobic Culture - Preliminary Leg - Right Assessment and Plan Assessment: 1. Macrocytic anemia/ b12 defficiency and Hemoccult negative stool.Iron studies showed adequate iron level. 2. Bicutopenia. Likely due to vitamin deficiency. If counts not improved patient may need bone marrow biopsy. Oncology is following. 2. Chronic ulceration/Lower extremity cellulitis, rule out osteomyelitis. Patient had bone scan which was negative for osteomyelitis. Patient underwent debridement of wounds with Dr. Rubio. 3. Questionable pulmonary embolism. Patient did have filling defects in the CT scan. Duplex scan negative for DVTs. Unlikely PE. No clinical signs. Seen by pulmonary. 4. History of hypertension and hypothyroidism Plan: Patient is status post debridement. Continued on wound care. Bone scan is negative for osteomyelitis. Wound cultures growing Proteus mirabilis. Pansensitive. Continued on B12 supplementation and monitor CBC daily. Oncology is following. And ID on board. Time with Patient: Greater than 30
--- NOTE | 2019-12-02 13:58 | PN ---
PROGRESS NOTE DATE OF SERVICE: 12/02/2019 REASON FOR FOLLOWUP: Bilateral leg wound and cellulitis to the left leg. INTERVAL HISTORY: The patient is currently afebrile. The patient is feeling better. Breathing comfortably. No chest pain or shortness of breath. No cough, no abdominal pain or any worsening pain to the left leg. PHYSICAL EXAMINATION: Blood pressure 118/77, pulse of 83, temperature 97.8. She is 99% on room air. General description is an elderly female, lying in bed in no distress. RESPIRATORY SYSTEM: Unlabored breathing, clear to auscultation anteriorly. HEART: S1, S2. Regular rate and rhythm. ABDOMEN: Soft, no tenderness. Left leg swelling has slightly decreased. Wound base with minimal slough. No foul- smelling drainage. LABS: Hemoglobin 17.8, white count 2.6, wound culture with Proteus and Propionibacterium species. DIAGNOSTIC IMPRESSION AND PLAN: Patient with left leg wound with secondary cellulitis, status post debridement. Culture now showing anaerobes as well. She is on Rocephin 2 g daily. Will add Flagyl 5 mg p.o. q.8 hours with a plan to continue discharge antibiotics, 1 IV, 1 p.o. for 2 weeks. Local wound care per Surgery and continue supportive care. MMODL / IJN: [id number] /
[2019-12-02 15:18] VITALS: BMI 44.1
[2019-12-02] MEDS: metroNIDAZOLE 500 MG TAB PO SCH ×2 (16:18→21:42)
[2019-12-03] MEDS: LEVOTHYROXINE 100 MCG TAB PO SCH (05:01)
[2019-12-03 05:26] VITALS: RESP 16
[2019-12-03] MEDS: metroNIDAZOLE 500 MG TAB PO SCH ×2 (10:09→16:54)
[2019-12-03] MEDS: PANTOPRAZOLE 40 MG TABLET PO SCH (10:09)
[2019-12-03] MEDS: FUROSEMIDE 40 MG TAB PO SCH (10:09)
[2019-12-03] MEDS: FOLIC ACID 1 MG TAB PO SCH (10:09)
[2019-12-03] MEDS: lisinopriL 20 MG TAB PO SCH (10:09)
[2019-12-03] MEDS: HYDROcodone/APAP 5-325MG 1 EACH TAB PO PRN (11:05)
[2019-12-03 12:29] LABS: Anisocytosis Slight; Basophils % (A) 1 %; Eosinophils # (A) 0.1 k/uL (0-0.7); Eosinophils % (A) 3 %; HCT 22.4 % (34.0-46.0); HGB 7.3 gm/dL (11.4-16.0); Hypochromasia Slight; Lymphocytes # (A) 0.8 k/uL (1.0-4.8); Lymphocytes % (A) 31 %; MCH 36.8 pg (25.0-35.0); MCHC 32.5 g/dL (31.0-37.0); MCV 113.3 fL (80.0-100.0); Macrocytosis Marked; Monocytes # (A) 0.2 k/uL (0-1.0); Monocytes % (A) 8 %; Neutrophils # (A) 1.4 k/uL (1.3-7.7); Neutrophils % (A) 56 %; Platelet Count 291 k/uL (150-450); RBC 1.97 m/uL (3.80-5.40); RDW 18.8 % (11.5-15.5); WBC 2.5 k/uL (3.8-10.6)
[2019-12-03 12:53] LABS: Poikilocytosis (M) Present; Rouleaux Present
[2019-12-03 13:00] LABS: African American GFR (CKD) 90 (>60 ml/min/1.73 sqM); Anion Gap 3 mmol/L; Blood Urea Nitrogen 15 mg/dL (7-17); Calcium 8.6 mg/dL (8.4-10.2); Carbon Dioxide 28 mmol/L (22-30); Chloride 105 mmol/L (98-107); Glucose 113 mg/dL (74-99); Non-African American GFR(CKD) 78 (>60 ml/min/1.73 sqM); Potassium 4.5 mmol/L (3.5-5.1); Sodium 136 mmol/L (137-145)
--- NOTE | 2019-12-03 15:00 | P.PN ---
Subjective Progress Note Date: 12/02/19 Principal diagnosis: Left lower extremity cellulitis Acute on chronic anemia. b12 defficiency Bilateral gamble ulcers 74-year-old pleasant white female who was admitted to the hospital because of severe anemia and lower extremity wound infection. She was noted to have a hemoglobin on presentation of 6.8 and was transfused with one unit of packed red blood cells. On admission she denied any reports of nausea vomiting or rectal bleeding. Today she continues to state that she has had no abdominal pain, nausea, vomiting, melena or rectal bleeding. Iron studies were completed on the patient, iron 85, TIBC 244, % saturation 34.84, ferritin 493, B12 171. 11/29/2019 She has been evaluated by vascular surgery with a plan for surgical debridement of these wounds as there was concern they were still seeping, the patient also have a CTA with a question of PE. Pulmonary's note has been reviewed and dopplers ordered. At this time low suspicion of pulmonary embolism. 11/30/2019 Patient is seen and evaluated in room at bedside; denies any specific complaints Vital signs remained stable with a temperature of 97.9, pulse 15, respiration 18 and blood pressure 118/73 Lab review shows a white blood count of 2.1, hemoglobin of 7.3 and platelet count of 267; hemoglobin continues to stay stable; patient has undergone debride ment of lower extremity wounds with vascular surgery; patient has undergone CT of chest and PE has been ruled out. 12/01/2019 Patient is currently sitting in a chair comfortably. No complaints of chest pain or shortness breath. Bilateral lower extremity wounds showed continued on wound care. Wound culture showed Proteus Mirabella species. ID is following. Patient is being continued on vitamin B12 supplementation. Laboratory test showed WBC 2.7 and hemoglobin level is 7.2 and platelets 255. RDW is 19.3 Vitamin B12 level was 171, 12/02/2019 Patient is currently sitting in the chair comfortably. Awake alert oriented 3. Leg wound dressing changes. No complaints of worsening pain. No fever no chills. Patient is being continued on ceftriaxone and Flagyl. ID is following. Otherwise patient's white blood cell count is improving to 2.6 today. Hemoglobin is stable at 7.2 Anticipate discharge to rehab in the next 24 hours with IV antibiotics. Current medications reviewed. Objective - Vital Signs Vital signs: Vital Signs Temp 97.8 F 12/02/19 11:55 Pulse 83 12/02/19 11:55 Resp 16 12/02/19 11:55 BP 118/77 12/02/19 11:55 Pulse Ox 99 12/02/19 11:55 Intake & Output 12/01/19 12/02/19 12/02/19 18:59 06:59 18:59 Intake Total 290 200 240 Balance 290 200 240 Weight 113 kg 113 kg Intake: IV 200 ns@10 200 Intake, IV Titration 50 Amount cefTRIAXone 2 gm In 50 Sodium Chloride 0.9% 50 ml @ 100 mls/hr IVPB Q24HR [facility] Rx#:[id number] Oral 240 240 Other: Voiding Method Bedside Commode Bedside Commode Bedside Commode # Voids 4 6 - Exam General appearance: The patient is alert, oriented, in no acute distress. HET: Head is normocephalic and atraumatic. Conjunctiva pink. Sclera anicteric. Neck: Supple without lymphadenopathy. Trachea midline. Abdomen: Soft, nontender, nondistended with bowel sounds. No palpable organomegaly. Extremities: Normal skin color and turgor. No pedal edema. Patient does have bilateral leg wounds on the gamble area minimal slough at the edges with clean base. Neurological: No focal deficits. Alert and oriented 3. - Labs CBC & Chem 7: 12/03/19 12:06 12/03/19 12:06 Labs: Abnormal Lab Results - Last 24 Hours (Table) 11/29/19 12/02/19 12/02/19 Range/Units 08:54 04:35 04:35 WBC 2.6 L (3.8-10.6) k/uL RBC 2.02 L (3.80-5.40) m/uL Hgb 7.2 L (11.4-16.0) gm/dL Hct 23.0 L (34.0-46.0) % MCV 114.0 H (80.0-100.0) fL MCH 35.8 H (25.0-35.0) pg RDW 18.8 H (11.5-15.5) % Macrocytosis Marked A BUN/Creatinine Ratio 21.43 H (12.00-20.00) Ratio Calcium 8.4 L (8.7-10.3) mg/dL Albumin (PEP) 2.94 L (3.80-4.90) g/dL Microbiology - Last 24 Hours (Table) 11/28/19 07:30 Anaerobic Culture - Final Leg - Right Proprionibacterium species 11/28/19 07:30 Gram Stain - Final Leg - Right Wound Culture - Final Proteus mirabilis Assessment and Plan Assessment: 1. Macrocytic anemia/ b12 defficiency and Hemoccult negative stool.Iron studies showed adequate iron level. 2. Bicutopenia. Likely due to vitamin deficiency. If counts not improved patient may need bone marrow biopsy. Oncology is following. 2. Chronic ulceration/Lower extremity cellulitis, rule out osteomyelitis. Patient had bone scan which was negative for osteomyelitis. Patient underwent debridement of wounds with Dr. Rubio. 3. Questionable pulmonary embolism. Patient did have filling defects in the CT scan. Duplex scan negative for DVTs. Unlikely PE. No clinical signs. Seen by pulmonary. 4. History of hypertension and hypothyroidism Plan: Patient is status post debridement. Continued on wound care. Bone scan is negative for osteomyelitis. Wound cultures growing Proteus mirabilis. Panse nsitive. Currently on antibiotics in the form of ceftriaxone and Flagyl. Continued on B12 supplementation and monitor CBC daily. Oncology is following. And ID on board. Time with Patient: Greater than 30
--- NOTE | 2019-12-03 15:05 | P.DS ---
Providers Date of admission: 11/26/19 17:19 Expected date of discharge: 12/03/19 Attending physician: Alessandro Haji Consults: 11/26/19 17:17 Consult Physician Urgent Consulting Provider: Sarah Coyle Consult Reason/Comments: Bilateral leg wounds Do you want consulting provider notified?: Yes 11/26/19 18:23 Consult Physician Routine Consulting Provider: Tanya Roman Consult Reason/Comments: anemia Do you want consulting provider notified?: Yes 11/27/19 10:16 Consult Physician Urgent Consulting Provider: Wesley Rubio Consult Reason/Comments: bilateral leg wounds Do you want consulting provider notified?: Yes 11/27/19 12:37 Consult Physician Routine Consulting Provider: Hannah Granados Consult Reason/Comments: r/o pe Do you want consulting provider notified?: Yes 11/28/19 15:23 Consult Physician Urgent Consulting Provider: Austin Colon Consult Reason/Comments: vitamin B12 deficiency Do you want consulting provider notified?: Yes Primary care physician: Kota Thrasher Hospital Course: Discharge diagnosis. 1. Macrocytic anemia/ b12 defficiency and Hemoccult negative stool.Iron studies showed adequate iron level. 2. Bicutopenia. Likely due to vitamin deficiency. If counts not improved patient may need bone marrow biopsy. Oncology is following. 2. Chronic ulceration/Lower extremity cellulitis, rule out osteomyelitis. Patient had bone scan which was negative for osteomyelitis. Patient underwent debridement of wounds with Dr. Rubio. Wound cultures growing Proteus.. 3. Questionable pulmonary embolism. Patient did have filling defects in the CT scan. Duplex scan negative for DVTs. Unlikely PE. No clinical signs. Seen by pulmonary. 4. History of hypertension and hypothyroidism Hospital course 74-year-old pleasant white female who was admitted to the hospital because of severe anemia and lower extremity wound infection. She was noted to have a hemoglobin on presentation of 6.8 and was transfused with one unit of packed red blood cells. On admission she denied any reports of nausea vomiting or rectal bleeding. Today she continues to state that she has had no abdominal pain, nausea, vomiting, melena or rectal bleeding. Iron studies were completed on the patient, iron 85, TIBC 244, % saturation 34.84, ferritin 493, B12 171. 11/29/2019 She has been evaluated by vascular surgery with a plan for surgical debridement of these wounds as there was concern they were still seeping, the patient also have a CTA with a question of PE. Pulmonary's note has been reviewed and dopplers ordered. At this time low suspicion of pulmonary embolism. 11/30/2019 Patient is seen and evaluated in room at bedside; denies any specific complaints Vital signs remained stable with a temperature of 97.9, pulse 15, respiration 18 and blood pressure 118/73 Lab review shows a white blood count of 2.1, hemoglobin of 7.3 and platelet count of 267; hemoglobin continues to stay stable; patient has undergone debridement of lower extremity wounds with vascular surgery; patient has undergone CT of chest and PE has been ruled out. 12/01/2019 Patient is currently sitting in a chair comfortably. No complaints of chest pain or shortness breath. Bilateral lower extremity wounds showed continued on wound care. Wound culture showed Proteus Mirabella species. ID is following. Patient is being continued on vitamin B12 supplementation. Laboratory test showed WBC 2.7 and hemoglobin level is 7.2 and platelets 255. RDW is 19.3 Vitamin B12 level was 171, 12/02/2019 Patient is currently sitting in the chair comfortably. Awake alert oriented 3. Leg wound dressing changes. No complaints of worsening pain. No fever no chills. Patient is being continued on ceftriaxone and Flagyl. ID is following. Otherwise patient's white blood cell count is improving to 2.6 today. Hemoglobin is stable at 7.2 Anticipate discharge to rehab in the next 24 hours with IV antibiotics. 12/03/2019 Patient is currently awake alert oriented 3. Currently sitting in the chair. Currently on antibiotics in the form of ceftriaxone and Flagyl as per ID recommendations. Patient does have midline. Antibiotic course for 2 weeks as per ID. Seen by PT OT. Hemoglobin level is improving to 7.3. WBC count 2.5. Patient was recommended to follow with hematology clinic for weekly B12 injections. If the white count does not improve, patient may need bone marrow biopsy. Continued on wound care and dressing changes every other day. Patient is being discharged to rehab. Physical examination. General appearance: The patient is alert, oriented, in no acute distress. HET: Head is normocephalic and atraumatic. Conjunctiva pink. Sclera anicteric. Neck: Supple without lymphadenopathy. Trachea midline. Abdomen: Soft, nontender, nondistended with bowel sounds. No palpable organomegaly. Extremities: Normal skin color and turgor. No pedal edema. Patient does have bilateral leg wounds on the gamble area minimal slough at the edges with clean base. Neurological: No focal deficits. Alert and oriented 3. Vital Signs 12/03/19 11:33 Temperature 98.0 F Pulse Rate [ 92 Left] Respiratory 16 Rate Blood Pressure 104/69 [Left Arm] O2 Sat by Pulse 94 L Oximetry Total time taken greater than 35 minutes including 18 minutes for counseling and coordination of care. Plan - Discharge Summary New Discharge Prescriptions: New Folic Acid 1 mg PO DAILY #90 tablet metroNIDAZOLE [Flagyl] 500 mg PO QID #42 tab cefTRIAXone [Rocephin] 2,000 mg IVP Q24HR #14 vial Cyanocobalamin [Vitamin B-12 Injection] 1,000 mcg IM WEEKLY #4 vial Continue Ipratropium-Albuterol Nebulize [Duoneb 0.5 mg-3 mg/3 ml Soln] 3 ml INHALATION RT-Q4H PRN ml PRN Reason: Shortness Of Breath Or Wheezing tiZANidine [Zanaflex] 4 mg PO BID PRN #6 cap PRN Reason: Muscle Spasticity lisinopriL [Prinivil] 20 mg PO DAILY@0800 Levothyroxine Sodium 200 mcg PO DAILY@0600 Acetaminophen [Tylenol] 650 mg PO Q4H PRN PRN Reason: Fever And/Or Mild Pain INSULIN ASPART (NovoLOG) [NovoLOG (formulary)] See Protocol SQ ACHS Liquacel 30 ml PO BID@0800,1700 clonazePAM [KlonoPIN] 0.5 mg PO TID PRN #10 tab PRN Reason: Anxiety Magnesium Hydroxide [Milk of Magnesia Concentrate] 7,200 mg PO Q48H PRN PRN Reason: Constipation HYDROcodone/APAP 5-325MG [Gray 5-325] 1 tab PO Q4H PRN PRN Reason: Pain bisacodyL [Bisacodyl] 10 mg RECTAL DAILY PRN PRN Reason: Constipation Na Phos,M-B/Na Phos,Di-Ba [Fleet Adult] 133 ml RECTAL DAILY PRN PRN Reason: Constipation Pantoprazole [Protonix] 40 mg PO DAILY@0600 Mirtazapine 15 mg PO HS PRN PRN Reason: Insomnia Furosemide [Lasix] 40 mg PO DAILY@0800 traMADol HCL [Ultram] 50 mg PO QID PRN PRN Reason: Pain Ondansetron Odt [Zofran ODT] 4 mg PO Q8H PRN PRN Reason: Nausea Discontinued cefTRIAXone [Rocephin] 2,000 mg IVP Q24HR #18 vial Discharge Medication List Ipratropium-Albuterol Nebulize [Duoneb 0.5 mg-3 mg/3 ml Soln] 3 ml INHALATION RT-Q4H PRN ml 10/31/19 [Rx] tiZANidine [Zanaflex] 4 mg PO BID PRN #6 cap 10/31/19 [Rx] Acetaminophen [Tylenol] 650 mg PO Q4H PRN 11/18/19 [History] INSULIN ASPART (NovoLOG) [NovoLOG (formulary)] See Protocol SQ ACHS 11/18/19 [History] Levothyroxine Sodium 200 mcg PO DAILY@0600 11/18/19 [History] Liquacel 30 ml PO BID@0800,1700 11/18/19 [History] lisinopriL [Prinivil] 20 mg PO DAILY@0800 11/18/19 [History] clonazePAM [KlonoPIN] 0.5 mg PO TID PRN #10 tab 11/22/19 [Rx] Furosemide [Lasix] 40 mg PO DAILY@0800 11/26/19 [History] HYDROcodone/APAP 5-325MG [Gray 5-325] 1 tab PO Q4H PRN 11/26/19 [History] Magnesium Hydroxide [Milk of Magnesia Concentrate] 7,200 mg PO Q48H PRN 11/26/19 [History] Mirtazapine 15 mg PO HS PRN 11/26/19 [History] Na Phos,M-B/Na Phos,Di-Ba [Fleet Adult] 133 ml RECTAL DAILY PRN 11/26/19 [History] Ondansetron Odt [Zofran ODT] 4 mg PO Q8H PRN 11/26/19 [History] Pantoprazole [Protonix] 40 mg PO DAILY@0600 11/26/19 [History] bisacodyL [Bisacodyl] 10 mg RECTAL DAILY PRN 11/26/19 [History] traMADol HCL [Ultram] 50 mg PO QID PRN 11/26/19 [History] Folic Acid 1 mg PO DAILY #90 tablet 12/01/19 [Rx] cefTRIAXone [Rocephin] 2,000 mg IVP Q24HR #14 vial 12/02/19 [Rx] metroNIDAZOLE [Flagyl] 500 mg PO QID #42 tab 12/02/19 [Rx] Cyanocobalamin [Vitamin B-12 Injection] 1,000 mcg IM WEEKLY #4 vial 12/03/19 [Rx] Follow up Appointment(s)/Referral(s): Kota Thrasher MD [Primary Care Provider] - 1-2 days [facility], [NON-STAFF] - 1 Week Dave More MD [STAFF PHYSICIAN] - 1 Week Activity/Diet/Wound Care/Special Instructions: Local wound care to the left leg wound with Santyl followed by moist dressing to be changed daily Local wound care to the right leg wound with Aquacel silver dressing Jay wrap to both legs from just above the toe to below the knee Follow-up with Dr. Coyle in the wound center next week, call [phone] to make an appointment Discharge Disposition: TRANSFER TO SNF/ECF
--- NOTE | 2019-12-03 15:46 | P.PN ---
Subjective Progress Note Date: 12/03/19 Principal diagnosis: Bicytopenia In follow-up today patient is anxious for discharge to home. Her son is at home to help her. She denies any fever, her appetite is good, she is tolerating oral intake, she is going only very short distances with the use of a walker and assistance. Pain is managed Objective - Vital Signs Vital signs: Vital Signs Temp 98.0 F 12/03/19 11:33 Pulse 92 12/03/19 11:33 Resp 16 12/03/19 11:33 BP 104/69 12/03/19 11:33 Pulse Ox 94 L 12/03/19 11:33 Intake & Output 12/02/19 12/03/19 12/03/19 18:59 06:59 18:59 Intake Total 240 Balance 240 Weight 113 kg 110.5 kg Intake: Oral 240 Other: Voiding Method Bedside Commode Bedside Commode Bedside Commode # Voids 6 2 - Constitutional General appearance: Present: cooperative, no acute distress, obese - EENT Eyes: Present: anicteric sclerae, EOMI ENT: Present: hearing grossly normal - Respiratory Details: Respirations even and unlabored at rest - Integumentary Integumentary Comment(s): Bilateral lower extremity wounds, dressings clean dry and intact, some redness noted on the legs above the dressings, not warm to the touch, skin is dry - Neurologic Neurologic: Present: CNII-XII intact - Musculoskeletal Musculoskeletal: Present: generalized weakness - Psychiatric Psychiatric: Present: A&O x's 3, appropriate affect, intact judgment & insight - Labs CBC & Chem 7: 12/03/19 12:06 12/03/19 12:06 Labs: Abnormal Lab Results - Last 24 Hours (Table) 11/29/19 12/03/19 12/03/19 Range/Units 08:54 12:06 12:06 WBC 2.5 L (3.8-10.6) k/uL RBC 1.97 L (3.80-5.40) m/uL Hgb 7.3 L (11.4-16.0) gm/dL Hct 22.4 L (34.0-46.0) % MCV 113.3 H (80.0-100.0) fL MCH 36.8 H (25.0-35.0) pg RDW 18.8 H (11.5-15.5) % Lymphocytes # 0.8 L (1.0-4.8) k/uL Macrocytosis Marked A Sodium 136 L (137-145) mmol/L Glucose 113 H (74-99) mg/dL Erythropoietin 689.50 H (2.00-30.00) mIU/mL Microbiology - Last 24 Hours (Table) 11/28/19 07:30 Anaerobic Culture - Final Leg - Right Proprionibacterium species Assessment and Plan (1) Bicytopenia Narrative/Plan: Bicytopenia workup is negative for paraproteinemia, labs most suggestive of anemia from inflammation, erythropoietin level was significantly elevated at 689. Patient is started B12 supplementation for severe deficiency. She is also on folic acid daily. Her hemoglobin has remained stable, white blood cell count and ANC still adequate. We will continue weekly B12 supplementation 4 in the outpatient setting. We will contact patient with appointment date and time as it is due next week. Her hemoglobin and B12 levels will be checked in about 4-6 weeks and additional plan of care will be developed at that time. No plans for a bone marrow biopsy at this time. Patient verbalized understanding the plan. Current Visit: Yes Status: Acute Priority: High Code(s): D75.89 - OTHER SPECIFIED DISEASES OF BLOOD AND BLOOD-FORMING ORGANS SNOMED Code(s): 36671707 (2) Macrocytic anemia with vitamin B12 deficiency Current Visit: Yes Status: Acute Priority: High Code(s): D51.9 - VITAMIN B12 DEFICIENCY ANEMIA, UNSPECIFIED SNOMED Code(s): 80088149
[2019-12-03 16:05] VITALS: BP 109/63; PULSE 94; TEMP 98
--- NOTE | 2019-12-03 16:16 | PN ---
PROGRESS NOTE DATE OF SERVICE: 12/03/2019 REASON FOR FOLLOWUP: Bilateral lower extremity wound and left lower extremity cellulitis. INTERVAL HISTORY: The patient is currently afebrile. The patient is breathing comfortably. Patient denies having any chest pain, no shortness of breath. No cough. No nausea, no vomiting. No abdominal pain, any worsening pain to the leg. PHYSICAL EXAMINATION: Blood pressure 104/69, pulse of 92, temperature 98., he is 94% on room air. General description is an elderly female, up in the chair in no distress. RESPIRATORY SYSTEM: Unlabored breathing, clear to auscultation anteriorly. HEART: S1, S2. Regular rate and rhythm. ABDOMEN: Soft, no tenderness. Left leg swelling and redness, slightly decreased. LABS: Hemoglobin 7.1, white count 2.5, creatinine 0.75. Wound culture with Propionibacterium and Proteus mirabilis. DIAGNOSTIC IMPRESSION AND PLAN: Patient with a dry left leg infected wound with secondary cellulitis, status post debridement. Local care to continue with Santyl followed by moist dressing. Antibiotic form of Rocephin and oral Flagyl for 2 weeks and close outpatient [facility]. MMODL / IJN: [id number] /
[2019-12-09] MEDS ORDERED: CYANOCOBALAMIN 1,000 MCG/ML 1 ML VIAL IM SCH (09:00)
== END 2019-12-03 18:31 | DRG 571 ==
LOC: EC 15:10 → 6NMEDSUR 17:19
PROVIDERS: ADMIT Hospitalist; ATTEND Hospitalist
PROC: 30233N1 Transfusion of Nonautologous Red Blood Cells into Peripheral Vein, Percutaneous Approach (ICD-10-PCS; 2019-11-26)
PROC: 0JBP0ZZ Excision of Left Lower Leg Subcutaneous Tissue and Fascia, Open Approach (ICD-10-PCS; principal; 2019-11-28)
PROC: 0JBN0ZZ Excision of Right Lower Leg Subcutaneous Tissue and Fascia, Open Approach (ICD-10-PCS; principal; 2019-11-28)
DX: L03.116 Cellulitis of left lower limb (principal); L97.829 Non-pressure chronic ulcer of other part of left lower leg with unspecified severity; L97.819 Non-pressure chronic ulcer of other part of right lower leg with unspecified severity; I50.20 Unspecified systolic (congestive) heart failure; D62 Acute posthemorrhagic anemia; E87.1 Hypo-osmolality and hyponatremia; L03.115 Cellulitis of right lower limb; I11.0 Hypertensive heart disease with heart failure; J44.9 Chronic obstructive pulmonary disease, unspecified; B96.4 Proteus (mirabilis) (morganii) as the cause of diseases classified elsewhere; D50.9 Iron deficiency anemia, unspecified; D51.9 Vitamin B12 deficiency anemia, unspecified; D53.9 Nutritional anemia, unspecified; D63.8 Anemia in other chronic diseases classified elsewhere; D72.819 Decreased white blood cell count, unspecified; T36.95XA Adverse effect of unspecified systemic antibiotic, initial encounter; E03.9 Hypothyroidism, unspecified; E66.9 Obesity, unspecified; E78.5 Hyperlipidemia, unspecified; Z20.828 Contact with and (suspected) exposure to other viral communicable diseases; F32.9 Major depressive disorder, single episode, unspecified; I25.2 Old myocardial infarction; I25.10 Atherosclerotic heart disease of native coronary artery without angina pectoris; K21.9 Gastro-esophageal reflux disease without esophagitis; M19.032 Primary osteoarthritis, left wrist; M19.031 Primary osteoarthritis, right wrist; M19.042 Primary osteoarthritis, left hand; M19.041 Primary osteoarthritis, right hand; M50.30 Other cervical disc degeneration, unspecified cervical region; M54.5 Low back pain; G43.909 Migraine, unspecified, not intractable, without status migrainosus; R79.1 Abnormal coagulation profile; Z91.81 History of falling; Z68.36 Body mass index [BMI] 36.0-36.9, adult; M77.52 Other enthesopathy of left foot and ankle; H26.9 Unspecified cataract; R26.9 Unspecified abnormalities of gait and mobility; Z79.890 Hormone replacement therapy; Z79.899 Other long term (current) drug therapy; Z80.3 Family history of malignant neoplasm of breast; Z82.49 Family history of ischemic heart disease and other diseases of the circulatory system; Z90.49 Acquired absence of other specified parts of digestive tract; Z90.710 Acquired absence of both cervix and uterus; Z90.79 Acquired absence of other genital organ(s); Z90.722 Acquired absence of ovaries, bilateral
CPT/HCPCS: 36415; 36430; 71045; 71275; 78315; 80048; 80053; 81003; 82272; 82607; 82668; 82728; 82746; 82784; 83010; 83540; 83550; 83615; 83883; 84165; 85025; 85045; 85379; 85610; 85652; 85730; 86038; 86334; 86431; 86850; 86900; 86901; 86920; 87070; 87075; 87077; 87186; 87205; 93970; 96374; 96375; 99285

== ENCOUNTER 2019-12-05 14:42 | Emergency (ER) | payer MEDICARE ==
[2019-12-05] MEDS ORDERED: ONDANSETRON 4 MG/2 ML VIAL IVP STA (15:01)
[2019-12-05] MEDS ORDERED: SODIUM CHLORIDE 0.9% 1,000 ML IV STA (15:01)
[2019-12-05] MEDS ORDERED: PANTOPRAZOLE 40 MG/10 ML VIAL IVP STA (15:01)
--- NOTE | 2019-12-05 15:04 | ED ---
Recheck HPI - General Chief Complaint: Recheck/Abnormal Lab/Rx Stated Complaint: Low HGB Source: patient, RN notes reviewed, old records reviewed Mode of arrival: ambulatory Limitations: no limitations - History of Present Illness Initial Comments: This is a 74-year-old female DF for evaluation, patient presents for abnormal outpatient lab testing. Patient has current PICC line being treated for cellulitis, patient has known low history of low hemoglobin, has had transfusion s in the past. She feels a little weak but no other complaints MD Complaint: abnormal lab (Low hemoglobin) -: days(s) Returns Today for: Called Because of Abnormal Lab/Test Symptoms Since Prior Visit: no new symptoms Context: called for abnormal lab result Associated Symptoms: malaise Treatments Prior to Arrival: IV/IO - Related Data Home Medications Medication Instructions Recorded Confirmed Acetaminophen [Tylenol] 650 mg PO Q4H PRN 11/18/19 12/05/19 INSULIN ASPART (NovoLOG) [NovoLOG See Protocol SQ ACHS 11/18/19 12/05/19 (formulary)] Levothyroxine Sodium 200 mcg PO DAILY@0600 11/18/19 12/05/19 Liquacel 30 ml PO BID@0800,1700 11/18/19 12/05/19 lisinopriL [Prinivil] 20 mg PO DAILY@0811/18/19 12/05/19 Furosemide [Lasix] 40 mg PO DAILY@0811/26/19 12/05/19 HYDROcodone/APAP 5-325MG [[place] 1 tab PO Q4H PRN 11/26/19 12/05/19 5-325] Magnesium Hydroxide [Milk of 7,200 mg PO Q48H PRN 11/26/19 12/05/19 Magnesia Concentrate] Mirtazapine 15 mg PO HS PRN 11/26/19 12/05/19 Na Phos,M-B/Na Phos,Di-Ba [Fleet 133 ml RECTAL DAILY PRN 11/26/19 12/05/19 Adult] Ondansetron Odt [Zofran ODT] 4 mg PO Q8H PRN 11/26/19 12/05/19 Pantoprazole [Protonix] 40 mg PO DAILY@0600 11/26/19 12/05/19 bisacodyL [Bisacodyl] 10 mg RECTAL DAILY PRN 11/26/19 12/05/19 traMADol HCL [Ultram] 50 mg PO QID PRN 11/26/19 12/05/19 Collagenase [Santyl] 1 applic TOPICAL DAILY@0612/05/19 12/05/19 Cyanocobalamin [Vitamin B-12 1,000 mcg IM TH@1700 12/05/19 12/05/19 Injection] Folic Acid 1 mg PO DAILY@0812/05/19 12/05/19 cefTRIAXone [Rocephin] 2,000 mg IVP DAILY@79912/05/19 12/05/19 Previous Rx's Medication Instructions Recorded Ipratropium-Albuterol Nebulize 3 ml INHALATION RT-Q4H PRN ml 10/31/19 [Duoneb 0.5 mg-3 mg/3 ml Soln] tiZANidine [Zanaflex] 4 mg PO BID PRN #6 cap 10/31/19 clonazePAM [KlonoPIN] 0.5 mg PO TID PRN #10 tab 11/22/19 metroNIDAZOLE [Flagyl] 500 mg PO QID #42 tab 12/02/19 Allergies Allergy/AdvReac Type Severity Reaction Status Date / Time buspirone [From BuSpar] AdvReac Unknown Verified 12/05/19 16:19 Review of Systems ROS Statement: Those systems with pertinent positive or pertinent negative responses have been documented in the HPI. ROS Other: All systems not noted in ROS Statement are negative. Past Medical History Past Medical History: Chest Pain / Angina, Heart Failure, COPD, Eye Disorder, GERD/Reflux, Hypertension, Myocardial Infarction (NH), Osteoarthritis (OA), Pneumonia, Thyroid Disorder Additional Past Medical History / Comment(s): Pt states she has had problems with bilateral leg edema and sores/cellulitis for the past 2 years-at times everything improves and then worsens again and L leg is always worse, urinary incontinence, bronchitis, hypothyroid, DDD cervical spine and lower back, cervical and low back chronic pain, arthritis bilateral wrists and fingers, pt states she has been told she has a bone spur in her L ankle or foot, "blocked" bile duct a couple of times, migraines, possible bilateral cataracts, Last Myocardial Infarction Date:: about 2009-pt unsure where she was hospitalized. History of Any Multi-Drug Resistant Organisms: None Reported Past Surgical History: Appendectomy, Cholecystectomy, Heart Catheterization, Hysterectomy, Orthopedic Surgery Additional Past Surgical History / Comment(s): Cardiac cath about 2009 and pt states she was treated medically, EGDs to "unplug" bile duct, colonoscopies, bilateral salpingoophorectomies, L ankle shattered-surgical repair with hardware and pt believes hardware is all removed now, cystoscopies to "stretch" her bladder, cervical and low back injections. Past Anesthesia/Blood Transfusion Reactions: Motion Sickness Past Psychological History: Depression Smoking Status: Never smoker Past Alcohol Use History: None Reported Past Drug Use History: None Reported - Past Family History Mother Family Medical History: Cancer Additional Family Medical History / Comment(s): Mother from metastatic breast cancer at the age of 52 yrs. Father Family Medical History: Coronary Artery Disease (CAD), Myocardial Infarction (NH) Additional Family Medical History / Comment(s): Father had his first Mi around age 78yrs. He has about 3 MIs total and from his last one at the age of 80yrs. General Exam Limitations: no limitations General appearance: alert, in no apparent distress Head exam: Present: atraumatic, normocephalic, normal inspection Eye exam: Present: normal appearance, PERRL, EOMI. Absent: scleral icterus, conjunctival injection, periorbital swelling ENT exam: Present: normal exam, mucous membranes moist Neck exam: Present: normal inspection. Absent: tenderness, meningismus, lymphadenopathy Respiratory exam: Present: normal lung sounds bilaterally. Absent: respiratory distress, wheezes, rales, rhonchi, stridor Cardiovascular Exam: Present: regular rate, normal rhythm, normal heart sounds. Absent: systolic murmur, diastolic murmur, rubs, gallop, clicks GI/Abdominal exam: Present: soft, normal bowel sounds. Absent: distended, tenderness, guarding, rebound, rigid Extremities exam: Present: normal inspection, full ROM, normal capillary refill. Absent: tenderness, pedal edema, joint swelling, calf tenderness Back exam: Present: normal inspection Neurological exam: Present: alert, oriented X3, CN II-XII intact Psychiatric exam: Present: normal affect, normal mood Skin exam: Present: warm, dry, intact, normal color. Absent: rash Course Vital Signs 12/05/19 12/05/19 14:45 15:59 Temperature 98.1 F Pulse Rate 106 H 93 Respiratory 20 16 Rate Blood Pressure 109/54 107/50 O2 Sat by Pulse 96 98 Oximetry - Reevaluation(s) Reevaluation #1: 12/05/19 15:35 Medical records reviewed Reevaluation #2: 12/05/19 16:38 Patient informed results, questions answered Medical Decision Making - Medical Decision Making 74 female DF for evaluation patient's hemoglobin is improved here in the ER. At this time patient can be discharged home - Lab Data Result diagrams: 12/05/19 15:50 12/05/19 15:50 Lab Results 12/05/19 12/05/19 12/05/19 Range/Units 15:50 15:50 15:50 WBC 3.7 L (3.8-10.6) k/uL RBC 2.00 L (3.80-5.40) m/uL Hgb 7.3 L (11.4-16.0) gm/dL Hct 22.7 L (34.0-46.0) % MCV 113.5 H (80.0-100.0) fL MCH 36.6 H (25.0-35.0) pg MCHC 32.3 (31.0-37.0) g/dL RDW 19.4 H (11.5-15.5) % Plt Count 340 (150-450) k/uL Neutrophils % (Manual) 55 % Lymphocytes % (Manual) 39 % Monocytes % (Manual) 3 % Eosinophils % (Manual) 3 % Neutrophils # (Manual) 2.04 (1.3-7.7) k/uL Lymphocytes # (Manual) 1.44 (1.0-4.8) k/uL Monocytes # (Manual) 0.11 (0-1.0) k/uL Eosinophils # (Manual) 0.11 (0-0.7) k/uL Nucleated RBCs 0 (0-0) /100 WBC Manual Slide Review Performed Polychromasia Present Hypochromasia Slight Anisocytosis Slight Anisocytosis (manual) Present Macrocytosis Marked A Stomatocytes Present APTT 19.2 L (22.0-30.0) sec Sodium 136 L (137-145) mmol/L Potassium 4.6 (3.5-5.1) mmol/L Chloride 103 (98-107) mmol/L Carbon Dioxide 27 (22-30) mmol/L Anion Gap 6 mmol/L BUN 26 H (7-17) mg/dL Creatinine 0.82 (0.52-1.04) mg/dL Est GFR (CKD-EPI)AfAm 81 (>60 ml/min/1.73 sqM) Est GFR (CKD-EPI)NonAf 70 (>60 ml/min/1.73 sqM) Glucose 100 H (74-99) mg/dL Calcium 8.4 (8.4-10.2) mg/dL Magnesium 2.1 (1.6-2.3) mg/dL Total Bilirubin 0.4 (0.2-1.3) mg/dL AST 19 (14-36) U/L ALT 9 (4-34) U/L Alkaline Phosphatase 89 (38-126) U/L Troponin I (0.000-0.034) ng/mL Total Protein 7.1 (6.3-8.2) g/dL Albumin 3.6 (3.5-5.0) g/dL 12/05/19 Range/Units 15:50 WBC (3.8-10.6) k/uL RBC (3.80-5.40) m/uL Hgb (11.4-16.0) gm/dL Hct (34.0-46.0) % MCV (80.0-100.0) fL MCH (25.0-35.0) pg MCHC (31.0-37.0) g/dL RDW (11.5-15.5) % Plt Count (150-450) k/uL Neutrophils % (Manual) % Lymphocytes % (Manual) % Monocytes % (Manual) % Eosinophils % (Manual) % Neutrophils # (Manual) (1.3-7.7) k/uL Lymphocytes # (Manual) (1.0-4.8) k/uL Monocytes # (Manual) (0-1.0) k/uL Eosinophils # (Manual) (0-0.7) k/uL Nucleated RBCs (0-0) /100 WBC Manual Slide Review Polychromasia Hypochromasia Anisocytosis Anisocytosis (manual) Macrocytosis Stomatocytes APTT (22.0-30.0) sec Sodium (137-145) mmol/L Potassium (3.5-5.1) mmol/L Chloride (98-107) mmol/L Carbon Dioxide (22-30) mmol/L Anion Gap mmol/L BUN (7-17) mg/dL Creatinine (0.52-1.04) mg/dL Est GFR (CKD-EPI)AfAm (>60 ml/min/1.73 sqM) Est GFR (CKD-EPI)NonAf (>60 ml/min/1.73 sqM) Glucose (74-99) mg/dL Calcium (8.4-10.2) mg/dL Magnesium (1.6-2.3) mg/dL Total Bilirubin (0.2-1.3) mg/dL AST (14-36) U/L ALT (4-34) U/L Alkaline Phosphatase (38-126) U/L Troponin I <0.012 (0.000-0.034) ng/mL Total Protein (6.3-8.2) g/dL Albumin (3.5-5.0) g/dL Disposition Clinical Impression: Anemia Disposition: HOME SELF-CARE Condition: Good Instructions (If sedation given, give patient instructions): Anemia (ED) Is patient prescribed a controlled substance at d/c from ED?: No Referrals: Drew Mendoza MD [Primary Care Provider] - 1-2 days
[2019-12-05 16:10] LABS: Albumin 3.6 g/dL (3.5-5.0); Calcium 8.4 mg/dL (8.4-10.2); Magnesium 2.1 mg/dL (1.6-2.3); Potassium 4.6 mmol/L (3.5-5.1); Total Bilirubin 0.4 mg/dL (0.2-1.3); Total Protein 7.1 g/dL (6.3-8.2)
[2019-12-05 16:18] LABS: Anisocytosis Slight; HCT 22.7 % (34.0-46.0); HGB 7.3 gm/dL (11.4-16.0); Hypochromasia Slight; MCH 36.6 pg (25.0-35.0); MCHC 32.3 g/dL (31.0-37.0); MCV 113.5 fL (80.0-100.0); Macrocytosis Marked; Mean Platelet Volume 10.4; Platelet Count 340 k/uL (150-450); RDW 19.4 % (11.5-15.5); WBC 3.7 k/uL (3.8-10.6)
[2019-12-05 16:36] LABS: Anisocytosis (M) Present; Eosinophils # (M) 0.11 k/uL (0-0.7); Lymphocytes # (M) 1.44 k/uL (1.0-4.8); Monocytes # (M) 0.11 k/uL (0-1.0); Neutrophils # (M) 2.04 k/uL (1.3-7.7); Neutrophils % (M) 55 %; Nucleated Red Blood Cells 0 /100 WBC (0-0); Polychromasia Present; Total Cells Counted 100
[2019-12-05 16:37] LABS: Stomatocytes Present
[2019-12-05 17:07] VITALS: BP 108/59; PULSE 84; RESP 18; TEMP 97.8
== END 2019-12-05 18:15 | disposition home or self-care (01) ==
LOC: EC 14:42
DX: D64.9 Anemia, unspecified (principal); I11.0 Hypertensive heart disease with heart failure; I50.9 Heart failure, unspecified; I25.2 Old myocardial infarction; E03.9 Hypothyroidism, unspecified; F32.9 Major depressive disorder, single episode, unspecified; K21.9 Gastro-esophageal reflux disease without esophagitis; Z79.4 Long term (current) use of insulin; Z79.890 Hormone replacement therapy; Z79.899 Other long term (current) drug therapy; Z88.8 Allergy status to other drugs, medicaments and biological substances
CPT/HCPCS: 36415; 86900; 86901; 80053; 83735; 84484; 85025; 85730; 86850; 99284; 96374; 96375; 96361; J2405; C9113

== ENCOUNTER 2019-12-12 12:33 | Emergency (ER) | payer MEDICARE ==
[2019-12-12 12:40] VITALS: RESP 16
--- NOTE | 2019-12-12 12:49 | ED ---
General Adult HPI - General Chief complaint: Recheck/Abnormal Lab/Rx Stated complaint: Abn Labs Time Seen by Provider: 12/12/19 12:40 Source: patient, RN notes reviewed, old records reviewed Mode of arrival: EMS Limitations: no limitations - History of Present Illness Initial comments: 74-year-old female presenting for evaluation of abnormal labs. Patient was found to be anemic and sent to the emergency department for evaluation. She denies symptoms. No chest pain or dyspnea. No lightheadedness. Denies bright red rectal bleeding or melena. Denies abdominal pain. Denies vomiting. Denies fever. - Related Data Home Medications Medication Instructions Recorded Confirmed Acetaminophen [Tylenol] 650 mg PO Q4H PRN 11/18/19 12/12/19 INSULIN ASPART (NovoLOG) [NovoLOG See Protocol SQ ACHS 11/18/19 12/12/19 (formulary)] Levothyroxine Sodium 200 mcg PO DAILY@0600 11/18/19 12/12/19 Liquacel 30 ml PO BID@0800,1700 11/18/19 12/12/19 lisinopriL [Prinivil] 20 mg PO DAILY@0800 11/18/19 12/12/19 Furosemide [Lasix] 40 mg PO DAILY@0800 11/26/19 12/12/19 HYDROcodone/APAP 5-325MG [[place] 1 tab PO Q4H PRN 11/26/19 12/12/19 5-325] Magnesium Hydroxide [Milk of 7,200 mg PO Q48H PRN 11/26/19 12/12/19 Magnesia Concentrate] Mirtazapine 15 mg PO HS PRN 11/26/19 12/12/19 Na Phos,M-B/Na Phos,Di-Ba [Fleet 133 ml RECTAL DAILY PRN 11/26/19 12/12/19 Adult] Ondansetron Odt [Zofran ODT] 4 mg PO Q8H PRN 11/26/19 12/12/19 Pantoprazole [Protonix] 40 mg PO DAILY@0600 11/26/19 12/12/19 bisacodyL [Bisacodyl] 10 mg RECTAL DAILY PRN 11/26/19 12/12/19 traMADol HCL [Ultram] 50 mg PO QID PRN 11/26/19 12/12/19 Collagenase [Santyl] 1 applic TOPICAL DAILY@0600 12/05/19 12/12/19 Cyanocobalamin [Vitamin B-12 1,000 mcg IM TH@1700 12/05/19 12/12/19 Injection] Folic Acid 1 mg PO DAILY@0812/05/19 12/12/19 cefTRIAXone [Rocephin] 2,000 mg IVP DAILY@0812/05/19 12/12/19 Loperamide HCl [Imodium A-D] 4 mg PO BID PRN 12/12/19 12/12/19 Previous Rx's Medication Instructions Recorded Ipratropium-Albuterol Nebulize 3 ml INHALATION RT-Q4H PRN ml 10/31/19 [Duoneb 0.5 mg-3 mg/3 ml Soln] tiZANidine [Zanaflex] 4 mg PO BID PRN #6 cap 10/31/19 clonazePAM [KlonoPIN] 0.5 mg PO TID PRN #10 tab 11/22/19 metroNIDAZOLE [Flagyl] 500 mg PO QID #42 tab 12/02/19 Allergies Allergy/AdvReac Type Severity Reaction Status Date / Time buspirone [From BuSpar] AdvReac Unknown Verified 12/12/19 13:09 Review of Systems ROS Statement: Those systems with pertinent positive or pertinent negative responses have been documented in the HPI. ROS Other: All systems not noted in ROS Statement are negative. Past Medical History Past Medical History: Chest Pain / Angina, Heart Failure, COPD, Eye Disorder, GERD/Reflux, Hypertension, Myocardial Infarction (MS), Osteoarthritis (OA), Pneumonia, Thyroid Disorder Additional Past Medical History / Comment(s): Pt states she has had problems with bilateral leg edema and sores/cellulitis for the past 2 years-at times everything improves and then worsens again and L leg is always worse, urinary incontinence, bronchitis, hypothyroid, DDD cervical spine and lower back, cervical and low back chronic pain, arthritis bilateral wrists and fingers, pt states she has been told she has a bone spur in her L ankle or foot, "blocked" bile duct a couple of times, migraines, possible bilateral cataracts, Last Myocardial Infarction Date:: about 2009-pt unsure where she was hospitalized. History of Any Multi-Drug Resistant Organisms: None Reported Past Surgical History: Appendectomy, Cholecystectomy, Heart Catheterization, Hysterectomy, Orthopedic Surgery Additional Past Surgical History / Comment(s): Cardiac cath about 2009 and pt states she was treated medically, EGDs to "unplug" bile duct, colonoscopies, bilateral salpingoophorectomies, L ankle shattered-surgical repair with hardware and pt believes hardware is all removed now, cystoscopies to "stretch" her bladder, cervical and low back injections. Past Anesthesia/Blood Transfusion Reactions: Motion Sickness Past Psychological History: Depression Smoking Status: Never smoker Past Alcohol Use History: None Reported Past Drug Use History: None Reported - Past Family History Mother Family Medical History: Cancer Additional Family Medical History / Comment(s): Mother from metastatic breast cancer at the age of 52 yrs. Father Family Medical History: Coronary Artery Disease (CAD), Myocardial Infarction (MS) Additional Family Medical History / Comment(s): Father had his first Mi around age 78yrs. He has about 3 MIs total and from his last one at the age of 80yrs. General Exam Limitations: no limitations General appearance: alert, in no apparent distress Head exam: Present: atraumatic, normocephalic Eye exam: Present: normal appearance, PERRL ENT exam: Present: normal exam Neck exam: Present: normal inspection. Absent: tenderness, meningismus Respiratory exam: Present: normal lung sounds bilaterally. Absent: respiratory distress, wheezes Cardiovascular Exam: Present: regular rate, normal rhythm GI/Abdominal exam: Present: soft. Absent: distended, tenderness, guarding, rebound Rectal exam: Present: normal inspection. Absent: black stool, bloody stool Extremities exam: Present: normal inspection, normal capillary refill Neurological exam: Present: alert, oriented X3, CN II-XII intact. Absent: motor sensory deficit Psychiatric exam: Present: normal affect, normal mood Skin exam: Present: warm, dry, intact, pallor Course Vital Signs 12/12/19 12:37 Temperature 98.3 F Pulse Rate 92 Respiratory 16 Rate Blood Pressure 113/64 O2 Sat by Pulse 97 Oximetry Medical Decision Making - Medical Decision Making 74-year-old female presenting for evaluation of low hemoglobin. This is rechecked in the emergency department, this is 7.6. There is no signs of bleeding. She has been anemic for the past several months. Her stool sample is negative for bleeding. I discussed case with patient and the patient's son. At this time she will be [facility] for close monitoring. - Lab Data Result diagrams: 12/12/19 12:47 12/12/19 12:47 Lab Results 12/12/19 12/12/19 12/12/19 Range/Units 12:47 12:47 12:47 WBC 4.0 (3.8-10.6) k/uL RBC 2.08 L (3.80-5.40) m/uL Hgb 7.6 L (11.4-16.0) gm/dL Hct 23.7 L (34.0-46.0) % MCV 114.3 H (80.0-100.0) fL MCH 36.7 H (25.0-35.0) pg MCHC 32.1 (31.0-37.0) g/dL RDW 19.6 H (11.5-15.5) % Plt Count 328 (150-450) k/uL Neutrophils % 57 % Lymphocytes % 30 % Monocytes % 7 % Eosinophils % 3 % Basophils % 0 % Neutrophils # 2.3 (1.3-7.7) k/uL Lymphocytes # 1.2 (1.0-4.8) k/uL Monocytes # 0.3 (0-1.0) k/uL Eosinophils # 0.1 (0-0.7) k/uL Basophils # 0.0 (0-0.2) k/uL Manual Slide Review Performed Large Platelets Present Hypochromasia Slight Anisocytosis Slight Macrocytosis Marked A APTT 17.8 L (22.0-30.0) sec Sodium (137-145) mmol/L Potassium (3.5-5.1) mmol/L Chloride (98-107) mmol/L Carbon Dioxide (22-30) mmol/L Anion Gap mmol/L BUN (7-17) mg/dL Creatinine (0.52-1.04) mg/dL Est GFR (CKD-EPI)AfAm (>60 ml/min/1.73 sqM) Est GFR (CKD-EPI)NonAf (>60 ml/min/1.73 sqM) Glucose (74-99) mg/dL Calcium (8.4-10.2) mg/dL Magnesium (1.6-2.3) mg/dL Total Bilirubin (0.2-1.3) mg/dL AST (14-36) U/L ALT (4-34) U/L Alkaline Phosphatase (38-126) U/L Total Protein (6.3-8.2) g/dL Albumin (3.5-5.0) g/dL Stool Occult Blood Negative (Negative) Blood Type Blood Type Recheck Bld Type Recheck Status Antibody Screen Spec Expiration Date 12/12/19 12/12/19 Range/Units 12:47 12:47 WBC (3.8-10.6) k/uL RBC (3.80-5.40) m/uL Hgb (11.4-16.0) gm/dL Hct (34.0-46.0) % MCV (80.0-100.0) fL MCH (25.0-35.0) pg MCHC (31.0-37.0) g/dL RDW (11.5-15.5) % Plt Count (150-450) k/uL Neutrophils % % Lymphocytes % % Monocytes % % Eosinophils % % Basophils % % Neutrophils # (1.3-7.7) k/uL Lymphocytes # (1.0-4.8) k/uL Monocytes # (0-1.0) k/uL Eosinophils # (0-0.7) k/uL Basophils # (0-0.2) k/uL Manual Slide Review Large Platelets Hypochromasia Anisocytosis Macrocytosis APTT (22.0-30.0) sec Sodium 135 L (137-145) mmol/L Potassium 4.5 (3.5-5.1) mmol/L Chloride 102 (98-107) mmol/L Carbon Dioxide 27 (22-30) mmol/L Anion Gap 6 mmol/L BUN 13 (7-17) mg/dL Creatinine 0.61 (0.52-1.04) mg/dL Est GFR (CKD-EPI)AfAm >90 (>60 ml/min/1.73 sqM) Est GFR (CKD-EPI)NonAf 88 (>60 ml/min/1.73 sqM) Glucose 112 H (74-99) mg/dL Calcium 8.2 L (8.4-10.2) mg/dL Magnesium 2.0 (1.6-2.3) mg/dL Total Bilirubin 0.5 (0.2-1.3) mg/dL AST 16 (14-36) U/L ALT 7 (4-34) U/L Alkaline Phosphatase 82 (38-126) U/L Total Protein 7.2 (6.3-8.2) g/dL Albumin 3.5 (3.5-5.0) g/dL Stool Occult Blood (Negative) Blood Type A Positive Blood Type Recheck A Pos Bld Type Recheck Status No Antibody Screen NEGATIVE Spec Expiration Date 12/15/2019 - 234 Disposition Clinical Impression: Anemia Disposition: HOME SELF-CARE Condition: Fair Is patient prescribed a controlled substance at d/c from ED?: No Referrals: Kota Thrasher MD [Primary Care Provider] - 1-2 days Time of Disposition: 14:58
[2019-12-12 13:34] LABS: Anisocytosis Slight; Basophils % (A) 0 %; Eosinophils # (A) 0.1 k/uL (0-0.7); Eosinophils % (A) 3 %; HCT 23.7 % (34.0-46.0); HGB 7.6 gm/dL (11.4-16.0); Hypochromasia Slight; Lymphocytes # (A) 1.2 k/uL (1.0-4.8); Lymphocytes % (A) 30 %; MCH 36.7 pg (25.0-35.0); MCHC 32.1 g/dL (31.0-37.0); MCV 114.3 fL (80.0-100.0); Macrocytosis Marked; Mean Platelet Volume 10.2; Monocytes # (A) 0.3 k/uL (0-1.0); Monocytes % (A) 7 %; Neutrophils # (A) 2.3 k/uL (1.3-7.7); Neutrophils % (A) 57 %; Platelet Count 328 k/uL (150-450); Potassium 4.5 mmol/L (3.5-5.1); RBC 2.08 m/uL (3.80-5.40); RDW 19.6 % (11.5-15.5)
[2019-12-12 13:35] LABS: ALT 7 U/L (4-34); AST 16 U/L (14-36); African American GFR (CKD) >90 (>60 ml/min/1.73 sqM); Albumin 3.5 g/dL (3.5-5.0); Alkaline Phosphatase 82 U/L (38-126); Anion Gap 6 mmol/L; Blood Urea Nitrogen 13 mg/dL (7-17); Calcium 8.2 mg/dL (8.4-10.2); Carbon Dioxide 27 mmol/L (22-30); Chloride 102 mmol/L (98-107); Glucose 112 mg/dL (74-99); Non-African American GFR(CKD) 88 (>60 ml/min/1.73 sqM); Sodium 135 mmol/L (137-145); Total Bilirubin 0.5 mg/dL (0.2-1.3); Total Protein 7.2 g/dL (6.3-8.2)
[2019-12-12] MEDS ORDERED: HYDROcodone/APAP 5-325MG 1 EACH TAB PO STA (13:52)
[2019-12-12 13:59] LABS: Large Platelets Present
[2019-12-12 15:09] VITALS: BP 110/66; PULSE 96; TEMP 98
== END 2019-12-12 15:39 | disposition home or self-care (01) ==
LOC: EC 12:33
DX: D64.9 Anemia, unspecified (principal); I11.0 Hypertensive heart disease with heart failure; I50.9 Heart failure, unspecified; I25.2 Old myocardial infarction; J44.9 Chronic obstructive pulmonary disease, unspecified; E03.9 Hypothyroidism, unspecified; K21.9 Gastro-esophageal reflux disease without esophagitis; Z79.899 Other long term (current) drug therapy; Z79.890 Hormone replacement therapy; Z79.4 Long term (current) use of insulin; Z88.8 Allergy status to other drugs, medicaments and biological substances
CPT/HCPCS: 36415; 80053; 82272; 83735; 85025; 85730; 86850; 86900; 86901; 99284